=== PATIENT | female | born 1990 | race Caucasian/White ===

== ENCOUNTER → 2022-02-17 | Outpatient (CLI) | payer OTHER ==
--- NOTE | 2022-02-17 14:04 | Diagnostic Imaging Report ---
PROCEDURE: Pelvic comp/transvaginal sonogram. TECHNIQUE: Complete transabdominal and transvaginal pelvic ultrasound was performed. In addition, limited pelvic Doppler was performed. INDICATION: Vaginal bleeding. Uterus measures 9.0 x 5.6 x 5.0 cm. Endometrium is 6 cm in thickness. There appears to be a fibroid in the region of the uterine fundus approximately 14 mm in size. There is a large cervical nabothian cyst approximately 16 mm in size. There is a questionable mass with cystic component and anterior cervix measuring 2.4 x 1.6 cm. A 2nd area of questionable mass in the cervix is noted measuring 1.8 x 1.67 m. Right ovary measures 3.0 x 1.8 x 1.9 cm and left ovary measures 2.5 x 2.2 x 1.8 cm. Ovaries contain small follicles. There is blood flow to the ovaries. IMPRESSION: 1. Small uterine fibroid. 2. Questionable masses in the right in the cervix, as described. Direct visualization would be recommended. No other significant abnormality is detected. Dictated by: Dictated on workstation # [id number]
== END ==
LOC: RAD FS 12:39
PROVIDERS: ATTEND Nurse Practitioner Family
DX: D25.9 Leiomyoma of uterus, unspecified (principal)
CPT/HCPCS: 76830; 76856

== ENCOUNTER → 2022-03-04 | Outpatient (CLI) | payer OTHER ==
[~2022-03-04] MED LIST: CATHETER FLUSH 10 ML SYR IV PRN; HOLD METFORMIN - RECEIVED CONTRAST 20 ML VIAL IV SCH; IOHEXOL 350 MG/ML 100 ML (OMNIPAQUE 350) VIAL IV ONE; NS (IVPB) 100 ML INJ ONE; NS 100 ML (IVPB) BAG IV ONE
--- NOTE | 2022-03-04 09:47 | Diagnostic Imaging Report ---
CLINICAL INDICATION: Followup cervical mass. Patient has history of tubal ligation. EXAM: Axial CT scan of the pelvis performed with 80 mL of Omnipaque 350 IV contrast. Sagittal and coronal reformatted images are created. Auto Exposure Controls were utilized during the CT exam to meet ALARA standards for radiation dose reduction. COMPARISON: Ultrasound of the pelvis dated 02/17/2022. FINDINGS: There is a heterogeneous enhancing mass like area in the region of the cervix which extends into the lower uterine segment and along the right side toward the fundus. This mass measures at least 5.1 cm x 6.1 cm x 8.3 cm (AP x Trans x CC) . This mass has small areas of air within it. There is a lobulated low T1 signal involving the right side of the uterus and this may possibly represent right ovary and/or component of the mass. Left adnexal region shows no significant abnormality. There is a small amount of fluid within the uterine fundus. There is a 1.8 cm x 0.9 cm lymph node along the proximal right external iliac chain. There is no other enlarged lymph nodes seen. Visualized portions appendix is unremarkable. Limited visualization of small bowel and colon are unremarkable. The bladder has small amount of fluid within it with bladder wall thickening which is nonspecific. IMPRESSION: 1: There is an 8.3 cm heterogeneous enhancing mass which appears centered in the cervix and extends within the lower uterine segment and along the right lower uterine fundus region. This finding is concerning for neoplasm. Gynecological consultation is suggested. 2: There is an enlarged lymph node in the proximal right external iliac chain. 3: The right ovary is not definitively visualized and may be closely adjacent to the right side of the uterus. Dictated by: Dictated on workstation # [id number]
== END ==
LOC: RAD FS 08:53
PROVIDERS: ATTEND Nurse Practitioner Family
DX: N88.8 Other specified noninflammatory disorders of cervix uteri (principal); N89.8 Other specified noninflammatory disorders of vagina; N93.9 Abnormal uterine and vaginal bleeding, unspecified; R59.0 Localized enlarged lymph nodes
CPT/HCPCS: 72193; Q9967

== ENCOUNTER 2022-03-19 07:16 | Emergency (ER) | payer SELFPAY ==
[~2022-03-19] VITALS: Ht 160 cm; Wt 81.6 kg
[2022-03-19] MEDS ORDERED: LORazepam 0.5 MG (ATIVAN) TABLET PO STA (07:23)
--- NOTE | 2022-03-19 07:28 | ED Chest Pain ---
General Stated Complaint: POSSIBLE ALLERGIC REACTION, CHEST TIGHTNESS Source: patient Exam Limitations: no limitations History of Present Illness Date Seen by Provider: Mar 19, 2022 Time Seen by Provider: 07:18 Initial Comments 31-year-old female with no pertinent past medical history that is undergoing work-up for localized cervical cancer coming in due to right-sided chest tightness. She takes tramadol daily and has been for some time, but recently was prescribed gabapentin. She took her first dose of her at 6:15 AM this morning. She immediately started feeling some chest tightness on her right side, and was concerned that she was having an allergic reaction. She states she has similar reactions to morphine and codeine which she is allergic to. Denies any shortness of breath, cough, fever, chills, wheezing, rash, nausea, vomiting, diarrhea, or any other concerns. Denies any prior history of DVT or PE, no recent surgery in which she was under general anesthesia, no recent long travel, does not take any hormones, no hemoptysis, no lower extremity swelling or pain. She also denies any cardiac or pulmonary history personally. She smokes a pack of cigarettes over the course of roughly 10 days. Allergies and Home Medications Allergies Coded Allergies: codeine (Verified Allergy, Mild, chest tightness, 03/19/22) morphine (Verified Allergy, Mild, chest tightness, 03/19/22) Patient Home Medication List Home Medication List Reviewed: Yes Review of Systems Review of Systems Constitutional: No fever EENTM: No Symptoms Reported Respiratory: No Symptoms Reported Cardiovascular: See HPI Gastrointestinal: No Symptoms Reported Genitourinary: No Symptoms Reported Musculoskeletal: no symptoms reported Skin: no symptoms reported Psychiatric/Neurological: No Symptoms Reported Endocrine: No Symptoms Reported Hematologic/Lymphatic: No Symptoms Reported All Other Systems Reviewed Negative Unless Noted: Yes Past Rmbxwlb-Ugrzvx-Tfzoqb Hx Patient Social History Tobacco Use?: Yes Tobacco type used: Cigarettes Substance use?: No Substance type: Methamphetamine (last smoked methamphetamines roughly 10/2021) Alcohol Use?: No Past Medical History Surgeries: Yes Gallbladder, Tubal Ligation Reproductive Disorders: No Physical Exam Vital Signs Vital Signs - First Documented 03/19/22 07:22 Temp 36.5 Pulse 88 Resp 20 B/P (MAP) 140/84 (102) Pulse Ox 99 O2 Delivery Room Air Capillary Refill : Height, Weight, BMI Height: '" Weight: lbs. oz. kg; BMI Method: General Appearance: No Apparent Distress, WD/WN HEENT: PERRL/EOMI, Normal ENT Inspection, Pharynx Normal Neck: Full Range of Motion, Normal Inspection, Non Tender, Supple Respiratory: Chest Non Tender, Lungs Clear, Normal Breath Sounds, No Accessory Muscle Use, No Respiratory Distress Cardiovascular: Regular Rate, Rhythm, No Edema, Normal Peripheral Pulses Gastrointestinal: Normal Bowel Sounds, Non Tender, Soft; No Distended, No Guarding Extremity: Normal Capillary Refill, Normal Inspection, Normal Range of Motion, Non Tender, No Calf Tenderness, No Pedal Edema Neurologic/Psychiatric: Alert, No Motor/Sensory Deficits, Normal Mood/Affect Skin: Normal Color, Warm/Dry Lymphatic: No Adenopathy Progress/Results/Core Measures Results/Orders Lab Results Laboratory Tests Test 03/19/22 07:29 Range/Units White Blood Count 6.3 4.3-11.0 10^3/uL Red Blood Count 4.66 3.80-5.11 10^6/uL Hemoglobin 11.8 11.5-16.0 g/dL Hematocrit 36 35-52 % Mean Corpuscular Volume 77 L 80-99 fL Mean Corpuscular Hemoglobin 25 25-34 pg Mean Corpuscular Hemoglobin Concent 33 32-36 g/dL Red Cell Distribution Width 13.7 10.0-14.5 % Platelet Count 250 130-400 10^3/uL Mean Platelet Volume 11.6 9.0-12.2 fL Immature Granulocyte % (Auto) 0 % Neutrophils (%) (Auto) 58 42-75 % Lymphocytes (%) (Auto) 29 12-44 % Monocytes (%) (Auto) 11 0-12 % Eosinophils (%) (Auto) 1 0-10 % Basophils (%) (Auto) 0 0-10 % Neutrophils # (Auto) 3.7 1.8-7.8 10^3/uL Lymphocytes # (Auto) 1.9 1.0-4.0 10^3/uL Monocytes # (Auto) 0.7 0.0-1.0 10^3/uL Eosinophils # (Auto) 0.1 0.0-0.3 10^3/uL Basophils # (Auto) 0.0 0.0-0.1 10^3/uL Immature Granulocyte # (Auto) 0.0 0.0-0.1 10^3/uL Prothrombin Time 13.3 12.2-14.7 SEC INR Comment 1.0 0.8-1.4 Activated Partial Thromboplast Time 30 24-35 SEC Sodium Level 139 135-145 MMOL/L Potassium Level 3.7 3.6-5.0 MMOL/L Chloride Level 103 98-107 MMOL/L Carbon Dioxide Level 25 21-32 MMOL/L Anion Gap 11 5-14 MMOL/L Blood Urea Nitrogen 10 7-18 MG/DL Creatinine 0.78 0.60-1.30 MG/DL Estimat Glomerular Filtration Rate 103 BUN/Creatinine Ratio 13 Glucose Level 84 70-105 MG/DL Calcium Level 9.6 8.5-10.1 MG/DL Corrected Calcium 9.5 8.5-10.1 MG/DL Magnesium Level 1.8 1.6-2.4 MG/DL Total Bilirubin 0.2 0.1-1.0 MG/DL Aspartate Amino Transf (AST/SGOT) 30 5-34 U/L Alanine Aminotransferase (ALT/SGPT) 37 0-55 U/L Alkaline Phosphatase 127 40-136 U/L Troponin I < 0.30 <0.30 NG/ML Total Protein 7.3 6.4-8.2 GM/DL Albumin 4.1 3.2-4.5 GM/DL Lipase 20 8-78 U/L My Orders Orders - SURJIT NEWBERRY MD Cbc With Automated Diff (03/19/22 07:23) Magnesium (03/19/22 07:23) Chest 1 View Ap/Pa Only (03/19/22 07:23) Ekg Tracing (03/19/22 07:23) Comprehensive Metabolic Panel (03/19/22 07:23) Protime With Inr (03/19/22 07:23) Partial Thromboplastin Time (03/19/22 07:23) O2 (03/19/22 07:23) Monitor-Rhythm Ecg Trace Only (03/19/22 07:23) Ed Iv/Invasive Line Start (03/19/22 07:23) Lipase (03/19/22 07:23) Troponin I Fs (03/19/22 07:23) Probnp Fs (03/19/22 07:23) Lorazepam Tablet (Ativan Tablet) (03/19/22 07:23) Vital Signs/I&O 03/19/22 07:22 Temp 36.5 Pulse 88 Resp 20 B/P (MAP) 140/84 (102) Pulse Ox 99 O2 Delivery Room Air Progress Progress Note : Progress Note 31-year-old female presenting due to chest tightness after taking some gabapentin. ABCs were intact and vitals are stable on presentation. Physical exam reassuring, specifically she is not showing any signs of any type of allergic reaction. Her skin is clear with no urticaria, lungs clear with no wheezing, no vomiting, and overall no signs of anaphylaxis. Given she has only ever taken gabapentin just this one time, it's very unlikely that this is allergic in nature. An IV was placed and basic labs were obtained including cardiac biomarkers. It is possible this is an unwanted side effect. In regards to her chest tightness in general, EKG on my interpretation with no ischemic changes and troponin is negative. Given her age and lack of risk factors, highly unlikely this is ACS related. She is otherwise low risk for PE of the [place] criteria, and is PERC negative making PE extremely unlikely. CTA chest considered, but not ordered given the unlikeliness. Chest x-ray ordered and interpreted by me showing no pneumonia, no pneumothorax, normal cardiac silhouette. 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 I believe she is otherwise stable for discharge with outpatient follow-up. She was sent home with strict return precautions. Initial ECG Impression Date: Mar 19, 2022 Initial ECG Impression Time: 07:27 Initial ECG Rate: 84 Initial ECG Rhythm: Normal Sinus Comment Narrow QRS, normal axis, no significant ST changes or T wave abnormalities Diagnostic Imaging Diagonstic Imaging: Xray (chest) Comments NAME: SHELLEY JUDD MED REC#: [id number] PT STATUS: REG ER : 1990 PHYSICIAN: SURJIT NEWBERRY MD ADMIT DATE: 03/19/22/ER FS Draft Date of Exam:03/19/22 CHEST 1 VIEW AP/PA ONLY INDICATION: Chest tightness and dyspnea, possible allergic reaction. COMPARISON: None. DISCUSSION: Single portable upright view of the chest was obtained. Normal heart size. No consolidation, pleural fluid, or pneumothorax. No osseous abnormality. IMPRESSION: 1. Negative chest. Dictated on workstation # [id number] Dict: 03/19/22 0756 Trans: 03/19/22 0758 [facility] [id number] Interpreted by: YOLANDA RAGLAND MD Electronically signed by: Departure Impression Primary Impression: Chest tightness Additional Impression: At risk for side effect of medication Disposition: HOME, SELF-CARE Condition: Stable Departure-Patient Inst. Decision time for Depature: 08:15 Referrals: EVE MILLER APRN (PCP/Family) Primary Care Physician Patient Instructions: Chest Pain, Adult ED Add. Discharge Instructions: This does not seem like an allergic reaction, although it is possible it was an unwanted side effect of the gabapentin. It also does not appear like you are having anything more life-threatening such as a heart attack or blood clot. Your work-up including labs and imaging looks normal. I would follow back up with your regular doctor to see if they would want you to continue the gabapentin before you take any more. Work/School Note: Work Release Form Date Seen in the Emergency Department: Mar 19, 2022 Return to Work: Mar 20, 2022 Restrictions: No Restrictions SURJIT NEWBERRY MD Mar 19, 2022 07:28
[2022-03-19 07:31] LABS: BASOPHILS % (AUTO) 0 % (0-10); EOSINOPHILS # (AUTO) 0.1 10^3/uL (0.0-0.3); EOSINOPHILS % (AUTO) 1 % (0-10); HEMATOCRIT 36 % (35-52); HEMOGLOBIN 11.8 g/dL (11.5-16.0); LYMPHOCYTES # (AUTO) 1.9 10^3/uL (1.0-4.0); LYMPHOCYTES % (AUTO) 29 % (12-44); MEAN CORPUSCULAR HEMOGLOBIN 25 pg (25-34); MEAN CORPUSCULAR HGB CONC 33 g/dL (32-36); MEAN CORPUSCULAR VOLUME 77 fL (80-99); MEAN PLATELET VOLUME 11.6 fL (9.0-12.2); MONOCYTES # (AUTO) 0.7 10^3/uL (0.0-1.0); MONOCYTES % (AUTO) 11 % (0-12); NEUTROPHILS # (AUTO) 3.7 10^3/uL (1.8-7.8); NEUTROPHILS % (AUTO) 58 % (42-75); PLATELET COUNT 250 10^3/uL (130-400); WHITE BLOOD COUNT 6.3 10^3/uL (4.3-11.0)
[2022-03-19 07:54] LABS: ALBUMIN 4.1 GM/DL (3.2-4.5); BILIRUBIN,TOTAL 0.2 MG/DL (0.1-1.0); CALCIUM 9.6 MG/DL (8.5-10.1); CREATININE SERUM 0.78 MG/DL (0.60-1.30); MAGNESIUM 1.8 MG/DL (1.6-2.4); POTASSIUM 3.7 MMOL/L (3.6-5.0); PROTHROMBIN TIME PATIENT 13.3 SEC (12.2-14.7); TOTAL PROTEIN 7.3 GM/DL (6.4-8.2)
--- NOTE | 2022-03-19 07:58 | Diagnostic Imaging Report ---
INDICATION: Chest tightness and dyspnea, possible allergic reaction. COMPARISON: None. DISCUSSION: Single portable upright view of the chest was obtained. Normal heart size. No consolidation, pleural fluid, or pneumothorax. No osseous abnormality. IMPRESSION: 1. Negative chest. Dictated by: Dictated on workstation # [id number]
[2022-03-19 08:03] VITALS: BP 123/77
== END 2022-03-19 08:04 | disposition home or self-care (01) ==
LOC: EDUNIT# 07:16 → ER FS 07:19
DX: R07.89 Other chest pain (principal); T42.6X5A Adverse effect of other antiepileptic and sedative-hypnotic drugs, initial encounter; F17.210 Nicotine dependence, cigarettes, uncomplicated
CPT/HCPCS: 36415; 71045; 80053; 83690; 83735; 83880; 84484; 85025; 85610; 85730; 93005

== ENCOUNTER → 2022-04-19 | Outpatient (CLI) | payer MEDICAID ==
[~2022-04-19] MED LIST changes: -CATHETER FLUSH 10 ML SYR IV PRN; +CEFD300C3 PO; +GADOTERATE 0.5 MMOL/ML (CLARISCAN) 20 ML VIAL IV ONE; -HOLD METFORMIN - RECEIVED CONTRAST 20 ML VIAL IV SCH; -IOHEXOL 350 MG/ML 100 ML (OMNIPAQUE 350) VIAL IV ONE; -NS (IVPB) 100 ML INJ ONE; -NS 100 ML (IVPB) BAG IV ONE
--- NOTE | 2022-04-19 15:41 | Diagnostic Imaging Report ---
PROCEDURE: MRI pelvis with and without contrast. TECHNIQUE: Multiplanar, multisequence MRI of the pelvis was performed with and without contrast. INDICATION: Cervical cancer. COMPARISON: None available. FINDINGS: There is a 7.4 x 6.5 x 6.5 cm mass centered in the cervix. There is central necrosis. There is invasion into the lower uterine segment. The tumor involves the upper one/third of the vagina and there is invasion through the stromal ring of the cervix with soft tissue seen in the parametrium bilaterally. There is no involvement of the lower one/third of the vagina. No involvement of the pelvic floor. There is no hydronephrosis. There is a preserved fat plane between the mass and the bladder. No involvement of the urethra. There is a preserved fat plane with the rectum with no invasion of the rectum. There is a hemorrhagic cyst in the left ovary. There is an enlarged 1.0 cm right internal iliac lymph node. There is an enlarged 1.0 cm left pelvic sidewall lymph node. No osseus lesions are seen. IMPRESSION: 1. Large cervical mass measuring 7.4 x 6.5 x 6.5 cm. 2. The mass invades the lower uterine segment, upper one/third of the vagina, and extends into the parametrium bilaterally. There is no involvement of the lower one/third of the vagina. 3. Enlarged right internal iliac lymph node and left pelvic sidewall lymph nodes. Dictated by: Dictated on workstation # [id number]
== END ==
LOC: RAD 08:37
PROVIDERS: ATTEND Obstetrics & Gynecology
DX: N88.8 Other specified noninflammatory disorders of cervix uteri (principal); C53.9 Malignant neoplasm of cervix uteri, unspecified; R59.9 Enlarged lymph nodes, unspecified
CPT/HCPCS: 72197

== ENCOUNTER 2022-04-21 01:58 | Emergency (ER) | payer MEDICAID ==
[2022-04-21 02:08] VITALS: BP 129/72
[2022-04-21] MEDS ORDERED: LACTATED RINGERS 1,000 ML IV STA ×2 (02:12→03:00)
--- NOTE | 2022-04-21 02:18 | ED GU-Female ---
General Stated Complaint: UNABLE TO URINATE Source: patient, old records Exam Limitations: no limitations History of Present Illness Date Seen by Provider: Apr 21, 2022 Time Seen by Provider: 02:06 Initial Comments 31yoF with PMH of cervical cancer (has not started treatment yet, is in local lymph nodes) and hypertension coming in due to difficulty urination. She states she has not urinated a significant amount in roughly 18 hours. She has had small amounts intermittently, with burning and pain. Has noticed some blood as well. Also states she has been intermittently on her period. Denies any fever, flank pain, history of kidney stones, nausea, vomiting, diarrhea, focal weakness or numbness, vaginal discharge, or any other concerns. She is on Flomax and she is unsure why. Allergies and Home Medications Allergies Coded Allergies: codeine (Verified Allergy, Mild, chest tightness, 03/19/22) morphine (Verified Allergy, Mild, chest tightness, 03/19/22) gabapentin (Verified Allergy, Unknown, 04/21/22) Patient Home Medication List Home Medication List Reviewed: Yes Review of Systems Review of Systems Constitutional: No fever EENTM: no symptoms reported Respiratory: no symptoms reported Cardiovascular: no symptoms reported Gastrointestinal: no symptoms reported Genitourinary: see HPI Musculoskeletal: no symptoms reported Skin: no symptoms reported Psychiatric/Neurological: No Symptoms Reported Endocrine: No Symptoms Reported Past Qqjnjyw-Vtnmua-Krosnz Hx Patient Social History Substance use?: No Past Medical History Surgeries: Yes Gallbladder, Tubal Ligation Reproductive Disorders: No Physical Exam Vital Signs Vital Signs - First Documented 04/21/22 02:08 Temp 36.9 Pulse 99 Resp 18 B/P (MAP) 129/72 (91) Capillary Refill : Height, Weight, BMI Height: '" Weight: lbs. oz. kg; 31.00 BMI Method: General Appearance: WD/WN, no apparent distress HEENT: PERRL/EOMI, normal ENT inspection, pharynx normal Neck: non-tender, full range of motion, supple, normal inspection Cardiovascular: regular rate, rhythm, no edema, no murmur Respiratory: chest non-tender, lungs clear, normal breath sounds, no respiratory distress, no accessory muscle use Gastrointestinal: normal bowel sounds, non tender, soft; No distended, No guard ing, No rebound Back: normal inspection, no CVA tenderness Extremities: normal range of motion, non-tender, normal inspection, no pedal edema, no calf tenderness, normal capillary refill Neurologic/Psychiatric: no motor/sensory deficits, alert, normal mood/affect Skin: normal color, warm/dry Progress/Results/Core Measures Suspected Sepsis SIRS Temperature: Pulse: Respiratory Rate: Laboratory Tests 04/21/22 02:20: White Blood Count 7.2 Blood Pressure / Mean: Laboratory Tests 04/21/22 02:20: Creatinine 0.66, INR Comment 1.0, Platelet Count 293, Total Bilirubin 0.3 Results/Orders Lab Results Laboratory Tests Test 04/21/22 02:20 04/21/22 03:15 Range/Units White Blood Count 7.2 4.3-11.0 10^3/uL Red Blood Count 4.39 3.80-5.11 10^6/uL Hemoglobin 11.1 L 11.5-16.0 g/dL Hematocrit 34 L 35-52 % Mean Corpuscular Volume 77 L 80-99 fL Mean Corpuscular Hemoglobin 25 25-34 pg Mean Corpuscular Hemoglobin Concent 33 32-36 g/dL Red Cell Distribution Width 13.1 10.0-14.5 % Platelet Count 293 130-400 10^3/uL Mean Platelet Volume 11.7 9.0-12.2 fL Immature Granulocyte % (Auto) 0 % Neutrophils (%) (Auto) 68 42-75 % Lymphocytes (%) (Auto) 20 12-44 % Monocytes (%) (Auto) 10 0-12 % Eosinophils (%) (Auto) 2 0-10 % Basophils (%) (Auto) 0 0-10 % Neutrophils # (Auto) 4.9 1.8-7.8 10^3/uL Lymphocytes # (Auto) 1.4 1.0-4.0 10^3/uL Monocytes # (Auto) 0.7 0.0-1.0 10^3/uL Eosinophils # (Auto) 0.1 0.0-0.3 10^3/uL Basophils # (Auto) 0.0 0.0-0.1 10^3/uL Immature Granulocyte # (Auto) 0.0 0.0-0.1 10^3/uL Prothrombin Time 13.2 12.2-14.7 SEC INR Comment 1.0 0.8-1.4 Activated Partial Thromboplast Time 30 24-35 SEC Sodium Level 139 135-145 MMOL/L Potassium Level 2.8 L 3.6-5.0 MMOL/L Chloride Level 101 98-107 MMOL/L Carbon Dioxide Level 25 21-32 MMOL/L Anion Gap 13 5-14 MMOL/L Blood Urea Nitrogen 7 7-18 MG/DL Creatinine 0.66 0.60-1.30 MG/DL Estimat Glomerular Filtration Rate 119 BUN/Creatinine Ratio 11 Glucose Level 100 70-105 MG/DL Calcium Level 9.2 8.5-10.1 MG/DL Corrected Calcium 9.4 8.5-10.1 MG/DL Total Bilirubin 0.3 0.1-1.0 MG/DL Aspartate Amino Transf (AST/SGOT) 12 5-34 U/L Alanine Aminotransferase (ALT/SGPT) 10 0-55 U/L Alkaline Phosphatase 93 40-136 U/L Total Protein 7.0 6.4-8.2 GM/DL Albumin 3.8 3.2-4.5 GM/DL Serum Test, Qualitative NEGATIVE NEGATIVE Urine Color YELLOW Urine Clarity CLEAR Urine pH 6.0 5-9 Urine Specific [place] 1.010 L 1.016-1.022 Urine Protein NEGATIVE NEGATIVE Urine Glucose (UA) NEGATIVE NEGATIVE Urine Ketones NEGATIVE NEGATIVE Urine Nitrite NEGATIVE NEGATIVE Urine Bilirubin NEGATIVE NEGATIVE Urine Urobilinogen 0.2 < = 1.0 MG/DL Urine Leukocyte Esterase NEGATIVE NEGATIVE Urine RBC (Auto) 1+ H NEGATIVE Urine RBC 0-2 /HPF Urine WBC 0-2 /HPF Urine Squamous Epithelial Cells 0-2 /HPF Urine Crystals NONE /LPF Urine Bacteria FEW H /HPF Urine Casts NONE /LPF Urine Mucus MODERATE H /LPF Urine Culture Indicated NO My Orders Orders - SRUJIT NEWBERRY MD Ua Culture If Indicated (04/21/22 02:08) Cbc With Automated Diff (04/21/22 02:12) Comprehensive Metabolic Panel (04/21/22 02:12) Protime With Inr (04/21/22 02:12) Partial Thromboplastin Time (04/21/22 02:12) Ed Iv/Invasive Line Start (04/21/22 02:12) Lactated Ringers (Lr 1000 Ml Iv Solution (04/21/22 02:12) Hcg,Qualitative Serum (04/21/22 02:12) Ct Abdomen/Pelvis Wo (04/21/22 02:12) Potassium Chloride (Tablet) (K Dur Table (04/21/22 03:00) Lactated Ringers (Lr 1000 Ml Iv Solution (04/21/22 03:00) Ceftriaxone 1 Gm Pre-Mix (Rocephin 1 Gm (04/21/22 03:45) Medications Given in ED Current Medications Medications Dose Ordered Sig/Raphael Route Start Time Stop Time Status Last Admin Dose Admin Ceftriaxone Sodium/Dextrose 50 ml @ 100 mls/hr ONCE ONCE IV 04/21/22 03:45 04/21/22 04:14 DC 04/21/22 03:38 100 MLS/HR Potassium Chloride 60 meq ONCE ONCE PO 04/21/22 03:00 04/21/22 03:04 DC 04/21/22 03:20 60 MEQ Vital Signs/I&O 04/21/22 02:08 Temp 36.9 Pulse 99 Resp 18 B/P (MAP) 129/72 (91) Capillary Refill : Progress Note : Progress Note 31-year-old female with above history coming in due to difficulty urinating. ABCs were intact and vitals were stable on presentation. Physical exam with a soft and nontender abdomen. I did a [id number] ultrasound and her bladder seemed decompressed. An IV was placed and she was given a bolus of IV fluids as well as basic labs were drawn. Her creatinine is normal. CT abdomen pelvis without contrast ordered to assess for potential kidney stone or other etiology of her blockage with hematuria. Later on, the patient stated that she does have a UTI, and has been on Keflex. She urinated a slight amount of urine, but there is blood in it, she is actively menstruating. Because of this an in and out cath was done in the urine does have bacteria in it despite being on Keflex. We will give her a dose of ceftriaxone here. Her potassium was also low which she received oral replacement. CT imaging via stat rad possible for cystitis but no other concerning acute findings. Patient improved significantly, urinating quite a bit after IV fluids here. She was then discharged home in stable condition with strict return precautions. Given that the Keflex does not seem to be working, prescription sent for cefdinir. Departure Impression Primary Impression: Cystitis Additional Impression: Hypokalemia Disposition: HOME, SELF-CARE Condition: Stable Departure-Patient Inst. Decision time for Depature: 04:37 Referrals: O'DELL[facility] (PCP) Primary Care Physician [facility] (Family) Primary Care Physician Patient Instructions: Acute Cystitis (DC), High Potassium Diet Add. Discharge Instructions: The antibiotic we gave you should help with the infection in your bladder. Thr ow out the antibiotic you have been taking and you will take a new one for the next week. Your kidney function is normal and your urine was yellow with a straight cath, we suspect it is mixing with the blood from potential menstruation. Please follow-up with your regular doctor. Your potassium was also low which we gave you oral potassium. Try to eat potassium rich foods for the next several days. Scripts Cefdinir (Cefdinir) 300 Mg Capsule 300 MG PO BID for 7 Days, #14 CAP Prov: SURJIT NEWBERRY MD 04/21/22 Work/School Note: Work Release Form Date Seen in the Emergency Department: Apr 21, 2022 Return to Work: Apr 22, 2022 Restrictions: No Restrictions SURJIT NEWBERRY MD Apr 21, 2022 02:18
[2022-04-21 02:26] LABS: BASOPHILS % (AUTO) 0 % (0-10); EOSINOPHILS # (AUTO) 0.1 10^3/uL (0.0-0.3); EOSINOPHILS % (AUTO) 2 % (0-10); HEMATOCRIT 34 % (35-52); HEMOGLOBIN 11.1 g/dL (11.5-16.0); LYMPHOCYTES # (AUTO) 1.4 10^3/uL (1.0-4.0); LYMPHOCYTES % (AUTO) 20 % (12-44); MEAN CORPUSCULAR HEMOGLOBIN 25 pg (25-34); MEAN CORPUSCULAR HGB CONC 33 g/dL (32-36); MEAN CORPUSCULAR VOLUME 77 fL (80-99); MEAN PLATELET VOLUME 11.7 fL (9.0-12.2); MONOCYTES # (AUTO) 0.7 10^3/uL (0.0-1.0); MONOCYTES % (AUTO) 10 % (0-12); NEUTROPHILS # (AUTO) 4.9 10^3/uL (1.8-7.8); NEUTROPHILS % (AUTO) 68 % (42-75); PLATELET COUNT 293 10^3/uL (130-400); WHITE BLOOD COUNT 7.2 10^3/uL (4.3-11.0)
[2022-04-21 02:52] LABS: PROTHROMBIN TIME PATIENT 13.2 SEC (12.2-14.7)
[2022-04-21 02:54] LABS: BILIRUBIN,TOTAL 0.3 MG/DL (0.1-1.0); CALCIUM 9.2 MG/DL (8.5-10.1); CREATININE SERUM 0.66 MG/DL (0.60-1.30); POTASSIUM 2.8 MMOL/L (3.6-5.0)
[2022-04-21 02:55] LABS: ALBUMIN 3.8 GM/DL (3.2-4.5)
[2022-04-21] MEDS ORDERED: KCL 20 MEQ TAB (K-DUR) PO ONE (03:00)
[2022-04-21 03:23] LABS: BILIRUBIN,URINE NEGATIVE (NEGATIVE); CLARITY,URINE CLEAR; COLOR,URINE YELLOW; GLUCOSE, URINE (UA) NEGATIVE (NEGATIVE); KETONES,URINE NEGATIVE (NEGATIVE); LEUKOCYTE ESTERASE ,URINE NEGATIVE (NEGATIVE); NITRITE,URINE NEGATIVE (NEGATIVE); PROTEIN,URINE NEGATIVE (NEGATIVE)
[2022-04-21 03:30] LABS: RBC,URINE 0-2 /HPF; WBC,URINE 0-2 /HPF
[2022-04-21 03:31] LABS: BACTERIA,URINE FEW /HPF; SQUAMOUS EPITHELIAL CELL,UR 0-2 /HPF
[2022-04-21] MEDS ORDERED: cefTRIAXone 1 GM PRE-MIX 50 ML IV ONE (03:45)
[2022-04-21] MEDS ORDERED: CEFD300C3 PO (04:36)
--- NOTE | 2022-04-21 06:14 | Diagnostic Imaging Report ---
PROCEDURE: CT abdomen and pelvis without contrast. TECHNIQUE: Multiple contiguous axial images were obtained through the abdomen and pelvis without the use of intravenous contrast. Auto Exposure Controls were utilized during the CT exam to meet ALARA standards for radiation dose reduction. INDICATION: Lower abdominal pain with hematuria. FINDINGS: Lung bases are clear. Liver appears normal. Gallbladder surgically absent. The common duct is dilated. The intrahepatic biliary radicles are not appreciably dilated. This may be reservoir effect from the cholecystectomy. Pancreas appears normal. Spleen is not enlarged. Adrenals appear normal. Kidneys appear normal. Small bowel is not dilated. There is no evidence of appendicitis. Colon is unremarkable. Urinary bladder is decompressed. There appears to be necrotic mass in the cervix with paracervical soft tissue stranding. There is a left ovarian cyst. IMPRESSION: Enlarged cervix measuring 8 cm in diameter with what appears to be central necrosis. This mass has increased in size compared to exam dated 03/04/2022. I agree with preliminary interpretation. Dictated by: Dictated on workstation # [id number]
== END 2022-04-21 04:45 | disposition home or self-care (01) ==
LOC: EDUNIT# 01:58 → ER FS 01:59
DX: N30.90 Cystitis, unspecified without hematuria (principal); E87.6 Hypokalemia; Z28.310 Unvaccinated for COVID-19
CPT/HCPCS: 36415; 74176; 80053; 81000; 84703; 85025; 85610; 85730

== ENCOUNTER → 2022-04-25 | Outpatient (CLI) | payer MEDICAID ==
[~2022-04-25] MED LIST changes: +CATHETER FLUSH 10 ML SYR IVP PRN; -GADOTERATE 0.5 MMOL/ML (CLARISCAN) 20 ML VIAL IV ONE
--- NOTE | 2022-04-27 09:17 | Diagnostic Imaging Report ---
Indication: Malignant neoplasm of cervix and uterus, initial staging. Serum blood glucose level at the time of injection is 86 g/dL. Patient was administered 10.5 mCi F-18 FDG intravenously in left antecubital location and PET imaging was performed from the top of skull to mid thighs. No prior PET studies are available for comparison. There is symmetric activity throughout the brain. Soft tissues of the neck are unremarkable. No mediastinal or hilar hypermetabolism is identified. No pulmonary parenchymal hypermetabolism is identified. There is physiologic activity throughout the gastrointestinal and genitourinary tract of the abdomen and pelvis. There is a large hypermetabolic mass in the midline of the pelvis which appears to involve the cervix and a portion of the uterus. SUV max measures approximately 29. In addition, there is a hypermetabolic obturator lymph node on the right with an SUV max of 13. There is a hypermetabolic lymph node in the left pelvis as well in the obturator region with an SUV max of 7. No other hypermetabolic foci are identified. IMPRESSION: Hypermetabolic mass centered in the region of the cervix and uterus consistent with neoplasm. There are hypermetabolic right and left pelvic lymph nodes which are likely metastatic. No other suspicious hypermetabolic foci are seen. Dictated by: Dictated on workstation # [id number]
== END ==
LOC: RAD 09:12
PROVIDERS: ATTEND Obstetrics & Gynecology
DX: C53.9 Malignant neoplasm of cervix uteri, unspecified (principal); R59.0 Localized enlarged lymph nodes
CPT/HCPCS: 78815; A9552; 82947

== ENCOUNTER 2022-05-04 22:45 | Emergency (ER) | payer MEDICAID ==
[~2022-05-04] VITALS: Ht 160 cm; Wt 79.8 kg
[~2022-05-04 22:45] MED LIST changes: -CATHETER FLUSH 10 ML SYR IVP PRN
[2022-05-04 22:50] VITALS: BP 122/83
[2022-05-04] MEDS ORDERED: fentaNYL INJ 100 MCG/2 ML AMP IM ONE (23:00)
--- NOTE | 2022-05-04 23:01 | ED GU-Female ---
General Stated Complaint: ABD PAIN Source: patient Exam Limitations: no limitations History of Present Illness Date Seen by Provider: May 04, 2022 Time Seen by Provider: 22:50 Initial Comments 31-year-old female presents to the emergency department today for pelvic pain. She states in February she was diagnosed with cervical cancer. She is getting ready to start radiation treatment but treatment was delayed because she was in correction. She is supposed to start next week. She has subsequent chemotherapy per her report. She sees Dr. Calles in [place]. She states she ran out of tramadol and is requesting pain control. She is unable to take Tylenol containing products because her liver enzymes were elevated. She denies any fevers or chills. Her pelvic pain is dull throbbing without radiation. It is the same pain she has been experiencing throughout her care once the cervical cancer was identified. She has had a tubal ligation. She has also had her gallbladder removed. She did have a urinary tract infection "a couple weeks ago" when she was here. She had been taking Keflex previously and was changed to Cefdinir at that time. All other systems reviewed and negative except documented per HPI. Voice recognition software was used to help create this chart Allergies and Home Medications Allergies Coded Allergies: codeine (Verified Allergy, Mild, chest tightness, 03/19/22) morphine (Verified Allergy, Mild, chest tightness, 03/19/22) gabapentin (Verified Allergy, Unknown, 04/21/22) Patient Home Medication List Home Medication List Reviewed: Yes Cefdinir (Cefdinir) 300 Mg Capsule, 300 MG PO BID Prescribed by: SURJIT NEWBERRY on 04/21/22 0436 Tramadol HCl (Tramadol HCl) 50 Mg Tablet, 50 MG PO Q4H PRN for PAIN Prescribed by: YUVAL ELIAS MD on 05/04/22 8917 Review of Systems Review of Systems Constitutional: no symptoms reported Past Uveyqtr-Wfrxch-Orpqvi Hx Patient Social History Tobacco Use?: Yes Tobacco type used: Cigarettes Use of E-Cig and/or Vaping dev: No Substance use?: No Alcohol Use?: No Past Medical History Surgeries: Yes Gallbladder, Tubal Ligation Reproductive Disorders: No Family Medical History Reviewed Nursing Family Hx No Pertinent Family Hx Physical Exam Vital Signs Capillary Refill : Height, Weight, BMI Height: '" Weight: lbs. oz. kg; 31.00 BMI Method: General Appearance: WD/WN, no apparent distress HEENT: normal ENT inspection, pharynx normal Neck: full range of motion, normal inspection Cardiovascular: regular rate, rhythm, no murmur Respiratory: chest non-tender, normal breath sounds, no accessory muscle use Gastrointestinal: normal bowel sounds, soft, no organomegaly, other (Tenderness palpation of the suprapubic region. Voluntary guarding. No rebound tenderness. No abdominal tenderness) Neurologic/Psychiatric: alert, normal mood/affect, oriented x 3 Skin: normal color, warm/dry Progress/Results/Core Measures Suspected Sepsis SIRS Temperature: Pulse: Respiratory Rate: Blood Pressure / Mean: Results/Orders Lab Results Laboratory Tests Test 05/04/22 22:52 Range/Units My Orders Orders - YUVAL ELIAS DO Ua Culture If Indicated (05/04/22 22:52) Fentanyl Inj (Sublimaze Injection) (05/04/22 23:00) Rx-Tramadol Hcl (Rx-Ultram) (05/04/22 23:00) Medications Given in ED Current Medications Medications Dose Ordered Sig/Raphael Route Start Time Stop Time Status Last Admin Dose Admin Fentanyl Citrate 75 mcg ONCE ONCE IM 05/04/22 23:00 05/04/22 23:01 DC 05/04/22 23:03 75 MCG Vital Signs/I&O Capillary Refill : Departure Impression Primary Impression: Cervical cancer Qualified Codes: C53.9 - Malignant neoplasm of cervix uteri, unspecified Additional Impression: Pelvic pain Disposition: 01 HOME, SELF-CARE Condition: Stable Departure-Patient Inst. Referrals: LINDSAY CORTES MD (PCP/Family) Primary Care Physician Patient Instructions: Cervical Cancer, Pelvic Pain (DC) Add. Discharge Instructions: Continue to take tramadol as needed for pain. Follow-up with your primary doctor for any further refills. Return to the emergency department for any severe concerns Scripts Tramadol HCl (Tramadol HCl) 50 Mg Tablet 50 MG PO Q4H PRN for PAIN for 10 Days, #40 TAB Prov: YUVAL ELIAS DO 05/04/22 YUVAL ELIAS DO May 04, 2022 23:01
[2022-05-04 23:02] LABS: BILIRUBIN,URINE NEGATIVE (NEGATIVE); CLARITY,URINE SL CLOUDY; COLOR,URINE YELLOW; GLUCOSE, URINE (UA) NEGATIVE (NEGATIVE); KETONES,URINE NEGATIVE (NEGATIVE); LEUKOCYTE ESTERASE ,URINE 1+ (NEGATIVE); NITRITE,URINE NEGATIVE (NEGATIVE); PROTEIN,URINE NEGATIVE (NEGATIVE)
[2022-05-04] MEDS ORDERED: TRM50T PO (23:04)
[2022-05-04 23:16] LABS: BACTERIA,URINE FEW /HPF; RENAL EPITHELIAL CELLS,URINE RARE /HPF
== END 2022-05-04 23:42 | disposition home or self-care (01) ==
LOC: EDUNIT# 22:45 → ER FS 22:46
DX: C53.9 Malignant neoplasm of cervix uteri, unspecified (principal); F17.210 Nicotine dependence, cigarettes, uncomplicated; Z28.310 Unvaccinated for COVID-19; Z90.49 Acquired absence of other specified parts of digestive tract
CPT/HCPCS: 81000; 87088; 99284

== ENCOUNTER 2022-05-10 17:24 | Emergency (ER) | payer MEDICAID ==
[~2022-05-10] VITALS: Ht 162 cm; Wt 73.4 kg
[~2022-05-10 17:24] MED LIST changes: +TRM50T PO
--- NOTE | 2022-05-10 17:30 | ED Abdominal Pain ---
General Chief Complaint: Abdominal/GI Problems Stated Complaint: CERVICAL CANCER, ALOT OF PAIN IN ABDOMEN Source of Information: Patient History of Present Illness Date Seen by Provider: May 10, 2022 Time Seen by Provider: 17:30 Initial Comments 31-year-old female presenting with complaints of increased pelvic pain. She has cervical cancer and does have pain in the area. She states that she does have some chronic pain in the pelvis area that feels similar to this but has not been this severe previously. She has not had trouble trying to control it like this. She is scheduled to see the radiation oncologist tomorrow to discuss starting treatment. The [facility] clinic head advised her to check about pain control with the oncology doctors as well. They currently are prescribing her tramadol for her. She denies having pain or burning with urination. She has no acute fever, vomiting, diarrhea. She does have nausea with the pain. Severity/Quality: Severe, Sharp Location: RLQ, LLQ Radiation: Groin Activities at Onset: None Modifying Factors: Improves With Analgesics Associated Symptoms: No Back Pain, No Chest Pain, No Fatigue, No Headache, No Heartburn; Nausea/Vomiting (Nausea without vomiting); No Shortness of Air, No Swelling/Mass in Abdomen Allergies and Home Medications Allergies Coded Allergies: codeine (Verified Allergy, Mild, chest tightness, 03/19/22) morphine (Verified Allergy, Mild, chest tightness, 03/19/22) gabapentin (Verified Allergy, Unknown, 04/21/22) Patient Home Medication List Home Medication List Reviewed: Yes Cefdinir (Cefdinir) 300 Mg Capsule, 300 MG PO BID Prescribed by: SURJIT NEWBERRY on 04/21/22 0436 Ibuprofen (Ibuprofen) 800 Mg Tablet, 800 MG PO Q8H PRN for PAIN Prescribed by: KATIE AGUILAR on 05/10/221742 Ondansetron (Ondansetron Odt) 4 Mg Tab.rapdis, 4 MG PO Q6H PRN for BRITTANI SEA/VOMITING Prescribed by: KATIE AGUILAR on 05/10/221742 Tramadol HCl (Tramadol HCl) 50 Mg Tablet, 50 MG PO Q4H PRN for PAIN Prescribed by: YUVAL ELIAS MD on 05/04/22 7357 Review of Systems Review of Systems Constitutional: No chills, No fever EENTM: No Symptoms Reported Respiratory: No Symptoms Reported Cardiovascular: No Symptoms Reported Gastrointestinal: See HPI Genitourinary: See HPI Musculoskeletal: see HPI Skin: No change in color Psychiatric/Neurological: Anxiety Past Xssvzwl-Aoywdt-Mjmrzr Hx Immunizations Up To Date First/Initial COVID19 Vaccinat: NONE Second COVID19 Vaccination Sam: NONE Third COVID19 Vaccination Date: NONE Past Medical History Surgery/Hospitalization HX: CERVICAL CANCER Surgeries: Yes Gallbladder, Tubal Ligation Reproductive Disorders: No Family Medical History No Pertinent Family Hx Physical Exam Vital Signs Vital Signs - First Documented 05/10/22 17:24 Temp 36.9 Pulse 144 Resp 16 B/P (MAP) 117/76 (90) Pulse Ox 99 O2 Delivery Room Air Capillary Refill : Height/Weight/BMI Height: '" Weight: lbs. oz. kg; 31.00 BMI Method: General Appearance: WD/WN, moderate distress HEENT: PERRL/EOMI, pharynx normal Respiratory: chest non-tender, lungs clear, normal breath sounds, no respiratory distress, no accessory muscle use Cardiovascular: normal peripheral pulses, regular rate, rhythm Gastrointestinal: normal bowel sounds, soft, no pulsatile mass; No guarding, No rebound; tenderness (Suprapubic and bilateral lower quadrant) Rectal: deferred Extremities: normal range of motion, non-tender, normal capillary refill Neurologic/Psychiatric: alert, oriented x 3 Skin: normal color, warm/dry Progress/Results/Core Measures Results/Orders My Orders Orders - KATIE AGUILAR MD Fentanyl Inj (Sublimaze Injection) (05/10/22 17:39) Ketorolac Injection (Toradol Injection) (05/10/22 17:39) Vital Signs/I&O 05/10/22 05/10/22 17:24 17:48 Temp 36.9 36.9 Pulse 144 144 Resp 16 16 B/P (MAP) 117/76 (90) 117/76 Pulse Ox 99 99 O2 Delivery Room Air Room Air Progress Progress Note : Progress Note As patient denies having new symptoms but just having increased pain of her chronic pelvic pain since being diagnosed with cervical cancer, will defer labs such as blood count, comprehensive metabolic profile, urinalysis. Also considered possible CT scan to evaluate since she has increased pain but as she is going to see her radiation oncologist tomorrow will defer emergent imaging of her abdomen and pelvis. Will try to give some additional pain control here so that hopefully she can get back on top of her pain with her tramadol at home and keep follow-up appointment with radiation oncology on Monday. Administer fentanyl 100 mcg IM x1 and Toradol 60 mg IM x1. This should help in terms of pain as well as inflammation. Have patient continue with her tramadol and home medicines. Check back through the clinic for continued or worsening symptoms Departure Impression Primary Impression: Cervical cancer Qualified Codes: C53.9 - Malignant neoplasm of cervix uteri, unspecified Additional Impression: Pelvic pain Disposition: HOME, SELF-CARE Condition: Stable Departure-Patient Inst. Decision time for Depature: 17:42 Referrals: LINDSAY CORTES MD (PCP/Family) Primary Care Physician Patient Instructions: Pelvic Pain ED, Cervical Cancer (DC) Add. Discharge Instructions: Continue on your home medications for pain control. Addend the ibuprofen since you are told to avoid the acetaminophen. Use the dissolving nausea tablets to help keep your stomach settled so you could eat and drink better. Keep your follow-up appointment with the oncology radiologist tomorrow to discuss pain control and treatment plan. All discharge instructions reviewed with patient and/or family. Voiced understanding. Scripts Ibuprofen (Ibuprofen) 800 Mg Tablet 800 MG PO Q8H PRN for PAIN for 10 Days, #30 TAB 0 Refills Prov: KATIE AGUILAR MD 05/10/22 Ondansetron (Ondansetron Odt) 4 Mg Tab.rapdis 4 MG PO Q6H PRN for NAUSEA/VOMITING for 5 Days, #20 TAB 0 Refills Prov: KATIE AGUILAR MD 05/10/22 KATIE AGUILAR MD May 10, 2022 17:30
[2022-05-10] MEDS ORDERED: fentaNYL INJ 100 MCG/2 ML AMP IM STA (17:39)
[2022-05-10] MEDS ORDERED: KETOROLAC 60 MG/2 ML VIAL IM STA (17:39)
[2022-05-10] MEDS ORDERED: IBUP-1780 PO (17:43)
[2022-05-10] MEDS ORDERED: ONDA4TAB11 PO (17:43)
[2022-05-10 17:48] VITALS: BP 117/76
== END 2022-05-10 17:52 | disposition home or self-care (01) ==
LOC: EDUNIT# 17:24 → ER FS 17:26
DX: C53.9 Malignant neoplasm of cervix uteri, unspecified (principal); Z88.5 Allergy status to narcotic agent
CPT/HCPCS: 99284

== ENCOUNTER 2022-05-16 10:17 | Outpatient (RCR) | payer MEDICAID ==
[~2022-05-16] VITALS: Ht 160 cm; Wt 75.0 kg
[~2022-05-16 10:17] MED LIST changes: +IBUP-1780 PO; +ONDA4TAB11 PO
[2022-05-16 10:40] VITALS: BP 116/72
[2022-05-16] MEDS ORDERED: NS IV SCH (14:45)
[2022-05-16] MEDS ORDERED: HEParin (CENTRAL IV FLUSH) 500 UNIT/5 ML SYR IV PRN (14:45)
[2022-05-16] MEDS ORDERED: FOSAPREPITANT (CANCER CENTER) 150 MG in NS (IVPB) CANCER CENTER ONLY 150 ML IV SCH (14:45)
[2022-05-16] MEDS ORDERED: DEXAMETHASONE IV SCH (14:45)
[2022-05-16] MEDS ORDERED: NS IV 1000 ML (CANCER CTR) IV SCH (14:45)
[2022-05-16] MEDS ORDERED: ONDANSETRON IV SCH (14:45)
[2022-05-16] MEDS ORDERED: MANNITOL IV SCH (15:00)
[2022-05-16] MEDS ORDERED: MAGNESIUM SULFATE IV SCH (15:00)
[2022-05-16] MEDS ORDERED: [UNRECOGNIZED DRUG - OTHER] IV SCH (15:00)
[2022-05-16] MEDS ORDERED: CISPLATIN IV SCH (15:00)
[2022-05-18] MEDS ORDERED: POTA-179 PO (04:57)
[2022-05-18] MEDS ORDERED: FERR325T24 PO (04:57)
[2022-05-20] MEDS ORDERED: TRM50T PO (15:19)
== END 2022-05-27 | disposition home or self-care (01) ==
LOC: SDC 10:17
PROVIDERS: ATTEND Internal Medicine Hematology & Oncology
DX: C53.9 Malignant neoplasm of cervix uteri, unspecified (principal)
CPT/HCPCS: 36569; 76937; C1751

== ENCOUNTER 2022-05-18 04:26 | Emergency (ER) | payer MEDICAID ==
[~2022-05-18] VITALS: Ht 160 cm; Wt 75.4 kg
--- NOTE | 2022-05-18 04:48 | ED GU-Female ---
General Chief Complaint: Abdominal/GI Problems Stated Complaint: PELVIC/LEGS PAIN History of Present Illness Date Seen by Provider: May 18, 2022 Time Seen by Provider: 04:41 Initial Comments 31yr F with PMH of cervical cancer, is here with c/o pelvic pain which is not controlled with her pain medications of ibuprofen and tramadol. Pt has had multiple visits to the ER with the same complaint, and has been in the ER on04/26, 05/04, and 05/10. Pt has an oncology and radiation appointment today morning. Pt will be starting chemo and radiation today. Pt is here only for pain control from her cervical cancer. Pt has a family history of cervical cancer.Pt rates the pain 10/06. Allergies and Home Medications Allergies Coded Allergies: codeine (Verified Allergy, Mild, chest tightness, 03/19/22) morphine (Verified Allergy, Mild, chest tightness, 03/19/22) gabapentin (Verified Allergy, Unknown, 04/21/22) Patient Home Medication List Home Medication List Reviewed: Yes Cefdinir (Cefdinir) 300 Mg Capsule, 300 MG PO BID Prescribed by: SURJIT NEWBERRY on 04/21/22 0436 Ibuprofen (Ibuprofen) 800 Mg Tablet, 800 MG PO Q8H PRN for PAIN Prescribed by: KATIE AGUILAR on 05/10/22 174 Ondansetron (Ondansetron Odt) 4 Mg Tab.rapdis, 4 MG PO Q6H PRN for NAUSEA/VOMITING Prescribed by: KATIE AGUILAR on 05/10/22 174 Tramadol HCl (Tramadol HCl) 50 Mg Tablet, 50 MG PO Q4H PRN for PAIN Prescribed by: YUVAL ELIAS MD on 05/04/22 1798 Review of Systems Review of Systems Constitutional: no symptoms reported EENTM: no symptoms reported Respiratory: no symptoms reported Cardiovascular: no symptoms reported Gastrointestinal: no symptoms reported Genitourinary: see HPI, pain Musculoskeletal: no symptoms reported Skin: no symptoms reported Psychiatric/Neurological: No Symptoms Reported Endocrine: No Symptoms Reported Hematologic/Lymphatic: No Symptoms Reported Past Bmmmgmh-Guwzea-Vviwmp Hx Immunizations Up To Date First/Initial COVID19 Vaccinat: NONE Second COVID19 Vaccination Sam: NONE Third COVID19 Vaccination Date: NONE Past Medical History Surgery/Hospitalization HX: CERVICAL CANCER Surgeries: Yes Gallbladder, Tubal Ligation Reproductive Disorders: No Family Medical History No Pertinent Family Hx Physical Exam Vital Signs Vital Signs - First Documented 05/18/22 04:30 Temp 36.5 Pulse 98 Resp 18 B/P (MAP) 128/70 (89) Pulse Ox 98 O2 Delivery Room Air Capillary Refill : Height, Weight, BMI Height: '" Weight: lbs. oz. kg; 27.00 BMI Method: General Appearance: WD/WN, mild distress HEENT: PERRL/EOMI Neck: non-tender, full range of motion Cardiovascular: regular rate, rhythm Respiratory: lungs clear, normal breath sounds Gastrointestinal: normal bowel sounds, soft Pelvic: tender adnexa, tender uterus, vaginal bleeding Back: normal inspection, no CVA tenderness, no vertebral tenderness Extremities: normal range of motion Neurologic/Psychiatric: alert, oriented x 3 Skin: normal color Progress/Results/Core Measures Suspected Sepsis SIRS Temperature: Pulse: Respiratory Rate: Blood Pressure / Mean: Results/Orders My Orders Orders - ZAC OVIEDO MD Fentanyl Inj (Sublimaze Injection) (05/18/22 04:52) Vital Signs/I&O 05/18/22 04:30 Temp 36.5 Pulse 98 Resp 18 B/P (MAP) 128/70 (89) Pulse Ox 98 O2 Delivery Room Air Capillary Refill : Progress Note : Progress Note 1. CERVICAL CANCER PAIN: - Fentanyl 100mcg STAT - Pt has oncology and radiation appointment today. Advised to keep appointment - Follow up with uro-[employer]ER in the next 3 days -The patient was seen in the ED, and treated appropriately to presentation at a specific point in time. Patient is informed that there is a possibility that disease and illness can evolve and change in acuity rapidly or slowly after patient is discharged from the ER. Precautionary advice given to the patient for immediate return to ER if symptoms worsen or do not resolve, and to seek emergency care sooner rather than later. Pt also advised on the importance of PCP follow up and compliance with management and follow up plan with PCP and/or specialist, as this is part of the management plan. Pt verbally expressed understanding. Departure Impression Primary Impression: Cervical cancer Additional Impression: Intractable pain Disposition: HOME, SELF-CARE Condition: Improved Departure-Patient Inst. Referrals: LINDSAY CORTES MD (PCP/Family) Primary Care Physician Patient Instructions: Chronic Pain, Cervical Cancer (DC) Add. Discharge Instructions: - Pt has oncology and radiation appointment today. Advised to keep appointment - Follow up with uro-[employer]ER in the next 3 days All discharge instructions reviewed with patient and/or family. Voiced understanding. ZAC OVIEDO MD May 18, 2022 04:48
[2022-05-18] MEDS ORDERED: fentaNYL INJ 100 MCG/2 ML AMP IVP STA (04:52)
[2022-05-18] MEDS ORDERED: FERR325T24 PO (04:57)
[2022-05-18] MEDS ORDERED: POTA-179 PO (04:57)
[2022-05-18] MEDS ORDERED: fentaNYL INJ 100 MCG/2 ML AMP IM ONE (05:00)
[2022-05-18 05:25] VITALS: BP 122/50
== END 2022-05-18 05:25 | disposition home or self-care (01) ==
LOC: EDUNIT# 04:26 → ER FS 04:27
DX: C53.9 Malignant neoplasm of cervix uteri, unspecified (principal); Z28.310 Unvaccinated for COVID-19; Z88.5 Allergy status to narcotic agent
CPT/HCPCS: 99284

== ENCOUNTER 2022-05-20 14:30 | Emergency (ER) | payer MEDICAID ==
[~2022-05-20 14:30] MED LIST changes: +FERR325T24 PO; +POTA-179 PO
[2022-05-20] MEDS ORDERED: HYDROcodone/APAP 5 MG/325 MG (LORTAB) TAB PO ONE (14:45)
[2022-05-20] MEDS ORDERED: TRM50T PO (15:19)
--- NOTE | 2022-05-20 15:20 | ED General ---
General Chief Complaint: Abdominal/GI Problems Stated Complaint: SUPRAPUBIC/LT HIP PAIN Nursing Triage Note: Patient presents to the ED with c/o pelvic pain. States she has cervical cancer and ran out of her prescription for Tramadol on Monday. Has been using Ibuprofen for the pain. Reports that it is not helping. She was instructed by her oncologist to go to the emergency department for further evaluation. Source of Information: Patient Exam Limitations: No Limitations History of Present Illness Date Seen by Provider: May 20, 2022 Time Seen by Provider: 14:32 Initial Comments 31-year-old female with past medical history of cervical cancer that was diagnosed a couple months ago, started treatment for it in a couple of days with chemo and radiation coming in due to lower abdominal/pelvic pain. She states the pain has been ongoing since the diagnosis. She has been taking tramadol. She ran out of her tramadol 2 days ago, and is dealing with severe pain. She was instructed to come to the ER when she called her oncologist reportedly. Denies any fever, vomiting, diarrhea, focal weakness or numbness, or any other concerns. Allergies and Home Medications Allergies Coded Allergies: codeine (Verified Allergy, Mild, chest tightness, 03/19/22) morphine (Verified Allergy, Mild, chest tightness, 03/19/22) gabapentin (Verified Allergy, Unknown, 04/21/22) Patient Home Medication List Home Medication List Reviewed: Yes Ferrous Sulfate (Ferosul) 325 Mg (65 Mg Iron) Tablet, 325 MG PO DAILY, (Reported) Entered as Reported by: PRAMOD FARRELL on 05/18/22456 Ibuprofen (Ibuprofen) 800 Mg Tablet, 800 MG PO Q8H PRN for PAIN Prescribed by: KATIE AGUILAR on 05/10/221742 Ondansetron (Ondansetron Odt) 4 Mg Tab.rapdis, 4 MG PO Q6H PRN for NAUSEA/VOMITING Prescribed by: KATIE AGUILAR on 05/10/221742 Potassium Chloride (Potassium Chloride) 20 Meq Tab.er.prt, 20 MEQ PO DAILY, (Reported) Entered as Reported by: PRAMOD FARRELL on 05/18/22456 Tramadol HCl (Tramadol HCl) 50 Mg Tablet, 50 MG PO Q4H PRN for PAIN Prescribed by: YUVAL ELIAS MD on 3/8/23 2305 Tramadol HCl (Tramadol HCl) 50 Mg Tablet, 50 MG PO Q6H PRN for PAIN Prescribed by: SURJIT NEWBERRY on 05/20/22 1520 Discontinued Medications Cefdinir (Cefdinir) 300 Mg Capsule, 300 MG PO BID Discontinued Reason: Referral/FU Appt-Addtl Prescribed by: SURJIT NEWBERRY on 04/21/22 0436 Review of Systems Review of Systems Constitutional: No fever EENTM: no symptoms reported Respiratory: no symptoms reported Cardiovascular: no symptoms reported Gastrointestinal: see HPI Genitourinary: no symptoms reported Musculoskeletal: no symptoms reported Skin: no symptoms reported Psychiatric/Neurological: No Symptoms Reported Past Cfvrsla-Qyekkm-Cmtqpk Hx Patient Social History Tobacco Use?: Yes Tobacco type used: Cigarettes Smoking Status: Current Everyday Smoker Substance use?: No Alcohol Use?: No Pt feels they are or have been: No Immunizations Up To Date First/Initial COVID19 Vaccinat: NONE Second COVID19 Vaccination Sam: NONE Third COVID19 Vaccination Date: NONE Past Medical History Surgery/Hospitalization HX: CERVICAL CANCER; Cholecysectomy; Tubal ligation Surgeries: Yes Gallbladder, Tubal Ligation Reproductive Disorders: No Family Medical History No Pertinent Family Hx Physical Exam Vital Signs Vital Signs - First Documented 05/20/22 14:32 Temp 37.2 Pulse 135 Resp 16 B/P (MAP) 119/68 (85) Pulse Ox 98 O2 Delivery Room Air Capillary Refill : Less Than 3 Seconds Height, Weight, BMI Height: '" Weight: lbs. oz. kg; 29.00 BMI Method: General Appearance: No Apparent Distress, WD/WN Eyes: Bilateral Eye Normal Inspection HEENT: PERRL/EOMI, Normal ENT Inspection, Pharynx Normal Neck: Full Range of Motion, Normal Inspection, Non Tender, Supple Respiratory: Chest Non Tender, Lungs Clear, Normal Breath Sounds, No Accessory Muscle Use, No Respiratory Distress Cardiovascular: No Edema, Normal Peripheral Pulses, Tachycardia Gastrointestinal: Normal Bowel Sounds, Soft; No Distended, No Guarding; Tenderness Back: Normal Inspection, No CVA Tenderness Extremity: Normal Capillary Refill, Normal Inspection, Normal Range of Motion, Non Tender, No Calf Tenderness, No Pedal Edema Neurologic/Psychiatric: Alert, No Motor/Sensory Deficits, Normal Mood/Affect Skin: Normal Color, Warm/Dry Progress/Results/Core Measures Suspected Sepsis SIRS Temperature: Pulse: 135 Respiratory Rate: 16 Blood Pressure 119 /68 Mean: 85 Results/Orders My Orders Orders - SURJIT NEWBERRY MD Hydrocodone/Apap 5/325 Tablet (Lortab 5 (05/20/22 14:45) Medications Given in ED Current Medications Medications Dose Ordered Sig/Raphael Route Start Time Stop Time Status Last Admin Dose Admin Acetaminophen/ Hydrocodone Bitart 1 ea ONCE ONCE PO 05/20/22 14:45 05/20/22 14:46 DC 05/20/22 14:49 1 EA Vital Signs/I&O 05/20/22 05/20/22 14:32 15:22 Temp 37.2 37.2 Pulse 135 135 Resp 16 16 B/P (MAP) 119/68 (85) 119/68 Pulse Ox 98 98 O2 Delivery Room Air Room Air Capillary Refill : Less Than 3 Seconds Blood Pressure Mean: 85 Progress Note : Progress Note 31-year-old cancer patient that ran out of her tramadol presenting for pain. ABCs were intact and vitals were stable on presentation although she is tachycardic. I suspect she likely has some aspect of withdrawal. Showing no signs of sepsis including no fever, no signs of peritonitis, and otherwise well-appearing. I have reviewed the patient's CT imaging as well as PET scan from March of this year confirming likely metastatic cervical cancer. Given hydrocodone here. I discussed that she was written for 15 days of tramadol on 05/06/22 and that the prescription is supposed to end tomorrow. I discussed if I were to even send a prescription for tramadol, the pharmacy likely would not ev en fill it. I also discussed that we do not refill opioids regularly in the emergency department. However, given that this is a Monday afternoon, she will be unable to get into her PCP, and patient is a cancer patient, I am willing to do a one-time short-term prescription so that she can follow-up with her primary physician. I discussed specifically with the patient that likely another refill would not be given if she came back to the ER for similar complaint Departure Impression Primary Impression: Cervical cancer Qualified Codes: C53.8 - Malignant neoplasm of overlapping sites of cervix uteri Additional Impression: Abdominal pain Qualified Codes: R10.30 - Lower abdominal pain, unspecified Disposition: 01 HOME, SELF-CARE Condition: Stable Departure-Patient Inst. Decision time for Depature: 15:18 Referrals: LINDSAY CORTES MD (PCP) Primary Care Physician Patient Instructions: Abdominal Pain, Adult ED Add. Discharge Instructions: You were given a hydrocodone while in the emergency department. We have refilled the tramadol to last 7 days which should be enough time for you to follow back up with your prescribing physician. The prescription that will be sent will be enough to be taken every 6 hours. If you take it sooner than every 6 hours, you will run out of it before the 7 days are up, and then you will be in a similar situation. It is not normal for this to be refilled in the ER, and in the future the provider that is on may not write for this. Scripts Tramadol HCl (Tramadol HCl) 50 Mg Tablet 50 MG PO Q6H PRN for PAIN for 7 Days, #28 TAB 0 Refills Prov: SURJIT NEWBERRY MD 05/20/22 Work/School Note: Work Release Form Date Seen in the Emergency Department: May 20, 2022 Return to Work: May 21, 2022 Restrictions: No Restrictions SURJIT NEWBERRY MD May 20, 2022 15:20
[2022-05-20 15:22] VITALS: BP 119/68
== END 2022-05-20 15:21 | disposition home or self-care (01) ==
LOC: EDUNIT# 14:30 → ER FS 14:31
DX: C53.9 Malignant neoplasm of cervix uteri, unspecified (principal); F17.210 Nicotine dependence, cigarettes, uncomplicated; Z90.49 Acquired absence of other specified parts of digestive tract; Z88.5 Allergy status to narcotic agent; Z28.310 Unvaccinated for COVID-19
CPT/HCPCS: 99283

== ENCOUNTER → 2022-05-27 | Outpatient (RCR) | payer MEDICAID ==
[2022-05-03 15:23] LABS: BASOPHILS % (AUTO) 0 % (0-10); EOSINOPHILS # (AUTO) 0.1 10^3/uL (0.0-0.3); EOSINOPHILS % (AUTO) 1 % (0-10); HEMATOCRIT 37 % (35-52); HEMOGLOBIN 11.9 g/dL (11.5-16.0); LYMPHOCYTES # (AUTO) 1.1 X 10^3 (1.0-4.0); LYMPHOCYTES % (AUTO) 15 % (12-44); MEAN CORPUSCULAR HEMOGLOBIN 25 pg (25-34); MEAN CORPUSCULAR HGB CONC 32 g/dL (32-36); MEAN CORPUSCULAR VOLUME 77 fL (80-99); MEAN PLATELET VOLUME 12.2 fL (9.0-12.2); MONOCYTES # (AUTO) 0.5 X 10^3 (0.0-1.0); MONOCYTES % (AUTO) 6 % (0-12); NEUTROPHILS # (AUTO) 5.8 X 10^3 (1.8-7.8); NEUTROPHILS % (AUTO) 77 % (42-75); PLATELET COUNT 315 10^3/uL (130-400); WHITE BLOOD COUNT 7.5 10^3/uL (4.3-11.0)
[2022-05-03 15:44] LABS: ALBUMIN 3.7 GM/DL (3.2-4.5); BILIRUBIN,TOTAL 0.3 MG/DL (0.1-1.0); CALCIUM 10.1 MG/DL (8.5-10.1); CREATININE SERUM 0.68 MG/DL (0.60-1.30); MAGNESIUM 1.7 MG/DL (1.6-2.4); POTASSIUM 3.2 MMOL/L (3.6-5.0); TOTAL PROTEIN 7.2 GM/DL (6.4-8.2)
[2022-05-18 09:20] LABS: BASOPHILS % (AUTO) 0 % (0-10); EOSINOPHILS # (AUTO) 0.1 10^3/uL (0.0-0.3); EOSINOPHILS % (AUTO) 1 % (0-10); HEMATOCRIT 33 % (35-52); HEMOGLOBIN 10.5 g/dL (11.5-16.0); LYMPHOCYTES # (AUTO) 1.2 10^3/uL (1.0-4.0); LYMPHOCYTES % (AUTO) 13 % (12-44); MEAN CORPUSCULAR HEMOGLOBIN 25 pg (25-34); MEAN CORPUSCULAR HGB CONC 32 g/dL (32-36); MEAN CORPUSCULAR VOLUME 77 fL (80-99); MEAN PLATELET VOLUME 11.6 fL (9.0-12.2); MONOCYTES # (AUTO) 0.7 10^3/uL (0.0-1.0); MONOCYTES % (AUTO) 8 % (0-12); NEUTROPHILS # (AUTO) 6.9 10^3/uL (1.8-7.8); NEUTROPHILS % (AUTO) 78 % (42-75); PLATELET COUNT 362 10^3/uL (130-400); WHITE BLOOD COUNT 8.8 10^3/uL (4.3-11.0)
[2022-05-23 08:34] LABS: BASOPHILS % (AUTO) 0 % (0-10); EOSINOPHILS # (AUTO) 0.2 10^3/uL (0.0-0.3); EOSINOPHILS % (AUTO) 2 % (0-10); HEMATOCRIT 33 % (35-52); HEMOGLOBIN 10.5 g/dL (11.5-16.0); LYMPHOCYTES # (AUTO) 1.2 10^3/uL (1.0-4.0); LYMPHOCYTES % (AUTO) 13 % (12-44); MEAN CORPUSCULAR HEMOGLOBIN 24 pg (25-34); MEAN CORPUSCULAR HGB CONC 32 g/dL (32-36); MEAN CORPUSCULAR VOLUME 77 fL (80-99); MEAN PLATELET VOLUME 11.6 fL (9.0-12.2); MONOCYTES # (AUTO) 0.9 10^3/uL (0.0-1.0); MONOCYTES % (AUTO) 10 % (0-12); NEUTROPHILS # (AUTO) 6.8 10^3/uL (1.8-7.8); NEUTROPHILS % (AUTO) 75 % (42-75); PLATELET COUNT 348 10^3/uL (130-400); WHITE BLOOD COUNT 9.1 10^3/uL (4.3-11.0)
[2022-05-23 08:59] LABS: ALBUMIN 3.4 GM/DL (3.2-4.5); BILIRUBIN,TOTAL 0.3 MG/DL (0.1-1.0); CALCIUM 9.7 MG/DL (8.5-10.1); CREATININE SERUM 0.61 MG/DL (0.60-1.30); MAGNESIUM 1.7 MG/DL (1.6-2.4); POTASSIUM 3.1 MMOL/L (3.6-5.0); TOTAL PROTEIN 6.8 GM/DL (6.4-8.2)
[~2022-05-27] VITALS: Ht 160 cm; Wt 74.8 kg
[~2022-05-27] MED LIST changes: +CISPLATIN IV SCH; +DEXAMETHASONE IV SCH; +FOSAPREPITANT (CANCER CENTER) 150 MG in NS (IVPB) CANCER CENTER ONLY 150 ML IV SCH; +HEParin (CENTRAL IV FLUSH) 500 UNIT/5 ML SYR IV PRN; +MAGNESIUM SULFATE IV SCH; +MANNITOL IV SCH; +NS IV 1000 ML (CANCER CTR) IV SCH; +NS IV SCH; +ONDANSETRON IV SCH; +[UNRECOGNIZED DRUG - OTHER] IV SCH
== END | disposition home or self-care (01) ==
LOC: ONC 05-03 14:17
PROVIDERS: ATTEND Internal Medicine Hematology & Oncology
DX: Z51.0 Encounter for antineoplastic radiation therapy (principal); Z51.11 Encounter for antineoplastic chemotherapy; C53.9 Malignant neoplasm of cervix uteri, unspecified
CPT/HCPCS: 77300; 77301; 77334; 77338; 77386; 77470; 80053; 83735; 85025; 96367; 96375; 96413; 99205

== ENCOUNTER 2022-05-28 16:05 | Emergency (ER) | payer SELFPAY ==
[~2022-05-28] VITALS: Ht 160 cm; Wt 73.9 kg
[~2022-05-28 16:05] MED LIST changes: -CISPLATIN IV SCH; -DEXAMETHASONE IV SCH; -FOSAPREPITANT (CANCER CENTER) 150 MG in NS (IVPB) CANCER CENTER ONLY 150 ML IV SCH; -HEParin (CENTRAL IV FLUSH) 500 UNIT/5 ML SYR IV PRN; -MAGNESIUM SULFATE IV SCH; -MANNITOL IV SCH; -NS IV 1000 ML (CANCER CTR) IV SCH; -NS IV SCH; -ONDANSETRON IV SCH; -[UNRECOGNIZED DRUG - OTHER] IV SCH
--- NOTE | 2022-05-28 16:23 | ED Hip Pain/Injury ---
General Chief Complaint: Hip/Pelvic Problems Stated Complaint: KHLOE HIP/LEG PAIN History of Present Illness Date Seen by Provider: May 28, 2022 Time Seen by Provider: 16:23 Initial Comments 31-year-old female presents with bilateral hip pain. Along with some diffuse low back pain. Patient has a history of advanced cervical cancer and just recently started chemo and radiation. Patient reports that after the chemo and radiation she has had worsening pain in her hips and low back. Patient's currently on tramadol for pain medicine as she is allergic to codeine and morphine. Patient presents today just because she is having significant pain and was wanting to get some pain relief. This is similar to pain that she has had previously. Allergies and Home Medications Allergies Coded Allergies: codeine (Verified Allergy, Mild, chest tightness, 03/19/22) morphine (Verified Allergy, Mild, chest tightness, 03/19/22) gabapentin (Verified Allergy, Unknown, 04/21/22) Patient Home Medication List Home Medication List Reviewed: Yes Ferrous Sulfate (Ferosul) 325 Mg (65 Mg Iron) Tablet, 325 MG PO DAILY, (Reported) Entered as Reported by: PRAMOD FARRELL on 05/18/22456 Ibuprofen (Ibuprofen) 800 Mg Tablet, 800 MG PO Q8H PRN for PAIN Prescribed by: KATIE AGUILAR on 05/10/221742 Ondansetron (Ondansetron Odt) 4 Mg Tab.rapdis, 4 MG PO Q6H PRN for NAUSEA/VOMITING Prescribed by: KATIE AGUILAR on 05/10/221742 Potassium Chloride (Potassium Chloride) 20 Meq Tab.er.prt, 20 MEQ PO DAILY, (Reported) Entered as Reported by: PRAMOD FARRELL on 05/18/22456 Tramadol HCl (Tramadol HCl) 50 Mg Tablet, 50 MG PO Q4H PRN for PAIN Prescribed by: YUVAL ELIAS MD on 05/04/22 2305 Tramadol HCl (Tramadol HCl) 50 Mg Tablet, 50 MG PO Q6H PRN for PAIN Prescribed by: SURJIT NEWBERRY on 05/20/22 1520 Review of Systems Constitutional: No chills, No fever Respiratory: no symptoms reported Cardiovascular: no symptoms reported Gastrointestinal: no symptoms reported Genitourinary: see HPI Musculoskeletal: see HPI Skin: no symptoms reported Psychiatric/Neurological: No Symptoms Reported Past Ixvixby-Hrztqs-Exroaj Hx Patient Social History Pt feels they are or have been: No Immunizations Up To Date First/Initial COVID19 Vaccinat: NONE Second COVID19 Vaccination Sam: NONE Third COVID19 Vaccination Date: NONE Past Medical History Surgery/Hospitalization HX: CERVICAL CANCER; Cholecysectomy; Tubal ligation Surgeries: Yes Gallbladder, Tubal Ligation Reproductive Disorders: No Family Medical History No Pertinent Family Hx Physical Exam Vital Signs Capillary Refill : Height, Weight, BMI Height: '" Weight: lbs. oz. 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 Norm as Tested Skin: Normal Color, Warm/Dry Progress/Results/Core Measures Results/Orders My Orders Orders - PRISCILLA BAIG DO Ed Iv/Invasive Line Start (05/28/22 16:30) Ketamine Syringe (Ketamine Syringe) (05/28/22 16:30) Ns (Ivpb) (Sodium Chloride 0.9% Ivpb Bag (05/28/22 17:03) Ketorolac Injection (Toradol Injection) (05/28/22 17:53) Orphenadrine Inj (Ed Only) (Norflex Inje (05/28/22 17:53) Medications Given in ED Current Medications Medications Dose Ordered Sig/Raphael Route Start Time Stop Time Status Last Admin Dose Admin Ketamine HCl 25 mg ONCE ONCE IV 05/28/22 16:30 05/28/22 16:33 DC 05/28/22 17:16 25 MG Sodium Chloride 100 ml @ ud STK-MED ONCE .ROUTE 05/28/22 17:03 05/28/22 17:06 DC 05/28/22 17:17 100 MLS/HR Progress Progress Note : Progress Note Patient has had numerous visits over the past month for the same symptoms. Patient initially reported ketamine help with her pain and that symptoms is over reports that had stopped helping. I did have a discussion with patient regarding her expectations of pain control. Discussed with her that we are unable to get her pain is 0 but just gets more tolerable. Patient received an additional Toradol and Norflex shot to help with her pain. Patient will need to follow-up with her primary care provider and establish a long-term pain management plan. Patient was stable and discharged home Departure Impression Primary Impression: Cervical cancer Qualified Codes: C53.9 - Malignant neoplasm of cervix uteri, unspecified Additional Impression: Pelvic pain Disposition: HOME, SELF-CARE Condition: Stable Departure-Patient Inst. Referrals: LINDSAY CORTES MD (PCP/Family) Primary Care Physician Patient Instructions: MANAGING YOUR CHRONIC PAIN Add. Discharge Instructions: Please follow-up with your primary care provider early next week to establish long-term plan for your pain management and pain management expectations All discharge instructions reviewed with patient and/or family. Voiced understanding. PRISCILLA BAIG DO May 28, 2022 16:23
[2022-05-28] MEDS ORDERED: KETAMINE 50 MG/5 ML SYRINGE IV ONE (16:30)
[2022-05-28] MEDS ORDERED: NS (IVPB) 100 ML ONE (17:03)
[2022-05-28] MEDS ORDERED: ORPHENADRINE 60 MG/2 ML (NORFLEX) AMP (ED ONLY) IV STA (17:53)
[2022-05-28] MEDS ORDERED: KETOROLAC 30 MG/ML VIAL IVP STA (17:53)
[2022-05-28 18:11] VITALS: BP 105/72
== END 2022-05-28 18:12 | disposition home or self-care (01) ==
LOC: EDUNIT# 16:05 → ER FS 16:07
DX: C53.9 Malignant neoplasm of cervix uteri, unspecified (principal); Z79.1 Long term (current) use of non-steroidal anti-inflammatories (NSAID)

== ENCOUNTER 2022-06-10 22:12 | Emergency (ER) | payer SELFPAY ==
[~2022-06-10] VITALS: Ht 157 cm; Wt 72.5 kg
--- NOTE | 2022-06-10 22:19 | ED GU-Female ---
General Stated Complaint: PAIN WHILE URINATING History of Present Illness Date Seen by Provider: Jun 10, 2022 Time Seen by Provider: 22:18 Initial Comments 31-year-old female with PMH of cervical carcinoma on cisplatin, is here with complaints of dysuria for the past couple of days. Patient was put on Pyridium which has not really been helping. Patient states that she drinks about 3 bottles of water a day which is equivalent to 6 glasses a day. Denies fever and chills, flank pain, abdominal pain, nausea and vomiting. Allergies and Home Medications Allergies Coded Allergies: codeine (Verified Allergy, Mild, chest tightness, 03/19/22) morphine (Verified Allergy, Mild, chest tightness, 03/19/22) gabapentin (Verified Allergy, Unknown, 04/21/22) Patient Home Medication List Home Medication List Reviewed: Yes Ferrous Sulfate (Ferosul) 325 Mg (65 Mg Iron) Tablet, 325 MG PO DAILY, (Reported) Entered as Reported by: PRAMOD FARRELL on 05/18/22456 Ibuprofen (Ibuprofen) 800 Mg Tablet, 800 MG PO Q8H PRN for PAIN Prescribed by: KATIE AGUILAR on 05/10/22 174 Ondansetron (Ondansetron Odt) 4 Mg Tab.rapdis, 4 MG PO Q6H PRN for NAUSEA/VOMITING Prescribed by: KATIE AGUILAR on 05/10/22 174 Potassium Chloride (Potassium Chloride) 20 Meq Tab.er.prt, 20 MEQ PO DAILY, (Reported) Entered as Reported by: PRAMOD FARRELL on 05/18/227 Tramadol HCl (Tramadol HCl) 50 Mg Tablet, 50 MG PO Q4H PRN for PAIN Prescribed by: YUVAL ELIAS MD on 05/04/22 2305 Tramadol HCl (Tramadol HCl) 50 Mg Tablet, 50 MG PO Q6H PRN for PAIN Prescribed by: SURJIT NEWBERRY on 05/20/22 1520 Review of Systems Review of Systems Constitutional: no symptoms reported EENTM: no symptoms reported Respiratory: no symptoms reported Cardiovascular: no symptoms reported Gastrointestinal: no symptoms reported Genitourinary: burning Musculoskeletal: no symptoms reported Skin: no symptoms reported Psychiatric/Neurological: No Symptoms Reported Endocrine: No Symptoms Reported Hematologic/Lymphatic: No Symptoms Reported Past Bfhrdkb-Gauloq-Crutsk Hx Immunizations Up To Date First/Initial COVID19 Vaccinat: NONE Second COVID19 Vaccination Sam: NONE Third COVID19 Vaccination Date: NONE Past Medical History Surgery/Hospitalization HX: CERVICAL CANCER; Cholecysectomy; Tubal ligation Surgeries: Yes Gallbladder, Tubal Ligation Reproductive Disorders: No Family Medical History No Pertinent Family Hx Physical Exam Vital Signs Capillary Refill : Height, Weight, BMI Height: '" Weight: lbs. oz. kg; 28.00 BMI Method: General Appearance: WD/WN, no apparent distress HEENT: PERRL/EOMI Neck: full range of motion Cardiovascular: regular rate, rhythm Respiratory: lungs clear, normal breath sounds Gastrointestinal: normal bowel sounds, non tender, soft Back: no CVA tenderness Extremities: normal range of motion Neurologic/Psychiatric: alert, normal mood/affect, oriented x 3 Skin: normal color Progress/Results/Core Measures Suspected Sepsis SIRS Temperature: Pulse: Respiratory Rate: Blood Pressure / Mean: Results/Orders Lab Results Laboratory Tests Test 06/10/22 22:18 Range/Units Urine Color YELLOW Urine Clarity CLOUDY Urine pH 6.0 5-9 Urine Specific [place] >=1.030 1.016-1.022 Urine Protein 1+ H NEGATIVE Urine Glucose (UA) NEGATIVE NEGATIVE Urine Ketones NEGATIVE NEGATIVE Urine Nitrite NEGATIVE NEGATIVE Urine Bilirubin NEGATIVE NEGATIVE Urine Urobilinogen 0.2 < = 1.0 MG/DL Urine Leukocyte Esterase 2+ H NEGATIVE Urine RBC (Auto) 3+ H NEGATIVE Urine RBC NONE /HPF Urine WBC TNTC H /HPF Urine Crystals NONE /LPF Urine Bacteria LARGE H /HPF Urine Casts NONE /LPF Urine Mucus NEGATIVE /LPF Urine Culture Indicated YES My Orders Orders - ZAC OVIEDO MD Ua Culture If Indicated (06/10/22 22:16) Urine Culture (06/10/22 22:18) Vital Signs/I&O Capillary Refill : Progress Note : Progress Note 1. ACUTE CYSTITIS WITH HEMATURIA:: - UA is positive for leukocyte esterase, RBC, WBC, bacteria -Perscription given for Keflex 500mg bid for 7 days with first tab given in ER -Advised to adequate hydration -Patient with PCP/[facility] REVIEW SPECIALIST follow-up on Monday. Advised to keep appointment. -The patient was seen in the ED, and treated appropriately to presentation at a specific point in time. Patient is informed that there is a possibility that disease and illness can evolve and change in acuity rapidly or slowly after patient is discharged from the ER. Precautionary advice given to the patient for immediate return to ER if symptoms worsen or do not resolve, and to seek emergency care sooner rather than later. Pt also advised on the importance of PCP follow up and compliance with management and follow up plan with PCP and/or specialist, as this is part of the management plan. Pt verbally expressed understanding. Departure Impression Primary Impression: Acute cystitis with hematuria Disposition: HOME, SELF-CARE Condition: Stable Departure-Patient Inst. Referrals: LINDSAY CORTES MD (PCP/Family) Primary Care Physician Patient Instructions: Acute Cystitis (DC), Urinary Tract Infection, Adult ED Add. Discharge Instructions: -Perscription given for Keflex 500mg bid for 7 days with first tab given in ER -Advised to adequate hydration -Patient with PCP/[facility] REVIEW SPECIALIST follow-up on Monday. Advised to keep appointment. -Advised Tylenol or ibuprofen as needed for pain Scripts Cephalexin (Cephalexin) 500 Mg Tablet 500 MG PO BID for 7 Days, #14 TAB Prov: AZC OVIEDO MD 06/10/22 ZAC OVIEDO MD Jun 10, 2022 22:19
[2022-06-10 22:22] LABS: BILIRUBIN,URINE NEGATIVE (NEGATIVE); COLOR,URINE YELLOW; GLUCOSE, URINE (UA) NEGATIVE (NEGATIVE); KETONES,URINE NEGATIVE (NEGATIVE); LEUKOCYTE ESTERASE ,URINE 2+ (NEGATIVE); NITRITE,URINE NEGATIVE (NEGATIVE); PROTEIN,URINE 1+ (NEGATIVE)
[2022-06-10 22:23] LABS: CLARITY,URINE CLOUDY
[2022-06-10 22:28] LABS: BACTERIA,URINE LARGE /HPF; WBC,URINE TNTC /HPF
[2022-06-10] MEDS ORDERED: CEPHALEXIN 250 MG (KEFLEX) CAP PO STA (22:32)
[2022-06-10] MEDS ORDERED: CEPH500T PO (22:35)
[2022-06-10 22:58] VITALS: BP 128/77
== END 2022-06-10 22:58 | disposition home or self-care (01) ==
LOC: EDUNIT# 22:12 → ER FS 22:13
DX: N30.91 Cystitis, unspecified with hematuria (principal); C53.9 Malignant neoplasm of cervix uteri, unspecified; Z79.899 Other long term (current) drug therapy; Z28.310 Unvaccinated for COVID-19
CPT/HCPCS: 81000; 87088; 99283

== ENCOUNTER 2022-06-24 08:56 | Outpatient (RCR) | payer SELFPAY ==
[2022-05-30 08:45] LABS: BASOPHILS % (AUTO) 0 % (0-10); EOSINOPHILS # (AUTO) 0.1 10^3/uL (0.0-0.3); EOSINOPHILS % (AUTO) 1 % (0-10); HEMATOCRIT 28 % (35-52); HEMOGLOBIN 9.1 g/dL (11.5-16.0); LYMPHOCYTES # (AUTO) 0.4 10^3/uL (1.0-4.0); LYMPHOCYTES % (AUTO) 5 % (12-44); MEAN CORPUSCULAR HEMOGLOBIN 24 pg (25-34); MEAN CORPUSCULAR HGB CONC 32 g/dL (32-36); MEAN CORPUSCULAR VOLUME 76 fL (80-99); MEAN PLATELET VOLUME 11.4 fL (9.0-12.2); MONOCYTES # (AUTO) 0.5 10^3/uL (0.0-1.0); MONOCYTES % (AUTO) 6 % (0-12); NEUTROPHILS # (AUTO) 7.2 10^3/uL (1.8-7.8); NEUTROPHILS % (AUTO) 86 % (42-75); PLATELET COUNT 305 10^3/uL (130-400); WHITE BLOOD COUNT 8.3 10^3/uL (4.3-11.0)
[2022-05-30 09:05] LABS: ALBUMIN 3.2 GM/DL (3.2-4.5); BILIRUBIN,TOTAL 0.3 MG/DL (0.1-1.0); CALCIUM 8.8 MG/DL (8.5-10.1); CREATININE SERUM 0.52 MG/DL (0.60-1.30); MAGNESIUM 1.7 MG/DL (1.6-2.4); TOTAL PROTEIN 6.4 GM/DL (6.4-8.2)
[2022-06-06 09:09] LABS: BASOPHILS % (AUTO) 0 % (0-10); EOSINOPHILS # (AUTO) 0.1 10^3/uL (0.0-0.3); EOSINOPHILS % (AUTO) 2 % (0-10); HEMATOCRIT 32 % (35-52); HEMOGLOBIN 10.2 g/dL (11.5-16.0); LYMPHOCYTES # (AUTO) 0.4 10^3/uL (1.0-4.0); LYMPHOCYTES % (AUTO) 5 % (12-44); MEAN CORPUSCULAR HEMOGLOBIN 25 pg (25-34); MEAN CORPUSCULAR HGB CONC 32 g/dL (32-36); MEAN CORPUSCULAR VOLUME 78 fL (80-99); MEAN PLATELET VOLUME 10.5 fL (9.0-12.2); MONOCYTES # (AUTO) 0.4 10^3/uL (0.0-1.0); MONOCYTES % (AUTO) 6 % (0-12); NEUTROPHILS # (AUTO) 5.9 10^3/uL (1.8-7.8); NEUTROPHILS % (AUTO) 86 % (42-75); PLATELET COUNT 255 10^3/uL (130-400); WHITE BLOOD COUNT 6.9 10^3/uL (4.3-11.0)
[2022-06-06 09:29] LABS: BILIRUBIN,TOTAL 0.3 MG/DL (0.1-1.0); CALCIUM 8.7 MG/DL (8.5-10.1); CREATININE SERUM 0.61 MG/DL (0.60-1.30); MAGNESIUM 1.6 MG/DL (1.6-2.4); POTASSIUM 2.8 MMOL/L (3.6-5.0)
[2022-06-06 11:32] LABS: BILIRUBIN,URINE NEGATIVE (NEGATIVE); CLARITY,URINE CLEAR; COLOR,URINE YELLOW; GLUCOSE, URINE (UA) NEGATIVE (NEGATIVE); KETONES,URINE NEGATIVE (NEGATIVE); LEUKOCYTE ESTERASE ,URINE NEGATIVE (NEGATIVE); NITRITE,URINE NEGATIVE (NEGATIVE); PH,URINE 6.5 (5-9); PROTEIN,URINE NEGATIVE (NEGATIVE)
[2022-06-06 11:43] LABS: BACTERIA,URINE FEW /HPF; SQUAMOUS EPITHELIAL CELL,UR 0-2 /HPF
[2022-06-09 09:24] LABS: BASOPHILS % (AUTO) 0 % (0-10); EOSINOPHILS # (AUTO) 0.1 10^3/uL (0.0-0.3); EOSINOPHILS % (AUTO) 1 % (0-10); HEMATOCRIT 30 % (35-52); HEMOGLOBIN 9.7 g/dL (11.5-16.0); LYMPHOCYTES # (AUTO) 0.3 10^3/uL (1.0-4.0); LYMPHOCYTES % (AUTO) 6 % (12-44); MEAN CORPUSCULAR HEMOGLOBIN 25 pg (25-34); MEAN CORPUSCULAR HGB CONC 32 g/dL (32-36); MEAN CORPUSCULAR VOLUME 78 fL (80-99); MEAN PLATELET VOLUME 10.4 fL (9.0-12.2); MONOCYTES # (AUTO) 0.3 10^3/uL (0.0-1.0); MONOCYTES % (AUTO) 6 % (0-12); NEUTROPHILS # (AUTO) 4.7 10^3/uL (1.8-7.8); NEUTROPHILS % (AUTO) 86 % (42-75); PLATELET COUNT 292 10^3/uL (130-400); WHITE BLOOD COUNT 5.4 10^3/uL (4.3-11.0)
[2022-06-13 09:02] LABS: BASOPHILS % (AUTO) 0 % (0-10); EOSINOPHILS % (AUTO) 0 % (0-10); HEMATOCRIT 32 % (35-52); HEMOGLOBIN 10.4 g/dL (11.5-16.0); LYMPHOCYTES # (AUTO) 0.3 10^3/uL (1.0-4.0); LYMPHOCYTES % (AUTO) 7 % (12-44); MEAN CORPUSCULAR HEMOGLOBIN 26 pg (25-34); MEAN CORPUSCULAR HGB CONC 33 g/dL (32-36); MEAN CORPUSCULAR VOLUME 78 fL (80-99); MEAN PLATELET VOLUME 9.9 fL (9.0-12.2); MONOCYTES # (AUTO) 0.3 10^3/uL (0.0-1.0); MONOCYTES % (AUTO) 7 % (0-12); NEUTROPHILS # (AUTO) 3.8 10^3/uL (1.8-7.8); NEUTROPHILS % (AUTO) 86 % (42-75); PLATELET COUNT 287 10^3/uL (130-400); WHITE BLOOD COUNT 4.5 10^3/uL (4.3-11.0)
[2022-06-13 09:20] LABS: POTASSIUM 2.9 MMOL/L (3.6-5.0)
[2022-06-13 09:21] LABS: CALCIUM 8.7 MG/DL (8.5-10.1)
[2022-06-13 09:22] LABS: TOTAL PROTEIN 6.2 GM/DL (6.4-8.2)
[2022-06-13 09:24] LABS: BILIRUBIN,TOTAL 0.3 MG/DL (0.1-1.0)
[2022-06-13 09:26] LABS: CREATININE SERUM 0.6 MG/DL (0.60-1.30)
[2022-06-13 09:29] LABS: MAGNESIUM 1.6 MG/DL (1.6-2.4)
[2022-06-15 10:39] LABS: BASOPHILS % (AUTO) 0 % (0-10); EOSINOPHILS % (AUTO) 0 % (0-10); HEMATOCRIT 31 % (35-52); LYMPHOCYTES # (AUTO) 0.2 10^3/uL (1.0-4.0); LYMPHOCYTES % (AUTO) 7 % (12-44); MEAN CORPUSCULAR HEMOGLOBIN 26 pg (25-34); MEAN CORPUSCULAR HGB CONC 32 g/dL (32-36); MEAN CORPUSCULAR VOLUME 80 fL (80-99); MEAN PLATELET VOLUME 10.8 fL (9.0-12.2); MONOCYTES # (AUTO) 0.2 10^3/uL (0.0-1.0); MONOCYTES % (AUTO) 7 % (0-12); NEUTROPHILS # (AUTO) 2.9 10^3/uL (1.8-7.8); NEUTROPHILS % (AUTO) 85 % (42-75); PLATELET COUNT 267 10^3/uL (130-400); WHITE BLOOD COUNT 3.4 10^3/uL (4.3-11.0)
[2022-06-15 11:19] LABS: BILIRUBIN,TOTAL 0.3 MG/DL (0.1-1.0); CALCIUM 8.7 MG/DL (8.5-10.1); CREATININE SERUM 0.57 MG/DL (0.60-1.30); TOTAL PROTEIN 6.3 GM/DL (6.4-8.2)
[2022-06-15 11:46] LABS: POTASSIUM 2.5 MMOL/L (3.6-5.0)
[2022-06-20 09:21] LABS: BASOPHILS % (AUTO) 0 % (0-10); EOSINOPHILS % (AUTO) 1 % (0-10); HEMATOCRIT 28 % (35-52); LYMPHOCYTES # (AUTO) 0.2 10^3/uL (1.0-4.0); LYMPHOCYTES % (AUTO) 6 % (12-44); MEAN CORPUSCULAR HEMOGLOBIN 26 pg (25-34); MEAN CORPUSCULAR HGB CONC 32 g/dL (32-36); MEAN CORPUSCULAR VOLUME 80 fL (80-99); MONOCYTES # (AUTO) 0.4 10^3/uL (0.0-1.0); MONOCYTES % (AUTO) 14 % (0-12); NEUTROPHILS # (AUTO) 2.1 10^3/uL (1.8-7.8); NEUTROPHILS % (AUTO) 78 % (42-75); PLATELET COUNT 257 10^3/uL (130-400); WHITE BLOOD COUNT 2.7 10^3/uL (4.3-11.0)
[2022-06-20 09:52] LABS: ALBUMIN 2.9 GM/DL (3.2-4.5); BILIRUBIN,TOTAL 0.2 MG/DL (0.1-1.0); CALCIUM 8.3 MG/DL (8.5-10.1); CREATININE SERUM 0.56 MG/DL (0.60-1.30); POTASSIUM 2.8 MMOL/L (3.6-5.0)
[~2022-06-24 08:56] MED LIST changes: +CEPH500T PO; +CISPLATIN IV SCH; +DEXAMETHASONE IV SCH; +FOSAPREPITANT (CANCER CENTER) 150 MG in NS (IVPB) CANCER CENTER ONLY 150 ML IV SCH; +HEParin (CENTRAL IV FLUSH) 500 UNIT/5 ML SYR IV PRN; +MAGNESIUM SULFATE IV SCH; +MANNITOL IV SCH; +NS IV 1000 ML (CANCER CTR) IV SCH; +NS IV 500 ML 500 ML IV ONE; +NS IV 500 ML 500 ML IV SCH; +NS IV SCH; +ONDANSETRON IV SCH; +[UNRECOGNIZED DRUG - OTHER] IV SCH
[2022-06-24 09:46] LABS: BASOPHILS % (AUTO) 0 % (0-10); EOSINOPHILS % (AUTO) 1 % (0-10); HEMATOCRIT 32 % (35-52); HEMOGLOBIN 10.4 g/dL (11.5-16.0); LYMPHOCYTES # (AUTO) 0.2 10^3/uL (1.0-4.0); LYMPHOCYTES % (AUTO) 5 % (12-44); MEAN CORPUSCULAR HEMOGLOBIN 26 pg (25-34); MEAN CORPUSCULAR HGB CONC 33 g/dL (32-36); MEAN CORPUSCULAR VOLUME 80 fL (80-99); MEAN PLATELET VOLUME 10.7 fL (9.0-12.2); MONOCYTES # (AUTO) 0.4 10^3/uL (0.0-1.0); MONOCYTES % (AUTO) 12 % (0-12); NEUTROPHILS % (AUTO) 81 % (42-75); PLATELET COUNT 274 10^3/uL (130-400); WHITE BLOOD COUNT 3.7 10^3/uL (4.3-11.0)
[2022-06-24 10:07] LABS: ALBUMIN 2.6 GM/DL (3.2-4.5); BILIRUBIN,TOTAL 0.4 MG/DL (0.1-1.0); CALCIUM 8.6 MG/DL (8.5-10.1); CREATININE SERUM 0.55 MG/DL (0.60-1.30); POTASSIUM 2.9 MMOL/L (3.6-5.0)
== END 2022-06-26 | disposition home or self-care (01) ==
LOC: ONC 08:56
PROVIDERS: ATTEND Internal Medicine Hematology & Oncology
DX: Z51.11 Encounter for antineoplastic chemotherapy (principal); Z51.0 Encounter for antineoplastic radiation therapy; C53.9 Malignant neoplasm of cervix uteri, unspecified
CPT/HCPCS: 77386; 36430; 80053; 83735; 85025; 86850; 86900; 86901; 86920; 96367; 96375; 96413; P9016; 36415; 77336; 81000; 87088; 96417

== ENCOUNTER 2022-07-12 12:00 | Emergency (ER) | payer SELFPAY ==
[~2022-07-12] VITALS: Ht 160 cm; Wt 69.9 kg
[~2022-07-12 12:00] MED LIST changes: -CISPLATIN IV SCH; -DEXAMETHASONE IV SCH; -FOSAPREPITANT (CANCER CENTER) 150 MG in NS (IVPB) CANCER CENTER ONLY 150 ML IV SCH; -HEParin (CENTRAL IV FLUSH) 500 UNIT/5 ML SYR IV PRN; -MAGNESIUM SULFATE IV SCH; -MANNITOL IV SCH; -NS IV 1000 ML (CANCER CTR) IV SCH; -NS IV 500 ML 500 ML IV ONE; -NS IV 500 ML 500 ML IV SCH; -NS IV SCH; -ONDANSETRON IV SCH; -[UNRECOGNIZED DRUG - OTHER] IV SCH
[2022-07-12 12:05] VITALS: BP 130/81
--- NOTE | 2022-07-12 12:16 | ED GU-Female ---
General Chief Complaint: - Reproductive Stated Complaint: VAGINAL BLEEDING History of Present Illness Date Seen by Provider: July 12, 2022 Time Seen by Provider: 12:10 Initial Comments 31-year-old female with PMH of cervical carcinoma on cisplatin and external radiation which she last had 2 weeks ago. Today morning pt began experiencing blood clots with cramping which she compared to premenstrual cramping. Pt has been coming tot he ER more frequently because her insurance card cancelled and she is in the process of updating it. Denies fever and chills, nausea and vomiting, abdominal pain, chest pain, SOB, dizziness, headaches. Allergies and Home Medications Allergies Coded Allergies: codeine (Verified Allergy, Mild, chest tightness, 03/19/22) morphine (Verified Allergy, Mild, chest tightness, 03/19/22) gabapentin (Verified Allergy, Unknown, 04/21/22) Patient Home Medication List Home Medication List Reviewed: Yes Cephalexin (Cephalexin) 500 Mg Tablet, 500 MG PO BID Prescribed by: ZAC OVIEDO MD on 06/10/222234 Ferrous Sulfate (Ferosul) 325 Mg (65 Mg Iron) Tablet, 325 MG PO DAILY, (Reported) Entered as Reported by: PRAMOD FARRELL on 05/18/22 045 Ibuprofen (Ibuprofen) 800 Mg Tablet, 800 MG PO Q8H PRN for PAIN Prescribed by: KATIE AGUILAR on 05/10/22 174 Ondansetron (Ondansetron Odt) 4 Mg Tab.rapdis, 4 MG PO Q6H PRN for NAUSEA/VOMITING Prescribed by: KATIE AGUILAR on 05/10/22 174 Potassium Chloride (Potassium Chloride) 20 Meq Tab.er.prt, 20 MEQ PO DAILY, (Reported) Entered as Reported by: PRAMOD FARRELL on 05/18/22 0457 Tramadol HCl (Tramadol HCl) 50 Mg Tablet, 50 MG PO Q4H PRN for PAIN Prescribed by: YUVAL ELIAS MD on 05/04/22 2305 Tramadol HCl (Tramadol HCl) 50 Mg Tablet, 50 MG PO Q6H PRN for PAIN Prescribed by: SURJIT NEWBERRY on 05/20/22 1520 Review of Systems Review of Systems Constitutional: no symptoms reported EENTM: no symptoms reported Respiratory: no symptoms reported Cardiovascular: no symptoms reported Gastrointestinal: no symptoms reported Genitourinary: other (vaginal bleeding) Musculoskeletal: no symptoms reported Skin: no symptoms reported Psychiatric/Neurological: No Symptoms Reported Endocrine: No Symptoms Reported Hematologic/Lymphatic: No Symptoms Reported Past Feoajce-Tmwsww-Qvmpgm Hx Patient Social History Tobacco Use?: Yes Tobacco type used: Cigarettes Smoking Status: Current Everyday Smoker Substance use?: No Alcohol Use?: No Pt feels they are or have been: No Immunizations Up To Date First/Initial COVID19 Vaccinat: NONE Second COVID19 Vaccination Sam: NONE Third COVID19 Vaccination Date: NONE Past Medical History Surgery/Hospitalization HX: CERVICAL CANCER; Cholecysectomy; Tubal ligation Surgeries: Yes Gallbladder, Tubal Ligation Reproductive Disorders: No Family Medical History No Pertinent Family Hx Physical Exam Vital Signs Vital Signs - First Documented 07/12/22 12:05 Temp 37.5 Pulse 102 Resp 18 B/P (MAP) 130/81 (97) Pulse Ox 100 O2 Delivery Room Air Capillary Refill : Height, Weight, BMI Height: '" Weight: lbs. oz. kg; 29.00 BMI Method: General Appearance: WD/WN, no apparent distress HEENT: PERRL/EOMI Neck: full range of motion Cardiovascular: regular rate, rhythm, no edema Respiratory: lungs clear, normal breath sounds Gastrointestinal: normal bowel sounds, non tender, soft Pelvic: normal external exam, vaginal bleeding Back: normal inspection, no CVA tenderness Extremities: normal range of motion Neurologic/Psychiatric: alert, normal mood/affect, oriented x 3 Skin: normal color Progress/Results/Core Measures Suspected Sepsis SIRS Temperature: Pulse: Respiratory Rate: Laboratory Tests 07/12/22 12:15: White Blood Count 5.0 Blood Pressure / Mean: Laboratory Tests 07/12/22 12:15: Creatinine 0.53L, Platelet Count 213, Total Bilirubin 0.4 Results/Orders Lab Results Laboratory Tests Test 07/12/22 12:15 Range/Units White Blood Count 5.0 4.3-11.0 10^3/uL Red Blood Count 3.21 L 3.80-5.11 10^6/uL Hemoglobin 8.4 L 11.5-16.0 g/dL Hematocrit 26 L 35-52 % Mean Corpuscular Volume 82 80-99 fL Mean Corpuscular Hemoglobin 26 25-34 pg Mean Corpuscular Hemoglobin Concent 32 32-36 g/dL Red Cell Distribution Width 19.3 H 10.0-14.5 % Platelet Count 213 130-400 10^3/uL Mean Platelet Volume 11.4 9.0-12.2 fL Immature Granulocyte % (Auto) 1 % Neutrophils (%) (Auto) 85 H 42-75 % Lymphocytes (%) (Auto) 7 L 12-44 % Monocytes (%) (Auto) 7 0-12 % Eosinophils (%) (Auto) 0 0-10 % Basophils (%) (Auto) 0 0-10 % Neutrophils # (Auto) 4.3 1.8-7.8 10^3/uL Lymphocytes # (Auto) 0.3 L 1.0-4.0 10^3/uL Monocytes # (Auto) 0.4 0.0-1.0 10^3/uL Eosinophils # (Auto) 0.0 0.0-0.3 10^3/uL Basophils # (Auto) 0.0 0.0-0.1 10^3/uL Immature Granulocyte # (Auto) 0.0 0.0-0.1 10^3/uL Neutrophils % (Manual) 88 % Lymphocytes % (Manual) 3 % Monocytes % (Manual) 4 % Eosinophils % (Manual) 0 % Basophils % (Manual) 0 % Band Neutrophils 5 % Poikilocytosis SLIGHT Anisocytosis SLIGHT Sodium Level 140 135-145 MMOL/L Potassium Level 3.0 L 3.6-5.0 MMOL/L Chloride Level 102 98-107 MMOL/L Carbon Dioxide Level 25 21-32 MMOL/L Anion Gap 13 5-14 MMOL/L Blood Urea Nitrogen 6 L 7-18 MG/DL Creatinine 0.53 L 0.60-1.30 MG/DL Estimat Glomerular Filtration Rate 124 BUN/Creatinine Ratio 11 Glucose Level 115 H 70-105 MG/DL Calcium Level 9.6 8.5-10.1 MG/DL Corrected Calcium 10.0 8.5-10.1 MG/DL Total Bilirubin 0.4 0.1-1.0 MG/DL Aspartate Amino Transf (AST/SGOT) 20 5-34 U/L Alanine Aminotransferase (ALT/SGPT) 12 0-55 U/L Alkaline Phosphatase 101 40-136 U/L Total Protein 6.9 6.4-8.2 GM/DL Albumin 3.5 3.2-4.5 GM/DL My Orders Orders - ZAC OVIEDO MD Cbc With Automated Diff (07/12/22 12:16) Comprehensive Metabolic Panel (07/12/22 12:16) Manual Differential (07/12/22 12:15) Potassium Chloride (Tablet) (K Dur Table (07/12/22 13:15) Vital Signs/I&O 07/12/22 12:05 Temp 37.5 Pulse 102 Resp 18 B/P (MAP) 130/81 (97) Pulse Ox 100 O2 Delivery Room Air Capillary Refill : Progress Note : Progress Note 1. VAGINAL/ CERVICAL BLEEDING: - CBC: Hb is stable: 8.4 - Called pt;s oncology office to speak with Dr Calles ( [facility]): Advised not to insert anything in the vagina, no sexual intercourse, and his office will be in touch with pt to assist her with insurance, and MRI to set up further radiation. His office numbers: [facility]: [phone] (he is only there on ) [facility]: [phone] - Advised adequate hydration and pain control as needed. - Follow up with PCP/ Oncology within 7 days - Pt's bleeding is almost stopped by the time she was leaving the ER -The patient was seen in the ED, and treated appropriately to presentation at a specific point in time. Patient is informed that there is a possibility that disease and illness can evolve and change in acuity rapidly or slowly after patient is discharged from the ER. Precautionary advice given to the patient for immediate return to ER if symptoms worsen or do not resolve, and to seek emergency care sooner rather than later. Pt also advised on the importance of PCP follow up and compliance with management and follow up plan with PCP and/or specialist, as this is part of the management plan. Pt verbally expressed understanding. 2. MILD HYPOKALEMIA: - s. K+ is 3.0 - Oral potassium 40mEq given in ED Departure Communication (Admissions) Time/Spoke to Consulting Phy: 13:[address] Calles ( oncology over phone) Impression Primary Impression: Uterine bleeding Additional Impression: Hypokalemia Disposition: HOME, SELF-CARE Condition: Improved Departure-Patient Inst. Referrals: LINDSAY CORTES MD (PCP/Family) Primary Care Physician Patient Instructions: Hypokalemia (DC), IRREGULAR VAGINAL BLEEDING Add. Discharge Instructions: - Oncologist Advised not to insert anything in the vagina, no sexual intercourse, and his office will be in touch with pt to assist her with insurance, and MRI to set up further radiation. - Advised adequate hydration and pain control as needed. - Follow up with PCP/ Oncology within 7 days All discharge instructions reviewed with patient and/or family. Voiced understanding. ZAC OVIEDO MD July 12, 2022 12:16
[2022-07-12 12:22] LABS: BASOPHILS % (AUTO) 0 % (0-10); EOSINOPHILS % (AUTO) 0 % (0-10); HEMATOCRIT 26 % (35-52); HEMOGLOBIN 8.4 g/dL (11.5-16.0); LYMPHOCYTES # (AUTO) 0.3 10^3/uL (1.0-4.0); LYMPHOCYTES % (AUTO) 7 % (12-44); MEAN CORPUSCULAR HEMOGLOBIN 26 pg (25-34); MEAN CORPUSCULAR HGB CONC 32 g/dL (32-36); MEAN CORPUSCULAR VOLUME 82 fL (80-99); MEAN PLATELET VOLUME 11.4 fL (9.0-12.2); MONOCYTES # (AUTO) 0.4 10^3/uL (0.0-1.0); MONOCYTES % (AUTO) 7 % (0-12); NEUTROPHILS # (AUTO) 4.3 10^3/uL (1.8-7.8); NEUTROPHILS % (AUTO) 85 % (42-75); PLATELET COUNT 213 10^3/uL (130-400)
[2022-07-12 12:47] LABS: CREATININE SERUM 0.53 MG/DL (0.60-1.30)
[2022-07-12 12:48] LABS: ALBUMIN 3.5 GM/DL (3.2-4.5); BAND NEUTROPHILS 5 %; BASOPHILS % (MANUAL) 0 %; BILIRUBIN,TOTAL 0.4 MG/DL (0.1-1.0); CALCIUM 9.6 MG/DL (8.5-10.1); EOSINOPHILS % (MANUAL) 0 %; LYMPHOCYTES % (MANUAL) 3 %; MONOCYTES % (MANUAL) 4 %; NEUTROPHILS % (MANUAL) 88 %; POIKILOCYTOSIS SLIGHT; TOTAL PROTEIN 6.9 GM/DL (6.4-8.2)
[2022-07-12 12:49] LABS: ANISOCYTOSIS SLIGHT
[2022-07-12] MEDS ORDERED: KCL 20 MEQ TAB (K-DUR) PO ONE (13:15)
[2022-07-13] MEDS ORDERED: AMOX1TAB12 PO ×2 (19:56→19:57)
== END 2022-07-12 13:50 | disposition home or self-care (01) ==
LOC: EDUNIT# 12:00 → ER FS 12:01
DX: N93.9 Abnormal uterine and vaginal bleeding, unspecified (principal); E87.6 Hypokalemia; C53.9 Malignant neoplasm of cervix uteri, unspecified; F17.210 Nicotine dependence, cigarettes, uncomplicated
CPT/HCPCS: 36415; 80053; 85007; 85027

== ENCOUNTER 2022-07-13 17:24 | Emergency (ER) | payer SELFPAY ==
[~2022-07-13] VITALS: Ht 160 cm; Wt 69.9 kg
--- NOTE | 2022-07-13 18:06 | ED GU-Female ---
General Chief Complaint: - Reproductive Stated Complaint: VAG BLEEDING - FEVER Nursing Triage Note: PT STATES PT JUST FINISHED EXTERNAL RAD AND CHEMO APPROX 3 WEEKS AGO, PT STATES IS PASSING LARGE CLOTS AND TODAY STARTED HAVING A FEVER OF 102.2. WAS SEEN IN [facility] ED LAST PM. PT HAS PICC LINE IN R AREA Source: patient Exam Limitations: no limitations History of Present Illness Date Seen by Provider: July 13, 2022 Time Seen by Provider: 18:03 Initial Comments Patient is a 32-year-old female with a history of cervical cancer diagnosed in February who presents to ED with fever, lower abdominal pain, back pain and vaginal bleeding. She states vaginal bleeding started around 11 AM yesterday. Passing large softball clots. Continue passing of clots today. She reports fever at home. 102 on arrival. She was treated with chemo and radiation 3 weeks ago. She does follow Dr. 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 Currently follows Dr. Clemons oncology here in [place]. Patient does report frequent urination and pain with urination over the past 2 weeks. Was discharged with Keflex with no improvement. Patient reports lower abdominal cramping over the past week with pain in her right flank. She is unsure why she is having the vaginal bleeding was recommended come to ED for further evaluation. She denies chest pain, cough, shortness of breath, sore throat, ear pain, headache, dizziness. She had a hemoglobin 8.4. She does report some mild diarrhea Allergies and Home Medications Allergies Coded Allergies: codeine (Verified Allergy, Mild, chest tightness, 03/19/22) morphine (Verified Allergy, Mild, chest tightness, 03/19/22) gabapentin (Verified Allergy, Unknown, 04/21/22) Patient Home Medication List Home Medication List Reviewed: Yes Amoxicillin/Potassium Clav (Amox Tr-K Clv 875-125 mg Tab) 875 Mg-125 Mg Tablet, 1 EACH PO BID Prescribed by: SONAL PETIT on 07/13/221956 Cephalexin (Cephalexin) 500 Mg Tablet, 500 MG PO BID Prescribed by: ZAC OVIEDO MD on 06/10/222234 Ferrous Sulfate (Ferosul) 325 Mg (65 Mg Iron) Tablet, 325 MG PO DAILY, (Reported) Entered as Reported by: PRAMOD FARRELL on 05/18/22456 Ibuprofen (Ibuprofen) 800 Mg Tablet, 800 MG PO Q8H PRN for PAIN Prescribed by: KATIE AGUILAR on 05/10/22 174 Ondansetron (Ondansetron Odt) 4 Mg Tab.rapdis, 4 MG PO Q6H PRN for NAUSEA/VOMITING Prescribed by: KATIE HEARTRT on 05/10/221742 Potassium Chloride (Potassium Chloride) 20 Meq Tab.er.prt, 20 MEQ PO DAILY, (Reported) Entered as Reported by: PRAMOD FARRELL on 05/18/22456 Tramadol HCl (Tramadol HCl) 50 Mg Tablet, 50 MG PO Q4H PRN for PAIN Prescribed by: YUVAL ELIAS MD on 05/04/22 2305 Tramadol HCl (Tramadol HCl) 50 Mg Tablet, 50 MG PO Q6H PRN for PAIN Prescribed by: SURJIT NEWBERRY on 05/20/22 1520 Discontinued Medications Amoxicillin/Potassium Clav (Amox Tr-K Clv 875-125 mg Tab) 875 Mg-125 Mg Tablet, 1 EACH PO BID Prescribed by: SONAL PETIT on 07/13/221955 Review of Systems Review of Systems Constitutional: No chills, No diaphoresis, No malaise, No weakness EENTM: No blurred vision, No double vision Respiratory: No cough, No dyspnea on exertion Cardiovascular: No chest pain Gastrointestinal: abdominal pain, diarrhea; No nausea, No vomiting Genitourinary: burning, dysuria, frequency Musculoskeletal: back pain; No joint pain Skin: No change in color, No change in hair/nails All Other Systemes Reviewed Negative Unless Noted: Yes Past Evcktjt-Gfnrlh-Pxzwvq Hx Patient Social History Tobacco Use?: Yes Tobacco type used: Cigarettes Smoking Status: Current Everyday Smoker Substance use?: No Alcohol Use?: No Pt feels they are or have been: No Immunizations Up To Date First/Initial COVID19 Vaccinat: NONE Second COVID19 Vaccination Sam: NONE Third COVID19 Vaccination Date: NONE Past Medical History Surgery/Hospitalization HX: CERVICAL CANCER; Cholecysectomy; Tubal ligation Surgeries: Yes Gallbladder, Tubal Ligation Reproductive Disorders: No Family Medical History No Pertinent Family Hx Physical Exam Vital Signs Vital Signs - First Documented 07/13/22 17:29 Temp 39.4 Pulse 124 Resp 18 B/P (MAP) 109/62 (78) Pulse Ox 98 Capillary Refill : Less Than 3 Seconds Height, Weight, BMI Height: '" Weight: lbs. oz. kg; 27.00 BMI Method: General Appearance: WD/WN, no apparent distress HEENT: PERRL/EOMI, normal ENT inspection, TMs normal, pharynx normal Neck: non-tender, full range of motion, supple Cardiovascular: regular rate, rhythm, no edema, no gallop, no JVD Respiratory: chest non-tender, lungs clear, normal breath sounds, no respiratory distress Gastrointestinal: normal bowel sounds, soft, no organomegaly, no pulsatile mass, tenderness (Suprapubic tenderness, right flank tenderness) Back: normal inspection, CVA tenderness (R) Extremities: normal range of motion, non-tender, normal inspection, no pedal edema Neurologic/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: 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, no motor/sensory deficits, alert, normal mood/affect, oriented x 3 Skin: normal color, warm/dry Focused Exam Lactate Level 07/13/22 18:20: Lactic Acid Level 1.77 Lactic Acid Level Progress/Results/Core Measures Suspected Sepsis SIRS Temperature: Pulse: 124 Respiratory Rate: 18 Laboratory Tests 07/13/22 18:20: White Blood Count 5.5 Blood Pressure 109 /62 Mean: 78 07/13/22 18:20: Lactic Acid Level 1.77 Laboratory Tests 07/13/22 18:20: Creatinine 0.67, INR Comment 1.0, Platelet Count 194, Total Bilirubin 0.4 Results/Orders Lab Results Laboratory Tests Test 07/13/22 18:11 07/13/22 18:20 Range/Units Urine Color YELLOW Urine Clarity CLEAR Urine pH 6.5 5-9 Urine Specific [place] 1.015 L 1.016-1.022 Urine Protein NEGATIVE NEGATIVE Urine Glucose (UA) NEGATIVE NEGATIVE Urine Ketones NEGATIVE NEGATIVE Urine Nitrite NEGATIVE NEGATIVE Urine Bilirubin NEGATIVE NEGATIVE Urine Urobilinogen 1.0 < = 1.0 MG/DL Urine Leukocyte Esterase NEGATIVE NEGATIVE Urine RBC (Auto) 3+ H NEGATIVE Urine RBC 5-10 H /HPF Urine WBC 0-2 /HPF Urine Squamous Epithelial Cells 0-2 /HPF Urine Crystals PRESENT H /LPF Urine Amorphous Sediment RARE [place] URATES H /LPF Urine Bacteria TRACE /HPF Urine Casts NONE /LPF Urine Mucus SMALL H /LPF Urine Culture Indicated NO White Blood Count 5.5 4.3-11.0 10^3/uL Red Blood Count 2.92 L 3.80-5.11 10^6/uL Hemoglobin 7.8 L 11.5-16.0 g/dL Hematocrit 24 L 35-52 % Mean Corpuscular Volume 82 80-99 fL Mean Corpuscular Hemoglobin 27 25-34 pg Mean Corpuscular Hemoglobin Concent 33 32-36 g/dL Red Cell Distribution Width 19.6 H 10.0-14.5 % Platelet Count 194 130-400 10^3/uL Mean Platelet Volume 11.1 9.0-12.2 fL Immature Granulocyte % (Auto) 0 % Neutrophils (%) (Auto) 89 H 42-75 % Lymphocytes (%) (Auto) 5 L 12-44 % Monocytes (%) (Auto) 6 0-12 % Eosinophils (%) (Auto) 0 0-10 % Basophils (%) (Auto) 0 0-10 % Neutrophils # (Auto) 4.9 1.8-7.8 10^3/uL Lymphocytes # (Auto) 0.3 L 1.0-4.0 10^3/uL Monocytes # (Auto) 0.3 0.0-1.0 10^3/uL Eosinophils # (Auto) 0.0 0.0-0.3 10^3/uL Basophils # (Auto) 0.0 0.0-0.1 10^3/uL Immature Granulocyte # (Auto) 0.0 0.0-0.1 10^3/uL Prothrombin Time 13.7 12.2-14.7 SEC INR Comment 1.0 0.8-1.4 Activated Partial Thromboplast Time 31 24-35 SEC Sodium Level 139 135-145 MMOL/L Potassium Level 3.1 L 3.6-5.0 MMOL/L Chloride Level 103 98-107 MMOL/L Carbon Dioxide Level 25 21-32 MMOL/L Anion Gap 11 5-14 MMOL/L Blood Urea Nitrogen 6 L 7-18 MG/DL Creatinine 0.67 0.60-1.30 MG/DL Estimat Glomerular Filtration Rate 118 BUN/Creatinine Ratio 9 Glucose Level 104 70-105 MG/DL Lactic Acid Level 1.77 0.50-2.00 MMOL/L Calcium Level 8.9 8.5-10.1 MG/DL Corrected Calcium 9.5 8.5-10.1 MG/DL Total Bilirubin 0.4 0.1-1.0 MG/DL Aspartate Amino Transf (AST/SGOT) 13 5-34 U/L Alanine Aminotransferase (ALT/SGPT) 13 0-55 U/L Alkaline Phosphatase 80 40-136 U/L Total Protein 6.4 6.4-8.2 GM/DL Albumin 3.3 3.2-4.5 GM/DL My Orders Orders - SURJIT SEBASTIAN Ua Culture If Indicated (07/13/22 17:55) Cbc With Automated Diff (07/13/22 18:) Comprehensive Metabolic Panel (07/13/22 18:) Blood Culture (07/13/22 18:) Protime With Inr (07/13/22 18:) Partial Thromboplastin Time (07/13/22 18:01) Ed Iv/Invasive Line Start (07/13/22 18:01) Vital Signs Adult Sepsis Patie Q15M (07/13/22 18:01) Lactic Acid Analyzer (07/13/22 18:01) Ns Iv 1000 Ml (Sodium Chloride 0.9%) (07/13/22 18:15) Ceftriaxone Iv/Im (Rocephin Iv/Im) (07/13/22 18:15) Ct Abd/Pelv W (Appendicitis) (07/13/22 18:01) Ketorolac Injection (Toradol Injection) (07/13/22 18:15) Iohexol Injection (Omnipaque 350 Mg/Ml 1 (07/13/22 18:15) Received Contrast (Hold Metformin- Contr (07/13/22 18:15) Ns (Ivpb) (Sodium Chloride 0.9% Ivpb Bag (07/13/22 18:15) Potassium Chloride (Tablet) (K Dur Table (07/13/22 19:15) Type And Screen (07/13/22 19:10) Medications Given in ED Vital Signs/I&O 07/14/22 00:00 Intake Total 1050 ml Balance 1050 ml Capillary Refill : Less Than 3 Seconds Blood Pressure Mean: 78 Departure Communication (PCP) Reviewed previous ER visits, H&P, lab test. Differential diagnosis of cervical cancer, anemia, UTI, PID. Denies any vaginal discharge or concern for sexual transmitted affection. Currently follows with Dr. 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 Calles in . Patient with a history of cervical cancer. Patient recently finished chemotherapy and radiation 3 weeks ago. Has been seen multiple visits for pelvic pain, vaginal bleeding. Has received previous blood transfusions since diagnosed in February. Patient presents ED concern for vaginal bleeding. She had 4 episodes of vaginal bleeding yesterday desribed as softball sized blood clots and 3 episodes today of softball sized blood clots. Urinary symptoms over the past 2 weeks. Patient was treated for UTI last week and finished her Keflex. Continue with urinary symptoms. Patient with lower abdominal pain and flank pain has been ongoing for the past week. Similar type pain in the past. Does have pain medication at home. She was seen at [facility] yesterday for vaginal bleeding. The ER physician contacted Dr. Calles who recommended no pelvic exam and to follow-up with him outpatient. She was concern for her fever today of 102. She was febrile and tachycardic on arrival. Patient was given Toradol for fever. Sepsis protocol was started. Blood cultures pending. Lactic acid and general lab work. CBC showed normal white blood count. Hemoglobin at 7.8. Hemoglobin yesterday was 8.6. Normal platelets. Chemistry grossly unremarkable besides potassium 3.1. History of hypokalemia. Currently on oral supplements. She did receive 20 ml equivalent of potassium here. Type and screen was ordered. Due to her current pain CT abdomen pelvis was ordered. Do not have ultrasound at night. Did not perform pelvic exam after reading the ER physician's note yesterday after consulting with Dr. Calles. CT abdomen pelvis showed interval decrease in size in the cervical mass with continued central necrosis. Not able to exclude infection involving the necrotic portion. Developmental of soft tissue lung nodules in the lung bases concerning for metastatic. Patient was discussed with Dr. Calles at [facility]. Recommended no pelvic exam at this time. Did not recommend blood transfusion at this time. Recommend blood transfusion if below 7. Patient did receive Toradol here with improvement of pain. Her urinalysis did not show evidence of infection. Discussed with him my concern that she is tachycardic and febrile. Did recommend starting her on Augmentin. He did mention that she will experience bleeding secondary to the large cervical mass. This is expected. It was recommended no blood transfusion as at this time. They will follow-up with her tomorrow. Improvement of her heart rate. they will follow-up with her blood cultures. Recommend no admission. She is not neutropenic. Normal white blood count. these results were discussed with patient. Return precautions were discussed. Tylenol ibuprofen at home for fever. If any worsening symptoms such as pain, fever vomiting to return back to ED. Impression Primary Impression: Vaginal bleeding Additional Impressions: Fever Anemia Cervical cancer Disposition: HOME, SELF-CARE Condition: Stable Departure-Patient Inst. Decision time for Depature: 19:55 Referrals: LINDSAY CORTES MD (PCP/Family) Primary Care Physician Patient Instructions: Fever, Adult ED Add. Discharge Instructions: Need to follow-up with your stem roller operator oncologist for further evaluation. Recheck of lab work the next 2 days. Antibiotics as prescribed. Return ED if symptoms worsen. Take Tylenol or ibuprofen for fever. All discharge instructions reviewed with patient and/or family. Voiced understanding. Scripts Amoxicillin/Potassium Clav (Amox Tr-K Clv 875-125 mg Tab) 875 Mg-125 Mg Tablet 1 EACH PO BID for 10 Days, #20 TAB Prov: SURJIT SEBASTIAN 07/13/22 SURJIT SEBASTIAN July 13, 2022 18:06
[2022-07-13] MEDS ORDERED: IOHEXOL 350 MG/ML 100 ML (OMNIPAQUE 350) VIAL IV ONE (18:15)
[2022-07-13] MEDS ORDERED: cefTRIAXone IV/IM 1,000 MG in NS (IVPB) 50 ML IV ONE (18:15)
[2022-07-13] MEDS ORDERED: NS IV 1000 ML 1,000 ML IV SCH (18:15)
[2022-07-13] MEDS ORDERED: NS 100 ML (IVPB) BAG IV ONE (18:15)
[2022-07-13] MEDS ORDERED: KETOROLAC 30 MG/ML VIAL IVP ONE (18:15)
[2022-07-13] MEDS ORDERED: HOLD METFORMIN - RECEIVED CONTRAST 20 ML VIAL IV SCH (18:15)
[2022-07-13 18:21] LABS: BILIRUBIN,URINE NEGATIVE (NEGATIVE); CLARITY,URINE CLEAR; COLOR,URINE YELLOW; GLUCOSE, URINE (UA) NEGATIVE (NEGATIVE); KETONES,URINE NEGATIVE (NEGATIVE); LEUKOCYTE ESTERASE ,URINE NEGATIVE (NEGATIVE); NITRITE,URINE NEGATIVE (NEGATIVE); PH,URINE 6.5 (5-9); PROTEIN,URINE NEGATIVE (NEGATIVE)
[2022-07-13 18:28] LABS: AMORPHOUS SEDIMENT,UR RARE AMOR URATES /LPF; BACTERIA,URINE TRACE /HPF; SQUAMOUS EPITHELIAL CELL,UR 0-2 /HPF; WBC,URINE 0-2 /HPF
[2022-07-13 18:32] LABS: BASOPHILS % (AUTO) 0 % (0-10); EOSINOPHILS % (AUTO) 0 % (0-10); HEMATOCRIT 24 % (35-52); HEMOGLOBIN 7.8 g/dL (11.5-16.0); LYMPHOCYTES # (AUTO) 0.3 10^3/uL (1.0-4.0); LYMPHOCYTES % (AUTO) 5 % (12-44); MEAN CORPUSCULAR HEMOGLOBIN 27 pg (25-34); MEAN CORPUSCULAR HGB CONC 33 g/dL (32-36); MEAN CORPUSCULAR VOLUME 82 fL (80-99); MEAN PLATELET VOLUME 11.1 fL (9.0-12.2); MONOCYTES # (AUTO) 0.3 10^3/uL (0.0-1.0); MONOCYTES % (AUTO) 6 % (0-12); NEUTROPHILS # (AUTO) 4.9 10^3/uL (1.8-7.8); NEUTROPHILS % (AUTO) 89 % (42-75); PLATELET COUNT 194 10^3/uL (130-400); WHITE BLOOD COUNT 5.5 10^3/uL (4.3-11.0)
[2022-07-13 18:45] LABS: ALBUMIN 3.3 GM/DL (3.2-4.5); POTASSIUM 3.1 MMOL/L (3.6-5.0)
--- NOTE | 2022-07-13 18:46 | Diagnostic Imaging Report ---
EXAMINATION: CT abdomen and pelvis with intravenous contrast. TECHNIQUE: Multiple contiguous axial images were obtained through the abdomen and pelvis after the uneventful administration of intravenous contrast. All CT scans use one or more of the following dose optimizing techniques: automated exposure control, MA and/or KvP adjustment based on patient size and exam type or iterative reconstruction. HISTORY: Lower abdominal pain. Fever. COMPARISON: 04/21/2022. FINDINGS: The heart is unremarkable. There has been interval development of a soft tissue nodule in the left lung base measuring 1.5 cm. New nodule is also seen in the right lung base measuring 1.0 cm. A smaller nodule is seen in the right lung base measuring 0.4 cm. Stable nodule in the right adrenal gland measuring 1.5 cm. The right adrenal gland is unremarkable. The liver, spleen, pancreas and kidneys have a normal appearance. The gallbladder is surgically absent. There is no pathologically enlarged mesenteric or retroperitoneal adenopathy. The bowel loops are nondilated. The appendix is visualized in the right lower quadrant and has a normal appearance. There is no free fluid or free air. No acute osseous abnormality. Bilateral pars defects are seen at L5 without evidence of spondylolisthesis. Ureters and bladder are grossly normal. There has been interval decrease in size in the cervical mass, now measuring 4.0 x 3.8 cm, previously measuring up to 8.0 cm in diameter. There is continued central necrosis. IMPRESSION: 1. Interval decrease in size in the cervical mass with continued central necrosis. Underlying infection involving the necrotic portions is not completely excluded and correlation with patient history and physical exam is recommended. 2. Development of soft tissue lung nodules in the lung bases, concerning for metastatic disease. 3. Stable nodule in the left adrenal gland. Dictated by: Dictated on workstation # [id number]
[2022-07-13 18:47] LABS: CALCIUM 8.9 MG/DL (8.5-10.1)
[2022-07-13 18:48] LABS: PROTHROMBIN TIME PATIENT 13.7 SEC (12.2-14.7); TOTAL PROTEIN 6.4 GM/DL (6.4-8.2)
[2022-07-13 18:50] LABS: BILIRUBIN,TOTAL 0.4 MG/DL (0.1-1.0)
[2022-07-13 18:52] LABS: CREATININE SERUM 0.67 MG/DL (0.60-1.30)
[2022-07-13] MEDS ORDERED: KCL 20 MEQ TAB (K-DUR) PO ONE (19:15)
[2022-07-13] MEDS ORDERED: AMOX1TAB12 PO ×2 (19:56→19:57)
[2022-07-13 20:04] VITALS: BP 109/58
== END 2022-07-13 20:04 | disposition home or self-care (01) ==
LOC: EDUNIT# 17:24 → ER 17:25
DX: N93.9 Abnormal uterine and vaginal bleeding, unspecified (principal); R50.9 Fever, unspecified; C53.9 Malignant neoplasm of cervix uteri, unspecified; D63.0 Anemia in neoplastic disease; E87.6 Hypokalemia; R00.0 Tachycardia, unspecified; F17.210 Nicotine dependence, cigarettes, uncomplicated; Z90.49 Acquired absence of other specified parts of digestive tract; Z98.51 Tubal ligation status
CPT/HCPCS: 36415; 74177; 80053; 81000; 83605; 85025; 85610; 85730; 86850; 86900; 86901; 87040

== ENCOUNTER 2022-07-15 09:49 | Outpatient (RCR) | payer SELFPAY ==
[~2022-07-15 09:49] MED LIST changes: +AMOX1TAB12 PO
[2022-07-15 10:15] LABS: BASOPHILS % (AUTO) 0 % (0-10); EOSINOPHILS % (AUTO) 0 % (0-10); HEMATOCRIT 22 % (35-52); HEMOGLOBIN 7.4 g/dL (11.5-16.0); LYMPHOCYTES # (AUTO) 0.3 10^3/uL (1.0-4.0); LYMPHOCYTES % (AUTO) 6 % (12-44); MEAN CORPUSCULAR HEMOGLOBIN 27 pg (25-34); MEAN CORPUSCULAR HGB CONC 33 g/dL (32-36); MEAN CORPUSCULAR VOLUME 82 fL (80-99); MEAN PLATELET VOLUME 11.5 fL (9.0-12.2); MONOCYTES # (AUTO) 0.4 10^3/uL (0.0-1.0); MONOCYTES % (AUTO) 10 % (0-12); NEUTROPHILS # (AUTO) 3.5 10^3/uL (1.8-7.8); NEUTROPHILS % (AUTO) 84 % (42-75); PLATELET COUNT 188 10^3/uL (130-400); WHITE BLOOD COUNT 4.2 10^3/uL (4.3-11.0)
== END 2022-07-27 | disposition home or self-care (01) ==
LOC: ONC 09:49
PROVIDERS: ATTEND Internal Medicine Hematology & Oncology
DX: C53.9 Malignant neoplasm of cervix uteri, unspecified (principal)
CPT/HCPCS: 85025

== ENCOUNTER 2022-08-29 06:58 | Emergency (ER) | payer MEDICAID ==
[2022-08-29] MEDS ORDERED: fentaNYL INJ 100 MCG/2 ML AMP IVP STA (07:21)
[2022-08-29] MEDS ORDERED: NS IV 1000 ML 1,000 ML IV STA (07:21)
--- NOTE | 2022-08-29 07:25 | ED General ---
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 PT DENIES N/V. PT REPORTS BEING SEEN IN ED AT [facility] ON AND TOLD SHE HAD NODULES ON HER LEFT LUNG. Source of Information: Patient History of Present Illness Date Seen by Provider: Aug 29, 2022 Time Seen by Provider: 07:02 Initial Comments 32-year-old female presenting with complaints of feeling short of breath and having sharp pleuritic pain to the right flank and lower chest. She states this started approximately an hour prior to arrival and woke her up from sleep. She does have a history of metastatic cervical cancer and has already undergone chemotherapy and radiation as well as 5 rounds of brachytherapy. She just finished with her most recent round of brachytherapy and now is to follow-up this week with her oncologist in [place] about new nodules seen in her lungs. She states that she had been seen approximately 2 weeks ago at [facility] for similar sharp pains on the left side of her flank and posterior chest. She states they told her she had a low potassium and lung nodules at that time. She states that pain is still there but not as bad now and the right-sided pain is new and very sharp especially with deep breaths and movement. She is taking Celebrex for pain from Dr. Haney. she has had burning with urination but states the Oncologist told her that can happen with the brachitherapy. She denies fever, chills, nausea, vomiting, diarrhea, cough. She has chronic low pelvic/cervical pain that has been constant with her cancer treatment and is not new or worse than usual. Timing/Duration: 1 Hour Severity: Severe Modifying Factors: worse with Movement (and deep breaths) Associated Systoms: No Cough, No Diaphoresis, No Fever/Chills, No Headaches, No Malaise, No Nausea/Vomiting, No Rash, No Seizure; Shortness of Air (feels short of breath as she can not take a deep breath without pain); No Syncope, No Weakness Allergies and Home Medications Allergies Coded Allergies: codeine (Verified Allergy, Mild, chest tightness, 03/19/22) morphine (Verified Allergy, Mild, chest tightness, 03/19/22) gabapentin (Verified Allergy, Unknown, 04/21/22) Patient Home Medication List Home Medication List Reviewed: Yes Amoxicillin/Potassium Clav (Amox Tr-K Clv 875-125 mg Tab) 875 Mg-125 Mg Tablet, 1 EACH PO BID Prescribed by: SONAL PETIT on 07/13/221956 Cephalexin (Cephalexin) 500 Mg Tablet, 500 MG PO BID Prescribed by: ZAC OVIEDO MD on 06/10/222234 Ferrous Sulfate (Ferosul) 325 Mg (65 Mg Iron) Tablet, 325 MG PO DAILY, (Reported) Entered as Reported by: PRAMOD FARRELL on 05/18/22 0457 Hydrocodone/Acetaminophen (Hydrocodone-Acetamin 5-325 mg) 5 Mg-325 Mg Tablet, 1 TAB PO Q4H PRN for PAIN SEVERE Prescribed by: KATIE AGUILAR on 08/29/22 0942 Ibuprofen (Ibuprofen) 800 Mg Tablet, 800 MG PO Q8H PRN for PAIN Prescribed by: KATIE AGUILAR on 05/10/22 1743 Nitrofurantoin Monohyd/M-Cryst (Macrobid 100 mg Capsule) 100 Mg Capsule, 1 TAB PO BID Prescribed by: KATIE AGUILAR on 08/29/22 0940 Ondansetron (Ondansetron Odt) 4 Mg Tab.rapdis, 4 MG PO Q6H PRN for NAUSEA/VOMITING Prescribed by: KATIE AGUILAR on 05/10/22 174 Potassium Chloride (Potassium Chloride) 20 Meq Tab.er.prt, 20 MEQ PO DAILY, (Reported) Entered as Reported by: PRAMOD FARRELL on 05/18/22 0457 Tramadol HCl (Tramadol HCl) 50 Mg Tablet, 50 MG PO Q4H PRN for PAIN Prescribed by: YUVAL ELIAS MD on 05/04/22 2305 Tramadol HCl (Tramadol HCl) 50 Mg Tablet, 50 MG PO Q6H PRN for PAIN Prescribed by: SURJIT NEWBERRY on 05/20/22 1520 Review of Systems Review of Systems Constitutional: No chills, No fever EENTM: no symptoms reported Respiratory: see HPI Cardiovascular: see HPI Gastrointestinal: see HPI; No diarrhea, No nausea, No vomiting Genitourinary: dysuria Musculoskeletal: see HPI Skin: No change in color, No rash Psychiatric/Neurological: Anxiety Past Wrakhfp-Hlbehc-Iueozo Hx Patient Social History Tobacco Use?: Yes Tobacco type used: Cigarettes Smoking Status: Heavy Tobacco Smoker Smokeless Tobacco Frequency: Never a User Use of E-Cig and/or Vaping dev: No Use of E-Cig and/or Vaping Triston: Never a User Substance use?: No Alcohol Use?: No Pt feels they are or have been: No Immunizations Up To Date First/Initial COVID19 Vaccinat: NONE Second COVID19 Vaccination Sam: NONE Third COVID19 Vaccination Date: NONE Past Medical History Surgery/Hospitalization HX: CERVICAL CANCER; Cholecysectomy; Tubal ligation Surgeries: Yes Gallbladder, Tubal Ligation Reproductive Disorders: No Family Medical History No Pertinent Family Hx Physical Exam Vital Signs Vital Signs - First Documented 08/29/22 08/29/22 06:58 09:47 Temp 36.9 Pulse 94 Resp 19 B/P (MAP) 110/63 (79) Pulse Ox 99 O2 Delivery Room Air Capillary Refill : Less Than 3 Seconds Height, Weight, BMI Height: '" Weight: lbs. oz. kg; 27.00 BMI Method: General Appearance: Anxious, Mild Distress HEENT: PERRL/EOMI, Pharynx Normal Neck: Full Range of Motion, Normal Inspection, Non Tender, Supple Respiratory: Chest Non Tender, No Accessory Muscle Use, No Respiratory Distress, Decreased Breath Sounds Cardiovascular: Regular Rate, Rhythm, Normal Peripheral Pulses Gastrointestinal: Normal Bowel Sounds, No Pulsatile Mass, Soft; No Distended, No Guarding; Tenderness (suprapubic area) Rectal: Deferred Back: CVA Tenderness (R) (tender to palpation over right CVA and lower posterior chest wall) Extremity: Normal Capillary Refill, Normal Inspection, No Calf Tenderness, No Pedal Edema Neurologic/Psychiatric: Alert, Oriented x3, 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 Norm as Tested Skin: Normal Color, Warm/Dry Progress/Results/Core Measures Suspected Sepsis SIRS Temperature: Pulse: 94 Respiratory Rate: 19 Laboratory Tests 08/29/22 07:07: White Blood Count 7.5 Blood Pressure 110 /63 Mean: 79 Laboratory Tests 08/29/22 07:07: Creatinine 0.73, INR Comment 1.0, Platelet Count 377, Total Bilirubin 0.3 Results/Orders Lab Results Laboratory Tests Test 08/29/22 07:07 08/29/22 08:15 Range/Units White Blood Count 7.5 4.3-11.0 10^3/uL Red Blood Count 3.30 L 3.80-5.11 10^6/uL Hemoglobin 8.7 L 11.5-16.0 g/dL Hematocrit 29 L 35-52 % Mean Corpuscular Volume 86 80-99 fL Mean Corpuscular Hemoglobin 26 25-34 pg Mean Corpuscular Hemoglobin Concent 31 L 32-36 g/dL Red Cell Distribution Width 14.5 10.0-14.5 % Platelet Count 377 130-400 10^3/uL Mean Platelet Volume 11.0 9.0-12.2 fL Immature Granulocyte % (Auto) 0 % Neutrophils (%) (Auto) 86 H 42-75 % Lymphocytes (%) (Auto) 4 L 12-44 % Monocytes (%) (Auto) 8 0-12 % Eosinophils (%) (Auto) 1 0-10 % Basophils (%) (Auto) 0 0-10 % Neutrophils # (Auto) 6.5 1.8-7.8 10^3/uL Lymphocytes # (Auto) 0.3 L 1.0-4.0 10^3/uL Monocytes # (Auto) 0.6 0.0-1.0 10^3/uL Eosinophils # (Auto) 0.1 0.0-0.3 10^3/uL Basophils # (Auto) 0.0 0.0-0.1 10^3/uL Immature Granulocyte # (Auto) 0.0 0.0-0.1 10^3/uL Neutrophils % (Manual) 72 % Lymphocytes % (Manual) 4 % Monocytes % (Manual) 7 % Eosinophils % (Manual) 0 % Basophils % (Manual) 0 % Band Neutrophils 17 % Platelet Estimate NORMAL Hypochromasia MODERATE Microcytosis SLIGHT Prothrombin Time 13.7 12.2-14.7 SEC INR Comment 1.0 0.8-1.4 Activated Partial Thromboplast Time 35 24-35 SEC Sodium Level 140 135-145 MMOL/L Potassium Level 3.8 3.6-5.0 MMOL/L Chloride Level 103 98-107 MMOL/L Carbon Dioxide Level 23 21-32 MMOL/L Anion Gap 14 5-14 MMOL/L Blood Urea Nitrogen 7 7-18 MG/DL Creatinine 0.73 0.60-1.30 MG/DL Estimat Glomerular Filtration Rate 111 BUN/Creatinine Ratio 10 Glucose Level 99 70-105 MG/DL Calcium Level 10.3 H 8.5-10.1 MG/DL Corrected Calcium 10.8 H 8.5-10.1 MG/DL Total Bilirubin 0.3 0.1-1.0 MG/DL Aspartate Amino Transf (AST/SGOT) 12 5-34 U/L Alanine Aminotransferase (ALT/SGPT) 11 0-55 U/L Alkaline Phosphatase 125 40-136 U/L C-Reactive Protein 17.00 H <0.50 MG/DL Total Protein 7.7 6.4-8.2 GM/DL Albumin 3.4 3.2-4.5 GM/DL Urine Color YELLOW Urine Clarity SLIGHTLY CLOUDY Urine pH 6.0 5-9 Urine Specific [place] <=1.005 1.016-1.022 Urine Protein 1+ H NEGATIVE Urine Glucose (UA) NEGATIVE NEGATIVE Urine Ketones NEGATIVE NEGATIVE Urine Nitrite NEGATIVE NEGATIVE Urine Bilirubin NEGATIVE NEGATIVE Urine Urobilinogen 0.2 < = 1.0 MG/DL Urine Leukocyte Esterase TRACE H NEGATIVE Urine RBC (Auto) 1+ H NEGATIVE Urine RBC 2-5 H /HPF Urine WBC 10-25 H /HPF Urine Squamous Epithelial Cells RARE /HPF Urine Crystals NONE /LPF Urine Bacteria TRACE /HPF Urine Casts NONE /LPF Urine Mucus NEGATIVE /LPF Urine Culture Indicated YES My Orders Orders - KATIE AGUILAR MD Cbc With Automated Diff (08/29/22 07:21) Comprehensive Metabolic Panel (08/29/22 07:21) Ed Iv/Invasive Line Start (08/29/22 07:21) Crp Fs (08/29/22 07:21) Protime With Inr (08/29/22 07:21) Partial Thromboplastin Time (08/29/22 07:21) Ua Culture If Indicated (08/29/22 07:21) Fentanyl Inj (Sublimaze Injection) (08/29/22 07:21) Ns Iv 1000 Ml (Sodium Chloride 0.9%) (08/29/22 07:21) Ct [facility] Chest/Noang Abd-Pelv W (08/29/22 07:21) Iohexol Injection (Omnipaque 350 Mg/Ml 1 (08/29/22 07:30) Received Contrast (Hold Metformin- Contr (08/29/22 07:30) Ns (Ivpb) (Sodium Chloride 0.9% Ivpb Bag (08/29/22 07:30) Manual Differential (08/29/22 07:07) Urine Culture (08/29/22 08:15) Medications Given in ED Current Medications Medications Dose Ordered Sig/Raphael Route Start Time Stop Time Status Last Admin Dose Admin Iohexol 100 ml ONCE ONCE IV 08/29/22 07:30 08/29/22 07:31 DC 08/29/22 07:53 100 ML Sodium Chloride 100 ml ONCE ONCE IV 08/29/22 07:30 08/29/22 07:31 DC 08/29/22 07:53 100 ML Vital Signs/I&O 08/29/22 08/29/22 08/29/22 06:58 06:58 09:47 Temp 36.9 37.0 Pulse 94 84 Resp 19 18 B/P (MAP) 110/63 (79) 129/88 Pulse Ox 99 O2 Delivery Room Air Room Air Room Air Capillary Refill : Less Than 3 Seconds Blood Pressure Mean: 79 Progress Note #1: Progress Note Potential diagnosis of pulmonary embolism, pyelonephritis, pneumonia, pneumothorax, hemothorax, pleural effusion, pulmonary mass. Establish peripheral IV access and send labs for complete blood count, comprehensive metabolic profile, CRP, coagulation factors, urinalysis with culture if indicated. CT scan angiography of the chest to help evaluate for pulmonary embolism versus lung pathology as well as abdomen and pelvis with IV contrast to evaluate for potential mass or pyelonephritis or pathology in the right CVA area that could be contributing to her pleuritic chest pain and shortness of breath. Administer normal saline 1 L IV fluid bolus for hydration, fentanyl 50 mcg IV for her pleuritic chest pain and CVA pain. Progress Note #2: Time: 08:24 Progress Note On my personal interpretation and review of the CT scan angiography of the chest and abdomen pelvis with IV contrast I did not appreciate pulmonary embolism, pneumothorax, hemothorax. She did have multiple pulmonary nodules and masses but I did not appreciate an infiltrate. She had one cavitary lesion in the right midlung. She had a fluid collection in the pelvis. Her complete blood count showed a normal white blood cell count of 7.5 but she does have anemia with a hemoglobin of 8.7. Platelets are okay at 377. She had 72% neutrophils and 17% bands. Her comprehensive metabolic profile showed a normal potassium of 3.8. Her renal function was normal at BUN of 7 and a creatinine of 0.73. CRP was elevated to 17 and her calcium was slightly elevated at 10.8 on the corrected calcium level. Awaiting urinalysis result and radiology reading on the CT scan. She did report some improvement in pain with the treatment in the ED. It is not gone but is less sharp and she feels that she can breath a little better. 0843 urinalysis was diluted with specific gravity less than 1.005. She had 1+ protein and trace leukocyte esterase with 10-25 white blood cells and trace bacteria. A culture was reflexed. I reviewed the radiologist report on her CT angiograph of the chest and CT abdomen pelvis with IV contrast. They were c ompared to a prior PET scan and CT scan and felt that she had multiple new pulmonary nodules as well as increase in size of the likely metastatic disease in the lungs. She also has a new cavitary lesion measuring 2 cm in diameter on the right. There is no definite pulmonary embolism but the timing of the contrast was not ideal. Her abdomen and pelvis showed new periaortic lymph node being present as well as relatively stable air and fluid collection around the area of the cervix without significant change from prior imaging however she now has a fluid collection next to this region. There are small bowel loops that appear to be adjacent to this and they could not rule out involvement into the small bowel wall. Progress Note #3: Time: 09:10 Progress Note When reviewing the results with the patient and family she states that her pain is down to a 3 out of 10 now. She is much more comfortable and breathing easier. Her vital signs remained stable with blood pressure of 118/65 and oxygen saturation of 96 to 98% on room air. Heart rate is in the 80s and sinus rhythm. Her CT findings with increased pulmonary nodules and new lymph node in the abdomen and pelvis were relayed to the patient and family. Since she had a CT scan in [facility] will provide a copy of the disc from imaging today so they can compare that to the scan from July [facility] and determine if she has worsening issues or if things were the same as what they saw in July. Encouraged to stay well-hydrated and drink plenty of fluids to help flush out her urine. We will treat with a 5-day course of Macrobid for possible UTI. Prescribed hydrocodone/acetaminophen 5/325 1 every 4 hours as needed severe pain to try and help with pain control and keep it tolerable until she can follow-up on with her oncologist at [facility]. Counseled on follow-up and return precautions if she has worsening issues. Also counseled that the narcotics could cause constipation as well as nausea. She states she has nausea medicine at home and that she does have MiraLAX if needed for constipation. Reassured that we did not see signs of pulm embolism, hypoxia, fluid collection, pyelonephritis that would warrant admission to the hospital. We will try treating her pain to keep things tolerable and have her take the antibiotic for possible UTI. Her potassium was doing good at 3.8 today so no need to change her intake of potassium as what she is taking now appears to be working and keeping her potassium up. Diagnostic Imaging Diagonstic Imaging: CT Plain Films/CT/US/NM/MRI: chest, abdomen, pelvis Comments NAME: SHELLEY JUDD [facility] REC#: [id number] PT STATUS: REG ER : 1990 PHYSICIAN: KATIE AGUILAR MD ADMIT DATE: 08/29/22/ER FS Draft Date of Exam:08/29/22 CT [facility] CHEST/NOANG ABD-PELV W INDICATION: right CVA pain, pleuritic pain, metastatic cervical ca CTA chest, abdomen and pelvis TECHNIQUE: Thin axial sections through the chest, abdomen and pelvis are obtained following intravenous contrast bolus. Multiplanar MIP images were reconstructed and reviewed. All CT scans use one or more of the following dose optimizing techniques: automated exposure control, MA and/or KvP adjustment based on patient size and exam type or iterative reconstruction. COMPARISON: 07/13/2022 and PET/CT dated 04/25/2022. FINDINGS: No significant adenopathy within the chest. No aneurysm or dissection involving the thoracic aorta. The heart is within normal limits in size. No significant pericardial effusion. No pleural effusion. The trachea is patent. No pneumothorax. Multiple bilateral pulmonary nodules are identified throughout the lungs bilaterally, with the majority of these appearing new or increased since prior PET/CT from March 2022. This includes a 1 cm solid left upper lobe pulmonary nodule which is new as well as a 2.0 cm thick-walled cavitary lesion within the right upper lobe which is also new from the prior exam. A 2.3 cm left perihilar left upper lobe pulmonary nodule is also present and new from the prior PET examination. Previously noted 1.5 cm pleural-based left lower lobe pulmonary nodule has significantly increased in size since the prior examination from 07/13/2022, now measuring 2.4 cm. Evaluation for pulmonary emboli is limited as the majority of contrast is identified within the aorta as opposed to the pulmonary arteries. [place] artifact from the superior vena cava also limits evaluation of the pulmonary vasculature within upper lobes. No definite central pulmonary embolus. Evaluation of segmental and subsegmental pulmonary arteries. There is no acute osseous abnormality within the chest. Cholecystectomy. The liver is mildly enlarged measuring 20 cm in craniocaudal dimension. No focal hepatic mass lesion. The spleen is at the upper limits of normal in size without focal splenic mass. Nodularity within the left adrenal gland is again identified. The right adrenal gland is unremarkable. The pancreas is unremarkable. The common bile duct is at the upper limits of normal in size without definite obstructing lesion. No intrahepatic biliary dilatation. The kidneys are unremarkable. No aneurysmal dilatation of the abdominal aorta. The appendix is unremarkable. Hypodense mass lesion with associated fluid and internal gas is again identified within the cervix extending to the lower uterine segment. This appears slightly decreased in size from the prior examination. This slightly extends into the body of the uterus with disruption of the endometrial stripe. Adjacent fluid on the right posterolaterally is present, which is new from the prior examination. Loops of bowel are seen extending through this region. There is no bowel obstruction. Mild mural thickening of the urinary bladder, though the urinary bladder is not optimally distended. Fluid is seen extending through the cervix into the vagina. Mild colonic diverticulosis. A 1.1 x 1.0 cm left periaortic lymph node is present, increased in size from the prior examination. No free air. Stable 0.9 cm lucency with a thin sclerotic margin within the left iliac bone. Bilateral pars interarticularis defects of L5 without significant anterolisthesis of L5 on S1. IMPRESSION: Significant increase and bilateral pulmonary nodules with increasing size of previously noted pulmonary nodules. Findings are concerning for worsening metastatic disease. Gas and fluid containing hypodensity centered within the cervix and lower uterine segment is again identified. Overall size is relatively similar to the prior examination likely relates to a necrotic primary malignancy. Residual active malignancy cannot be excluded on this examination. Loops of bowel are identified within this region which are inseparable from the masslike lesion within the cervix. Therefore, direct invasion into loops of adjacent bowel cannot be excluded. New left periaortic lymph node, concerning for regional metastatic disease. Evaluation for pulmonary emboli is severely limited. No large central pulmonary embolus. Mild dilatation of the common bile duct, felt related to reservoir effect status post cholecystectomy. Mild hepatomegaly. New fluid within the lower pelvis immediately adjacent to the cervical gas and fluid collection within the right pelvis. Dictated on workstation # [id number] Dict: 08/29/22802 Trans: 08/29/22837 CVB [id number] Interpreted by: FER BEE MD Electronically signed by: Reviewed: Reviewed by Me (I reviewed the radiologist report at 8:43 AM) Departure Impression Primary Impression: Pleuritic chest pain Additional Impressions: Pulmonary nodules Acute cystitis with hematuria Disposition: HOME, SELF-CARE Condition: Improved Departure-Patient Inst. Decision time for Depature: 09:39 Referrals: LINDSAY HANEY MD (PCP/Family) Primary Care Physician Patient Instructions: Pleuritic Chest Pain ED, Multiple pulmonary nodules, Ur inary Tract Infection, Adult ED Add. Discharge Instructions: Stay well-hydrated and drink plenty of fluids to help flush out the bacteria in your urine. Take the full course of antibiotics to help treat for UTI. For severe pain you can use the hydrocodone/acetaminophen 5/325 mg pills 1 every 4 hours as needed for severe pain. This can cause constipation and nausea. If you are becoming constipated consider taking MiraLAX or a stimulant laxative to overcome the slowing effect of the narcotic. Stool softeners can help but will not overcome the slowing effect of the narcotic. Take the CD from today's imaging with you when you follow-up with your oncology doctor on , September 01. This way they could compare it to the imaging they did in July. Your pain appears to be related to the pulmonary nodules in your lungs but they do not see a blood clot or fluid collection or collapsed lung to be causing pain. All discharge instructions reviewed with patient and/or family. Voiced underst anding. Scripts Hydrocodone/Acetaminophen (Hydrocodone-Acetamin 5-325 mg) 5 Mg-325 Mg Tablet 1 TAB PO Q4H PRN for PAIN SEVERE for 5 Days, #30 TAB 0 Refills Prov: KATIE AGUILAR MD 08/29/22 Nitrofurantoin Monohyd/M-Cryst (Macrobid 100 mg Capsule) 100 Mg Capsule 1 TAB PO BID for UTI for 5 Days, #10 CAP 0 Refills Prov: KATIE AGUILAR MD 08/29/22 KATIE AGUILAR MD Aug 29, 2022 07:25
[2022-08-29] MEDS ORDERED: HOLD METFORMIN - RECEIVED CONTRAST 20 ML VIAL IV SCH (07:30)
[2022-08-29] MEDS ORDERED: IOHEXOL 350 MG/ML 100 ML (OMNIPAQUE 350) VIAL IV ONE (07:30)
[2022-08-29] MEDS ORDERED: NS 100 ML (IVPB) BAG IV ONE (07:30)
[2022-08-29 07:41] LABS: BASOPHILS % (AUTO) 0 % (0-10); EOSINOPHILS # (AUTO) 0.1 10^3/uL (0.0-0.3); EOSINOPHILS % (AUTO) 1 % (0-10); HEMATOCRIT 29 % (35-52); HEMOGLOBIN 8.7 g/dL (11.5-16.0); LYMPHOCYTES # (AUTO) 0.3 10^3/uL (1.0-4.0); LYMPHOCYTES % (AUTO) 4 % (12-44); MEAN CORPUSCULAR HEMOGLOBIN 26 pg (25-34); MEAN CORPUSCULAR HGB CONC 31 g/dL (32-36); MEAN CORPUSCULAR VOLUME 86 fL (80-99); MONOCYTES # (AUTO) 0.6 10^3/uL (0.0-1.0); MONOCYTES % (AUTO) 8 % (0-12); NEUTROPHILS # (AUTO) 6.5 10^3/uL (1.8-7.8); NEUTROPHILS % (AUTO) 86 % (42-75); PLATELET COUNT 377 10^3/uL (130-400); WHITE BLOOD COUNT 7.5 10^3/uL (4.3-11.0)
[2022-08-29 07:56] LABS: POTASSIUM 3.8 MMOL/L (3.6-5.0)
[2022-08-29 07:57] LABS: ALBUMIN 3.4 GM/DL (3.2-4.5); BILIRUBIN,TOTAL 0.3 MG/DL (0.1-1.0); CALCIUM 10.3 MG/DL (8.5-10.1); CREATININE SERUM 0.73 MG/DL (0.60-1.30); TOTAL PROTEIN 7.7 GM/DL (6.4-8.2)
[2022-08-29 08:11] LABS: BAND NEUTROPHILS 17 %; BASOPHILS % (MANUAL) 0 %; EOSINOPHILS % (MANUAL) 0 %; LYMPHOCYTES % (MANUAL) 4 %; MONOCYTES % (MANUAL) 7 %; NEUTROPHILS % (MANUAL) 72 %; PLATELET ESTIMATE NORMAL
[2022-08-29 08:12] LABS: HYPOCHROMASIA MODERATE; MICROCYTOSIS SLIGHT
[2022-08-29 08:22] LABS: PROTHROMBIN TIME PATIENT 13.7 SEC (12.2-14.7)
[2022-08-29 08:23] LABS: BILIRUBIN,URINE NEGATIVE (NEGATIVE); COLOR,URINE YELLOW; GLUCOSE, URINE (UA) NEGATIVE (NEGATIVE); KETONES,URINE NEGATIVE (NEGATIVE); LEUKOCYTE ESTERASE ,URINE TRACE (NEGATIVE); NITRITE,URINE NEGATIVE (NEGATIVE); PROTEIN,URINE 1+ (NEGATIVE)
[2022-08-29 08:34] LABS: BACTERIA,URINE TRACE /HPF; CLARITY,URINE SLIGHTLY CLOUDY; SQUAMOUS EPITHELIAL CELL,UR RARE /HPF
--- NOTE | 2022-08-29 08:39 | Diagnostic Imaging Report ---
INDICATION: right CVA pain, pleuritic pain, metastatic cervical ca CTA chest, abdomen and pelvis TECHNIQUE: Thin axial sections through the chest, abdomen and pelvis are obtained following intravenous contrast bolus. Multiplanar MIP images were reconstructed and reviewed. All CT scans use one or more of the following dose optimizing techniques: automated exposure control, MA and/or KvP adjustment based on patient size and exam type or iterative reconstruction. COMPARISON: 07/13/2022 and PET/CT dated 04/25/2022. FINDINGS: No significant adenopathy within the chest. No aneurysm or dissection involving the thoracic aorta. The heart is within normal limits in size. No significant pericardial effusion. No pleural effusion. The trachea is patent. No pneumothorax. Multiple bilateral pulmonary nodules are identified throughout the lungs bilaterally, with the majority of these appearing new or increased since prior PET/CT from March 2022. This includes a 1 cm solid left upper lobe pulmonary nodule which is new as well as a 2.0 cm thick-walled cavitary lesion within the right upper lobe which is also new from the prior exam. A 2.3 cm left perihilar left upper lobe pulmonary nodule is also present and new from the prior PET examination. Previously noted 1.5 cm pleural-based left lower lobe pulmonary nodule has significantly increased in size since the prior examination from 07/13/2022, now measuring 2.4 cm. Evaluation for pulmonary emboli is limited as the majority of contrast is identified within the aorta as opposed to the pulmonary arteries. Ewen artifact from the superior vena cava also limits evaluation of the pulmonary vasculature within upper lobes. No definite central pulmonary embolus. Evaluation of segmental and subsegmental pulmonary arteries. There is no acute osseous abnormality within the chest. Cholecystectomy. The liver is mildly enlarged measuring 20 cm in craniocaudal dimension. No focal hepatic mass lesion. The spleen is at the upper limits of normal in size without focal splenic mass. Nodularity within the left adrenal gland is again identified. The right adrenal gland is unremarkable. The pancreas is unremarkable. The common bile duct is at the upper limits of normal in size without definite obstructing lesion. No intrahepatic biliary dilatation. The kidneys are unremarkable. No aneurysmal dilatation of the abdominal aorta. The appendix is unremarkable. Hypodense mass lesion with associated fluid and internal gas is again identified within the cervix extending to the lower uterine segment. This appears slightly decreased in size from the prior examination. This slightly extends into the body of the uterus with disruption of the endometrial stripe. Adjacent fluid on the right posterolaterally is present, which is new from the prior examination. Loops of bowel are seen extending through this region. There is no bowel obstruction. Mild mural thickening of the urinary bladder, though the urinary bladder is not optimally distended. Fluid is seen extending through the cervix into the vagina. Mild colonic diverticulosis. A 1.1 x 1.0 cm left periaortic lymph node is present, increased in size from the prior examination. No free air. Stable 0.9 cm lucency with a thin sclerotic margin within the left iliac bone. Bilateral pars interarticularis defects of L5 without significant anterolisthesis of L5 on S1. IMPRESSION: Significant increase and bilateral pulmonary nodules with increasing size of previously noted pulmonary nodules. Findings are concerning for worsening metastatic disease. Gas and fluid containing hypodensity centered within the cervix and lower uterine segment is again identified. Overall size is relatively similar to the prior examination likely relates to a necrotic primary malignancy. Residual active malignancy cannot be excluded on this examination. Loops of bowel are identified within this region which are inseparable from the masslike lesion within the cervix. Therefore, direct invasion into loops of adjacent bowel cannot be excluded. New left periaortic lymph node, concerning for regional metastatic disease. Evaluation for pulmonary emboli is severely limited. No large central pulmonary embolus. Mild dilatation of the common bile duct, felt related to reservoir effect status post cholecystectomy. Mild hepatomegaly. New fluid within the lower pelvis immediately adjacent to the cervical gas and fluid collection within the right pelvis. Dictated by: Dictated on workstation # [id number]
[2022-08-29] MEDS ORDERED: NITR-65 PO (09:40)
[2022-08-29] MEDS ORDERED: ACHD5005 PO (09:40)
[2022-08-29 09:47] VITALS: BP 129/88
== END 2022-08-29 09:48 | disposition home or self-care (01) ==
LOC: EDUNIT# 06:58 → ER FS 07:00
DX: R07.81 Pleurodynia (principal); R91.1 Solitary pulmonary nodule; N30.01 Acute cystitis with hematuria; D64.9 Anemia, unspecified; E83.52 Hypercalcemia; R59.0 Localized enlarged lymph nodes; F17.210 Nicotine dependence, cigarettes, uncomplicated; Z88.5 Allergy status to narcotic agent; Z28.310 Unvaccinated for COVID-19
CPT/HCPCS: 36415; 71275; 74177; 80053; 81000; 85007; 85027; 85610; 85730; 86141; 87088

== ENCOUNTER 2022-09-06 14:33 | Emergency (ER) | payer MEDICAID ==
[~2022-09-06] VITALS: Ht 157 cm; Wt 68.0 kg
[~2022-09-06 14:33] MED LIST changes: +ACHD5005 PO; +NITR-65 PO
[2022-09-06 15:05] VITALS: BP 112/68
--- NOTE | 2022-09-06 15:06 | ED Abdominal Pain ---
General Chief Complaint: General Problems/Pain Stated Complaint: SUPRAPUBIC/LWR BACK PAIN Source of Information: Patient, Old Records Exam Limitations: No Limitations History of Present Illness Date Seen by Provider: Sep 06, 2022 Time Seen by Provider: 14:35 Initial Comments 32-year-old female with past medical history most notable for metastatic ovarian cancer presented to the ER due to right flank pain and right-sided abdominal pain. The pain has been going on for several weeks. She has been to the emergency department for this pain. She was prescribed hydrocodone which she ran out yesterday. She left a message with her PCP to get a refill on this medication, but has not heard back, so presented back to the ER. She does have a history of cervical cancer where she has had chemotherapy, brachytherapy, and radiation. She finished with these therapies in the middle of July. She does have new lesions on her lungs which are concerning for metastases, has a sc heduled appointment tomorrow for biopsies of these. Thus far, her pain is believed to be cancer related. She denies any fever, vomiting, diarrhea, does have some dysuria, no chest pain, or any other concerns. Allergies and Home Medications Allergies Coded Allergies: codeine (Verified Allergy, Mild, chest tightness, 03/19/22) morphine (Verified Allergy, Mild, chest tightness, 03/19/22) gabapentin (Verified Allergy, Unknown, 04/21/22) Patient Home Medication List Home Medication List Reviewed: Yes Amoxicillin/Potassium Clav (Amox Tr-K Clv 875-125 mg Tab) 875 Mg-125 Mg Tablet, 1 EACH PO BID Prescribed by: SONAL PETIT on 07/13/221956 Cefdinir (Cefdinir) 300 Mg Capsule, 300 MG PO BID Prescribed by: SURJIT NEWBERRY on 09/06/22 1548 Cephalexin (Cephalexin) 500 Mg Tablet, 500 MG PO BID Prescribed by: ZAC OVIEDO MD on 06/10/22 2235 Ferrous Sulfate (Ferosul) 325 Mg (65 Mg Iron) Tablet, 325 MG PO DAILY, (Reported) Entered as Reported by: PRAMOD FARRELL on 05/18/22 0457 Hydrocodone/Acetaminophen (Hydrocodone-Acetamin 5-325 mg) 5 Mg-325 Mg Tablet, 1 TAB PO Q4H PRN for PAIN SEVERE Prescribed by: KATIE AGUILAR on 08/29/22 0942 Hydrocodone/Acetaminophen (Hydrocodone-Acetamin 5-325 mg) 5 Mg-325 Mg Tablet, 1 TAB PO Q4H PRN for PAIN-MODERATE (5-7) Prescribed by: SURJIT NEWBERRY on 09/06/22 1548 Ibuprofen (Ibuprofen) 800 Mg Tablet, 800 MG PO Q8H PRN for PAIN Prescribed by: KATIE AGUILAR on 05/10/22 1743 Ibuprofen (Ibuprofen) 600 Mg Tablet, 600 MG PO Q6H PRN for PAIN-MILD Prescribed by: SURJIT NEWBERRY on 09/06/22 1548 Nitrofurantoin Monohyd/M-Cryst (Macrobid 100 mg Capsule) 100 Mg Capsule, 1 TAB PO BID Prescribed by: KATIE AGUILAR on 08/29/22 0940 Ondansetron (Ondansetron Odt) 4 Mg Tab.rapdis, 4 MG PO Q6H PRN for NAUS EA/VOMITING Prescribed by: KATIE AGUILAR on 05/10/22 1743 Potassium Chloride (Potassium Chloride) 20 Meq Tab.er.prt, 20 MEQ PO DAILY, (Reported) Entered as Reported by: PRAMOD FARRELL on 05/18/22 0457 Tramadol HCl (Tramadol HCl) 50 Mg Tablet, 50 MG PO Q4H PRN for PAIN Prescribed by: YUVAL ELIAS MD on 05/04/22 2305 Tramadol HCl (Tramadol HCl) 50 Mg Tablet, 50 MG PO Q6H PRN for PAIN Prescribed by: SURJIT NEWBERRY on 05/20/22 1520 Review of Systems Review of Systems Constitutional: No fever EENTM: No Symptoms Reported Respiratory: No Symptoms Reported Cardiovascular: No Symptoms Reported Gastrointestinal: See HPI Genitourinary: See HPI Musculoskeletal: no symptoms reported Skin: no symptoms reported Psychiatric/Neurological: No Symptoms Reported Endocrine: No Symptoms Reported Hematologic/Lymphatic: No Symptoms Reported Past Epybdis-Mjvzym-Mnoqwi Hx Patient Social History Tobacco Use?: Yes Tobacco type used: Cigarettes Use of E-Cig and/or Vaping dev: No Substance use?: No Alcohol Use?: No Immunizations Up To Date First/Initial COVID19 Vaccinat: NONE Second COVID19 Vaccination Sam: NONE Third COVID19 Vaccination Date: NONE Past Medical History Surgery/Hospitalization HX: CERVICAL CANCER; Cholecysectomy; Tubal ligation Surgeries: Yes Gallbladder, Tubal Ligation Reproductive Disorders: No Family Medical History No Pertinent Family Hx Physical Exam Vital Signs Vital Signs - First Documented 09/06/22 15:05 Temp 36.0 Pulse 80 Resp 18 B/P (MAP) 112/68 (83) Pulse Ox 100 O2 Delivery Room Air Capillary Refill : Height/Weight/BMI Height: '" Weight: lbs. oz. kg; 27.00 BMI Method: General Appearance: WD/WN, no apparent distress HEENT: PERRL/EOMI, normal ENT inspection, pharynx normal Neck: non-tender, full range of motion, supple, normal inspection Respiratory: chest non-tender, lungs clear, normal breath sounds, no respiratory distress, no accessory muscle use Cardiovascular: regular rate, rhythm, no edema, no murmur Gastrointestinal: normal bowel sounds, soft; No distended, No rebound; tenderness Extremities: normal range of motion, non-tender, normal inspection, no pedal edema, no calf tenderness, normal capillary refill Back: normal inspection, CVA tenderness (R) Neurologic/Psychiatric: no motor/sensory deficits, alert, normal mood/affect Skin: normal color, warm/dry Progress/Results/Core Measures Results/Orders Lab Results Laboratory Tests Test 09/06/22 14:45 Range/Units White Blood Count 14.3 H 4.3-11.0 10^3/uL Red Blood Count 3.82 3.80-5.11 10^6/uL Hemoglobin 10.0 L 11.5-16.0 g/dL Hematocrit 32 L 35-52 % Mean Corpuscular Volume 84 80-99 fL Mean Corpuscular Hemoglobin 26 25-34 pg Mean Corpuscular Hemoglobin Concent 31 L 32-36 g/dL Red Cell Distribution Width 15.0 H 10.0-14.5 % Platelet Count 537 H 130-400 10^3/uL Mean Platelet Volume 10.8 9.0-12.2 fL Immature Granulocyte % (Auto) 1 % Neutrophils (%) (Auto) 89 H 42-75 % Lymphocytes (%) (Auto) 3 L 12-44 % Monocytes (%) (Auto) 7 0-12 % Eosinophils (%) (Auto) 0 0-10 % Basophils (%) (Auto) 0 0-10 % Neutrophils # (Auto) 12.8 H 1.8-7.8 10^3/uL Lymphocytes # (Auto) 0.4 L 1.0-4.0 10^3/uL Monocytes # (Auto) 0.9 0.0-1.0 10^3/uL Eosinophils # (Auto) 0.1 0.0-0.3 10^3/uL Basophils # (Auto) 0.0 0.0-0.1 10^3/uL Immature Granulocyte # (Auto) 0.1 0.0-0.1 10^3/uL Neutrophils % (Manual) 74 % Lymphocytes % (Manual) 5 % Monocytes % (Manual) 9 % Eosinophils % (Manual) 1 % Basophils % (Manual) 0 % Band Neutrophils 11 % Platelet Estimate INCREASED Percent Immature Platelet Fraction 5.4 0.0-7.6 % Hypochromasia SLIGHT Urine Color YELLOW Urine Clarity CLEAR Urine pH 6.0 5-9 Urine Specific [place] 1.010 L 1.016-1.022 Urine Protein NEGATIVE NEGATIVE Urine Glucose (UA) NEGATIVE NEGATIVE Urine Ketones NEGATIVE NEGATIVE Urine Nitrite NEGATIVE NEGATIVE Urine Bilirubin NEGATIVE NEGATIVE Urine Urobilinogen 0.2 < = 1.0 MG/DL Urine Leukocyte Esterase 2+ H NEGATIVE Urine RBC (Auto) TRACE-I H NEGATIVE Urine RBC 0-2 /HPF Urine WBC 50-100 H /HPF Urine Squamous Epithelial Cells 0-2 /HPF Urine Crystals NONE /LPF Urine Bacteria FEW H /HPF Urine Casts PRESENT /LPF Urine Coarse Granular Casts 0-2 H /LPF Urine White Blood Cell Casts 5-10 H /LPF Urine Mucus SMALL H /LPF Urine Culture Indicated YES Urine Test NEGATIVE NEGATIVE Sodium Level 138 135-145 MMOL/L Potassium Level 3.8 3.6-5.0 MMOL/L Chloride Level 97 L 98-107 MMOL/L Carbon Dioxide Level 22 21-32 MMOL/L Anion Gap 19 H 5-14 MMOL/L Blood Urea Nitrogen 8 7-18 MG/DL Creatinine 0.89 0.60-1.30 MG/DL Estimat Glomerular Filtration Rate 87 BUN/Creatinine Ratio 9 Glucose Level 112 H 70-105 MG/DL Calcium Level 10.8 H 8.5-10.1 MG/DL Corrected Calcium 11.0 H 8.5-10.1 MG/DL Total Bilirubin 0.3 0.1-1.0 MG/DL Aspartate Amino Transf (AST/SGOT) 12 5-34 U/L Alanine Aminotransferase (ALT/SGPT) 10 0-55 U/L Alkaline Phosphatase 274 H 40-136 U/L Total Protein 8.5 H 6.4-8.2 GM/DL Albumin 3.7 3.2-4.5 GM/DL Lipase 12 8-78 U/L My Orders Orders - SURJIT NEWBERRY MD Cbc With Automated Diff (09/06/22 15:06) Comprehensive Metabolic Panel (09/06/22 15:06) Lipase (09/06/22 15:06) Ua Culture If Indicated (09/06/22 15:06) Hydrocodone/Apap 7.5/325 Tab (Lortab 7. (09/06/22 15:15) Ed Iv/Invasive Line Start (09/06/22 15:06) Hcg,Qualitative Urine (09/06/22 15:18) Manual Differential (09/06/22 14:45) Urine Culture (09/06/22 14:45) Medications Given in ED Current Medications Medications Dose Ordered Sig/Raphael Route Start Time Stop Time Status Last Admin Dose Admin Acetaminophen/ Hydrocodone Bitart 1 ea ONCE ONCE PO 09/06/22 15:15 09/06/22 15:16 DC 09/06/22 14:55 1 EA Vital Signs/I&O 09/06/22 15:05 Temp 36.0 Pulse 80 Resp 18 B/P (MAP) 112/68 (83) Pulse Ox 100 O2 Delivery Room Air Progress Progress Note : Progress Note 32-year-old female with above history coming in due to now more chronic pain in her right flank, right side of her chest and abdomen. Patient does have known metastatic cancer which she is getting a treatment for and has a repeat biopsies of her lungs tomorrow. She unfortunately ran out of her hydrocodone yesterday. I reviewed her most recent emergency department visit where she had a CT of her chest and CT abdomen and pelvis which did show new lesions in her lungs, no blood clot, no acute concerns from an infectious or life-threatening standpoint. She says the pain really has not changed, I have no new concerns for new PE or new life-threatening illness today. This is likely cancer related pain versus at this point likely some aspect of opioid dependence since she has been on hydrocodone for some time now since she has had a cancer diagnosis. We will give her 7 and half milligrams of hydrocodone here followed by basic labs to compare. COVID blood cell count is slightly elevated today, urinalysis concerning for infection and she is endorsing some dysuria, creatinine normal, alk phos more elevated today, and when I reviewed the CT imaging from a couple weeks ago, she does have some biliary ductal dilatation which is very mild. She does not have a gallbladder so cholecystitis has been ruled out. Alk phos could also be elevated from bony metastasis. She has no right upper quadrant pain on repeat exam which is reassuring. Overall well-appearing and doing better after pain control. I will write a prescription until she has follow-up with her PCP. Departure Impression Primary Impression: Cancer related pain Additional Impression: Cystitis Disposition: HOME, SELF-CARE Condition: Stable Departure-Patient Inst. Decision time for Depature: 15:50 Referrals: LINDSAY CORTES MD (PCP/Family) Primary Care Physician Patient Instructions: Acute Cystitis (DC), Managing pain when you have cancer Add. Discharge Instructions: We will send a prescription for the next 3 days giving your PCP time to write a prescription if they would like. We recommend taking the prescription ibuprofen first, if you have pain on top of that then you can take the hydrocodone. You will also be on an antibiotic for your urine which is concerning for infection today. Scripts Hydrocodone/Acetaminophen (Hydrocodone-Acetamin 5-325 mg) 5 Mg-325 Mg Tablet 1 TAB PO Q4H PRN for PAIN-MODERATE (5-7) for 3 Days, #18 TAB Prov: SURJIT NEWBERRY MD 09/06/22 Ibuprofen (Ibuprofen) 600 Mg Tablet 600 MG PO Q6H PRN for PAIN-MILD for 7 Days, #28 TAB Prov: SURJIT NEWBERRY MD 09/06/22 Cefdinir (Cefdinir) 300 Mg Capsule 300 MG PO BID for 7 Days, #14 CAP 0 Refills Prov: SURJIT NEWBERRY MD 09/06/22 Work/School Note: Work Release Form Date Seen in the Emergency Department: Sep 06, 2022 Return to Work: Sep 07, 2022 Restrictions: No Restrictions SURJIT NEWBERRY MD Sep 06, 2022 15:05
[2022-09-06] MEDS ORDERED: HYDROcodone/APAP 7.5 MG/325 MG (LORTAB, LORCET PLUS) TABLET PO ONE (15:15)
[2022-09-06 15:21] LABS: BASOPHILS % (AUTO) 0 % (0-10); EOSINOPHILS # (AUTO) 0.1 10^3/uL (0.0-0.3); EOSINOPHILS % (AUTO) 0 % (0-10); HEMATOCRIT 32 % (35-52); LYMPHOCYTES # (AUTO) 0.4 10^3/uL (1.0-4.0); LYMPHOCYTES % (AUTO) 3 % (12-44); MEAN CORPUSCULAR HEMOGLOBIN 26 pg (25-34); MEAN CORPUSCULAR HGB CONC 31 g/dL (32-36); MEAN CORPUSCULAR VOLUME 84 fL (80-99); MEAN PLATELET VOLUME 10.8 fL (9.0-12.2); MONOCYTES # (AUTO) 0.9 10^3/uL (0.0-1.0); MONOCYTES % (AUTO) 7 % (0-12); NEUTROPHILS # (AUTO) 12.8 10^3/uL (1.8-7.8); NEUTROPHILS % (AUTO) 89 % (42-75); PLATELET COUNT 537 10^3/uL (130-400); WHITE BLOOD COUNT 14.3 10^3/uL (4.3-11.0)
[2022-09-06 15:22] LABS: BILIRUBIN,URINE NEGATIVE (NEGATIVE); CLARITY,URINE CLEAR; COLOR,URINE YELLOW; GLUCOSE, URINE (UA) NEGATIVE (NEGATIVE); KETONES,URINE NEGATIVE (NEGATIVE); LEUKOCYTE ESTERASE ,URINE 2+ (NEGATIVE); NITRITE,URINE NEGATIVE (NEGATIVE); PROTEIN,URINE NEGATIVE (NEGATIVE)
[2022-09-06 15:30] LABS: ALBUMIN 3.7 GM/DL (3.2-4.5); BILIRUBIN,TOTAL 0.3 MG/DL (0.1-1.0); CALCIUM 10.8 MG/DL (8.5-10.1); CREATININE SERUM 0.89 MG/DL (0.60-1.30); POTASSIUM 3.8 MMOL/L (3.6-5.0); TOTAL PROTEIN 8.5 GM/DL (6.4-8.2)
[2022-09-06 15:41] LABS: BACTERIA,URINE FEW /HPF; RBC,URINE 0-2 /HPF; SQUAMOUS EPITHELIAL CELL,UR 0-2 /HPF; WBC,URINE 50-100 /HPF
[2022-09-06] MEDS ORDERED: ACHD5005 PO (15:48)
[2022-09-06] MEDS ORDERED: IBUP-1773 PO (15:48)
[2022-09-06] MEDS ORDERED: CEFD300C3 PO (15:48)
[2022-09-06 15:52] LABS: BAND NEUTROPHILS 11 %; BASOPHILS % (MANUAL) 0 %; EOSINOPHILS % (MANUAL) 1 %; LYMPHOCYTES % (MANUAL) 5 %; MONOCYTES % (MANUAL) 9 %; NEUTROPHILS % (MANUAL) 74 %; PLATELET ESTIMATE INCREASED
[2022-09-06 15:53] LABS: HYPOCHROMASIA SLIGHT
[2022-09-07] MEDS ORDERED: TMSL.4C PO (08:55)
[2022-09-07] MEDS ORDERED: ASCO100024 PO (08:55)
[2022-09-07] MEDS ORDERED: TRAM100T40 PO (08:55)
[2022-09-07] MEDS ORDERED: PSYL0.5244 PO (08:55)
[2022-09-07] MEDS ORDERED: NIFE10CA44 PO (08:55)
[2022-09-07] MEDS ORDERED: ACET-93 PO (08:55)
[2022-09-07] MEDS ORDERED: ACHD5005 PO (10:53)
== END 2022-09-06 15:55 | disposition home or self-care (01) ==
LOC: ER FS 14:34 → EDUNIT# 14:58 → ER FS 15:55
DX: G89.3 Neoplasm related pain (acute) (chronic) (principal); C53.9 Malignant neoplasm of cervix uteri, unspecified; N30.90 Cystitis, unspecified without hematuria; F17.210 Nicotine dependence, cigarettes, uncomplicated; Z28.310 Unvaccinated for COVID-19; Z88.5 Allergy status to narcotic agent; Z79.891 Long term (current) use of opiate analgesic
CPT/HCPCS: 36415; 80053; 81000; 83690; 84703; 85007; 85027; 87088

== ENCOUNTER 2022-09-07 08:21 | Outpatient (CLI) | payer MEDICAID ==
[~2022-09-07] VITALS: Ht 157.5 cm; Wt 66.5 kg
[2022-09-07] VITALS (14 sets, daily range): BP systolic 102–138; BP diastolic 59–90
[~2022-09-07 08:21] MED LIST changes: +IBUP-1773 PO
[2022-09-07 08:42] LABS: HEMATOCRIT 35 % (35-52); HEMOGLOBIN 10.6 g/dL (11.5-16.0); MEAN CORPUSCULAR HEMOGLOBIN 26 pg (25-34); MEAN CORPUSCULAR HGB CONC 30 g/dL (32-36); MEAN CORPUSCULAR VOLUME 86 fL (80-99); MEAN PLATELET VOLUME 10.7 fL (9.0-12.2); PLATELET COUNT 571 10^3/uL (130-400); WHITE BLOOD COUNT 12.8 10^3/uL (4.3-11.0)
[2022-09-07 08:50] LABS: INR 1.2 (0.8-1.4); PROTHROMBIN TIME PATIENT 15.8 SEC (12.2-14.7)
[2022-09-07] MEDS ORDERED: ASCO100024 PO (08:55)
[2022-09-07] MEDS ORDERED: ACET-93 PO (08:55)
[2022-09-07] MEDS ORDERED: NIFE10CA44 PO (08:55)
[2022-09-07] MEDS ORDERED: TMSL.4C PO (08:55)
[2022-09-07] MEDS ORDERED: PSYL0.5244 PO (08:55)
[2022-09-07] MEDS ORDERED: TRAM100T40 PO (08:55)
[2022-09-07] MEDS ORDERED: LIDOCAINE 1% INJ 10 ML VIAL INJ ONE (09:00)
[2022-09-07] MEDS ORDERED: fentaNYL INJ 100 MCG/2 ML AMP IVP ONE ×2 (09:00→10:02)
[2022-09-07] MEDS ORDERED: MIDAZOLAM 2 MG/2 ML (VERSED) VIAL IVP ONE (09:00)
[2022-09-07] MEDS ORDERED: HYDROcodone/APAP 5 MG/325 MG (LORTAB) TAB PO PRN (10:45)
[2022-09-07] MEDS ORDERED: ACHD5005 PO (10:53)
--- NOTE | 2022-09-07 11:16 | Diagnostic Imaging Report ---
INDICATION: Lung masses. Patient presents for CT-guided biopsy. TECHNIQUE: All CT scans use one or more of the following dose optimizing techniques: automated exposure control, MA and/or KvP adjustment based on patient size and exam type or iterative reconstruction. DETAILS OF THE PROCEDURE: The patient was brought to the CT suite and placed on the table in the [id number] decubitus position. Axial imaging through the chest was performed to evaluate for an appropriate entry site. The procedure was performed utilizing conscious sedation with Radiology nursing and constant patient monitoring. The patient was given a total of 75 mcg of fentanyl intravenously and 1 mg of Versed intravenously. The total procedure time was approximately 13 minutes. The left posterior thorax was prepped and draped in the usual sterile fashion. A small amount of 1% lidocaine was utilized for local anesthesia. An 18-gauge coaxial Temno needle was advanced and placed along the margin of the mass in the left lower lobe. Four core biopsies were obtained. A blood patch was injected during needle removal. Followup imaging shows no complicating features. No pneumothorax is identified. IMPRESSION: Successful CT-guided core biopsy of a left lower lobe lung nodule utilizing conscious sedation. Pathology results are currently pending. Dictated by: Dictated on workstation # [id number]
[2022-09-07] MEDS: NS IV 1000 ML 1,000 ML IV SCH ×2 (11:20→11:21)
--- NOTE | 2022-09-07 12:27 | Diagnostic Imaging Report ---
INDICATION: Status post lung biopsy. TIME OF EXAM: 1217 hours. FINDINGS: An expiratory radiograph of the chest was obtained. The heart size is normal. Multiple pulmonary masses are again noted. No pneumothorax is identified. There is no effusion. IMPRESSION: No evidence of pneumothorax status post left lung biopsy. Dictated by: Dictated on workstation # [id number]
== END 2022-09-07 12:55 ==
LOC: SDC 08:21
PROVIDERS: ATTEND Obstetrics & Gynecology
DX: C34.92 Malignant neoplasm of unspecified part of left bronchus or lung (principal); Z28.310 Unvaccinated for COVID-19
CPT/HCPCS: 36415; 71045; 77012; 85027; 85610; 85730; 99156

== ENCOUNTER → 2022-09-22 | Outpatient (CLI) | payer MEDICAID ==
[~2022-09-22] MED LIST changes: +ACET-93 PO; +ASCO100024 PO; +CATHETER FLUSH 10 ML SYR IVP PRN; +CELE400C PO; +CYCL10TA25 PO; +LACT10PA3 PO; +NIFE10CA44 PO; +PSYL0.5244 PO; +TMSL.4C PO; +TRAM100T40 PO
--- NOTE | 2022-09-22 14:26 | Diagnostic Imaging Report ---
INDICATION: Malignant neoplasm of lung for subsequent restaging. COMPARISON with metabolic PET CT 04/25/2022. The patient received an intravenous dose of 11.1 mCi F-18 fluorodeoxyglucose and after one hour, CT fusion PET calvarial vertex through the upper thighs performed. The comparison was performed in the same fashion. FINDINGS: Scalp, calvarium and intracranial contents revealed no suspicious asymmetric hypermetabolism. Nasopharynx, oropharynx and hypopharynx as well as the cervical lymph node stations unremarkable. The supraclavicular fossae unremarkable. However, since the previous exam, there has been development of multiple bilateral pulmonary parenchymal and pleural FDG avid soft tissue chest masses consistent with interval development of thoracic metastatic disease. Most active chest lesions have SUV values of 18. There are also new hypermetabolic lymph nodes in the left greater than right pulmonary hilum. Paratracheal and subcarinal mediastinum unremarkable. There is no pleural or pericardial effusion. No FDG avid liver mass. There is retroperitoneal left-sided retrocrural adenopathy. The spleen unremarkable. There is no adrenal mass. The pancreas unremarkable. There is new left periaortic retroperitoneal adenopathy at the level of the lower pole of the right kidney as well as some small but FDG avid right common iliac chain nodes with SUV values of 6 maximal. Likely centrally necrotic cervical mass with bilateral pelvic sidewall adenopathy again identified, the cervical disease showing peak SUV values of 10, previously 16. Some central intratumoral necrosis and central cavitation with fluid and air having developed. Inguinal canals unremarkable. IMPRESSION: Adverse change with new multifocal pulmonary parenchymal and left thoracic pleural metastatic lesions. Increased abdominal lymphadenopathy. The cervical mass shows mild reduction in FDG avidity and some central intratumoral necrosis with similar pelvic sidewall adenopathy. No bowel, biliary or urinary tract obstruction. Dictated by: Dictated on workstation # [id number]
== END ==
LOC: RAD 10:22
PROVIDERS: ATTEND Internal Medicine Hematology & Oncology
DX: C53.9 Malignant neoplasm of cervix uteri, unspecified (principal); C78.2 Secondary malignant neoplasm of pleura; R59.0 Localized enlarged lymph nodes
CPT/HCPCS: 78815; 82947; A9552

== ENCOUNTER 2022-09-23 07:56 | Day surgery (SDC) | payer MEDICAID ==
[~2022-09-23] VITALS: Ht 160 cm; Wt 60.7 kg
[2022-09-23] VITALS (9 sets, daily range): BP systolic 123–144; BP diastolic 80–92
[~2022-09-23 07:56] MED LIST changes: -CATHETER FLUSH 10 ML SYR IVP PRN; -CYCL10TA25 PO
[2022-09-23] MEDS ORDERED: LACTATED RINGERS 1,000 ML IV PRN (08:45)
[2022-09-23] MEDS ORDERED: MIDAZOLAM 2 MG/2 ML (VERSED) VIAL ONE (10:02)
[2022-09-23] MEDS ORDERED: PROPOFOL INJECTION 50 ML IV ONE (10:02)
[2022-09-23] MEDS ORDERED: ONDANSETRON 4 MG/2 ML (SDV) Z0FRAN ONE (10:02)
[2022-09-23] MEDS ORDERED: LIDOCAINE/EPI 1%-1:100,000 (XYLOCAINE) 20ML ONE (10:04)
[2022-09-23] MEDS ORDERED: 0.9% SODIUM CHLORIDE PF INJ 20 ML VIAL ONE (10:04)
[2022-09-23] MEDS ORDERED: HEParin (CENTRAL IV FLUSH) 500 UNIT/5 ML SYR ONE (10:04)
--- NOTE | 2022-09-23 10:08 | Progress Note-Pre Operative ---
Pre-Operative Progress Note Date of Available H&P: Sep 15, 2022 Date H&P Reviewed: Sep 23, 2022 Time H&P Reviewed: 10:02 History & Physical: H&P Reviewed, Patient Examed, No changes noted Pre-Operative Diagnosis: Lung Cancer, Venous insufficiency BING BESS DO Sep 23, 2022 10:08
[2022-09-23] MEDS ORDERED: ceFAZolin INJECTION 1,000 MG ONE (10:35)
--- NOTE | 2022-09-23 10:58 | Anesthesia-General Post-Op ---
MAC Patient Condition Mental Status/LOC: Same as Preop Cardiovascular: Satisfactory Nausea/Vomiting: Absent Respiratory: Satisfactory Pain: Controlled Complications: Absent Post Op Complications Complications None Follow Up Care/Instructions Patient Instructions None needed. Anesthesiology Discharge Order Discharge Order Patient is doing well, no complaints, stable vital signs, no apparent adverse anesthesia problems. No complications reported per nursing. BROWN SRIVASTAVA CRNA Sep 23, 2022 10:58
[2022-09-23] MEDS ORDERED: fentaNYL INJ 100 MCG/2 ML AMP IVP ONE (11:00)
[2022-09-23] MEDS ORDERED: ONDANSETRON 4 MG/2 ML (SDV) Z0FRAN IVP PRN (11:00)
[2022-09-23] MEDS ORDERED: fentaNYL INJ 100 MCG/2 ML AMP ONE (11:01)
--- NOTE | 2022-09-23 11:02 | Progress Note-Post Operative ---
Post-Operative Progess Note Surgeon (s)/Fire Ranger (s) Surgeon BING BESS DO Fire Ranger: none Pre-Operative Diagnosis Lung Cancer, Venous insufficiency Post-Operative Diagnosis same Procedure & Operative Findings Date of Procedure 09/23/22 Procedure Performed/Findings PROCEDURE: Rocco-Cath Placement The patient was taken to the operating suite, was prepped and draped in the sterile fashion. A surgical pause was performed. Local anesthetic was infiltrated at the clavicle and along the tract to the right anterior chest, where more local was placed so the pocket could be created. Using an 18 gauge finder needle with negative inspiration the right subclavian vein was accessed on the first attempt and dark nonpulsatile blood was withdrawn. The wire was inserted and fluoroscopy assured proper placement. The needle was removed. and the wire was then secured. A #11 blade scalpel was used to make an incision over the right chest and along guidewire. Cautery was used to dissect down to the pectoral fascia. A pocket was created with blunt dissection. The dilator sheath was then advanced over the wire under fluoroscopy and the dilator and wire were removed. The Groshong catheter was inserted through the sheath and the sheath was then removed. The Groshong wire was removed. The catheter was then tunneled to the right chest pocket. Fluoroscopy was used to cut to length and this was then attached to the port which was then placed within the pocket. The port was then accessed without difficulty. It was then flushed with saline and then heparin. The subcutaneous tissues were then reapproximated using 3-0 Vicryl. Finally the skin was closed with 4-0 undyed monocryl, 3 interrupted sutures. The areas were then washed and dried. Skin Affix was placed over incision. The insertion point of the neck Skin Affix was placed over the incision. The patient tolerated the procedure well without complication and was taken to recovery room in stable condition. Anesthesia Type IV sedation by BOX TENDER Estimated Blood Loss Estimated blood loss (mL): scant Specimens/Packing Specimens Removed BING Doan DO Sep 23, 2022 11:02
[2022-09-23] MEDS ORDERED: ACHD5005 PO (11:03)
--- NOTE | 2022-09-23 11:04 | Discharge Inst-Surgical ---
Discharge Inst-Surgical Depart Medication/Instructions New, Converted or Re-Newed RX: Transmitted to Pharmacy Patient Instructions Follow up Appt: Make appointment for 1 week. [phone] Instructions: No lifting greater than 20 pounds. No strenuous activity. May shower in 24 hours, no tub bath or soaking. Use incentive spirometer at home as directed. No Smoking Skin/Wound Care: May remove bandages in am. You need to leave the Dermabond on incision it will fall off on it's own. Symptoms to Report: Appetite Changes, Extremity Discoloration, Numbness/Tingling, Swelling Increased, Bleeding Excessive, Eyesight Changes, Pain Increased, Urine Color Change, Constipation(Persistent), Fever over 101 degree F, Pain/Pressure in chest, Urinating Difficulty, Cough Up/Vomit Blood, Heart Beat Irreg/Pounding, Pain/Pressure in jaw, Cramps in feet or legs, Lightheadedness, Pain/Pressure in shoulder, Diarrhea(Persistent), Memory Changes Suddenly, Questions/Concerns, Weight gain consecutive days, Dizziness/Fainting, Nausea/Vomiting, Shortness of Breath, Weight gain over 2 pounds If questions or concerns contact your physician Or seek help at emergency department. Activity Activity as Tolerated: Yes Activity Instructions: Avoid Stress to Incision Driving Instructions: No Driving/Refer to Dr. Ervin Discharge Diet: No Restrictions Diet After 24 Hours: Clear Liquid if Nauseous If Any Problems/Questions/Issu: Contact Your Physician, Go to Emergency Room Skin/Wound Care Infection Signs and Symptoms: Increased Redness, Foul Odor of Wound, Increased Drainage, Skin Itchy or Has a Rash, Increased Swelling, Temperature Above 101 F Bathing Instructions: Shower Stitches/[facility]/Dermabond Dis: BING Hidalgo DO Sep 23, 2022 11:04
--- NOTE | 2022-09-23 14:26 | Diagnostic Imaging Report ---
Catheter placement. Three seconds of fluoroscopy time utilized during central venous catheter placement. IMPRESSION: Fluoroscopy utilized during catheter placement. Dictated by: Dictated on workstation # [id number]
[2022-09-24] MEDS ORDERED: CYCL10TA25 PO (11:09)
[2022-09-24] MEDS ORDERED: IBUP-1773 PO (11:09)
== END 2022-09-23 12:35 | disposition home or self-care (01) ==
LOC: SDC 07:56
PROVIDERS: ATTEND Surgery
DX: I87.2 Venous insufficiency (chronic) (peripheral) (principal); C34.90 Malignant neoplasm of unspecified part of unspecified bronchus or lung; F17.210 Nicotine dependence, cigarettes, uncomplicated; Z28.310 Unvaccinated for COVID-19
CPT/HCPCS: 36561; 76000; 84703; 87081; C1788

== ENCOUNTER 2022-09-23 12:37 | Outpatient (RCR) | payer MEDICAID ==
[~2022-09-23] VITALS: Ht 160 cm; Wt 60.8 kg
[~2022-09-23 12:37] MED LIST changes: +BEVACIZUMAB BVZR IV SCH; +DEXAMETHASONE SODIUM PHOSPHATE IV SCH; +FAMOTIDINE 20MG/2ML IV (PEPCID) IV SCH; +FOSAPREPITANT (CANCER CENTER) 150 MG in NS (IVPB) CANCER CENTER ONLY 150 ML IV SCH; +HEParin (CENTRAL IV FLUSH) 500 UNIT/5 ML SYR IV PRN; +NORMAL SALINE IV SCH; +NS IV 1000 ML (CANCER CTR) IV SCH; +NS IV SCH; +ONDANSETRON IV SCH; +PACLITAXEL IV SCH; +PEMBROLIZUMAB 200 MG in NS (IVPB) 50 ML 50 ML IV SCH; +[UNRECOGNIZED DRUG - OTHER] IV SCH; +diphenhydrAMINE INJ 50 MG/ML VIAL IV PRN
[2022-09-23 12:49] LABS: BASOPHILS % (AUTO) 0 % (0-10); EOSINOPHILS % (AUTO) 0 % (0-10); HEMATOCRIT 30 % (35-52); HEMOGLOBIN 8.9 g/dL (11.5-16.0); LYMPHOCYTES # (AUTO) 0.2 10^3/uL (1.0-4.0); LYMPHOCYTES % (AUTO) 2 % (12-44); MEAN CORPUSCULAR HEMOGLOBIN 25 pg (25-34); MEAN CORPUSCULAR HGB CONC 30 g/dL (32-36); MEAN CORPUSCULAR VOLUME 83 fL (80-99); MEAN PLATELET VOLUME 11.3 fL (9.0-12.2); MONOCYTES # (AUTO) 0.6 10^3/uL (0.0-1.0); MONOCYTES % (AUTO) 5 % (0-12); NEUTROPHILS # (AUTO) 10.9 10^3/uL (1.8-7.8); NEUTROPHILS % (AUTO) 92 % (42-75); PLATELET COUNT 416 10^3/uL (130-400); WHITE BLOOD COUNT 11.9 10^3/uL (4.3-11.0)
[2022-09-23 13:04] LABS: ALBUMIN 3.2 GM/DL (3.2-4.5); POTASSIUM 3.2 MMOL/L (3.6-5.0)
[2022-09-23 13:05] LABS: CALCIUM 11.2 MG/DL (8.5-10.1)
[2022-09-23 13:07] LABS: TOTAL PROTEIN 7.2 GM/DL (6.4-8.2)
[2022-09-23 13:08] LABS: BILIRUBIN,TOTAL 0.1 MG/DL (0.1-1.0)
[2022-09-23 13:10] LABS: CREATININE SERUM 1.12 MG/DL (0.60-1.30)
[2022-09-24] MEDS ORDERED: CYCL10TA25 PO (11:09)
[2022-09-24] MEDS ORDERED: IBUP-1773 PO (11:09)
== END 2022-09-26 | disposition home or self-care (01) ==
LOC: ONC 12:37
PROVIDERS: ATTEND Internal Medicine Hematology & Oncology
DX: C34.90 Malignant neoplasm of unspecified part of unspecified bronchus or lung (principal); C53.9 Malignant neoplasm of cervix uteri, unspecified
CPT/HCPCS: 80053; 85025

== ENCOUNTER 2022-09-24 10:38 | Emergency (ER) | payer MEDICAID ==
[~2022-09-24] VITALS: Ht 160 cm; Wt 61.0 kg
[~2022-09-24 10:38] MED LIST changes: -BEVACIZUMAB BVZR IV SCH; -DEXAMETHASONE SODIUM PHOSPHATE IV SCH; -FAMOTIDINE 20MG/2ML IV (PEPCID) IV SCH; -FOSAPREPITANT (CANCER CENTER) 150 MG in NS (IVPB) CANCER CENTER ONLY 150 ML IV SCH; -HEParin (CENTRAL IV FLUSH) 500 UNIT/5 ML SYR IV PRN; -NORMAL SALINE IV SCH; -NS IV 1000 ML (CANCER CTR) IV SCH; -NS IV SCH; -ONDANSETRON IV SCH; -PACLITAXEL IV SCH; -PEMBROLIZUMAB 200 MG in NS (IVPB) 50 ML 50 ML IV SCH; -[UNRECOGNIZED DRUG - OTHER] IV SCH; -diphenhydrAMINE INJ 50 MG/ML VIAL IV PRN
[2022-09-24] MEDS ORDERED: CYCLOBENZAPRINE 10 MG TABLET PO STA (10:49)
[2022-09-24] MEDS ORDERED: KETOROLAC 15 MG/ML VIAL IM ONE (11:00)
--- NOTE | 2022-09-24 11:02 | ED General ---
General Chief Complaint: Back Problems Stated Complaint: LOWER BACK PAIN Nursing Triage Note: REPORTS HER BACK POPPED 2 WEEKS AGO WHILE GETTING OUT OF THE TUB AND THE PAIN IS GETTING WORSE ON THE LEFT SIDE. Source of Information: Patient Exam Limitations: No Limitations History of Present Illness Date Seen by Provider: Sep 24, 2022 Time Seen by Provider: 10:40 Initial Comments 32-year-old female with past medical history of metastatic cervical cancer coming in due to left hip pain. She states she was getting out of a bathtub, twisted, felt a pop in that area, has had constant pain since then. Had x-rays of her lumbar spine done earlier in the week. She has been taking hydrocodone as needed for pain which she filled a 1 month supply on September 13. She says she is taking it every 6 hours as prescribed. She is otherwise denying any weakness, numbness, fever, dysuria, hematuria, or any other concerns. Allergies and Home Medications Allergies Coded Allergies: codeine (Verified Allergy, Mild, chest tightness, 09/19/22) morphine (Verified Allergy, Mild, chest tightness, 09/19/22) gabapentin (Verified Allergy, Unknown, 09/19/22) Patient Home Medication List Home Medication List Reviewed: Yes Celecoxib (Celebrex) 400 Mg Capsule, 400 MG PO DAILY, (Reported) Entered as Reported by: DIANE BILLY on 09/19/22 1525 Hydrocodone/Acetaminophen (Hydrocodone-Acetamin 5-325 mg) 5 Mg-325 Mg Tablet, 1 TAB PO Q8H PRN for PAIN Prescribed by: BING BESS on 09/23/22 1103 Lactulose (Lactulose) 10 Gram Packet, 10 GM PO UD, (Reported) Entered as Reported by: DIANE BILLY on 09/19/22 1525 Ondansetron (Ondansetron Odt) 4 Mg Tab.rapdis, 4 MG PO Q6H PRN for NAUSEA/VOMITING Prescribed by: KATIE AGUILAR on 05/10/22 1743 Potassium Chloride (Potassium Chloride) 20 Meq Tab.er.prt, 20 MEQ PO DAILY, (Reported) Entered as Reported by: PRAMOD FARRELL on 05/18/22 0457 Discontinued Medications Acetaminophen (Acetaminophen) 500 Mg Tablet, 1,000 MG PO BID PRN for PAIN, (Reported) Discontinued Reason: No Longer Taking Entered as Reported by: ADA ANNE on 09/07/22 0855 Ascorbic Acid (Vitamin C) 1,000 Mg Tablet, 1,000 MG PO DAILY, (Reported) Discontinued Reason: No Longer Taking Entered as Reported by: ADA ANNE on 09/07/22 0855 Ferrous Sulfate (Ferosul) 325 Mg (65 Mg Iron) Tablet, 325 MG PO DAILY, (Reported) Discontinued Reason: No Longer Taking Entered as Reported by: PRAMOD FARRELL on 05/18/22 0457 Ibuprofen (Ibuprofen) 800 Mg Tablet, 800 MG PO Q8H PRN for PAIN Discontinued Reason: No Longer Taking Prescribed by: KATIE AGUILAR on 05/10/22 1743 Nifedipine (Nifedipine) 10 Mg Capsule, 10 MG PO Q8H PRN for CHEST PAIN (ANGINA), (Reported) Discontinued Reason: No Longer Taking Entered as Reported by: ADA ANNE on 09/07/22 0855 Psyllium Husk (Daily Fiber) 0.52 Gram Capsule, 0.52 GM PO DAILY, (Reported) Discontinued Reason: No Longer Taking Entered as Reported by: ADA ANNE on 09/07/22 0855 Tamsulosin HCl (Flomax) 0.4 Mg Cap, 0.4 MG PO DAILY, (Reported) Discontinued Reason: No Longer Taking Entered as Reported by: ADA ANNE on 09/07/22 0855 Tramadol HCl (Tramadol HCl) 50 Mg Tablet, 50 MG PO Q6H PRN for PAIN Discontinued Reason: No Longer Taking Prescribed by: SURJIT NEWBERRY on 05/20/22 1520 Tramadol HCl (Tramadol HCl) 100 Mg Tablet, 100 MG PO BID, (Reported) Discontinued Reason: No Longer Taking Entered as Reported by: ADA ANNE on 09/07/22 0855 Review of Systems Review of Systems Constitutional: No fever EENTM: no symptoms reported Respiratory: no symptoms reported Cardiovascular: no symptoms reported Gastrointestinal: no symptoms reported Genitourinary: no symptoms reported Musculoskeletal: see HPI Skin: no symptoms reported Past Fohvxfk-Vjyzgu-Rysvjb Hx Patient Social History Tobacco Use?: Yes Tobacco type used: Cigarettes Smoking Status: Current Everyday Smoker Use of E-Cig and/or Vaping dev: No Substance use?: No Alcohol Use?: No Pt feels they are or have been: No Immunizations Up To Date First/Initial COVID19 Vaccinat: NONE Second COVID19 Vaccination Sam: NONE Third COVID19 Vaccination Date: NONE Seasonal Allergies Seasonal Allergies: No Past Medical History Surgery/Hospitalization HX: 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, lung biopsy Cholecysectomy; Tubal ligation Surgeries: Yes (BRACHYTHERAPY) Gallbladder, Tubal Ligation Respiratory: No Currently Using CPAP: No Currently Using BIPAP: No Cardiac: Yes (RECENTLY HYPOTENSIVE LAST 3 WEEKS) Neurological: No Reproductive Disorders: No Genitourinary: No Gastrointestinal: Yes Gall Bladder Disease Musculoskeletal: No Endocrine: No HEENT: No Cancer: Yes Lung, Cervical What Type of Treatment Did You: Chemotherapy, Radiation, Surgical Intervention Psychosocial: Yes Sleep Difficulties, Anxiety, PTSD, Depression Integumentary: No Blood Disorders: No Family Medical History No Pertinent Family Hx Physical Exam Vital Signs Vital Signs - First Documented 09/24/22 10:40 Temp 36.7 Pulse 87 Resp 16 B/P (MAP) 121/75 (90) Pulse Ox 98 O2 Delivery Room Air Capillary Refill : Less Than 3 Seconds Height, Weight, BMI Height: '" Weight: lbs. oz. kg; 23.00 BMI Method: General Appearance: No Apparent Distress, WD/WN Eyes: Bilateral Eye Normal Inspection HEENT: PERRL/EOMI Neck: Full Range of Motion, Normal Inspection, Non Tender, Supple Respiratory: Chest Non Tender, Lungs Clear, Normal Breath Sounds, No Accessory Muscle Use, No Respiratory Distress Cardiovascular: Regular Rate, Rhythm, No Edema, Normal Peripheral Pulses Gastrointestinal: Normal Bowel Sounds, Non Tender, Soft Back: Normal Inspection, No CVA Tenderness, No Vertebral Tenderness Extremity: Normal Capillary Refill, Normal Inspection, Normal Range of Motion, No Calf Tenderness, No Pedal Edema, Other (Left lateral hip tenderness) Neurologic/Psychiatric: Alert, No Motor/Sensory Deficits, Normal Mood/Affect Skin: Normal Color, Warm/Dry Progress/Results/Core Measures Suspected Sepsis SIRS Temperature: Pulse: 87 Respiratory Rate: 16 Blood Pressure 121 /75 Mean: 90 Results/Orders My Orders Orders - SURJIT NEWBERRY MD Ketorolac Injection (Toradol Injection) (09/24/22 11:00) Pelvis With Left Hip 2-3 View (09/24/22 10:49) Cyclobenzaprine Tablet (Flexeril Tablet) (09/24/22 10:49) Medications Given in ED Current Medications Medications Dose Ordered Sig/Raphael Route Start Time Stop Time Status Last Admin Dose Admin Ketorolac Tromethamine 15 mg ONCE ONCE IM 09/24/22 11:00 09/24/22 11:01 DC 09/24/22 10:54 15 MG Vital Signs/I&O 09/24/22 10:40 Temp 36.7 Pulse 87 Resp 16 B/P (MAP) 121/75 (90) Pulse Ox 98 O2 Delivery Room Air Capillary Refill : Less Than 3 Seconds Blood Pressure Mean: 90 Progress Note : Progress Note 32-year-old female presenting due to left lateral hip tenderness. ABCs were intact and vitals were stable on presentation. Physical exam with lateral hip pain but no pain with log roll. She is otherwise neurovascularly intact. Given IM toradol and PO flexeril here. XR pelvis and left hip ordered and interpreted by me showing no fracture or dislocation. I was also able to review her PET/CT scan done yesterday and there was no metastatic or bony disease particularly in the pelvis or lower back. I believe the patient is stable for discharge with outpatient follow-up with orthopedics. She was sent home with strict return precautions. Prescription sent for Flexeril. Diagnostic Imaging Diagonstic Imaging: Xray (pelvis and left hip) Departure Impression Primary Impression: Lateral pain of left hip Disposition: HOME, SELF-CARE Condition: Stable Departure-Patient Inst. Decision time for Depature: 11:15 Referrals: LINDSAY CORTES MD (PCP/Family) Primary Care Physician Patient Instructions: Hip Pain ED Add. Discharge Instructions: We were able to review the x-ray from today and the CT scan from yesterday. Nothing is broken or dislocated. There is also no new cancer in that area. We recommend following up with orthopedics and potential physical therapy as well. 2 different prescriptions will be sent to your pharmacy as well. Scripts Cyclobenzaprine HCl (Cyclobenzaprine HCl) 10 Mg Tablet 10 MG PO Q8H PRN for SPASMS for 5 Days, #15 TAB Prov: SURJIT NEWBERRY MD 09/24/22 Ibuprofen (Ibuprofen) 600 Mg Tablet 600 MG PO Q6H PRN for PAIN-MILD for 7 Days, #28 TAB Prov: SURJIT NEWBERRY MD 09/24/22 SURJIT NEWBERRY MD Sep 24, 2022 11:02
[2022-09-24] MEDS ORDERED: CYCL10TA25 PO (11:09)
[2022-09-24] MEDS ORDERED: IBUP-1773 PO (11:09)
[2022-09-24 11:10] VITALS: BP 121/75
--- NOTE | 2022-09-24 11:12 | Diagnostic Imaging Report ---
INDICATION: Left hip pain. COMPARISON: None. DISCUSSION: AP view of the pelvis and two views of the left hip were obtained. No acute fracture, dislocation, or other osseous abnormality identified. No significant degenerative disease. Alignment is anatomic. Soft tissues are unremarkable. IMPRESSION: 1. Negative pelvis and left hip. Dictated by: Dictated on workstation # [id number]
== END 2022-09-24 11:14 | disposition home or self-care (01) ==
LOC: EDUNIT# 10:38 → ER FS 10:40
DX: M25.552 Pain in left hip (principal); F17.210 Nicotine dependence, cigarettes, uncomplicated; Z28.310 Unvaccinated for COVID-19
CPT/HCPCS: 73502

== ENCOUNTER 2022-10-01 19:52 | Emergency (ER) | payer MEDICAID ==
[~2022-10-01] VITALS: Ht 160 cm; Wt 59.4 kg
[~2022-10-01 19:52] MED LIST changes: +CYCL10TA25 PO
[2022-10-01] MEDS ORDERED: NS IV 1000 ML 1,000 ML IV STA (20:15)
[2022-10-01] MEDS ORDERED: fentaNYL INJECTION 100 MCG/2 ML VIAL IVP STA ×2 (20:15→21:45)
[2022-10-01] MEDS ORDERED: CYCLOBENZAPRINE 10 MG TABLET PO STA (20:15)
--- NOTE | 2022-10-01 20:28 | ED General ---
General Chief Complaint: Chest Wall Stated Complaint: CHEST PAIN| RIGHT SIDE Source of Information: Patient, Old Records History of Present Illness Date Seen by Provider: Oct 01, 2022 Time Seen by Provider: 19:58 Initial Comments 32-year-old female presenting with complaints of left flank pain. She has been having pain in her left side for 2 and half weeks and she had initial pain start with sitting up in the bathtub. She reports having been seen and had imaging done that they thought that she pulled some muscles. She ran out of her Flexeril and is waiting on refill. She had taken hydrocodone at home but was continuing to have severe pain. She last took a dose of hydrocodone at 7 PM. She is undergoing chemotherapy with the last round a week ago. She gets 4 different medicines every 3 weeks. She follows with Dr. Clemons in [place]. She denies any acute fall or injury to trigger her pain. From review of her PET scan done September 22 she has new or increased metastatic lesions in her pleural lining and lungs. Timing/Duration: Getting Worse Severity: Severe Modifying Factors: worse with Movement Associated Systoms: No Chest Pain; Cough (Chronic and no worse than usual); No Diaphoresis, No Fever/Chills, No Headaches, No Loss of Appetite; Malaise; No Rash, No Seizure, No Shortness of Air, No Syncope, No Weakness Allergies and Home Medications Allergies Coded Allergies: codeine (Verified Allergy, Mild, chest tightness, 09/19/22) morphine (Verified Allergy, Mild, chest tightness, 09/19/22) gabapentin (Verified Allergy, Unknown, 09/19/22) Patient Home Medication List Home Medication List Reviewed: Yes Celecoxib (Celebrex) 400 Mg Capsule, 400 MG PO DAILY, (Reported) Entered as Reported by: DIANE BILLY on 09/19/22 1525 Cephalexin (Cephalexin) 500 Mg Capsule, 500 MG PO TID Prescribed by: KATIE AGUILAR on 10/01/222144 Cyclobenzaprine HCl (Cyclobenzaprine HCl) 10 Mg Tablet, 10 MG PO Q8H PRN for SPASMS Prescribed by: KATIE AGUILAR on 10/01/222135 Hydrocodone/Acetaminophen (Hydrocodone-Acetamin 5-325 mg) 5 Mg-325 Mg Tablet, 1 TAB PO Q8H PRN for PAIN Prescribed by: BING BESS on 09/23/22 1103 Ibuprofen (Ibuprofen) 600 Mg Tablet, 600 MG PO Q6H PRN for PAIN-MILD Prescribed by: SURJIT NEWBERRY on 09/24/22 1109 Lactulose (Lactulose) 10 Gram Packet, 10 GM PO UD, (Reported) Entered as Reported by: DIANE Samuel WENCESLAO on 09/19/22 1525 Ondansetron (Ondansetron Odt) 4 Mg Tab.rapdis, 4 MG PO Q6H PRN for NAUSEA/VOMITING Prescribed by: KATIE AGUILAR on 05/10/22 1743 Potassium Chloride (Potassium Chloride) 20 Meq Tab.er.prt, 20 MEQ PO DAILY, (Reported) Entered as Reported by: PRAMOD FARRELL on 05/18/22 0457 Review of Systems Review of Systems Constitutional: No chills, No dizziness, No fever EENTM: no symptoms reported Respiratory: see HPI Cardiovascular: no symptoms reported Gastrointestinal: see HPI, abdominal pain (Left flank pain wrapping around her back) Genitourinary: dysuria (Chronic since initially diagnosed with cervical cancer) Musculoskeletal: see HPI Skin: No change in color, No rash Psychiatric/Neurological: No Symptoms Reported Past Exahujl-Nioqqz-Bxmxxs Hx Immunizations Up To Date First/Initial COVID19 Vaccinat: NONE Second COVID19 Vaccination Sam: NONE Third COVID19 Vaccination Date: NONE Seasonal Allergies Seasonal Allergies: No Past Medical History Surgery/Hospitalization HX: 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, lung biopsy Cholecysectomy; Tubal ligation Surgeries: Yes (BRACHYTHERAPY) Gallbladder, Tubal Ligation Respiratory: No Currently Using CPAP: No Currently Using BIPAP: No Cardiac: Yes (RECENTLY HYPOTENSIVE LAST 3 WEEKS) Neurological: No Reproductive Disorders: No Genitourinary: No Gastrointestinal: Yes Gall Bladder Disease Musculoskeletal: No Endocrine: No HEENT: No Cancer: Yes Lung, Cervical What Type of Treatment Did You: Chemotherapy, Radiation, Surgical Intervention Psychosocial: Yes Sleep Difficulties, Anxiety, PTSD, Depression Integumentary: No Blood Disorders: No Family Medical History No Pertinent Family Hx Physical Exam Vital Signs Vital Signs - First Documented 10/01/22 20:00 Temp 37.4 Pulse 119 Resp 19 B/P (MAP) 147/92 (110) Pulse Ox 97 O2 Delivery Room Air Capillary Refill : Height, Weight, BMI Height: '" Weight: lbs. oz. kg; 51.25 BMI Method: General Appearance: Anxious, Chronically ill, Moderate Distress, Thin, Other (poor body hygiene) HEENT: PERRL/EOMI, Pharynx Normal Respiratory: Chest Non Tender, Lungs Clear, Normal Breath Sounds, No Accessory Muscle Use, No Respiratory Distress Cardiovascular: Normal Peripheral Pulses, Tachycardia Gastrointestinal: Normal Bowel Sounds, No Pulsatile Mass, Soft, Tenderness (Left flank) Rectal: Deferred Back: CVA Tenderness (L), Muscle Spasm (Left flank) Extremity: Normal Capillary Refill, No Pedal Edema Neurologic/Psychiatric: Alert, Oriented x3 Skin: Normal Color, Warm/Dry Progress/Results/Core Measures Suspected Sepsis SIRS Temperature: Pulse: Respiratory Rate: Laboratory Tests 10/01/22 20:45: White Blood Count 10.8 Blood Pressure / Mean: Laboratory Tests 10/01/22 20:45: Creatinine 1.26, Platelet Count 308, Total Bilirubin 0.4 Results/Orders Lab Results Laboratory Tests Test 10/01/22 20:45 10/01/22 21:30 Range/Units White Blood Count 10.8 4.3-11.0 10^3/uL Red Blood Count 3.73 L 3.80-5.11 10^6/uL Hemoglobin 9.0 L 11.5-16.0 g/dL Hematocrit 30 L 35-52 % Mean Corpuscular Volume 80 80-99 fL Mean Corpuscular Hemoglobin 24 L 25-34 pg Mean Corpuscular Hemoglobin Concent 30 L 32-36 g/dL Red Cell Distribution Width 15.7 H 10.0-14.5 % Platelet Count 308 130-400 10^3/uL Mean Platelet Volume 10.8 9.0-12.2 fL Immature Granulocyte % (Auto) 0 % Neutrophils (%) (Auto) 98 H 42-75 % Lymphocytes (%) (Auto) 1 L 12-44 % Monocytes (%) (Auto) 1 0-12 % Eosinophils (%) (Auto) 0 0-10 % Basophils (%) (Auto) 0 0-10 % Neutrophils # (Auto) 10.6 H 1.8-7.8 10^3/uL Lymphocytes # (Auto) 0.1 L 1.0-4.0 10^3/uL Monocytes # (Auto) 0.1 0.0-1.0 10^3/uL Eosinophils # (Auto) 0.0 0.0-0.3 10^3/uL Basophils # (Auto) 0.0 0.0-0.1 10^3/uL Immature Granulocyte # (Auto) 0.0 0.0-0.1 10^3/uL Sodium Level 130 L 135-145 MMOL/L Potassium Level 4.9 3.6-5.0 MMOL/L Chloride Level 95 L 98-107 MMOL/L Carbon Dioxide Level 24 21-32 MMOL/L Anion Gap 11 5-14 MMOL/L Blood Urea Nitrogen 22 H 7-18 MG/DL Creatinine 1.26 0.60-1.30 MG/DL Estimat Glomerular Filtration Rate 57 BUN/Creatinine Ratio 17 Glucose Level 106 H 70-105 MG/DL Calcium Level 10.4 H 8.5-10.1 MG/DL Corrected Calcium 11.1 H 8.5-10.1 MG/DL Total Bilirubin 0.4 0.1-1.0 MG/DL Aspartate Amino Transf (AST/SGOT) 16 5-34 U/L Alanine Aminotransferase (ALT/SGPT) 33 0-55 U/L Alkaline Phosphatase 143 H 40-136 U/L Total Protein 6.8 6.4-8.2 GM/DL Albumin 3.1 L 3.2-4.5 GM/DL Lipase 16 8-78 U/L Urine Color YELLOW Urine Clarity CLEAR Urine pH 5.5 5-9 Urine Specific [place] 1.010 L 1.016-1.022 Urine Protein NEGATIVE NEGATIVE Urine Glucose (UA) NEGATIVE NEGATIVE Urine Ketones NEGATIVE NEGATIVE Urine Nitrite NEGATIVE NEGATIVE Urine Bilirubin NEGATIVE NEGATIVE Urine Urobilinogen 0.2 < = 1.0 MG/DL Urine Leukocyte Esterase TRACE H NEGATIVE Urine RBC (Auto) NEGATIVE NEGATIVE Urine RBC NONE /HPF Urine WBC 10-25 H /HPF Urine Crystals NONE /LPF Urine Bacteria TRACE /HPF Urine Casts NONE /LPF Urine Mucus NEGATIVE /LPF Urine Culture Indicated YES My Orders Orders - KATIE AGUILAR MD Implanted Port: Access (10/01/22 20:15) Comprehensive Metabolic Panel (10/01/22 20:15) Lipase (10/01/22 20:15) Ua Culture If Indicated (10/01/22 20:15) Ed Iv/Invasive Line Start (10/01/22 20:15) Cbc With Automated Diff (10/01/22 20:15) Ct Abdomen/Pelvis Wo (10/01/22 20:15) Ns Iv 1000 Ml (Sodium Chloride 0.9%) (10/01/22 20:15) Cyclobenzaprine Tablet (Cyclobenzaprine (10/01/22 20:15) Fentanyl Inj (Sublimaze Injection) (10/01/22 20:15) Rx-Cyclobenzaprine Tablet (Rx-Flexeril T (10/01/22 21:31) Urine Culture (10/01/22 21:30) Ceftriaxone Iv/Im (Ceftriaxone Iv/Im) (10/01/22 21:45) Fentanyl Inj (Sublimaze Injection) (10/01/22 21:45) Heparin (Central Iv Flush) (Heparin (Mitchell (10/01/22 22:52) Vital Signs/I&O 10/01/22 10/01/22 20:00 23:00 Temp 37.4 Pulse 119 89 Resp 19 12 B/P (MAP) 147/92 (110) 134/88 Pulse Ox 97 98 O2 Delivery Room Air Room Air Capillary Refill : Progress Note #1: Progress Note Potential diagnosis of pleurisy, kidney stone, metastatic cancer, cancer pain, pyelonephritis, UTI, constipation, diverticulitis, colitis. Access for implanted port and obtain labs for complete blood count, comprehensive metabolic profile, lipase. Urinalysis to look for signs of infection. CT scan of the abdomen pelvis without IV contrast to look at her left flank for seeing if she has a reason for increased pain. Since she was limon ving improvement with Flexeril but is out we will administer dose of Flexeril 10 mg by mouth once in addition to fentanyl 50 mcg IV x1. Normal saline 1 L IV fluid bolus for hydration. Progress Note #2: Time: 20:54 Progress Note Complete blood count shows white blood cell count at upper limit of normal at 10.8. Hemoglobin shows anemia with level of 9. Platelets are 308. Her CT scan of the abdomen and pelvis was read out by radiologist as showing new hydrone phrosis on the right kidney without any definite kidney stone or obstruction. She has multiple pulmonary mets in her lungs. Her left 11th posterior rib has increasing size metastatic lesion. Progress Note #3: Time: 21:09 Progress Note Patient reports improvement in her pain with medication. She was waiting to hear if she could get a refill of the Flexeril from her primary care provider but initially it was prescribed by a emergency department visit. Will refill her Flexeril for home and order a take-home pack for tonight. If her urine does not show that she needs a antibiotic for UTI will anticipate discharge to home on the Flexeril and continued home pain meds. Advised the patient that this appears to be related to metastatic lesions causing pain in the posterior left rib and in her lungs. She is currently undergoing chemotherapy to try and help with the metastatic lesions and masses. Progress Note #4: Time: 21:41 Progress Note Urinalysis shows trace leukocyte esterase with 10-25 white blood cells and trace bacteria. A culture was reflexed. We will give a dose of Rocephin or ceftriaxone 1 g IV here in the ED and discharged on cephalexin. Otherwise proceed with plan as above. Continue with chronic pain medicine for metastatic disease. Diagnostic Imaging Diagonstic Imaging: CT Plain Films/CT/US/NM/MRI: abdomen, pelvis Comments NAME: SHELLEY JUDD [facility] REC#: [id number] PT STATUS: REG ER : 1990 PHYSICIAN: KATIE AGUILAR MD ADMIT DATE: 10/01/22/ER FS Signed Date of Exam:10/01/22 CT ABDOMEN/PELVIS WO EXAMINATION: CT abdomen and pelvis without contrast. TECHNIQUE: Multiple contiguous axial images were obtained through the abdomen and pelvis without the use of intravenous contrast. All CT scans use one or more of the following dose optimizing techniques: automated exposure control, MA and/or KvP adjustment based on patient size and exam type or iterative reconstruction. HISTORY: Left flank pain. COMPARISON: 08/29/2022. FINDINGS: Lung bases: Multiple bilateral pulmonary nodules measuring up to 2.8 cm. Solid organs: The liver is normal. The gallbladder is surgically absent. There is no biliary ductal dilation. Pancreas is normal. Spleen is normal. Stable left adrenal nodule. There is mild right hydronephrosis, increased from 08/29/2022. No visualized obstructing stone. Bowel: The stomach and small bowel are normal without obstruction. There is mild wall thickening of the rectum. The appendix is normal. Peritoneum: There is no intraperitoneal free fluid or free air. Enlarged retroperitoneal lymph nodes, unchanged from prior exam. Vasculature: Normal without aneurysm. Musculoskeletal: Degenerative changes of the spine. Enlarging posterior left 11th rib mass. Pelvis: Redemonstrated air and fluid collection within the endometrium. The urinary bladder is normal. IMPRESSION: 1. Stable appearance of the air and fluid collection within the lower uterine body endometrium. 2. New right-sided hydronephrosis without visualized obstructing stone. 3. Multiple bilateral pulmonary metastases. 4. Stable enlarged retroperitoneal lymph nodes. 5. Enlarging posterior left 11th rib osseous metastasis. 6. Stable left adrenal nodule. 7. Mild rectal wall thickening which may be related to posttreatment changes in the pelvis versus an infectious or inflammatory process. Dictated by: Dictated on workstation # [id number] Dict: 10/01/222038 Trans: 10/01/222048 [facility] [id number] Interpreted by: MRATHA PEREZ DO Electronically signed by: MARTHA PEREZ DO 10/01/222048 Reviewed: Reviewed by Me Departure Impression Primary Impression: Acute left flank pain Additional Impressions: Osteolytic lesion due to metastasis Multiple lesions of metastatic malignancy Acute cystitis without hematuria Disposition: 01 HOME, SELF-CARE Condition: Improved Departure-Patient Inst. Decision time for Depature: 21:44 Referrals: LINDSAY CORTES MD (PCP/Family) Primary Care Physician Patient Instructions: Flank Pain ED, Bone metastases, Urinary Tract Infection, Adult ED Add. Discharge Instructions: Continue with your home medications and the Flexeril. Check back with the clinic for continued pain and problems. Stay well-hydrated and drink plenty of fluids. Take the full course of antibiotics to treat for urine infection. All discharge instructions reviewed with patient and/or family. Voiced understanding. Scripts Cephalexin (Cephalexin) 500 Mg Capsule 500 MG PO TID for UTI for 5 Days, #15 CAP 0 Refills Prov: KATIE AGUILAR MD 10/01/22 Cyclobenzaprine HCl (Cyclobenzaprine HCl) 10 Mg Tablet 10 MG PO Q8H PRN for SPASMS for 5 Days, #15 TAB Prov: KATIE AGUILAR MD 10/01/22 KATIE AGUILAR MD Oct 01, 2022 20:28
--- NOTE | 2022-10-01 20:49 | Diagnostic Imaging Report ---
EXAMINATION: CT abdomen and pelvis without contrast. TECHNIQUE: Multiple contiguous axial images were obtained through the abdomen and pelvis without the use of intravenous contrast. All CT scans use one or more of the following dose optimizing techniques: automated exposure control, MA and/or KvP adjustment based on patient size and exam type or iterative reconstruction. HISTORY: Left flank pain. COMPARISON: 08/29/2022. FINDINGS: Lung bases: Multiple bilateral pulmonary nodules measuring up to 2.8 cm. Solid organs: The liver is normal. The gallbladder is surgically absent. There is no biliary ductal dilation. Pancreas is normal. Spleen is normal. Stable left adrenal nodule. There is mild right hydronephrosis, increased from 08/29/2022. No visualized obstructing stone. Bowel: The stomach and small bowel are normal without obstruction. There is mild wall thickening of the rectum. The appendix is normal. Peritoneum: There is no intraperitoneal free fluid or free air. Enlarged retroperitoneal lymph nodes, unchanged from prior exam. Vasculature: Normal without aneurysm. Musculoskeletal: Degenerative changes of the spine. Enlarging posterior left 11th rib mass. Pelvis: Redemonstrated air and fluid collection within the endometrium. The urinary bladder is normal. IMPRESSION: 1. Stable appearance of the air and fluid collection within the lower uterine body endometrium. 2. New right-sided hydronephrosis without visualized obstructing stone. 3. Multiple bilateral pulmonary metastases. 4. Stable enlarged retroperitoneal lymph nodes. 5. Enlarging posterior left 11th rib osseous metastasis. 6. Stable left adrenal nodule. 7. Mild rectal wall thickening which may be related to posttreatment changes in the pelvis versus an infectious or inflammatory process. Dictated by: Dictated on workstation # [id number]
[2022-10-01 20:51] LABS: BASOPHILS % (AUTO) 0 % (0-10); EOSINOPHILS % (AUTO) 0 % (0-10); HEMATOCRIT 30 % (35-52); LYMPHOCYTES # (AUTO) 0.1 10^3/uL (1.0-4.0); LYMPHOCYTES % (AUTO) 1 % (12-44); MEAN CORPUSCULAR HEMOGLOBIN 24 pg (25-34); MEAN CORPUSCULAR HGB CONC 30 g/dL (32-36); MEAN CORPUSCULAR VOLUME 80 fL (80-99); MEAN PLATELET VOLUME 10.8 fL (9.0-12.2); MONOCYTES # (AUTO) 0.1 10^3/uL (0.0-1.0); MONOCYTES % (AUTO) 1 % (0-12); NEUTROPHILS # (AUTO) 10.6 10^3/uL (1.8-7.8); NEUTROPHILS % (AUTO) 98 % (42-75); PLATELET COUNT 308 10^3/uL (130-400); WHITE BLOOD COUNT 10.8 10^3/uL (4.3-11.0)
[2022-10-01 21:12] LABS: CALCIUM 10.4 MG/DL (8.5-10.1); CREATININE SERUM 1.26 MG/DL (0.60-1.30); POTASSIUM 4.9 MMOL/L (3.6-5.0)
[2022-10-01 21:13] LABS: ALBUMIN 3.1 GM/DL (3.2-4.5); BILIRUBIN,TOTAL 0.4 MG/DL (0.1-1.0); TOTAL PROTEIN 6.8 GM/DL (6.4-8.2)
[2022-10-01] MEDS ORDERED: RX-CYCLOBENZAPRINE 10 MG (FLEXERIL) TAB PPK#3 PO STA (21:31)
[2022-10-01 21:36] LABS: BILIRUBIN,URINE NEGATIVE (NEGATIVE); CLARITY,URINE CLEAR; COLOR,URINE YELLOW; GLUCOSE, URINE (UA) NEGATIVE (NEGATIVE); KETONES,URINE NEGATIVE (NEGATIVE); LEUKOCYTE ESTERASE ,URINE TRACE (NEGATIVE); NITRITE,URINE NEGATIVE (NEGATIVE); PH,URINE 5.5 (5-9); PROTEIN,URINE NEGATIVE (NEGATIVE)
[2022-10-01] MEDS ORDERED: CYCL10TA25 PO (21:36)
[2022-10-01 21:39] LABS: BACTERIA,URINE TRACE /HPF
[2022-10-01] MEDS ORDERED: CEPH500C PO (21:45)
[2022-10-01] MEDS ORDERED: cefTRIAXone IV/IM 1,000 MG in NS (IVPB) 50 ML 50 ML IV STA (21:45)
[2022-10-01] MEDS ORDERED: HEParin (CENTRAL IV FLUSH) 500 UNIT/5 ML SYR IV STA (22:52)
[2022-10-01 23:00] VITALS: BP 134/88
[2022-10-02] MEDS ORDERED: LIDO700A45 TP (10:36)
[2022-10-02] MEDS ORDERED: MELO10CA3 PO (10:36)
== END 2022-10-01 23:00 | disposition home or self-care (01) ==
LOC: EDUNIT# 19:52 → ER FS 19:53
DX: N30.00 Acute cystitis without hematuria (principal); C79.51 Secondary malignant neoplasm of bone; M89.58 Osteolysis, other site
CPT/HCPCS: 36415; 36556; 74176; 80053; 81000; 83690; 85025; 87088; 96361; 96365; 96375; 96376

== ENCOUNTER 2022-10-02 09:04 | Emergency (ER) | payer MEDICAID ==
[~2022-10-02] VITALS: Ht 160 cm; Wt 59.2 kg
[~2022-10-02 09:04] MED LIST changes: +CEPH500C PO
[2022-10-02] MEDS ORDERED: NS IV 1000 ML 1,000 ML IV STA (09:10)
[2022-10-02 09:14] LABS: BASOPHILS % (AUTO) 0 % (0-10); EOSINOPHILS # (AUTO) 0.1 10^3/uL (0.0-0.3); EOSINOPHILS % (AUTO) 1 % (0-10); HEMATOCRIT 29 % (35-52); HEMOGLOBIN 8.6 g/dL (11.5-16.0); LYMPHOCYTES # (AUTO) 0.1 10^3/uL (1.0-4.0); LYMPHOCYTES % (AUTO) 1 % (12-44); MEAN CORPUSCULAR HEMOGLOBIN 24 pg (25-34); MEAN CORPUSCULAR HGB CONC 30 g/dL (32-36); MEAN CORPUSCULAR VOLUME 80 fL (80-99); MEAN PLATELET VOLUME 11.3 fL (9.0-12.2); MONOCYTES # (AUTO) 0.1 10^3/uL (0.0-1.0); MONOCYTES % (AUTO) 1 % (0-12); NEUTROPHILS # (AUTO) 12.9 10^3/uL (1.8-7.8); NEUTROPHILS % (AUTO) 98 % (42-75); PLATELET COUNT 359 10^3/uL (130-400); WHITE BLOOD COUNT 13.2 10^3/uL (4.3-11.0)
--- NOTE | 2022-10-02 09:14 | ED Chest Pain ---
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 Started yesterday, taking hydrocodone at home which is not helping. Denies any cardiac history otherwise. Denies any prior history of DVT or PE. She started chemotherapy last week, plans to get it every 3 weeks for roughly 18 courses. Denies any fever, new cough, vomiting, diarrhea, or any other new concerns. EMS reports her heart rate was around 130 and they placed an IV. Allergies and Home Medications Allergies Coded Allergies: codeine (Verified Allergy, Mild, chest tightness, 09/19/22) morphine (Verified Allergy, Mild, chest tightness, 09/19/22) gabapentin (Verified Allergy, Unknown, 09/19/22) Patient Home Medication List Home Medication List Reviewed: Yes Celecoxib (Celebrex) 400 Mg Capsule, 400 MG PO DAILY, (Reported) Entered as Reported by: DIANE BILLY on 09/19/22 1525 Cephalexin (Cephalexin) 500 Mg Capsule, 500 MG PO TID Prescribed by: KATIE AGUILAR on 10/01/22 2145 Cyclobenzaprine HCl (Cyclobenzaprine HCl) 10 Mg Tablet, 10 MG PO Q8H PRN for SPASMS Prescribed by: KATIE HEARTRT on 10/01/22 2136 Hydrocodone/Acetaminophen (Hydrocodone-Acetamin 5-325 mg) 5 Mg-325 Mg Tablet, 1 TAB PO Q8H PRN for PAIN Prescribed by: BING BESS on 09/23/22 1103 Ibuprofen (Ibuprofen) 600 Mg Tablet, 600 MG PO Q6H PRN for PAIN-MILD Prescribed by: SURJIT NEWBERRY on 09/24/22 1109 Lactulose (Lactulose) 10 Gram Packet, 10 GM PO UD, (Reported) Entered as Reported by: DIANE BILLY on 09/19/22 1525 Lidocaine (Lidocaine 5% Patch) 5 % Adh..patch, 1 EACH TP Q12H PRN for Neuropathic pain Prescribed by: SURJIT NEWBERRY on 10/02/22 1036 Meloxicam, Submicronized (Meloxicam) 10 Mg Capsule, 10 MG PO DAILY Prescribed by: SURJIT NEWBERRY on 10/02/22 1036 Ondansetron (Ondansetron Odt) 4 Mg Tab.rapdis, 4 MG PO Q6H PRN for NAUSEA/VOMITING Prescribed by: KATIE AGUILAR on 05/10/22 1743 Potassium Chloride (Potassium Chloride) 20 Meq Tab.er.prt, 20 MEQ PO DAILY, (Reported) Entered as Reported by: PRAMOD FARRELL on 05/18/22 0457 Review of Systems Review of Systems Constitutional: No fever EENTM: No Symptoms Reported Respiratory: See HPI Cardiovascular: See HPI Gastrointestinal: No Symptoms Reported Genitourinary: No Symptoms Reported Musculoskeletal: no symptoms reported Skin: no symptoms reported Psychiatric/Neurological: No Symptoms Reported Hematologic/Lymphatic: No Symptoms Reported Past Eteqlcs-Ykumtp-Odjdpe Hx Immunizations Up To Date First/Initial COVID19 Vaccinat: NONE Second COVID19 Vaccination Sam: NONE Third COVID19 Vaccination Date: NONE Seasonal Allergies Seasonal Allergies: No Past Medical History Surgery/Hospitalization HX: 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, lung biopsy Cholecysectomy; Tubal ligation Surgeries: Yes (BRACHYTHERAPY) Gallbladder, Tubal Ligation Respiratory: No Currently Using CPAP: No Currently Using BIPAP: No Cardiac: Yes (RECENTLY HYPOTENSIVE LAST 3 WEEKS) Neurological: No Reproductive Disorders: No Genitourinary: No Gastrointestinal: Yes Gall Bladder Disease Musculoskeletal: No Endocrine: No HEENT: No Cancer: Yes Lung, Cervical What Type of Treatment Did You: Chemotherapy, Radiation, Surgical Intervention Psychosocial: Yes Sleep Difficulties, Anxiety, PTSD, Depression Integumentary: No Blood Disorders: No Family Medical History No Pertinent Family Hx Physical Exam Vital Signs Vital Signs - First Documented 10/02/22 09:05 Temp 37.2 Pulse 128 Resp 24 B/P (MAP) 131/82 (98) O2 Delivery Room Air Capillary Refill : Height, Weight, BMI Height: '" Weight: lbs. oz. kg; 23.00 BMI Method: General Appearance: Moderate Distress HEENT: PERRL/EOMI, Normal ENT Inspection, Pharynx Normal Neck: Full Range of Motion, Normal Inspection, Non Tender, Supple Respiratory: Chest Non Tender, Lungs Clear, Normal Breath Sounds, No Accessory Muscle Use, No Respiratory Distress Cardiovascular: No Edema, Normal Peripheral Pulses, Tachycardia Gastrointestinal: Normal Bowel Sounds, Non Tender, Soft; No Distended, No Guarding Extremity: Normal Capillary Refill, Normal Inspection, Normal Range of Motion, Non Tender, No Calf Tenderness, No Pedal Edema Neurologic/Psychiatric: Alert, No Motor/Sensory Deficits, Normal Mood/Affect Skin: Normal Color, Warm/Dry Progress/Results/Core Measures Results/Orders Lab Results Laboratory Tests Test 10/02/22 09:08 Range/Units White Blood Count 13.2 H 4.3-11.0 10^3/uL Red Blood Count 3.57 L 3.80-5.11 10^6/uL Hemoglobin 8.6 L 11.5-16.0 g/dL Hematocrit 29 L 35-52 % Mean Corpuscular Volume 80 80-99 fL Mean Corpuscular Hemoglobin 24 L 25-34 pg Mean Corpuscular Hemoglobin Concent 30 L 32-36 g/dL Red Cell Distribution Width 15.9 H 10.0-14.5 % Platelet Count 359 130-400 10^3/uL Mean Platelet Volume 11.3 9.0-12.2 fL Immature Granulocyte % (Auto) 0 % Neutrophils (%) (Auto) 98 H 42-75 % Lymphocytes (%) (Auto) 1 L 12-44 % Monocytes (%) (Auto) 1 0-12 % Eosinophils (%) (Auto) 1 0-10 % Basophils (%) (Auto) 0 0-10 % Neutrophils # (Auto) 12.9 H 1.8-7.8 10^3/uL Lymphocytes # (Auto) 0.1 L 1.0-4.0 10^3/uL Monocytes # (Auto) 0.1 0.0-1.0 10^3/uL Eosinophils # (Auto) 0.1 0.0-0.3 10^3/uL Basophils # (Auto) 0.0 0.0-0.1 10^3/uL Immature Granulocyte # (Auto) 0.0 0.0-0.1 10^3/uL Prothrombin Time 13.2 12.2-14.7 SEC INR Comment 1.0 0.8-1.4 Activated Partial Thromboplast Time 24 24-35 SEC D-Dimer 1.04 H 0.00-0.49 UG/ML Sodium Level 131 L 135-145 MMOL/L Potassium Level 4.0 3.6-5.0 MMOL/L Chloride Level 95 L 98-107 MMOL/L Carbon Dioxide Level 22 21-32 MMOL/L Anion Gap 14 5-14 MMOL/L Blood Urea Nitrogen 20 H 7-18 MG/DL Creatinine 1.19 0.60-1.30 MG/DL Estimat Glomerular Filtration Rate 62 BUN/Creatinine Ratio 17 Glucose Level 85 70-105 MG/DL Calcium Level 10.5 H 8.5-10.1 MG/DL Corrected Calcium 11.4 H 8.5-10.1 MG/DL Magnesium Level 1.8 1.6-2.4 MG/DL Total Bilirubin 0.3 0.1-1.0 MG/DL Aspartate Amino Transf (AST/SGOT) 13 5-34 U/L Alanine Aminotransferase (ALT/SGPT) 27 0-55 U/L Alkaline Phosphatase 135 40-136 U/L Troponin I < 0.30 <0.30 NG/ML Pro-B-Type Natriuretic Peptide 296.7 H <125.0 PG/ML Total Protein 6.6 6.4-8.2 GM/DL Albumin 2.9 L 3.2-4.5 GM/DL Lipase 15 8-78 U/L My Orders Orders - SURJIT NEWBERRY MD Cbc With Automated Diff (10/02/22 09:10) Comprehensive Metabolic Panel (10/02/22 09:10) Lipase (10/02/22 09:10) Magnesium (10/02/22 09:10) Protime With Inr (10/02/22 09:10) Partial Thromboplastin Time (10/02/22 09:10) Probnp Fs (10/02/22 09:10) Troponin I Fs (10/02/22 09:10) Ct Angio Chest W (10/02/22 09:10) Ed Iv/Invasive Line Start (10/02/22 09:10) Ekg Tracing (10/02/22 09:10) Monitor-Rhythm Ecg Trace Only (10/02/22 09:10) Hydrocodone/Apap 10/325 Tablet (Hydrocod (10/02/22 09:15) Ns Iv 1000 Ml (Sodium Chloride 0.9%) (10/02/22 09:10) Fibrin Degradation Products (10/02/22 09:15) Iohexol Injection (Omnipaque 350 Mg/Ml 1 (10/02/22 10:00) Received Contrast (Hold Metformin- Contr (10/02/22 10:00) Ns (Ivpb) 100 Ml (Sodium Chloride 0.9% 1 (10/02/22 10:00) Sodium Chloride Flush (Catheter Flush Sy (10/02/22 10:00) Medications Given in ED Current Medications Medications Dose Ordered Sig/Raphael Route Start Time Stop Time Status Last Admin Dose Admin Acetaminophen/ Hydrocodone Bitart 1 ea ONCE ONCE PO 10/02/22 09:15 10/02/22 09:16 DC 10/02/22 09:15 1 EA Vital Signs/I&O 10/02/22 09:05 Temp 37.2 Pulse 128 Resp 24 B/P (MAP) 131/82 (98) O2 Delivery Room Air Progress Progress Note : Progress Note 32-year-old female with above history coming in due to left-sided chest pain. ABCs were intact, vitals typical for her including tachycardia. Tachycardic to 130s for EMS, closer to 110 here which is fairly normal for her as of late. EKG ordered and interpreted by me showing no acute ischemic changes. An IV was placed and basic labs were obtained including cardiac biomarkers. Creatinine normal, troponin negative, proBNP unremarkable. D-dimer elevated. CTA chest obtained, negative for PE, she does have multiple metastatic lesions in her lungs, and multiple metastatic lesions with erosive changes to the left side of her ribs which is likely consistent with her pain. She was given hydrocodone 10 mg here. Likely not life-threatening immediately at this time, and needs to continue chemotherapy and follow-up with her oncologist. I believe she stable for discharge with outpatient follow-up. She was sent home with strict return precautions. Initial ECG Impression Date: Oct 02, 2022 Initial ECG Impression Time: 09:14 Initial ECG Rate: 125 Initial ECG Rhythm: S.Tach Comment Narrow QRS, normal axis, no significant ST changes or T wave abnormality Diagnostic Imaging Diagonstic Imaging: CT (CTA chest) Comments NAME: SHELLEY JUDD Shreyas MED REC#: [id number] PT STATUS: REG ER : 1990 PHYSICIAN: SURJIT NEWBERRY MD ADMIT DATE: 10/02/22/ER FS Draft Date of Exam:10/02/22 CT ANGIO CHEST W Clinical Indication: Patient with cervical cancer. Patient with left-sided chest pain. Patient has known metastases. Exam: CT angiogram of the chest performed with 100 cc Omnipaque 350 IV contrast. Coronal and oblique MIP images of the vasculature were created to better evaluate anatomy. Auto Exposure Controls were utilized during the CT exam to meet ALARA standards for radiation dose reduction. Comparison: CT angiogram of the chest, abdomen, and pelvis dated 08/29/2022.. Findings: There is dense contrast bolus within the left subclavian vein, innominate vein and superior vena cava which causes streak artifact obscuring portions of the aortic arch, proximal great vessels, and mediastinal regions. The right pulmonary artery and proximal vessels are partially obscured. There is no evidence of pulmonary embolism as visualized. There is no thoracic aortic dissection or aneurysm. There are multiple soft tissue nodules seen throughout both lungs. The largest nodule/mass is seen in the posterior left lung base which extends to the pleura and measures roughly 3.7 cm in width compared to the prior study measuring at 2.4 cm. Most of the nodules have increased in size in the interim. There is a cavitary partially fluid-filled nodular area involving the posterior right upper lobe which currently measures 2.2 cm in transverse dimensions compared to the prior study measured at 2.0 cm in transverse dimensions. There is interval development of a small left pleural effusion. There is no pneumothorax. There is interval increased size of multiple left hilar lymph nodes and mediastinal lymph nodes. The gallbladder is surgically absent. Upper abdominal structures show no other significant abnormality. There is no significant axillary lymphadenopathy. There is interval placement of a Port-A-Cath overlying the right chest. There are small degenerative spurs involving the thoracic spine. There is interval increased size of a mass involving the posterior aspect of left T11 rib with bony destructive changes seen. This mass measures 4.4 cm x 5.3 cm compared to the prior study remeasured at 2.1 cm x 3.7 cm. There are subtle erosive changes involving the T8 rib adjacent to the pleural-based mass and T9 rib and T10 rib. There is also erosive changes involving the lateral aspect of the T9 rib with adjacent mass which has developed in the interim in the region. There is no metastatic disease involving the thoracic spine seen. IMPRESSION: 1: There is no evidence of pulmonary embolism. 2: There is interval increased size of multiple diffuse bilateral lung nodules consistent with metastatic disease. There is also increased size of a cavitary partially air-fluid level mass in the posterior right upper lobe. 3: There is interval increased size of multiple masses along the left lateral and posterior left rib cage regions with adjacent bony erosive and destructive changes. The posterior aspect of left T11 rib is significantly eroded due to the adjacent mass. 4: There is interval development of a small left pleural effusion. 5: There is no metastatic disease involving the thoracic spine. Dictated on workstation # [id number] Dict: 10/02/22 0955 Trans: 10/02/22 1018 [facility] [id number] Interpreted by: FRANCISCA ROQUE MD Electronically signed by: Departure Impression Primary Impression: Cancer related pain Additional Impression: Pain from bone metastases Disposition: 01 HOME, SELF-CARE Condition: Stable Departure-Patient Inst. Decision time for Depature: 10:35 Referrals: LINDSAY CORTES MD (PCP/Family) Primary Care Physician Patient Instructions: Bone metastases Add. Discharge Instructions: The pain seems consistent with cancer that is in your left side of your ribs. We recommend following up with your regular doctor as they may need to increase your pain medication dosage and timing. We will start you on meloxicam which is kind of like ibuprofen, but you only need to take it once a day as well as lidocaine patches. It may be beneficial to follow-up with a pain specialist as there are some injections they can do to numb certain areas of her body around your ribs where you have the cancer. Scripts Lidocaine (Lidocaine 5% Patch) 5 % Adh..patch 1 EACH TP Q12H PRN for Neuropathic pain MDD 2 for 30 Days, #60 PATCH 2 patches max for 12 hours, then 12 hours patch-free period. Prov: SURJIT NEWBERRY MD 10/02/22 Meloxicam, Submicronized (Meloxicam) 10 Mg Capsule 10 MG PO DAILY for 30 Days, #30 CAP Prov: SURJIT NEWBERRY MD 10/02/22 SURJIT NEWBERRY MD Oct 02, 2022 09:14
[2022-10-02] MEDS ORDERED: HYDROcodone/ACETAMINOPHEN 10/325 TABLET PO ONE (09:15)
[2022-10-02 09:35] LABS: PROTHROMBIN TIME PATIENT 13.2 SEC (12.2-14.7)
[2022-10-02 09:36] LABS: ALANINE AMINOTRANSFERASE 27 U/L (0-55); ALBUMIN 2.9 GM/DL (3.2-4.5); ALKALINE PHOSPHATASE 135 U/L (40-136); BILIRUBIN,TOTAL 0.3 MG/DL (0.1-1.0); BUN/CREATININE RATIO 17; CALCIUM 10.5 MG/DL (8.5-10.1); CARBON DIOXIDE 22 MMOL/L (21-32); CHLORIDE 95 MMOL/L (98-107); CREATININE SERUM 1.19 MG/DL (0.60-1.30); GFR ESTIMATED 62; GLUCOSE 85 MG/DL (70-105); LIPASE 15 U/L (8-78); MAGNESIUM 1.8 MG/DL (1.6-2.4); SODIUM 131 MMOL/L (135-145); TOTAL PROTEIN 6.6 GM/DL (6.4-8.2)
[2022-10-02] MEDS ORDERED: HOLD METFORMIN - RECEIVED CONTRAST 20 ML VIAL IV SCH (10:00)
[2022-10-02] MEDS ORDERED: CATHETER FLUSH 10 ML SYR IV PRN (10:00)
[2022-10-02] MEDS ORDERED: IOHEXOL 350 MG/ML 100 ML (OMNIPAQUE 350) VIAL IV ONE (10:00)
[2022-10-02] MEDS ORDERED: NS 100 ML (IVPB) BAG IV ONE (10:00)
--- NOTE | 2022-10-02 10:19 | Diagnostic Imaging Report ---
Clinical Indication: Patient with cervical cancer. Patient with left-sided chest pain. Patient has known metastases. Exam: CT angiogram of the chest performed with 100 cc Omnipaque 350 IV contrast. Coronal and oblique MIP images of the vasculature were created to better evaluate anatomy. Auto Exposure Controls were utilized during the CT exam to meet ALARA standards for radiation dose reduction. Comparison: CT angiogram of the chest, abdomen, and pelvis dated 08/29/2022.. Findings: There is dense contrast bolus within the left subclavian vein, innominate vein and superior vena cava which causes streak artifact obscuring portions of the aortic arch, proximal great vessels, and mediastinal regions. The right pulmonary artery and proximal vessels are partially obscured. There is no evidence of pulmonary embolism as visualized. There is no thoracic aortic dissection or aneurysm. There are multiple soft tissue nodules seen throughout both lungs. The largest nodule/mass is seen in the posterior left lung base which extends to the pleura and measures roughly 3.7 cm in width compared to the prior study measuring at 2.4 cm. Most of the nodules have increased in size in the interim. There is a cavitary partially fluid-filled nodular area involving the posterior right upper lobe which currently measures 2.2 cm in transverse dimensions compared to the prior study measured at 2.0 cm in transverse dimensions. There is interval development of a small left pleural effusion. There is no pneumothorax. There is interval increased size of multiple left hilar lymph nodes and mediastinal lymph nodes. The gallbladder is surgically absent. Upper abdominal structures show no other significant abnormality. There is no significant axillary lymphadenopathy. There is interval placement of a Port-A-Cath overlying the right chest. There are small degenerative spurs involving the thoracic spine. There is interval increased size of a mass involving the posterior aspect of left T11 rib with bony destructive changes seen. This mass measures 4.4 cm x 5.3 cm compared to the prior study remeasured at 2.1 cm x 3.7 cm. There are subtle erosive changes involving the T8 rib adjacent to the pleural-based mass and T9 rib and T10 rib. There is also erosive changes involving the lateral aspect of the T9 rib with adjacent mass which has developed in the interim in the region. There is no metastatic disease involving the thoracic spine seen. IMPRESSION: 1: There is no evidence of pulmonary embolism. 2: There is interval increased size of multiple diffuse bilateral lung nodules consistent with metastatic disease. There is also increased size of a cavitary partially air-fluid level mass in the posterior right upper lobe. 3: There is interval increased size of multiple masses along the left lateral and posterior left rib cage regions with adjacent bony erosive and destructive changes. The posterior aspect of left T11 rib is significantly eroded due to the adjacent mass. 4: There is interval development of a small left pleural effusion. 5: There is no metastatic disease involving the thoracic spine. Dictated by: Dictated on workstation # [id number]
[2022-10-02] MEDS ORDERED: MELO10CA3 PO (10:36)
[2022-10-02] MEDS ORDERED: LIDO700A45 TP (10:36)
[2022-10-02 10:37] VITALS: BP 135/81
== END 2022-10-02 10:37 | disposition home or self-care (01) ==
LOC: EDUNIT# 09:04 → ER FS 09:05
DX: G89.3 Neoplasm related pain (acute) (chronic) (principal); C53.9 Malignant neoplasm of cervix uteri, unspecified; C78.02 Secondary malignant neoplasm of left lung; C78.01 Secondary malignant neoplasm of right lung; C79.51 Secondary malignant neoplasm of bone; R00.0 Tachycardia, unspecified; R79.89 Other specified abnormal findings of blood chemistry; Z92.3 Personal history of irradiation; Z88.5 Allergy status to narcotic agent; Z79.899 Other long term (current) drug therapy; Z28.310 Unvaccinated for COVID-19
CPT/HCPCS: 36415; 71275; 80053; 83690; 83735; 83880; 84484; 85025; 85379; 85610; 85730; 93005; 93041; Q9967

== ENCOUNTER 2022-10-08 11:19 | Inpatient (IN) | payer MEDICAID ==
[~2022-10-08] VITALS: Ht 160 cm; Wt 61.4 kg
[2022-10-08] VITALS (16 sets, daily range): BP systolic 111–134; BP diastolic 68–112
[~2022-10-08 11:19] MED LIST changes: +LIDO700A45 TP; +MELO10CA3 PO
--- NOTE | 2022-10-08 11:36 | ED GU-Female ---
General Chief Complaint: - Reproductive Stated Complaint: NOT URINATING; SYNCOPAL EPISODES History of Present Illness Date Seen by Provider: Oct 08, 2022 Time Seen by Provider: 11:24 Initial Comments 32 yr F with PMH of cervical cancer with mets to ribs and lung, on chemo every 3 weeks, is here with c/o decreased urine output, dysuria, bilateral flank pain, and occasional dizziness. Patient is being treated for a UTI and is on her last day of Keflex. Her urine culture and sensitivity report has not come back yet. Patient states that she feels dehydrated and also has dry mouth in spite of drinking a lot of water. Patient also complains of chills. Denies nausea and vomiting, diarrhea, constipation, chest pain, shortness of breath, URI symptoms. Allergies and Home Medications Allergies Coded Allergies: codeine (Verified Allergy, Mild, chest tightness, 09/19/22) morphine (Verified Allergy, Mild, chest tightness, 09/19/22) gabapentin (Verified Allergy, Unknown, 09/19/22) Patient Home Medication List Home Medication List Reviewed: Yes Celecoxib (Celebrex) 400 Mg Capsule, 400 MG PO DAILY, (Reported) Entered as Reported by: DIANE BILLY on 09/19/22 1525 Cephalexin (Cephalexin) 500 Mg Capsule, 500 MG PO TID Prescribed by: KATIE AGUILAR on 10/01/22 2145 Cyclobenzaprine HCl (Cyclobenzaprine HCl) 10 Mg Tablet, 10 MG PO Q8H PRN for SPASMS Prescribed by: KATIE AGUILAR on 10/01/22 2136 Hydrocodone/Acetaminophen (Hydrocodone-Acetamin 5-325 mg) 5 Mg-325 Mg Tablet, 1 TAB PO Q8H PRN for PAIN Prescribed by: BING BESS on 09/23/22 1103 Ibuprofen (Ibuprofen) 600 Mg Tablet, 600 MG PO Q6H PRN for PAIN-MILD Prescribed by: SURJIT NEWBERRY on 09/24/22 1109 Lactulose (Lactulose) 10 Gram Packet, 10 GM PO UD, (Reported) Entered as Reported by: DIANE BILLY on 09/19/22 1525 Lidocaine (Lidocaine 5% Patch) 5 % Adh..patch, 1 EACH TP Q12H PRN for Neuropathic pain Prescribed by: SURJIT NEWBERRY on 10/02/22 1036 Meloxicam, Submicronized (Meloxicam) 10 Mg Capsule, 10 MG PO DAILY Prescribed by: SURJIT NEWBERRY on 10/02/22 1036 Ondansetron (Ondansetron Odt) 4 Mg Tab.rapdis, 4 MG PO Q6H PRN for NAUSEA/VOMITING Prescribed by: KATIE AGUILAR on 05/10/22 1743 Potassium Chloride (Potassium Chloride) 20 Meq Tab.er.prt, 20 MEQ PO DAILY, (Re ported) Entered as Reported by: PRAMOD FARRELL on 05/18/22 0457 Review of Systems Review of Systems Constitutional: no symptoms reported, see HPI, dizziness, malaise EENTM: no symptoms reported Respiratory: no symptoms reported Cardiovascular: no symptoms reported Gastrointestinal: see HPI, other (Suprapubic tenderness) Genitourinary: dysuria, urgency Musculoskeletal: no symptoms reported Skin: no symptoms reported Psychiatric/Neurological: No Symptoms Reported Endocrine: No Symptoms Reported Past Hmlfyfn-Tmqfif-Nrtizy Hx Patient Social History Tobacco Use?: Yes Tobacco type used: Cigarettes Smoking Status: Current Everyday Smoker Substance use?: No Alcohol Use?: No Pt feels they are or have been: No Immunizations Up To Date First/Initial COVID19 Vaccinat: NONE Second COVID19 Vaccination Sam: NONE Third COVID19 Vaccination Date: NONE Seasonal Allergies Seasonal Allergies: No Past Medical History Surgery/Hospitalization HX: 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, lung biopsy Cholecysectomy; Tubal ligation Surgeries: Yes (BRACHYTHERAPY) Gallbladder, Tubal Ligation Respiratory: No Currently Using CPAP: No Currently Using BIPAP: No Cardiac: Yes (RECENTLY HYPOTENSIVE LAST 3 WEEKS) Neurological: No Reproductive Disorders: No Genitourinary: No Gastrointestinal: Yes Gall Bladder Disease Musculoskeletal: No Endocrine: No HEENT: No Cancer: Yes Lung, Cervical What Type of Treatment Did You: Chemotherapy, Radiation, Surgical Intervention Psychosocial: Yes Sleep Difficulties, Anxiety, PTSD, Depression Integumentary: No Blood Disorders: No Family Medical History No Pertinent Family Hx Physical Exam Vital Signs Vital Signs - First Documented 10/08/22 11:33 Temp 37.4 Pulse 130 Resp 18 B/P (MAP) 134/81 (98) Pulse Ox 100 O2 Delivery Room Air Capillary Refill : Height, Weight, BMI Height: '" Weight: lbs. oz. kg; 23.00 BMI Method: General Appearance: WD/WN, no apparent distress HEENT: PERRL/EOMI, normal ENT inspection Neck: non-tender, full range of motion Cardiovascular: tachycardia Respiratory: chest non-tender, lungs clear, normal breath sounds Gastrointestinal: normal bowel sounds, soft, tenderness (Mild suprapubic tenderness) Back: normal inspection, no vertebral tenderness, CVA tenderness (R), CVA tenderness (L) Extremities: normal range of motion, non-tender, normal inspection Neurologic/Psychiatric: alert, normal mood/affect, oriented x 3 Skin: normal color Focused Exam Lactate Level 10/08/22 11:13: Lactic Acid Level 1.30 Lactic Acid Level Laboratory Tests Test 10/08/22 11:13 Lactic Acid Level 1.30 MMOL/L (0.50-2.00) Progress/Results/Core Measures Suspected Sepsis SIRS Temperature: Pulse: Respiratory Rate: Laboratory Tests 10/08/22 11:13: White Blood Count 1.6L Blood Pressure / Mean: 10/08/22 11:13: Lactic Acid Level 1.30 Laboratory Tests 10/08/22 11:13: Creatinine 1.09, Platelet Count 210, Total Bilirubin 0.3 Results/Orders Lab Results Laboratory Tests Test 10/08/22 11:13 10/08/22 12:40 Range/Units White Blood Count 1.6 L 4.3-11.0 10^3/uL Red Blood Count 2.87 L 3.80-5.11 10^6/uL Hemoglobin 6.8 *L 11.5-16.0 g/dL Hematocrit 22 L 35-52 % Mean Corpuscular Volume 77 L 80-99 fL Mean Corpuscular Hemoglobin 24 L 25-34 pg Mean Corpuscular Hemoglobin Concent 31 L 32-36 g/dL Red Cell Distribution Width 15.9 H 10.0-14.5 % Platelet Count 210 130-400 10^3/uL Mean Platelet Volume 11.8 9.0-12.2 fL Immature Granulocyte % (Auto) 0 % Neutrophils (%) (Auto) 56 42-75 % Lymphocytes (%) (Auto) 15 12-44 % Monocytes (%) (Auto) 27 H 0-12 % Eosinophils (%) (Auto) 2 0-10 % Basophils (%) (Auto) 0 0-10 % Neutrophils # (Auto) 0.9 L 1.8-7.8 10^3/uL Lymphocytes # (Auto) 0.2 L 1.0-4.0 10^3/uL Monocytes # (Auto) 0.4 0.0-1.0 10^3/uL Eosinophils # (Auto) 0.0 0.0-0.3 10^3/uL Basophils # (Auto) 0.0 0.0-0.1 10^3/uL Immature Granulocyte # (Auto) 0.0 0.0-0.1 10^3/uL Neutrophils % (Manual) 60 % Lymphocytes % (Manual) 17 % Monocytes % (Manual) 20 % Eosinophils % (Manual) 3 % Sodium Level 132 L 135-145 MMOL/L Potassium Level 3.3 L 3.6-5.0 MMOL/L Chloride Level 92 L 98-107 MMOL/L Carbon Dioxide Level 23 21-32 MMOL/L Anion Gap 17 H 5-14 MMOL/L Blood Urea Nitrogen 8 7-18 MG/DL Creatinine 1.09 0.60-1.30 MG/DL Estimat Glomerular Filtration Rate 68 BUN/Creatinine Ratio 7 Glucose Level 87 70-105 MG/DL Lactic Acid Level 1.30 0.50-2.00 MMOL/L Calcium Level 9.4 8.5-10.1 MG/DL Corrected Calcium 10.4 H 8.5-10.1 MG/DL Magnesium Level 1.4 L 1.6-2.4 MG/DL Total Bilirubin 0.3 0.1-1.0 MG/DL Aspartate Amino Transf (AST/SGOT) 18 5-34 U/L Alanine Aminotransferase (ALT/SGPT) 17 0-55 U/L Alkaline Phosphatase 142 H 40-136 U/L Total Protein 6.6 6.4-8.2 GM/DL Albumin 2.8 L 3.2-4.5 GM/DL Urine Color YELLOW Urine Clarity CLEAR Urine pH 6.5 5-9 Urine Specific [place] <=1.005 1.016-1.022 Urine Protein NEGATIVE NEGATIVE Urine Glucose (UA) NEGATIVE NEGATIVE Urine Ketones NEGATIVE NEGATIVE Urine Nitrite NEGATIVE NEGATIVE Urine Bilirubin NEGATIVE NEGATIVE Urine Urobilinogen 0.2 < = 1.0 MG/DL Urine Leukocyte Esterase 1+ H NEGATIVE Urine RBC (Auto) TRACE-I H NEGATIVE Urine RBC NONE /HPF Urine WBC >100 H /HPF Urine Squamous Epithelial Cells 5-10 /HPF Urine Crystals NONE /LPF Urine Bacteria MODERATE H /HPF Urine Casts NONE /LPF Urine Mucus NEGATIVE /LPF Urine Culture Indicated YES My Orders Orders - ZAC OVIEDO MD Ua Culture If Indicated (10/08/22 11:36) Cbc With Automated Diff (10/08/22 11:36) Comprehensive Metabolic Panel (10/08/22 11:36) Lactic Acid Analyzer (10/08/22 11:36) Magnesium (10/08/22 11:36) Ed Iv/Invasive Line Start (10/08/22 11:45) Ns Iv 1000 Ml (Sodium Chloride 0.9%) (10/08/22 11:45) Manual Differential (10/08/22 11:13) Urine Culture (10/08/22 12:40) Ceftriaxone Iv/Im (Ceftriaxone Iv/Im) (10/08/22 13:08) Potassium Chloride (Tablet) (Potassium C (10/08/22 13:15) Magnesium Sulf 2 Gm Ivpb (10/08/22 13:09) Vital Signs/I&O 10/08/22 11:33 Temp 37.4 Pulse 130 Resp 18 B/P (MAP) 134/81 (98) Pulse Ox 100 O2 Delivery Room Air Capillary Refill : Progress Note : Progress Note 1. ACUTE ANEMIA : - CBC: Hb is 6.8, and on , it was 8.0. - Anemia likely due to cancer and chemotherapy, anemia of chronic disease -Patient will be needing blood transfusion. Blood products not available at [facility], so will admit to [facility] for blood transfusion. Discussed with hospitalist and accepted for admission. - Pt's oncologist is at [facility]. 2. ELECTROLYTE ABNORMALITIES & DEHYDRATION: (A) MILD HYPONATREMIA: - s. Na is 132 - NS IVF bolus (B) MILD HYPOKALEMIA: - s. K is 3.3 - Oral potassium 40mEq given in ER (C) HYPOMAGNESEMIA: - s.Mg is 1.4 - iv Mg 2gm given in ER 3. PYELONEPHRITIS: - Pt is on her last day of Keflex of a 7 day course of treatment and still having UTI symptoms with flank pain. Pt had a CT abd done within the past week with only right hydronephrosis showing for renal findings. So I will not order another CT at this time. Will empirically treat for pyelo basedon clinical exam. - Ceftriaxone 1gm iv given in ER Departure Communication (Admissions) Time/Spoke to Admitting Phy: 13:[address] Henao and will admit to stepdown Impression Primary Impression: Acute on chronic anemia Additional Impressions: Pyelonephritis Dehydration Hyponatremia Hypokalemia Hypomagnesemia Disposition: 30 STILL A PATIENT Condition: Stable Admissions Decision to Admit Reason: Admit from ER (General) Decision to Admit/Date: Oct 08, 2022 Time/Decision to Admit Time: 13:00 Transfer Method of Transfer: EMS Departure-Patient Inst. Referrals: LINDSAY CORTES MD (PCP/Family) Primary Care Physician ZAC OVIEDO MD Oct 08, 2022 11:36
[2022-10-08] MEDS ORDERED: NS IV 1000 ML 1,000 ML IV SCH (11:45)
[2022-10-08 11:49] LABS: BASOPHILS % (AUTO) 0 % (0-10); EOSINOPHILS % (AUTO) 2 % (0-10); HEMATOCRIT 22 % (35-52); LYMPHOCYTES # (AUTO) 0.2 10^3/uL (1.0-4.0); LYMPHOCYTES % (AUTO) 15 % (12-44); MEAN CORPUSCULAR HEMOGLOBIN 24 pg (25-34); MEAN CORPUSCULAR HGB CONC 31 g/dL (32-36); MEAN CORPUSCULAR VOLUME 77 fL (80-99); MEAN PLATELET VOLUME 11.8 fL (9.0-12.2); MONOCYTES # (AUTO) 0.4 10^3/uL (0.0-1.0); MONOCYTES % (AUTO) 27 % (0-12); NEUTROPHILS # (AUTO) 0.9 10^3/uL (1.8-7.8); NEUTROPHILS % (AUTO) 56 % (42-75); PLATELET COUNT 210 10^3/uL (130-400); WHITE BLOOD COUNT 1.6 10^3/uL (4.3-11.0)
[2022-10-08 11:55] LABS: HEMOGLOBIN 6.8 g/dL (11.5-16.0)
[2022-10-08 12:08] LABS: ALBUMIN 2.8 GM/DL (3.2-4.5); BILIRUBIN,TOTAL 0.3 MG/DL (0.1-1.0); CALCIUM 9.4 MG/DL (8.5-10.1); CREATININE SERUM 1.09 MG/DL (0.60-1.30); MAGNESIUM 1.4 MG/DL (1.6-2.4); POTASSIUM 3.3 MMOL/L (3.6-5.0); TOTAL PROTEIN 6.6 GM/DL (6.4-8.2)
[2022-10-08 12:22] LABS: LYMPHOCYTES % (MANUAL) 17 %; NEUTROPHILS % (MANUAL) 60 %
[2022-10-08 12:23] LABS: EOSINOPHILS % (MANUAL) 3 %; MONOCYTES % (MANUAL) 20 %
[2022-10-08 12:48] LABS: BILIRUBIN,URINE NEGATIVE (NEGATIVE); CLARITY,URINE CLEAR; COLOR,URINE YELLOW; GLUCOSE, URINE (UA) NEGATIVE (NEGATIVE); KETONES,URINE NEGATIVE (NEGATIVE); LEUKOCYTE ESTERASE ,URINE 1+ (NEGATIVE); NITRITE,URINE NEGATIVE (NEGATIVE); PH,URINE 6.5 (5-9); PROTEIN,URINE NEGATIVE (NEGATIVE)
[2022-10-08 12:51] LABS: BACTERIA,URINE MODERATE /HPF; WBC,URINE >100 /HPF
[2022-10-08] MEDS ORDERED: cefTRIAXone IV/IM 1,000 MG in NS (IVPB) 50 ML 50 ML IV STA (13:08)
[2022-10-08] MEDS ORDERED: MAGNESIUM 1 GM/100 ML IVPB 100 ML IV STA (13:09)
[2022-10-08] MEDS ORDERED: POTASSIUM CHLORIDE 20 MEQ TABLET PO ONE (13:15)
[2022-10-08] MEDS ORDERED: diphenhydrAMINE INJ 50 MG/ML VIAL IVP PRN (15:30)
[2022-10-08] MEDS ORDERED: oxyCODONE IMMEDIATE RELEASE 5 MG TABLET PO PRN (15:30)
[2022-10-08] MEDS ORDERED: VANCOMYCIN INJECTION 0.1 MG in NS (IVPB) 250 ML 250 ML IV SCH (15:30)
[2022-10-08] MEDS ORDERED: HYDROmorphone INJECTION 2 MG/ML VIAL IV PRN (15:30)
[2022-10-08] MEDS ORDERED: ONDANSETRON 4 MG/2 ML (SDV) Z0FRAN IV PRN (15:30)
[2022-10-08] MEDS ORDERED: BISACODYL 10 MG SUPPOSITORY PR PRN (15:30)
[2022-10-08] MEDS ORDERED: ONDANSETRON 4 MG (ZOFRAN) ORAL DISSOLVE TAB PO PRN ×2 (15:30→16:30)
[2022-10-08] MEDS ORDERED: MELATONIN 3 MG TABLET PO PRN (15:30)
[2022-10-08] MEDS ORDERED: ACETAMINOPHEN 325 MG TABLET PO PRN (15:30)
[2022-10-08] MEDS ORDERED: diphenhydrAMINE 25 MG TABLET PO PRN (15:30)
[2022-10-08] MEDS ORDERED: LACTULOSE SYRUP 10GM/15ML 30ML UDC PO PRN (15:30)
[2022-10-08] MEDS ORDERED: polyethylene glycoL POWDER 17 GM (MIRALAX) PACK PO PRN (15:30)
[2022-10-08] MEDS ORDERED: ANTACID SUSPENSION 30 ML UDC PO PRN (15:30)
[2022-10-08] MEDS ORDERED: NS IV 500 ML 500 ML IV SCH ×2 (15:30)
[2022-10-08] MEDS: CEFEPIME INJECTION 1,000 MG in NS (IVPB) 50 ML 50 ML IV SCH ×2 (15:54→22:21)
[2022-10-08] MEDS ORDERED: VANCOMYCIN 1250MG/250ML PREMIX 250 ML IV NR (16:00)
[2022-10-08] MEDS ORDERED: ENOXAPARIN 40 MG/0.4 ML SYRINGE SC SCH (16:00)
[2022-10-08] MEDS ORDERED: NICOTINE 7 MG PATCH TD NR (16:00)
[2022-10-08] MEDS ORDERED: AMIT25TA9 PO (16:09)
[2022-10-08] MEDS ORDERED: LACTULOSE 10 GM PO SCH (16:30)
[2022-10-08] MEDS ORDERED: LIDOCAINE 4% PATCH TP PRN (16:30)
[2022-10-08] MEDS ORDERED: RT-ALBUTEROL SULF 2.5 MG/3 ML PRE-MIX VIAL INH PRN (16:30)
[2022-10-08] MEDS ORDERED: RX-CYCLOBENZAPRINE 10 MG (FLEXERIL) TAB PPK#3 PO PRN (16:30)
[2022-10-08] MEDS ORDERED: LIDOCAINE PATCH REMOVAL TP PRN (16:45)
[2022-10-08] MEDS: NS IV 1000 ML 1,000 ML IV SCH ×2 (17:26→23:30)
[2022-10-08] MEDS: HYDROcodone/ACETAMINOPHEN 5 MG/325 MG TABLET PO PRN ×2 (17:45→21:30)
[2022-10-08] MEDS: DOCUSATE SODIUM 100 MG CAPSULE PO SCH (21:29)
[2022-10-08] MEDS: AMITRIPTYLINE 25 MG TABLET PO SCH (21:30)
[2022-10-09] VITALS (10 sets, daily range): BP systolic 114–138; BP diastolic 77–89
[2022-10-09] MEDS: HYDROcodone/ACETAMINOPHEN 5 MG/325 MG TABLET PO PRN ×5 (02:04→20:34)
[2022-10-09] MEDS: CEFEPIME INJECTION 1,000 MG in NS (IVPB) 50 ML 50 ML IV SCH ×4 (04:25→20:35)
[2022-10-09] MEDS: VANCOMYCIN 750 MG/NS 250 ML IVPB IV SCH ×4 (05:03→16:04)
[2022-10-09 05:16] LABS: BASOPHILS % (AUTO) 1 % (0-10); EOSINOPHILS # (AUTO) 0.1 10^3/uL (0.0-0.3); EOSINOPHILS % (AUTO) 4 % (0-10); HEMATOCRIT 25 % (35-52); HEMOGLOBIN 7.7 g/dL (11.5-16.0); LYMPHOCYTES # (AUTO) 0.2 10^3/uL (1.0-4.0); LYMPHOCYTES % (AUTO) 11 % (12-44); MEAN CORPUSCULAR HEMOGLOBIN 25 pg (25-34); MEAN CORPUSCULAR HGB CONC 31 g/dL (32-36); MEAN CORPUSCULAR VOLUME 80 fL (80-99); MEAN PLATELET VOLUME 11.9 fL (9.0-12.2); MONOCYTES # (AUTO) 0.4 10^3/uL (0.0-1.0); MONOCYTES % (AUTO) 22 % (0-12); NEUTROPHILS # (AUTO) 1.1 10^3/uL (1.8-7.8); NEUTROPHILS % (AUTO) 58 % (42-75); PLATELET COUNT 184 10^3/uL (130-400); WHITE BLOOD COUNT 1.9 10^3/uL (4.3-11.0)
[2022-10-09 05:21] LABS: ALBUMIN 2.6 GM/DL (3.2-4.5); POTASSIUM 3.9 MMOL/L (3.6-5.0)
[2022-10-09 05:22] LABS: CALCIUM 8.7 MG/DL (8.5-10.1)
[2022-10-09 05:23] LABS: TOTAL PROTEIN 5.9 GM/DL (6.4-8.2)
[2022-10-09 05:25] LABS: BILIRUBIN,TOTAL 0.5 MG/DL (0.1-1.0)
[2022-10-09 05:27] LABS: CREATININE SERUM 0.97 MG/DL (0.60-1.30)
[2022-10-09] MEDS: POTASSIUM CHLORIDE 20 MEQ TABLET PO SCH (06:13)
--- NOTE | 2022-10-09 07:59 | History & Physical-Hospitalist ---
History of Present Illness HPI/Chief Complaint Chief complaint: UTI recurrent type failed outpatient treatment HPI: This is a 32-year-old female who receives chemotherapy at [facility] in [place] for endometrial cancer with mets who presented to the ER with fever and flank pain consistent with recurrent UTI. She failed oral antibiotics. She was placed on broad-spectrum antibiotics and will await urine culture. She is currently doing well she was placed in cardiac stepdown unit due to tachycardia and sepsis but now she will be moved down to fourth floor. Source: patient Exam Limitations: no limitations Date Seen 10/09/22 Time Seen by a Provider: 11:00 Attending Physician Jane Haney MD PCP Admitting Physician: Fiorella Henao DO Attending Physician: Fiorella Henao DO Referring Physician Date of Admission Oct 08, 2022 at 15:05 Home Medications & Allergies Home Medications Reviewed patient Home Medication Reconciliation performed by pharmacy medication reconciliations civil cadd technician and/or nursing. Patients Allergies have been reviewed. Allergies Allergies Coded Allergies codeine (Verified Allergy, Mild, chest tightness, 09/19/22) morphine (Verified Allergy, Mild, chest tightness, 09/19/22) gabapentin (Verified Allergy, Unknown, 09/19/22) Past Zeoinew-Oayptw-Nzxckb Hx Patient Social History Marrital Status: single Employed/Student: retired Tobacco Use?: Yes Tobacco type used: Cigarettes Smoking Status: Current Everyday Smoker Substance use?: Yes Additional substance use comme: IN PAST Alcohol Use?: No Pt feels they are or have been: No Immunizations Up To Date First/Initial COVID19 Vaccinat: NONE Second COVID19 Vaccination Sam: NONE Seasonal Allergies Seasonal Allergies: No Current Status status: No Advance Directives: No Communicates: Does Not Communicate Primary Language: [place]er Preferred Spoken Language: [place]er Is interpretation needed?: No Implanted or Applied Medical D: Port-a-cath Past Medical History Surgeries: Gallbladder, Tubal Ligation Currently Using CPAP: No Currently Using BIPAP: No Gall Bladder Disease Lung, Cervical What Type of Treatment Did You: Chemotherapy, Radiation, Surgical Intervention Sleep Difficulties, Anxiety, PTSD, Depression Blood Disorders: No Family Medical History No Pertinent Family Hx Review of Systems Constitutional: see HPI, malaise, weakness Gastrointestinal: abdominal pain, nausea, vomiting Physical Exam Physical Exam Vital Signs Vital Signs - First Documented 10/08/22 10/08/22 11:33 16:26 Temp 37.4 Pulse 130 Resp 18 B/P (MAP) 134/81 (98) Pulse Ox 100 O2 Delivery Room Air FiO2 21 Capillary Refill : Less Than 3 Seconds Height, Weight, BMI Height: '" Weight: lbs. oz. kg; 23.32 BMI Method: General Appearance: No Apparent Distress Eyes: Right Eye Normal Inspection, Right Eye PERRL HEENT: PERRL/EOMI, TMs Normal, Normal ENT Inspection, Pharynx Normal, Moist Mucous Membranes Neck: Full Range of Motion, Normal Inspection, Non Tender Respiratory: Chest Non Tender, Lungs Clear, Normal Breath Sounds, No Accessory Muscle Use, No Respiratory Distress Cardiovascular: Regular Rate, Rhythm, No Edema, No Gallop, No JVD, No Murmur, Normal Peripheral Pulses Gastrointestinal: Normal Bowel Sounds, No Organomegaly, No Pulsatile Mass, Non Tender, Soft Back: Normal Inspection, No CVA Tenderness, No Vertebral Tenderness Extremity: Normal Capillary Refill, Normal Inspection, Normal Range of Motion, Non Tender, No Calf Tenderness, No Pedal Edema Neurologic/Psychiatric: Alert, Oriented x3, No Motor/Sensory Deficits, Normal Mood/Affect Skin: Normal Color, Warm/Dry Lymphatic: No Adenopathy Results Results/Procedures Labs Laboratory Tests 10/08/22 11:13 10/09/22 05:00 Patient resulted labs reviewed. Assessment/Plan Admission Diagnosis Assessment: Sepsis UTI resistant type failed oral antibiotics Chemotherapy induced immunosuppression Endometrial cancer with mets Plan: IV antibiotics Hep-Lock IV fluid Moved to fourth floor Supportive care Admission Status: Observation FIORELLA HENAO DO Oct 09, 2022 07:59
[2022-10-09] MEDS: NICOTINE 7 MG PATCH TD SCH (08:11)
[2022-10-09] MEDS: MELOXICAM 7.5 MG TABLET PO SCH (08:11)
[2022-10-09] MEDS: NS IV 1000 ML 1,000 ML IV SCH (08:11)
[2022-10-09] MEDS: NICOTINE PATCH REMOVAL TP SCH (08:14)
--- NOTE | 2022-10-09 08:47 | Tele-ICU Progress Note ---
Progress Note video rounds completed 32 y/o female with a hx of metastatic cervical ca, now on chemotherapy. Admitted with UTI/pyelonephritis Now on vancomycin and zosyn WBC 1.6 from chemo H.8, transfused PE: overall doing well, hemodynamically normal, comfortable Pulse: 98 NSR BP: 114/88 IMP: UTI/pyelonephritis Anemia Metastatic cervical CA PLAN: monitor H/H on van/zosyn for infection On SCD for DVT px time spent on review: 15minutes I am monitoring this patient remotely from another state and not able to directly exam the patient. This review is based upon review of medical records, labs, xrays and video and consultation with the bedside RN Focused Exam Lactate Level 10/08/22 11:13: Lactic Acid Level 1.30 Height, Weight, BMI Height: '" Weight: lbs. oz. kg; 23.32 BMI Method: Labs Laboratory Tests 10/08/22 11:13 10/09/22 05:00 Labs Laboratory Tests 10/08/22 11:13 10/09/22 05:00 Results Results/Procedures Labs Laboratory Tests 10/08/22 11:13 10/09/22 05:00 Patient resulted labs reviewed. Results Labs Labs Laboratory Tests 10/08/22 11:13: White Blood Count 1.6L, Red Blood Count 2.87L, Hemoglobin 6.8*L, Hematocrit 22L, Mean Corpuscular Volume 77L, Mean Corpuscular Hemoglobin 24L, Mean Corpuscular Hemoglobin Concent 31L, Red Cell Distribution Width 15.9H, Platelet Count 210, Mean Platelet Volume 11.8, Immature Granulocyte % (Auto) 0, Neutrophils (%) (Auto) 56, Lymphocytes (%) (Auto) 15, Monocytes (%) (Auto) 27H, Eosinophils (%) (Auto) 2, Basophils (%) (Auto) 0, Neutrophils # (Auto) 0.9L, Lymphocytes # (Auto) 0.2L, Monocytes # (Auto) 0.4, Eosinophils # (Auto) 0.0, Basophils # (Auto) 0.0, Immature Granulocyte # (Auto) 0.0, Neutrophils % (Manual) 60, Lymphocytes % (Manual) 17, Monocytes % (Manual) 20, Eosinophils % (Manual) 3, Sodium Level 132L, Potassium Level 3.3L, Chloride Level 92L, Carbon Dioxide Level 23, Anion Gap 17H, Blood Urea Nitrogen 8, Creatinine 1.09, Estimat Glomerular Filtration Rate 68, BUN/Creatinine Ratio 7, Glucose Level 87, Lactic Acid Level 1.30, Calcium Level 9.4, Corrected Calcium 10.4H, Magnesium Level 1.4L, Total Bilirubin 0.3, Aspartate Amino Transf (AST/SGOT) 18, Alanine A minotransferase (ALT/SGPT) 17, Alkaline Phosphatase 142H, Total Protein 6.6, Albumin 2.8L 10/08/22 12:40: Urine Color YELLOW, Urine Clarity CLEAR, Urine pH 6.5, Urine Specific [place] <=1.005, Urine Protein NEGATIVE, Urine Glucose (UA) NEGATIVE, Urine Ketones NEGATIVE, Urine Nitrite NEGATIVE, Urine Bilirubin NEGATIVE, Urine Urobilinogen 0.2, Urine Leukocyte Esterase 1+H, Urine RBC (Auto) TRACE-IH, Urine RBC NONE, Urine WBC >100H, Urine Squamous Epithelial Cells 5-10, Urine Crystals NONE, Urine Bacteria MODERATEH, Urine Casts NONE, Urine Mucus NEGATIVE, Urine Culture Indicated YES 10/08/22 15:20: SARS-CoV-2 RNA (RT-PCR) Not Detected 10/09/22 05:00: White Blood Count 1.9L, Red Blood Count 3.12L, Hemoglobin 7.7L, Hematocrit 25L, Mean Corpuscular Volume 80, Mean Corpuscular Hemoglobin 25, Mean Corpuscular Hemoglobin Concent 31L, Red Cell Distribution Width 16.1H, Platelet Count 184, Mean Platelet Volume 11.9, Immature Granulocyte % (Auto) 5, Neutrophils (%) (Auto) 58, Lymphocytes (%) (Auto) 11L, Monocytes (%) (Auto) 22H, Eosinophils (%) (Auto) 4, Basophils (%) (Auto) 1, Neutrophils # (Auto) 1.1L, Lymphocytes # (Auto) 0.2L, Monocytes # (Auto) 0.4, Eosinophils # (Auto) 0.1, Basophils # (Auto) 0.0, Immature Granulocyte # (Auto) 0.1, Sodium Level 135, Potassium Level 3.9, Chloride Level 106, Carbon Dioxide Level 21, Anion Gap 8, Blood Urea Nitrogen 8, Creatinine 0.97, Estimat Glomerular Filtration Rate 79, BUN/Creatinine Ratio 8, Glucose Level 83, Calcium Level 8.7, Corrected Calcium 9.8, Total Bilirubin 0.5, Aspartate Amino Transf (AST/SGOT) 17, Alanine Aminotransferase (ALT/SGPT) 20, Alkaline Phosphatase 115, Total Protein 5.9L, Albumin 2.6L Results Labs Labs Laboratory Tests 10/08/22 11:13: White Blood Count 1.6L, Red Blood Count 2.87L, Hemoglobin 6.8*L, Hematocrit 22L, Mean Corpuscular Volume 77L, Mean Corpuscular Hemoglobin 24L, Mean Corpuscular Hemoglobin Concent 31L, Red Cell Distribution Width 15.9H, Platelet Count 210, Mean Platelet Volume 11.8, Immature Granulocyte % (Auto) 0, Neutrophils (%) (Auto) 56, Lymphocytes (%) (Auto) 15, Monocytes (%) (Auto) 27H, Eosinophils (%) (Auto) 2, Basophils (%) (Auto) 0, Neutrophils # (Auto) 0.9L, Lymphocytes # (Auto) 0.2L, Monocytes # (Auto) 0.4, Eosinophils # (Auto) 0.0, Basophils # (Auto) 0.0, Immature Granulocyte # (Auto) 0.0, Neutrophils % (Manual) 60, Lymphocytes % (Manual) 17, Monocytes % (Manual) 20, Eosinophils % (Manual) 3, Sodium Level 132L, Potassium Level 3.3L, Chloride Level 92L, Carbon Dioxide Level 23, Anion Gap 17H, Blood Urea Nitrogen 8, Creatinine 1.09, Estimat Gl omerular Filtration Rate 68, BUN/Creatinine Ratio 7, Glucose Level 87, Lactic Acid Level 1.30, Calcium Level 9.4, Corrected Calcium 10.4H, Magnesium Level 1.4L, Total Bilirubin 0.3, Aspartate Amino Transf (AST/SGOT) 18, Alanine Aminotransferase (ALT/SGPT) 17, Alkaline Phosphatase 142H, Total Protein 6.6, Albumin 2.8L 10/08/22 12:40: Urine Color YELLOW, Urine Clarity CLEAR, Urine pH 6.5, Urine Specific [place] <=1.005, Urine Protein NEGATIVE, Urine Glucose (UA) NEGATIVE, Urine Ketones NEGATIVE, Urine Nitrite NEGATIVE, Urine Bilirubin NEGATIVE, Urine Urobilinogen 0.2, Urine Leukocyte Esterase 1+H, Urine RBC (Auto) TRACE-IH, Urine RBC NONE, Urine WBC >100H, Urine Squamous Epithelial Cells 5-10, Urine Crystals NONE, Urine Bacteria MODERATEH, Urine Casts NONE, Urine Mucus NEGATIVE, Urine Culture Indicated YES 10/08/22 15:20: SARS-CoV-2 RNA (RT-PCR) Not Detected 10/09/22 05:00: White Blood Count 1.9L, Red Blood Count 3.12L, Hemoglobin 7.7L, Hematocrit 25L, Mean Corpuscular Volume 80, Mean Corpuscular Hemoglobin 25, Mean Corpuscular Hemoglobin Concent 31L, Red Cell Distribution Width 16.1H, Platelet Count 184, Mean Platelet Volume 11.9, Immature Granulocyte % (Auto) 5, Neutrophils (%) (Auto) 58, Lymphocytes (%) (Auto) 11L, Monocytes (%) (Auto) 22H, Eosinophils (%) (Auto) 4, Basophils (%) (Auto) 1, Neutrophils # (Auto) 1.1L, Lymphocytes # (Auto) 0.2L, Monocytes # (Auto) 0.4, Eosinophils # (Auto) 0.1, Basophils # (Auto) 0.0, Immature Granulocyte # (Auto) 0.1, Sodium Level 135, Potassium Level 3.9, Chloride Level 106, Carbon Dioxide Level 21, Anion Gap 8, Blood Urea Nitrogen 8, Creatinine 0.97, Estimat Glomerular Filtration Rate 79, BUN/Creatinine Ratio 8, Glucose Level 83, Calcium Level 8.7, Corrected Calcium 9.8, Total Bilirubin 0.5, Aspartate Amino Transf (AST/SGOT) 17, Alanine Aminotransferase (ALT/SGPT) 20, Alkaline Phosphatase 115, Total Protein 5.9L, Albumin 2.6L VIVIAN AYALA MD Oct 09, 2022 08:47
[2022-10-09] MEDS ORDERED: MELOXICAM SUBMICRONIZED 10 MG PO SCH (09:00)
[2022-10-09] MEDS: DOCUSATE SODIUM 100 MG CAPSULE PO SCH ×2 (09:25→19:50)
[2022-10-09] MEDS: CYCLOBENZAPRINE 10 MG TABLET PO PRN (11:42)
[2022-10-09] MEDS: ALPRAZolam 0.5 MG TABLET PO PRN (19:50)
[2022-10-09] MEDS: AMITRIPTYLINE 25 MG TABLET PO SCH (19:50)
[2022-10-09] MEDS: fentaNYL INJECTION 100 MCG/2 ML VIAL IVP PRN (19:50)
[2022-10-10] MEDS: HYDROcodone/ACETAMINOPHEN 5 MG/325 MG TABLET PO PRN ×4 (02:45→17:45)
[2022-10-10 02:49] LABS: BASOPHILS % (AUTO) 1 % (0-10); EOSINOPHILS # (AUTO) 0.1 10^3/uL (0.0-0.3); EOSINOPHILS % (AUTO) 5 % (0-10); HEMATOCRIT 24 % (35-52); HEMOGLOBIN 7.2 g/dL (11.5-16.0); LYMPHOCYTES # (AUTO) 0.2 10^3/uL (1.0-4.0); LYMPHOCYTES % (AUTO) 11 % (12-44); MEAN CORPUSCULAR HEMOGLOBIN 24 pg (25-34); MEAN CORPUSCULAR HGB CONC 31 g/dL (32-36); MEAN CORPUSCULAR VOLUME 80 fL (80-99); MEAN PLATELET VOLUME 11.8 fL (9.0-12.2); MONOCYTES # (AUTO) 0.3 10^3/uL (0.0-1.0); MONOCYTES % (AUTO) 16 % (0-12); NEUTROPHILS # (AUTO) 1.4 10^3/uL (1.8-7.8); NEUTROPHILS % (AUTO) 65 % (42-75); PLATELET COUNT 205 10^3/uL (130-400); WHITE BLOOD COUNT 2.1 10^3/uL (4.3-11.0)
[2022-10-10 02:56] LABS: ALBUMIN 2.5 GM/DL (3.2-4.5)
[2022-10-10 02:57] LABS: POTASSIUM 3.6 MMOL/L (3.6-5.0)
[2022-10-10 02:58] LABS: CALCIUM 8.8 MG/DL (8.5-10.1)
[2022-10-10 02:59] LABS: TOTAL PROTEIN 5.9 GM/DL (6.4-8.2)
[2022-10-10] MEDS ORDERED: TROUGH ORDER-PHARMACY XX NR (03:00)
[2022-10-10 03:01] LABS: BILIRUBIN,TOTAL 0.3 MG/DL (0.1-1.0)
[2022-10-10 03:03] LABS: CREATININE SERUM 0.94 MG/DL (0.60-1.30)
[2022-10-10 03:11] VITALS: BP 132/88
[2022-10-10] MEDS: VANCOMYCIN 750 MG/NS 250 ML IVPB IV SCH ×2 (03:25)
[2022-10-10] MEDS: CEFEPIME INJECTION 1,000 MG in NS (IVPB) 50 ML 50 ML IV SCH ×4 (04:07→21:49)
[2022-10-10] MEDS: POTASSIUM CHLORIDE 20 MEQ TABLET PO SCH (06:40)
[2022-10-10] MEDS: NICOTINE 7 MG PATCH TD SCH (07:57)
[2022-10-10] MEDS: NICOTINE PATCH REMOVAL TP SCH (07:57)
[2022-10-10] MEDS: MELOXICAM 7.5 MG TABLET PO SCH (07:58)
[2022-10-10] MEDS: DOCUSATE SODIUM 100 MG CAPSULE PO SCH ×2 (07:58→20:46)
[2022-10-10 08:28] VITALS: BP 123/86
[2022-10-10] MEDS ORDERED: CYCL10TA25 PO (08:58)
[2022-10-10] MEDS ORDERED: ACHD5005 PO (08:59)
[2022-10-10] MEDS: fentaNYL INJECTION 100 MCG/2 ML VIAL IVP PRN ×5 (09:00→23:17)
[2022-10-10] MEDS ORDERED: ONDA-106 PO (09:00)
[2022-10-10] MEDS ORDERED: LACT10SO3 PO (09:01)
[2022-10-10] MEDS ORDERED: MELO15TA39 PO (09:03)
[2022-10-10] MEDS ORDERED: NALO4SPR3 NSEACH (09:03)
[2022-10-10] MEDS ORDERED: POLY17PO6 PO (09:06)
[2022-10-10] MEDS ORDERED: VANCOMYCIN 750 MG/NS 250 ML IVPB IV SCH ×2 (10:00)
[2022-10-10] MEDS: CYCLOBENZAPRINE 10 MG TABLET PO PRN ×2 (10:13→22:31)
[2022-10-10] MEDS: VANCOMYCIN 500 MG/NS 100 ML IVPB IV SCH ×4 (10:45→22:28)
[2022-10-10 11:08] VITALS: BP 131/81
--- NOTE | 2022-10-10 11:18 | Progress Note ---
Subjective Subjective/Events-last exam Feeling a little better today. Focused Exam Lactate Level 10/08/22 11:13: Lactic Acid Level 1.30 Objective Exam Last Set of Vital Signs Vital Signs Date Time Temp Pulse Resp B/P (MAP) Pulse Ox O2 Delivery O2 Flow Rate FiO2 10/10/22 11:08 36.6 94 14 131/81 (98) 97 Room Air 10/08/22 16:26 21 Capillary Refill : Less Than 3 Seconds I&O Intake and Output 10/10/22 00:00 Intake Total 2400 ml Output Total 0 ml Balance 2400 ml Intake Oral 900 ml IV Total 1500 ml Output Urine Total 0 ml # Voids 5 General: Alert, No Acute Distress Lungs: Clear to Auscultation, Normal Air Movement Heart: Other (tachycardic) Abdomen: Normal Bowel Sounds, Soft, No Tenderness Extremities: No Edema Psych/Mental Status: Mood NL Results/Procedures Lab Laboratory Tests 10/10/22 02:43: White Blood Count 2.1L, Red Blood Count 2.96L, Hemoglobin 7.2L, Hematocrit 24L, Mean Corpuscular Volume 80, Mean Corpuscular Hemoglobin 24L, Mean Corpuscular Hemoglobin Concent 31L, Red Cell Distribution Width 16.8H, Platelet Count 205, Mean Platelet Volume 11.8, Immature Granulocyte % (Auto) 2, Neutrophils (%) (Auto) 65, Lymphocytes (%) (Auto) 11L, Monocytes (%) (Auto) 16H, Eosinophils (%) (Auto) 5, Basophils (%) (Auto) 1, Neutrophils # (Auto) 1.4L, Lymphocytes # (Auto) 0.2L, Monocytes # (Auto) 0.3, Eosinophils # (Auto) 0.1, Basophils # (Auto) 0.0, Immature Granulocyte # (Auto) 0.0, Sodium Level 136, Potassium Level 3.6, Chloride Level 107, Carbon Dioxide Level 20L, Anion Gap 9, Blood Urea Nitrogen 7, Creatinine 0.94, Estimat Glomerular Filtration Rate 82, BUN/Creatinine Ratio 7, Glucose Level 85, Calcium Level 8.8, Corrected Calcium 10.0, Total Bilirubin 0.3, Aspartate Amino Transf (AST/SGOT) 18, Alanine Aminotransferase (ALT/SGPT) 18, Alkaline Phosphatase 109, Total Protein 5.9L, Albumin 2.5L, Vancomycin Level Trough 19.1 Microbiology 10/08/22 MRSA Screen - Final, Complete MRSA not isolated Assessment/Plan Assessment/Plan (1) Sepsis Status: Acute Assessment & Plan: Tachycardic and with leukopenia on admit with urinary tract infection, no end organ dysfunction or lactic acidosis. Was on outpatient oral antibiotics. Started on cefepime and vancomycin on admit. Awaiting culture results. (2) Pyelonephritis Status: Acute (3) Acute on chronic anemia Status: Acute Assessment & Plan: s/p one unit PRBC, hemoglobin trended down today, will follow closely. Suspect due to chemotherapy and superimposed infection, reports baseline hemoglobin around 10. (4) Cervical cancer Status: Chronic Assessment & Plan: On chemotherapy (5) Multiple lesions of metastatic malignancy Status: Acute (6) Leukopenia due to antineoplastic chemotherapy Status: Acute (7) Hypokalemia Status: Resolved (8) Hyponatremia Status: Resolved (9) Hypomagnesemia Status: Acute Assessment & Plan: Repeat level. (10) Dehydration Status: Resolved Assessment & Plan: Labs improved, tolerating PO. (11) DVT prophylaxis Status: Acute Assessment & Plan: Enoxaparin held, suspect due to low hemoglobin, will resume. KELSEY OLIVER MD Oct 10, 2022 11:18
[2022-10-10 15:57] VITALS: BP 119/80
[2022-10-10] MEDS: ALPRAZolam 0.5 MG TABLET PO PRN (18:37)
[2022-10-10 20:13] VITALS: BP 126/84
[2022-10-10] MEDS ORDERED: fentaNYL INJECTION 100 MCG/2 ML VIAL ONE (20:42)
[2022-10-10] MEDS: AMITRIPTYLINE 25 MG TABLET PO SCH (20:46)
[2022-10-10 23:01] VITALS: BP 137/78
[2022-10-11] MEDS: HYDROcodone/ACETAMINOPHEN 5 MG/325 MG TABLET PO PRN ×2 (02:20→09:40)
[2022-10-11 03:30] VITALS: BP 137/82
[2022-10-11] MEDS: CEFEPIME INJECTION 1,000 MG in NS (IVPB) 50 ML 50 ML IV SCH ×2 (03:39→09:35)
[2022-10-11 03:58] LABS: BASOPHILS % (AUTO) 0 % (0-10); EOSINOPHILS # (AUTO) 0.1 10^3/uL (0.0-0.3); EOSINOPHILS % (AUTO) 4 % (0-10); HEMATOCRIT 24 % (35-52); HEMOGLOBIN 7.4 g/dL (11.5-16.0); LYMPHOCYTES # (AUTO) 0.2 10^3/uL (1.0-4.0); LYMPHOCYTES % (AUTO) 8 % (12-44); MEAN CORPUSCULAR HEMOGLOBIN 25 pg (25-34); MEAN CORPUSCULAR HGB CONC 31 g/dL (32-36); MEAN CORPUSCULAR VOLUME 80 fL (80-99); MEAN PLATELET VOLUME 11.5 fL (9.0-12.2); MONOCYTES # (AUTO) 0.4 10^3/uL (0.0-1.0); MONOCYTES % (AUTO) 14 % (0-12); NEUTROPHILS % (AUTO) 72 % (42-75); PLATELET COUNT 218 10^3/uL (130-400); WHITE BLOOD COUNT 2.8 10^3/uL (4.3-11.0)
[2022-10-11 04:11] LABS: ALBUMIN 2.4 GM/DL (3.2-4.5); POTASSIUM 3.6 MMOL/L (3.6-5.0)
[2022-10-11 04:13] LABS: CALCIUM 8.5 MG/DL (8.5-10.1)
[2022-10-11 04:14] LABS: TOTAL PROTEIN 5.8 GM/DL (6.4-8.2)
[2022-10-11 04:15] LABS: BILIRUBIN,TOTAL 0.2 MG/DL (0.1-1.0)
[2022-10-11 04:17] LABS: CREATININE SERUM 0.82 MG/DL (0.60-1.30)
[2022-10-11] MEDS: fentaNYL INJECTION 100 MCG/2 ML VIAL IVP PRN ×4 (04:22→10:28)
[2022-10-11] MEDS: POTASSIUM CHLORIDE 20 MEQ TABLET PO SCH (05:37)
[2022-10-11] MEDS ORDERED: CEFD300C3 PO (07:04)
[2022-10-11 07:35] VITALS: BP 128/86
[2022-10-11] MEDS: DOCUSATE SODIUM 100 MG CAPSULE PO SCH (07:47)
[2022-10-11] MEDS: NICOTINE 7 MG PATCH TD SCH (07:47)
[2022-10-11] MEDS: NICOTINE PATCH REMOVAL TP SCH (07:48)
[2022-10-11] MEDS: MELOXICAM 7.5 MG TABLET PO SCH (07:52)
[2022-10-11] MEDS ORDERED: OXYC5TAB PO (10:24)
--- NOTE | 2022-10-11 10:26 | Discharge Summary ---
Discharge Summary Hospital Course Problems/Diagnosis: (1) Sepsis Status: Resolved Resolution Date/Time: 10/11/22 @ 10:25 Assessment & Plan: Tachycardic and with leukopenia on admit with urinary tract infection, no end organ dysfunction or lactic acidosis. Was on outpatient oral antibiotics. Started on cefepime and vancomycin on admit. Urine culture with no growth, discharged on cefdinir. (2) Pyelonephritis Status: Resolved Resolution Date/Time: 10/11/22 @ 10:25 (3) Acute on chronic anemia Status: Acute Assessment & Plan: s/p one unit PRBC, hemoglobin 7.2 and then 7.4 post transfusion day. Suspect due to chemotherapy and superimposed infection, reports baseline hemoglobin around 10. (4) Cervical cancer Status: Chronic Assessment & Plan: On chemotherapy (5) Multiple lesions of metastatic malignancy Status: Acute (6) Leukopenia due to antineoplastic chemotherapy Status: Acute (7) Hypokalemia Status: Resolved Resolution Date/Time: 10/10/22 @ 13:40 (8) Hyponatremia Status: Resolved Resolution Date/Time: 10/10/22 @ 13:40 (9) Hypomagnesemia Status: Acute Assessment & Plan: Repeat level. (10) Dehydration Status: Resolved Resolution Date/Time: 10/10/22 @ 13:40 Assessment & Plan: Labs improved, tolerating PO. (11) Cancer related pain Status: Chronic Assessment & Plan: Prescribed 15 tabs of oxycodone to use as needed in place of hydrocodone for more severe pain as she reported having exacerbation of her chronic pelvic pain. Hospital Course Date of Admission: Oct 08, 2022 at 15:05 Admission Diagnosis : Family Physician/Provider: Jane Haney MD Date of Discharge: 10/11/22 Discharge Diagnosis: See problem list Hospital Course: See problem list Labs and Pending Lab Test: Laboratory Tests 10/11/22 03:40: White Blood Count 2.8L, Red Blood Count 2.97L, Hemoglobin 7.4L, Hematocrit 24L, Mean Corpuscular Volume 80, Mean Corpuscular Hemoglobin 25, Mean Corpuscular Hemoglobin Concent 31L, Red Cell Distribution Width 17.0H, Platelet Count 218, Mean Platelet Volume 11.5, Immature Granulocyte % (Auto) 2, Neutrophils (%) (Auto) 72, Lymphocytes (%) (Auto) 8L, Monocytes (%) (Auto) 14H, Eosinophils (%) (Auto) 4, Basophils (%) (Auto) 0, Neutrophils # (Auto) 2.0, Lymphocytes # (Auto) 0.2L, Monocytes # (Auto) 0.4, Eosinophils # (Auto) 0.1, Basophils # (Auto) 0.0, Immature Granulocyte # (Auto) 0.1, Sodium Level 136, Potassium Level 3.6, Chloride Level 106, Carbon Dioxide Level 21, Anion Gap 9, Blood Urea Nitrogen 6L , Creatinine 0.82, Estimat Glomerular Filtration Rate 96, BUN/Creatinine Ratio 7, Glucose Level 84, Calcium Level 8.5, Corrected Calcium 9.8, Total Bilirubin 0.2, Aspartate Amino Transf (AST/SGOT) 18, Alanine Aminotransferase (ALT/SGPT) 17, Alkaline Phosphatase 104, Total Protein 5.8L, Albumin 2.4L Microbiology 10/08/22 MRSA Screen - Final, Complete MRSA not isolated 10/08/22 Urine Culture - Final, Complete NO GROWTH Home Meds Active Cefdinir 300 Mg Capsule 300 Mg PO BID 6 Days Reported Miralax (Polyethylene Glycol 3350) 17 Gram Powd.pack 17 Gm PO DAILY PRN Meloxicam 15 Mg Tablet 15 Mg PO HS Naloxone HCl 4 Mg/Actuation [place] 1 [place] NSEACH UD Lactulose 10 Gram/15 Ml Solution 10 Gm PO DAILY PRN Ondansetron HCl 8 Mg Tablet 8 Mg PO Q4H PRN Hydrocodone-Acetamin 5-325 mg (Hydrocodone/Acetaminophen) 5 Mg-325 Mg Tablet 1 Tab PO Q6H PRN FILLED 09-27-2022 #112 Cyclobenzaprine HCl 10 Mg Tablet 10 Mg PO HS Amitriptyline HCl 25 Mg Tablet 25 Mg PO HS Potassium Chloride 20 Meq Tab.er.prt 20 Meq PO DAILY Assessment/Pt DC Instructions Follow up with Oncology as scheduled. Follow up with Dr. Haney within a week of discharge. Discharge Diet: Regular Diet Activity as Tolerated: Yes Discharge Physical Examination Allergies: Coded Allergies: codeine (Verified Allergy, Mild, chest tightness, 09/19/22) morphine (Verified Allergy, Mild, chest tightness, 09/19/22) gabapentin (Verified Allergy, Unknown, 09/19/22) General Appearance: No Apparent Distress, WD/WN Respiratory: Lungs Clear, Normal Breath Sounds Cardiovascular: Regular Rate, Rhythm, No Murmur Gastrointestinal: Normal Bowel Sounds, Non Tender, Soft Skin: Normal Color, Warm/Dry Neurologic/Psychiatric: Alert, Normal Mood/Affect KELSEY OLIVER MD Oct 11, 2022 10:26
[2022-10-11 10:45] VITALS: BP 128/86
[2022-10-11 11:21] VITALS: BP 127/88
== END 2022-10-11 11:55 | disposition home or self-care (01) | DRG 872 ==
LOC: EDUNIT# 11:19 → ER FS 11:20 → ICU 15:05 → 4TH 10-09 12:51
PROVIDERS: ADMIT Internal Medicine; ATTEND Family Medicine
DX: A41.9 Sepsis, unspecified organism (principal); N10 Acute pyelonephritis; E87.1 Hypo-osmolality and hyponatremia; C78.00 Secondary malignant neoplasm of unspecified lung; C79.51 Secondary malignant neoplasm of bone; E86.0 Dehydration; D70.1 Agranulocytosis secondary to cancer chemotherapy; C54.1 Malignant neoplasm of endometrium; D63.0 Anemia in neoplastic disease; E87.6 Hypokalemia; E83.42 Hypomagnesemia; G89.3 Neoplasm related pain (acute) (chronic); Z20.822 Contact with and (suspected) exposure to COVID-19; F17.210 Nicotine dependence, cigarettes, uncomplicated; F43.10 Post-traumatic stress disorder, unspecified; Z79.899 Other long term (current) drug therapy; Z79.891 Long term (current) use of opiate analgesic; Z79.1 Long term (current) use of non-steroidal anti-inflammatories (NSAID); Z88.5 Allergy status to narcotic agent; Z91.09 Other allergy status, other than to drugs and biological substances
CPT/HCPCS: 36415; 80053; 80202; 81000; 83605; 83735; 85007; 85025; 85027; 86850; 86900; 86901; 86920; 87081; 87088; 87636; 94760; 99283

== ENCOUNTER 2022-10-15 08:54 | Emergency (ER) | payer MEDICAID ==
[~2022-10-15 08:54] MED LIST changes: +AMIT25TA9 PO; +LACT10SO3 PO; +MELO15TA39 PO; +NALO4SPR3 NSEACH; +ONDA-106 PO; +OXYC5TAB PO; +POLY17PO6 PO
--- NOTE | 2022-10-15 09:05 | ED General ---
General Chief Complaint: General Problems/Pain Stated Complaint: LUNG CANCER | PAIN History of Present Illness Date Seen by Provider: Oct 15, 2022 Time Seen by Provider: 09:03 Initial Comments 32 yr F with PMH of cervical cancer, stage 4 with mets to lung, is here with ongoing abdominal and back pain. Pt has been seen multiple times in the ER, and is in need of pain control. Pt is on Vicodin and oxycodone, and that is not relieving the pain. Pt has her next chemo treatment on Oct 19. Pt has not yet seen pain management. Denies fever and chills, dysuria, hematuria, diarrhea. Allergies and Home Medications Allergies Coded Allergies: codeine (Verified Allergy, Mild, chest tightness, 09/19/22) morphine (Verified Allergy, Mild, chest tightness, 09/19/22) gabapentin (Verified Allergy, Unknown, 09/19/22) Patient Home Medication List Home Medication List Reviewed: Yes Amitriptyline HCl (Amitriptyline HCl) 25 Mg Tablet, 25 MG PO HS, (Reported) Entered as Reported by: DEBBIE MCKENNA on 10/08/22 1609 Cefdinir (Cefdinir) 300 Mg Capsule, 300 MG PO BID Prescribed by: KELSEY OLIVER on 10/11/22 0704 Cyclobenzaprine HCl (Cyclobenzaprine HCl) 10 Mg Tablet, 10 MG PO HS, (Reported) Entered as Reported by: WAQAS GARRIDO on 10/10/22 0858 Hydrocodone/Acetaminophen (Hydrocodone-Acetamin 5-325 mg) 5 Mg-325 Mg Tablet, 1 TAB PO Q6H PRN for PAIN-MODERATE (5-7), (Reported) Entered as Reported by: WAQAS GARRIDO on 10/10/22 0859 Lactulose (Lactulose) 10 Gram/15 Ml Solution, 10 GM PO DAILY PRN for CONSTIPATION-3RD LINE, (Reported) Entered as Reported by: WAQAS GARRIDO on 10/10/22 0901 Meloxicam (Meloxicam) 15 Mg Tablet, 15 MG PO HS, (Reported) Entered as Reported by: WAQAS GARRIDO on 10/10/22 0903 Naloxone HCl (Naloxone HCl) 4 Mg/Actuation [place], 1 SPRAY NSEACH UD, (Reported) Entered as Reported by: WAQAS GARRIDO on 10/10/22 0903 Ondansetron HCl (Ondansetron HCl) 8 Mg Tablet, 8 MG PO Q4H PRN for NAUSEA/VOMITING, (Reported) Entered as Reported by: WAQAS GARRIDO on 10/10/22 0900 Oxycodone HCl (Oxycodone HCl) 5 Mg Tablet, 5 MG PO Q4H Prescribed by: KELSEY OLIVER on 10/11/22 1025 Polyethylene Glycol 3350 (Miralax) 17 Gram Powd.pack, 17 GM PO DAILY PRN for CONSTIPATION, (Reported) Entered as Reported by: WAQAS GARRIDO on 10/10/22 0906 Potassium Chloride (Potassium Chloride) 20 Meq Tab.er.prt, 20 MEQ PO DAILY, (Reported) Entered as Reported by: PRAMOD FARRELL on 05/18/22 0457 Discontinued Medications Ibuprofen (Ibuprofen) 600 Mg Tablet, 600 MG PO Q6H PRN for PAIN-MILD Discontinued Reason: No Longer Taking Prescribed by: SURJIT NEWBERRY on 09/24/22 1109 Review of Systems Review of Systems Constitutional: no symptoms reported EENTM: no symptoms reported Respiratory: no symptoms reported Cardiovascular: no symptoms reported Gastrointestinal: abdominal pain Genitourinary: no symptoms reported Musculoskeletal: back pain Skin: no symptoms reported Psychiatric/Neurological: No Symptoms Reported Past Qfeojjs-Vtajeu-Kflmke Hx Immunizations Up To Date First/Initial COVID19 Vaccinat: NONE Second COVID19 Vaccination Sam: NONE Third COVID19 Vaccination Date: NONE Seasonal Allergies Seasonal Allergies: No Past Medical History Surgery/Hospitalization HX: 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, lung biopsy Cholecysectomy; Tubal ligation Surgeries: Yes (BRACHYTHERAPY) Gallbladder, Tubal Ligation Respiratory: No Currently Using CPAP: No Currently Using BIPAP: No Cardiac: Yes (RECENTLY HYPOTENSIVE LAST 3 WEEKS) Neurological: No Reproductive Disorders: No Genitourinary: No Gastrointestinal: Yes Gall Bladder Disease Musculoskeletal: No Endocrine: No HEENT: No Cancer: Yes Lung, Cervical What Type of Treatment Did You: Chemotherapy, Radiation, Surgical Intervention Psychosocial: Yes Sleep Difficulties, Anxiety, PTSD, Depression Integumentary: No Blood Disorders: No Family Medical History No Pertinent Family Hx Physical Exam Vital Signs Vital Signs - First Documented 10/15/22 09:00 Temp 36.9 Pulse 132 Resp 97 B/P (MAP) 142/82 (102) Pulse Ox 97 O2 Delivery Room Air Capillary Refill : Height, Weight, BMI Height: '" Weight: lbs. oz. kg; 23.04 BMI Method: General Appearance: No Apparent Distress, WD/WN, Thin HEENT: PERRL/EOMI Neck: Full Range of Motion, Normal Inspection, Non Tender Respiratory: Lungs Clear, Normal Breath Sounds Cardiovascular: Regular Rate, Rhythm, No Edema Gastrointestinal: Normal Bowel Sounds, Soft, Tenderness (Lower abdominal tenderness in the right and left quadrants and suprapubic areas) Back: Normal Inspection, CVA Tenderness (L), CVA Tenderness (R) Extremity: Normal Inspection, Normal Range of Motion Neurologic/Psychiatric: Alert, Oriented x3, No Motor/Sensory Deficits Skin: Normal Color Progress/Results/Core Measures Suspected Sepsis SIRS Temperature: Pulse: Respiratory Rate: Blood Pressure / Mean: Results/Orders My Orders Orders - ZAC OVIEDO MD Fentanyl Injection (Fentanyl Injection (10/15/22 09:15) Ketorolac Injection (Ketorolac Injection (10/15/22 09:15) Fentanyl Injection (Fentanyl Injection (10/15/22 09:25) Ketorolac Injection (Ketorolac Injection (10/15/22 09:25) Vital Signs/I&O 10/15/22 09:00 Temp 36.9 Pulse 132 Resp 97 B/P (MAP) 142/82 (102) Pulse Ox 97 O2 Delivery Room Air Capillary Refill : Progress Note : Progress Note 1. CANCER RELATED CHRONIC PAIN: - Toradol im/ Fentanyl im given in ER - Pt has had multiple CT scans this month in the ER, so will not do another one at this time, and also do not need one today aspt's only symptom is chronic pain - Advised to call Oncology clinic for appointment and also to request pain management referral since pt has not seen a supervisor painting department yet. -The patient was seen in the ED, and treated appropriately to presentation at a specific point in time. Patient is informed that there is a possibility that disease and illness can evolve and change in acuity rapidly or slowly after patient is discharged from the ER. Precautionary advice given to the patient for immediate return to ER if symptoms worsen or do not resolve, and to seek emergency care sooner rather than later. Pt also advised on the importance of PCP follow up and compliance with management and follow up plan with PCP and/or specialist, as this is part of the management plan. Pt verbally expressed understanding. Departure Impression Primary Impression: Cancer related pain Disposition: HOME, SELF-CARE Condition: Stable Departure-Patient Inst. Referrals: LINDSAY CORTES MD (PCP/Family) Primary Care Physician Patient Instructions: CHRONIC PAIN, Managing pain when you have cancer Add. Discharge Instructions: - Advised to call Oncology clinic for appointment and also to request pain management referral since pt has not seen a supervisor painting department yet. All discharge instructions reviewed with patient and/or family. Voiced understanding. ZAC OVIEDO MD Oct 15, 2022 09:05
[2022-10-15] MEDS ORDERED: fentaNYL INJECTION 100 MCG/2 ML VIAL IM ONE (09:15)
[2022-10-15] MEDS ORDERED: KETOROLAC INJ 30 MG/ML VIAL IM ONE (09:15)
[2022-10-15] MEDS ORDERED: fentaNYL INJECTION 100 MCG/2 ML VIAL ONE (09:25)
[2022-10-15] MEDS ORDERED: KETOROLAC INJ 30 MG/ML VIAL ONE (09:25)
[2022-10-15 09:47] VITALS: BP 145/79
== END 2022-10-15 09:47 | disposition home or self-care (01) ==
LOC: EDUNIT# 08:54 → ER FS 08:56
DX: G89.3 Neoplasm related pain (acute) (chronic) (principal); C53.9 Malignant neoplasm of cervix uteri, unspecified; C78.00 Secondary malignant neoplasm of unspecified lung; Z92.21 Personal history of antineoplastic chemotherapy; Z92.3 Personal history of irradiation; Z79.1 Long term (current) use of non-steroidal anti-inflammatories (NSAID); Z28.310 Unvaccinated for COVID-19; Z88.5 Allergy status to narcotic agent
CPT/HCPCS: 99284

== ENCOUNTER 2022-10-19 07:30 | Outpatient (RCR) | payer MEDICAID ==
[2022-09-29 09:35] VITALS: BP 141/94
[2022-09-29 09:42] LABS: BASOPHILS % (AUTO) 0 % (0-10); EOSINOPHILS # (AUTO) 0.1 10^3/uL (0.0-0.3); EOSINOPHILS % (AUTO) 0 % (0-10); HEMATOCRIT 28 % (35-52); HEMOGLOBIN 8.5 g/dL (11.5-16.0); LYMPHOCYTES # (AUTO) 0.3 10^3/uL (1.0-4.0); LYMPHOCYTES % (AUTO) 2 % (12-44); MEAN CORPUSCULAR HEMOGLOBIN 25 pg (25-34); MEAN CORPUSCULAR HGB CONC 31 g/dL (32-36); MEAN CORPUSCULAR VOLUME 81 fL (80-99); MEAN PLATELET VOLUME 11.2 fL (9.0-12.2); MONOCYTES # (AUTO) 0.7 10^3/uL (0.0-1.0); MONOCYTES % (AUTO) 5 % (0-12); NEUTROPHILS % (AUTO) 92 % (42-75); PLATELET COUNT 393 10^3/uL (130-400); WHITE BLOOD COUNT 15.2 10^3/uL (4.3-11.0)
[2022-09-29 09:45] LABS: ALBUMIN 3.2 GM/DL (3.2-4.5); POTASSIUM 3.1 MMOL/L (3.6-5.0)
[2022-09-29 09:46] LABS: CALCIUM 11.4 MG/DL (8.5-10.1)
[2022-09-29 09:48] LABS: TOTAL PROTEIN 7.2 GM/DL (6.4-8.2)
[2022-09-29 09:49] LABS: BILIRUBIN,TOTAL 0.2 MG/DL (0.1-1.0)
[2022-09-29 09:52] LABS: CREATININE SERUM 1.09 MG/DL (0.60-1.30)
[2022-09-29] MEDS: FAMOTIDINE INJ 20MG/2ML VIAL IV SCH (10:05)
[2022-09-29] MEDS: diphenhydrAMINE INJ 50 MG/ML VIAL IV PRN (10:05)
[2022-09-29] MEDS: NS IV 1000 ML (CANCER CTR) IV SCH (10:06)
[2022-09-29] MEDS: FOSAPREPITANT (CANCER CENTER) 150 MG in NS (IVPB) CANCER CENTER ONLY 150 ML IV SCH (10:26)
[2022-09-29] MEDS: [UNRECOGNIZED DRUG - OTHER] IV SCH (10:46)
[2022-09-29] MEDS: ONDANSETRON IV SCH (10:46)
[2022-09-29] MEDS: DEXAMETHASONE SODIUM PHOSPHATE IV SCH (10:46)
[2022-09-29] MEDS: PEMBROLIZUMAB 200 MG in NS (IVPB) 50 ML 50 ML IV SCH (11:09)
[2022-09-29 11:39] VITALS: BP 141/94
[2022-09-29] MEDS: BEVACIZUMAB BVZR IV SCH (11:40)
[2022-09-29] MEDS: NS IV SCH (11:40)
[2022-09-29] MEDS: PACLITAXEL IV SCH (12:14)
[2022-09-29] MEDS: NORMAL SALINE IV SCH (12:14)
[2022-10-06 10:35] LABS: BASOPHILS % (AUTO) 1 % (0-10); EOSINOPHILS % (AUTO) 2 % (0-10); HEMATOCRIT 27 % (35-52); LYMPHOCYTES # (AUTO) 0.2 10^3/uL (1.0-4.0); LYMPHOCYTES % (AUTO) 10 % (12-44); MEAN CORPUSCULAR HEMOGLOBIN 24 pg (25-34); MEAN CORPUSCULAR HGB CONC 30 g/dL (32-36); MEAN CORPUSCULAR VOLUME 80 fL (80-99); MEAN PLATELET VOLUME 11.9 fL (9.0-12.2); MONOCYTES # (AUTO) 0.3 10^3/uL (0.0-1.0); MONOCYTES % (AUTO) 15 % (0-12); NEUTROPHILS # (AUTO) 1.2 10^3/uL (1.8-7.8); NEUTROPHILS % (AUTO) 71 % (42-75); PLATELET COUNT 247 10^3/uL (130-400); WHITE BLOOD COUNT 1.7 10^3/uL (4.3-11.0)
[2022-10-06 11:18] LABS: ALBUMIN 3.3 GM/DL (3.2-4.5); BILIRUBIN,TOTAL 0.3 MG/DL (0.1-1.0); CALCIUM 10.2 MG/DL (8.5-10.1); CREATININE SERUM 1.19 MG/DL (0.60-1.30); MAGNESIUM 1.6 MG/DL (1.6-2.4); POTASSIUM 3.2 MMOL/L (3.6-5.0); TOTAL PROTEIN 7.3 GM/DL (6.4-8.2)
[2022-10-13 09:50] LABS: BASOPHILS % (AUTO) 1 % (0-10); EOSINOPHILS % (AUTO) 1 % (0-10); HEMATOCRIT 28 % (35-52); HEMOGLOBIN 8.4 g/dL (11.5-16.0); LYMPHOCYTES # (AUTO) 0.3 10^3/uL (1.0-4.0); LYMPHOCYTES % (AUTO) 8 % (12-44); MEAN CORPUSCULAR HEMOGLOBIN 24 pg (25-34); MEAN CORPUSCULAR HGB CONC 30 g/dL (32-36); MEAN CORPUSCULAR VOLUME 82 fL (80-99); MEAN PLATELET VOLUME 10.9 fL (9.0-12.2); MONOCYTES # (AUTO) 0.4 10^3/uL (0.0-1.0); MONOCYTES % (AUTO) 10 % (0-12); NEUTROPHILS # (AUTO) 2.9 10^3/uL (1.8-7.8); NEUTROPHILS % (AUTO) 78 % (42-75); PLATELET COUNT 314 10^3/uL (130-400); WHITE BLOOD COUNT 3.8 10^3/uL (4.3-11.0)
[2022-10-13 10:15] LABS: ALBUMIN 2.7 GM/DL (3.2-4.5); BILIRUBIN,TOTAL 0.3 MG/DL (0.1-1.0); CALCIUM 8.8 MG/DL (8.5-10.1); CREATININE SERUM 0.86 MG/DL (0.60-1.30); POTASSIUM 3.6 MMOL/L (3.6-5.0)
[~2022-10-19] VITALS: Ht 160 cm; Wt 55.6 kg
[~2022-10-19 07:30] MED LIST changes: +HEParin (CENTRAL IV FLUSH) 500 UNIT/5 ML SYR IV PRN
[2022-10-19 09:30] VITALS: BP 143/93
[2022-10-19 09:35] LABS: BASOPHILS % (AUTO) 0 % (0-10); EOSINOPHILS % (AUTO) 0 % (0-10); HEMATOCRIT 28 % (35-52); HEMOGLOBIN 8.3 g/dL (11.5-16.0); LYMPHOCYTES # (AUTO) 0.3 10^3/uL (1.0-4.0); LYMPHOCYTES % (AUTO) 4 % (12-44); MEAN CORPUSCULAR HEMOGLOBIN 24 pg (25-34); MEAN CORPUSCULAR HGB CONC 30 g/dL (32-36); MEAN CORPUSCULAR VOLUME 81 fL (80-99); MEAN PLATELET VOLUME 10.6 fL (9.0-12.2); MONOCYTES # (AUTO) 0.6 10^3/uL (0.0-1.0); MONOCYTES % (AUTO) 8 % (0-12); NEUTROPHILS # (AUTO) 7.1 10^3/uL (1.8-7.8); NEUTROPHILS % (AUTO) 88 % (42-75); PLATELET COUNT 445 10^3/uL (130-400); WHITE BLOOD COUNT 8.1 10^3/uL (4.3-11.0)
[2022-10-19 09:49] LABS: RETICULOCYTE % 2.16 % (0.50-2.40)
[2022-10-19] MEDS: FAMOTIDINE INJ 20MG/2ML VIAL IV SCH (09:53)
[2022-10-19] MEDS: diphenhydrAMINE INJ 50 MG/ML VIAL IV PRN (09:53)
[2022-10-19] MEDS: NS IV 1000 ML (CANCER CTR) IV SCH (09:54)
[2022-10-19] MEDS: FOSAPREPITANT (CANCER CENTER) 150 MG in NS (IVPB) CANCER CENTER ONLY 150 ML IV SCH (09:55)
[2022-10-19] MEDS: ONDANSETRON IV SCH (10:17)
[2022-10-19] MEDS: [UNRECOGNIZED DRUG - OTHER] IV SCH (10:17)
[2022-10-19] MEDS: DEXAMETHASONE SODIUM PHOSPHATE IV SCH (10:17)
[2022-10-19 10:30] LABS: ALBUMIN 3.1 GM/DL (3.2-4.5); BILIRUBIN,TOTAL 0.3 MG/DL (0.1-1.0); CALCIUM 9.3 MG/DL (8.5-10.1); CREATININE SERUM 0.87 MG/DL (0.60-1.30); POTASSIUM 3.7 MMOL/L (3.6-5.0)
[2022-10-19] MEDS: PEMBROLIZUMAB 200 MG in NS (IVPB) 50 ML 50 ML IV SCH (10:38)
[2022-10-19] MEDS: BEVACIZUMAB BVZR IV SCH (11:14)
[2022-10-19] MEDS: NS IV SCH (11:14)
[2022-10-19] MEDS: NORMAL SALINE IV SCH (11:47)
[2022-10-19] MEDS: PACLITAXEL IV SCH (11:47)
[2022-10-22] MEDS ORDERED: LEVO-55 PO (17:04)
[2022-10-25] MEDS ORDERED: FENT1PAT8 TD (10:34)
[2022-10-25] MEDS ORDERED: LOPE-175 PO (10:34)
[2022-10-25] MEDS ORDERED: LEVO-55 PO (10:34)
[2022-10-25] MEDS ORDERED: FOLI1TAB33 PO (10:34)
== END 2022-10-27 | disposition home or self-care (01) ==
LOC: ONC 07:30
PROVIDERS: ATTEND Internal Medicine Hematology & Oncology
DX: Z51.11 Encounter for antineoplastic chemotherapy (principal); Z45.2 Encounter for adjustment and management of vascular access device; C34.90 Malignant neoplasm of unspecified part of unspecified bronchus or lung; C53.9 Malignant neoplasm of cervix uteri, unspecified
CPT/HCPCS: 36415; 36591; 80053; 82607; 82728; 82746; 83540; 83550; 83615; 83735; 85025; 85045; 96360; 96367; 96375; 96413; 96415; 96417; 99214

== ENCOUNTER 2022-10-22 14:37 | Emergency (ER) | payer MEDICAID ==
[~2022-10-22] VITALS: Ht 157.5 cm; Wt 56.2 kg
[~2022-10-22 14:37] MED LIST changes: -HEParin (CENTRAL IV FLUSH) 500 UNIT/5 ML SYR IV PRN
[2022-10-22] MEDS ORDERED: fentaNYL INJECTION 100 MCG/2 ML VIAL IVP STA ×2 (14:53→17:11)
[2022-10-22] MEDS ORDERED: NS IV 1000 ML 1,000 ML IV STA ×2 (14:53→16:01)
[2022-10-22 15:00] LABS: BILIRUBIN,URINE NEGATIVE (NEGATIVE); COLOR,URINE YELLOW; GLUCOSE, URINE (UA) NEGATIVE (NEGATIVE); KETONES,URINE NEGATIVE (NEGATIVE); LEUKOCYTE ESTERASE ,URINE 2+ (NEGATIVE); NITRITE,URINE NEGATIVE (NEGATIVE); PROTEIN,URINE TRACE (NEGATIVE)
[2022-10-22 15:04] LABS: BACTERIA,URINE LARGE /HPF; CLARITY,URINE CLOUDY; WBC,URINE TNTC /HPF
[2022-10-22 15:05] LABS: BASOPHILS % (AUTO) 0 % (0-10); EOSINOPHILS % (AUTO) 0 % (0-10); HEMATOCRIT 27 % (35-52); HEMOGLOBIN 8.1 g/dL (11.5-16.0); LYMPHOCYTES # (AUTO) 0.3 10^3/uL (1.0-4.0); LYMPHOCYTES % (AUTO) 3 % (12-44); MEAN CORPUSCULAR HEMOGLOBIN 24 pg (25-34); MEAN CORPUSCULAR HGB CONC 30 g/dL (32-36); MEAN CORPUSCULAR VOLUME 79 fL (80-99); MEAN PLATELET VOLUME 10.6 fL (9.0-12.2); MONOCYTES # (AUTO) 0.2 10^3/uL (0.0-1.0); MONOCYTES % (AUTO) 2 % (0-12); NEUTROPHILS # (AUTO) 9.3 10^3/uL (1.8-7.8); NEUTROPHILS % (AUTO) 95 % (42-75); PLATELET COUNT 375 10^3/uL (130-400); WHITE BLOOD COUNT 9.8 10^3/uL (4.3-11.0)
--- NOTE | 2022-10-22 15:25 | ED General ---
General Chief Complaint: Abdominal/GI Problems Stated Complaint: ABD PAIN; URINARY DIFFICULTY Nursing Triage Note: PT AMBULATE TO ROOM FS05 WITHOUT DIFFICULTY WITH C/O ABD PAIN, AND PAIN WITH URINATION. PT REPORTS SHE THINKS HER URINE IS THICKER THAN NORMAL. PT REPORTS CURRENTLY BEING TREATED FOR UTI. Source of Information: Patient History of Present Illness Date Seen by Provider: Oct 22, 2022 Time Seen by Provider: 14:42 Initial Comments 32-year-old female presenting with complaints of increasing left-sided abdominal pain and pain with urination. She feels like her urine is thicker than normal. She reports that she started taking an antibiotic 2 days ago for UTI and from review of the pharmacy records she was taking cefdinir. She is worried that she has sepsis again as she was admitted a few weeks ago with sepsis. She was having increased abdominal pain and has known metastatic disease in her abdomen and flank. Timing/Duration: 3-4 Days Severity: Severe Modifying Factors: worse with Movement Associated Systoms: No Chest Pain, No Cough, No Diaphoresis; Fever/Chills, Headaches, Loss of Appetite, Malaise; No Shortness of Air; Weakness Allergies and Home Medications Allergies Coded Allergies: codeine (Verified Allergy, Mild, chest tightness, 09/19/22) morphine (Verified Allergy, Mild, chest tightness, 09/19/22) gabapentin (Verified Allergy, Unknown, 09/19/22) Patient Home Medication List Home Medication List Reviewed: Yes Amitriptyline HCl (Amitriptyline HCl) 25 Mg Tablet, 25 MG PO HS, (Reported) Entered as Reported by: DEBBIE MCKENNA on 10/08/22 1609 Cefdinir (Cefdinir) 300 Mg Capsule, 300 MG PO BID Prescribed by: KELSEY OLIVER on 10/11/22 0704 Cyclobenzaprine HCl (Cyclobenzaprine HCl) 10 Mg Tablet, 10 MG PO HS, (Reported) Entered as Reported by: WAQAS GARRIDO on 10/10/22 0858 Hydrocodone/Acetaminophen (Hydrocodone-Acetamin 5-325 mg) 5 Mg-325 Mg Tablet, 1 TAB PO Q6H PRN for PAIN-MODERATE (5-7), (Reported) Entered as Reported by: WAQAS GARRIDO on 10/10/22 0859 Lactulose (Lactulose) 10 Gram/15 Ml Solution, 10 GM PO DAILY PRN for CONSTIPATION-3RD LINE, (Reported) Entered as Reported by: WAQAS GARRIDO on 10/10/22 0901 Levofloxacin (Levofloxacin) 500 Mg Tablet, 500 MG PO DAILY Prescribed by: KATIE AGUILAR on 10/22/22 1704 Meloxicam (Meloxicam) 15 Mg Tablet, 15 MG PO HS, (Reported) Entered as Reported by: WAQAS GARRIDO on 10/10/22 09 Naloxone HCl (Naloxone HCl) 4 Mg/Actuation [place], 1 SPRAY NSEACH UD, (Reported) Entered as Reported by: WAQAS GARRIDO on 10/10/22 09 Ondansetron HCl (Ondansetron HCl) 8 Mg Tablet, 8 MG PO Q4H PRN for NAUSEA/VOMITING, (Reported) Entered as Reported by: WAQAS GARRIDO on 10/10/22 0900 Oxycodone HCl (Oxycodone HCl) 5 Mg Tablet, 5 MG PO Q4H Prescribed by: KELSEY OLIVER on 10/11/22 1025 Polyethylene Glycol 3350 (Miralax) 17 Gram Powd.pack, 17 GM PO DAILY PRN for CONSTIPATION, (Reported) Entered as Reported by: WAQAS GARRIDO on 10/10/22 0906 Potassium Chloride (Potassium Chloride) 20 Meq Tab.er.prt, 20 MEQ PO DAILY, (Reported) Entered as Reported by: PRAMOD FARRELL on 05/18/22 0457 Review of Systems Review of Systems Constitutional: see HPI, chills, fever (subjective) EENTM: no symptoms reported Respiratory: no symptoms reported Cardiovascular: no symptoms reported Gastrointestinal: see HPI Genitourinary: see HPI Musculoskeletal: see HPI Skin: No rash Psychiatric/Neurological: See HPI Past Unisbig-Yciewq-Tciohh Hx Patient Social History Tobacco Use?: Yes Tobacco type used: Cigarettes Smoking Status: Current Everyday Smoker Smokeless Tobacco Frequency: Never a User Use of E-Cig and/or Vaping dev: No Substance use?: No Alcohol Use?: No Pt feels they are or have been: No Immunizations Up To Date First/Initial COVID19 Vaccinat: NONE Second COVID19 Vaccination Sam: NONE Third COVID19 Vaccination Date: NONE Seasonal Allergies Seasonal Allergies: No Past Medical History Surgery/Hospitalization HX: 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, lung biopsy Cholecysectomy; Tubal ligation Surgeries: Yes (BRACHYTHERAPY) Gallbladder, Tubal Ligation Respiratory: No Currently Using CPAP: No Currently Using BIPAP: No Cardiac: Yes (RECENTLY HYPOTENSIVE LAST 3 WEEKS) Neurological: No Reproductive Disorders: No Genitourinary: No Gastrointestinal: Yes Gall Bladder Disease Musculoskeletal: No Endocrine: No HEENT: No Cancer: Yes Lung, Cervical What Type of Treatment Did You: Chemotherapy, Radiation, Surgical Intervention Psychosocial: Yes Sleep Difficulties, Anxiety, PTSD, Depression Integumentary: No Blood Disorders: No Family Medical History No Pertinent Family Hx Physical Exam Vital Signs Vital Signs - First Documented 10/22/22 10/22/22 14:43 17:27 Temp 37.2 Pulse 138 Resp 17 B/P (MAP) 168/113 (131) Pulse Ox 99 O2 Delivery Room Air Capillary Refill : Less Than 3 Seconds Height, Weight, BMI Height: '" Weight: lbs. oz. 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 Norm as Tested Skin: Warm/Dry Focused Exam Lactate Level 10/22/22 15:20: Lactic Acid Level 0.85 Lactic Acid Level Laboratory Tests Test 10/22/22 15:20 Lactic Acid Level 0.85 MMOL/L (0.50-2.00) Progress/Results/Core Measures Suspected Sepsis SIRS Temperature: Pulse: 138 Respiratory Rate: 17 Laboratory Tests 10/22/22 15:02: White Blood Count 9.8 Blood Pressure 168 /113 Mean: 131 10/22/22 15:20: Lactic Acid Level 0.85 Laboratory Tests 10/22/22 15:02: Creatinine 1.05, Platelet Count 375, Total Bilirubin 0.6 Results/Orders Lab Results Laboratory Tests Test 10/22/22 14:56 10/22/22 15:02 10/22/22 15:20 Range/Units Urine Color YELLOW Urine Clarity CLOUDY Urine pH 6.0 5-9 Urine Specific [place] 1.020 1.016-1.022 Urine Protein TRACE H NEGATIVE Urine Glucose (UA) NEGATIVE NEGATIVE Urine Ketones NEGATIVE NEGATIVE Urine Nitrite NEGATIVE NEGATIVE Urine Bilirubin NEGATIVE NEGATIVE Urine Urobilinogen 0.2 < = 1.0 MG/DL Urine Leukocyte Esterase 2+ H NEGATIVE Urine RBC (Auto) TRACE-I H NEGATIVE Urine RBC NONE /HPF Urine WBC TNTC H /HPF Urine Squamous Epithelial Cells NONE /HPF Urine Crystals NONE /LPF Urine Bacteria LARGE H /HPF Urine Casts NONE /LPF Urine Mucus NEGATIVE /LPF Urine Culture Indicated YES White Blood Count 9.8 4.3-11.0 10^3/uL Red Blood Count 3.41 L 3.80-5.11 10^6/uL Hemoglobin 8.1 L 11.5-16.0 g/dL Hematocrit 27 L 35-52 % Mean Corpuscular Volume 79 L 80-99 fL Mean Corpuscular Hemoglobin 24 L 25-34 pg Mean Corpuscular Hemoglobin Concent 30 L 32-36 g/dL Red Cell Distribution Width 17.9 H 10.0-14.5 % Platelet Count 375 130-400 10^3/uL Mean Platelet Volume 10.6 9.0-12.2 fL Immature Granulocyte % (Auto) 1 % Neutrophils (%) (Auto) 95 H 42-75 % Lymphocytes (%) (Auto) 3 L 12-44 % Monocytes (%) (Auto) 2 0-12 % Eosinophils (%) (Auto) 0 0-10 % Basophils (%) (Auto) 0 0-10 % Neutrophils # (Auto) 9.3 H 1.8-7.8 10^3/uL Lymphocytes # (Auto) 0.3 L 1.0-4.0 10^3/uL Monocytes # (Auto) 0.2 0.0-1.0 10^3/uL Eosinophils # (Auto) 0.0 0.0-0.3 10^3/uL Basophils # (Auto) 0.0 0.0-0.1 10^3/uL Immature Granulocyte # (Auto) 0.1 0.0-0.1 10^3/uL Neutrophils % (Manual) 99 % Lymphocytes % (Manual) 1 % Sodium Level 129 L 135-145 MMOL/L Potassium Level 3.8 3.6-5.0 MMOL/L Chloride Level 94 L 98-107 MMOL/L Carbon Dioxide Level 23 21-32 MMOL/L Anion Gap 12 5-14 MMOL/L Blood Urea Nitrogen 14 7-18 MG/DL Creatinine 1.05 0.60-1.30 MG/DL Estimat Glomerular Filtration Rate 72 BUN/Creatinine Ratio 13 Glucose Level 94 70-105 MG/DL Calcium Level 9.9 8.5-10.1 MG/DL Corrected Calcium 10.6 H 8.5-10.1 MG/DL Total Bilirubin 0.6 0.1-1.0 MG/DL Aspartate Amino Transf (AST/SGOT) 11 5-34 U/L Alanine Aminotransferase (ALT/SGPT) 7 0-55 U/L Alkaline Phosphatase 118 40-136 U/L C-Reactive Protein 24.14 H <0.50 MG/DL Total Protein 6.9 6.4-8.2 GM/DL Albumin 3.1 L 3.2-4.5 GM/DL Lactic Acid Level 0.85 0.50-2.00 MMOL/L My Orders Orders - KATIE AGUILAR MD Cbc With Automated Diff (10/22/22 14:51) Comprehensive Metabolic Panel (10/22/22 14:51) Blood Culture (10/22/22 14:51) Ua Culture If Indicated (10/22/22 14:51) Ed Iv/Invasive Line Start (10/22/22 14:51) Crp Fs (10/22/22 14:51) Lactic Acid Analyzer (10/22/22 14:51) Ct Abdomen/Pelvis Wo (10/22/22 14:51) Ns Iv 1000 Ml (Ns Iv 1000 Ml) (10/22/22 14:53) Fentanyl Injection (Fentanyl Injection (10/22/22 14:53) Urine Culture (10/22/22 14:56) Manual Differential (10/22/22 15:02) Ns Iv 1000 Ml (Ns Iv 1000 Ml) (10/22/22 16:01) Levofloxacin 500 Mg/100 Ml Iv (Levofloxa (10/22/22 16:01) Fentanyl Injection (Fentanyl Injection (10/22/22 17:11) Ketorolac Injection (Ketorolac Injection (10/22/22 17:11) Heparin (Central Iv Flush) (Heparin ([place] (10/22/22 17:11) Vital Signs/I&O 10/22/22 10/22/22 14:43 17:27 Temp 37.2 36.6 Pulse 138 72 Resp 17 16 B/P (MAP) 168/113 (131) 136/82 Pulse Ox 99 O2 Delivery Room Air Room Air Capillary Refill : Less Than 3 Seconds Blood Pressure Mean: 131 Progress Note #1: Progress Note Potential diagnosis of sepsis, pyelonephritis, UTI, pain due to metastatic cancer. Obtain labs from accessing her port. Send complete blood count, comprehensive metabolic profile, blood cultures, lactic acid, CRP. Administer normal saline 1 L IV fluid bolus for hydration, fentanyl 50 mcg IV for pain. Check urine for infection. Progress Note #2: Progress Note Urinalysis shows she still has 2+ leukocyte esterase and large bacteria with numerous white blood cells. Since she is already been on cefdinir for 2 days will change the antibiotic. Administer Levaquin IV. Her complete blood count showed white blood cells at upper limit of normal at 9.8. Her anemia is chronic at 8.1 for her hemoglobin. Her comprehensive metabolic panel has a normal lactic acid of 0.85. Her creatinine was okay at 1.05. Awaiting CT scan of the abdomen and pelvis to see if there is any acute pathology beyond her chronic metastatic disease. Progress Note #3: Progress Note CT scan continues to show metastatic disease and hydronephrosis on the right. Will change the antibiotics since she does not appear to be having any improvement with the cefdinir. Given Levaquin 500 mg IV x1 here in the ED and discharged on oral Levaquin 500 mg p.o. x7 days. Encouraged to check with pain management as well as her primary care and oncology about continued pain management. Diagnostic Imaging Diagonstic Imaging: CT Plain Films/CT/US/NM/MRI: abdomen, pelvis Comments [facility] [place], [place] NAME: SHELLEY JUDD [facility] REC#: [id number] PT STATUS: REG ER : 1990 PHYSICIAN: KATIE AGUILAR MD ADMIT DATE: 10/22/22/ER FS Draft Date of Exam:10/22/22 CT ABDOMEN/PELVIS WO PROCEDURE: CT abdomen and pelvis without contrast. TECHNIQUE: Multiple contiguous axial images were obtained through the abdomen and pelvis without the use of intravenous contrast. Auto Exposure Controls were utilized during the CT exam to meet ALARA standards for radiation dose reduction. INDICATION: Left flank pain and suprapubic pain, history of uterine and lung cancer. Noncontrasted abdominopelvic CT is performed. COMPARISON: Exam compared with CT abdomen and pelvis of 10/01/2022. FINDINGS: Irregular midline lower pelvic gas/fluid collection is inseparable from the uterus and measures 7 cm AP x 5.5 cm transverse, previously 5.1 x 3.0 cm. There is edema and thickening of the adjacent rectum which may be secondarily inflamed. Fistula to the uterine cavity however could not be excluded. The urinary bladder was normal. There is no bowel obstruction. There is a normal appendix. There is increased right hydroureteronephrosis, now moderate in severity with no radiodense ureteral stone. The left kidney is unobstructed. Pleural masses in the left greater than right lower chest, unchanged from the recent exam and presumptively metastatic. Destructive lesion with associated soft tissue mass at the left 11th rib posteriorly, unchanged. Multiple vertebral body and posterior elements lytic lesions, presumed metastatic, unchanged. IMPRESSION: 1. Enlargement of the intrauterine irregular gas/fluid collection, presumed to be secondary to the known malignancy, superinfection not excluded. There is adjacent rectal edema, thickening, and stranding. Fistulization could not be excluded. No bowel or biliary tract obstruction. 2. Worsened right hydroureteronephrosis, likely at least partial distal right ureteral obstruction from the pelvic mass. No opaque stone. 3. 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 Dictated on workstation # [id number] Dict: 10/22/22 1537 Trans: 10/22/22 1605 [id number] Interpreted by: JAMA MCKEON Electronically signed by: Reviewed: Reviewed by Me Departure Impression Primary Impression: Pyelonephritis Additional Impression: Multiple lesions of metastatic malignancy Disposition: 01 HOME, SELF-CARE Condition: Stable Departure-Patient Inst. Decision time for Depature: 17:03 Referrals: LINDSAY CORTES MD (PCP/Family) Primary Care Physician Patient Instructions: Bone metastases, Urinary Tract Infection, Adult ED Add. Discharge Instructions: Stop the cefdinir and start taking the levofloxacin antibiotic. The urine today was still showing infection so the cefdinir does not seem to be treating your infection. Try to keep sipping on fluids and stay well-hydrated. Work with your pain management and primary doctor and oncologist about helping to control your pain. All discharge instructions reviewed with patient and/or family. Voiced understanding. Scripts Levofloxacin (Levofloxacin) 500 Mg Tablet 500 MG PO DAILY for UTI for 7 Days, #7 TAB 0 Refills Prov: KATIE AGUILAR MD 10/22/22 KATIE AGUILAR MD Oct 22, 2022 15:25
[2022-10-22 15:29] LABS: ALBUMIN 3.1 GM/DL (3.2-4.5); BILIRUBIN,TOTAL 0.6 MG/DL (0.1-1.0); CALCIUM 9.9 MG/DL (8.5-10.1); CREATININE SERUM 1.05 MG/DL (0.60-1.30); POTASSIUM 3.8 MMOL/L (3.6-5.0); TOTAL PROTEIN 6.9 GM/DL (6.4-8.2)
--- NOTE | 2022-10-22 16:06 | Diagnostic Imaging Report ---
PROCEDURE: CT abdomen and pelvis without contrast. TECHNIQUE: Multiple contiguous axial images were obtained through the abdomen and pelvis without the use of intravenous contrast. Auto Exposure Controls were utilized during the CT exam to meet ALARA standards for radiation dose reduction. INDICATION: Left flank pain and suprapubic pain, history of uterine and lung cancer. Noncontrasted abdominopelvic CT is performed. COMPARISON: Exam compared with CT abdomen and pelvis of 10/01/2022. FINDINGS: Irregular midline lower pelvic gas/fluid collection is inseparable from the uterus and measures 7 cm AP x 5.5 cm transverse, previously 5.1 x 3.0 cm. There is edema and thickening of the adjacent rectum which may be secondarily inflamed. Fistula to the uterine cavity however could not be excluded. The urinary bladder was normal. There is no bowel obstruction. There is a normal appendix. There is increased right hydroureteronephrosis, now moderate in severity with no radiodense ureteral stone. The left kidney is unobstructed. Pleural masses in the left greater than right lower chest, unchanged from the recent exam and presumptively metastatic. Destructive lesion with associated soft tissue mass at the left 11th rib posteriorly, unchanged. Multiple vertebral body and posterior elements lytic lesions, presumed metastatic, unchanged. IMPRESSION: 1. Enlargement of the intrauterine irregular gas/fluid collection, presumed to be secondary to the known malignancy, superinfection not excluded. There is adjacent rectal edema, thickening, and stranding. Fistulization could not be excluded. No bowel or biliary tract obstruction. 2. Worsened right hydroureteronephrosis, likely at least partial distal right ureteral obstruction from the pelvic mass. No opaque stone. 3. 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 Dictated by: Dictated on workstation # [id number]
[2022-10-22 16:18] LABS: LYMPHOCYTES % (MANUAL) 1 %; NEUTROPHILS % (MANUAL) 99 %
[2022-10-22] MEDS ORDERED: LEVO-55 PO (17:04)
[2022-10-22] MEDS ORDERED: KETOROLAC INJ 15 MG/ML VIAL IVP STA (17:11)
[2022-10-22] MEDS ORDERED: HEParin (CENTRAL IV FLUSH) 500 UNIT/5 ML SYR IV STA (17:11)
[2022-10-22 17:27] VITALS: BP 136/82
== END 2022-10-22 17:27 | disposition home or self-care (01) ==
LOC: EDUNIT# 14:37 → ER FS 14:38
DX: N12 Tubulo-interstitial nephritis, not specified as acute or chronic (principal); C53.9 Malignant neoplasm of cervix uteri, unspecified; C78.00 Secondary malignant neoplasm of unspecified lung; F17.210 Nicotine dependence, cigarettes, uncomplicated; Z28.310 Unvaccinated for COVID-19
CPT/HCPCS: 36415; 74176; 80053; 81000; 83605; 85007; 85027; 86141; 87040; 87088

== ENCOUNTER 2022-10-24 17:54 | Inpatient (IN) | payer MEDICAID ==
[~2022-10-24] VITALS: Ht 160 cm; Wt 65.7 kg
[~2022-10-24 17:54] MED LIST changes: +LEVO-55 PO
[2022-10-24] MEDS ORDERED: NS IV 1000 ML 1,000 ML IV STA (18:10)
[2022-10-24] MEDS ORDERED: fentaNYL INJECTION 100 MCG/2 ML VIAL IVP STA (18:10)
--- NOTE | 2022-10-24 18:25 | ED Abdominal Pain ---
General Chief Complaint: Abdominal/GI Problems Stated Complaint: ABD PAIN,VAG PAIN Source of Information: Patient, Old Records Exam Limitations: Other (pelvic pain) History of Present Illness Date Seen by Provider: Oct 24, 2022 Time Seen by Provider: 17:58 Initial Comments 32-year-old female returning again to the emergency department with worsening pelvic pain. She has known cervical cancer with metastatic disease and is continuing on chemotherapy and radiation. However all of her testing through the emergency department has continued to show worsening masses and metastatic disease despite cancer treatment. She was seen on October 22 and found to still have findings for UTI despite 2 days of antibiotics by [facility]. She was changed to Levaquin to treat for the UTI. She states that she has had decreased urine output throughout the day. She has severe pelvic and left lower quadrant abdominal pain that feels like she "is being torn apart from the inside." She denies having nausea/vomiting, diarrhea, blood in stool, fever. She has a fentanyl patch and took hydrocodone prior to coming to the ED without improvement in her pain. Timing/Duration: 4-5 Days, Getting Worse Severity/Quality: Severe, Sharp, Stabbing, Other (tearing) Location: LLQ, Suprapubic Activities at Onset: None Modifying Factors: Worsens With Movement, Worsens With Palpation Associated Symptoms: No Back Pain, No Chest Pain, No Diaphoresis, No Fever/Chills; Fatigue; No Heartburn, No Nausea/Vomiting, No Rash, No Shortness of Air, No Syncope, No Weakness Allergies and Home Medications Allergies Coded Allergies: codeine (Verified Allergy, Mild, chest tightness, 09/19/22) morphine (Verified Allergy, Mild, chest tightness, 09/19/22) gabapentin (Verified Allergy, Unknown, 09/19/22) Patient Home Medication List Home Medication List Reviewed: Yes Amitriptyline HCl (Amitriptyline HCl) 25 Mg Tablet, 25 MG PO HS, (Reported) Entered as Reported by: DEBBIE MCKENNA on 10/08/22 1609 Cefdinir (Cefdinir) 300 Mg Capsule, 300 MG PO BID Prescribed by: KELSEY OLIVER on 10/11/22 0704 Cyclobenzaprine HCl (Cyclobenzaprine HCl) 10 Mg Tablet, 10 MG PO HS, (Reported) Entered as Reported by: WAQAS GARRIDO on 10/10/22 0858 Hydrocodone/Acetaminophen (Hydrocodone-Acetamin 5-325 mg) 5 Mg-325 Mg Tablet, 1 TAB PO Q6H PRN for PAIN-MODERATE (5-7), (Reported) Entered as Reported by: WAQAS GARRIDO on 10/10/22 0859 Lactulose (Lactulose) 10 Gram/15 Ml Solution, 10 GM PO DAILY PRN for CONSTIPATION-3RD LINE, (Reported) Entered as Reported by: WAQAS GARRIDO on 10/10/22 0901 Levofloxacin (Levofloxacin) 500 Mg Tablet, 500 MG PO DAILY Prescribed by: KATIE AGUILAR on 10/22/22 1704 Meloxicam (Meloxicam) 15 Mg Tablet, 15 MG PO HS, (Reported) Entered as Reported by: WAQAS GARRIDO on 10/10/22 0903 Naloxone HCl (Naloxone HCl) 4 Mg/Actuation Pyrites, 1 SPRAY NSEACH UD, (Reported) Entered as Reported by: WAQAS GARRIDO on 10/10/22 0903 Ondansetron HCl (Ondansetron HCl) 8 Mg Tablet, 8 MG PO Q4H PRN for NAUSEA/VOMITING, (Reported) Entered as Reported by: WAQAS GARRIDO on 10/10/22 0900 Oxycodone HCl (Oxycodone HCl) 5 Mg Tablet, 5 MG PO Q4H Prescribed by: KELSEY OLIVER on 10/11/22 1025 Polyethylene Glycol 3350 (Miralax) 17 Gram Powd.pack, 17 GM PO DAILY PRN for CONSTIPATION, (Reported) Entered as Reported by: WAQAS GARRIDO on 10/10/22 0906 Potassium Chloride (Potassium Chloride) 20 Meq Tab.er.prt, 20 MEQ PO DAILY, (Reported) Entered as Reported by: PRAMOD FARRELL on 05/18/22 0457 Review of Systems Review of Systems Constitutional: see HPI EENTM: No Symptoms Reported Respiratory: No Symptoms Reported Cardiovascular: No Symptoms Reported Gastrointestinal: See HPI Genitourinary: See HPI Musculoskeletal: no symptoms reported Skin: no symptoms reported Psychiatric/Neurological: Anxiety Past Yagevwz-Bvomqd-Lqrvob Hx Immunizations Up To Date First/Initial COVID19 Vaccinat: NONE Second COVID19 Vaccination Sam: NONE Third COVID19 Vaccination Date: NONE Seasonal Allergies Seasonal Allergies: No Past Medical History Surgery/Hospitalization HX: 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, lung biopsy Cholecysectomy; Tubal ligation Surgeries: Yes (BRACHYTHERAPY) Gallbladder, Tubal Ligation Respiratory: No Currently Using CPAP: No Currently Using BIPAP: No Cardiac: Yes (RECENTLY HYPOTENSIVE LAST 3 WEEKS) Neurological: No Reproductive Disorders: No Genitourinary: No Gastrointestinal: Yes Gall Bladder Disease Musculoskeletal: No Endocrine: No HEENT: No Cancer: Yes Lung, Cervical What Type of Treatment Did You: Chemotherapy, Radiation, Surgical Intervention Psychosocial: Yes Sleep Difficulties, Anxiety, PTSD, Depression Integumentary: No Blood Disorders: No Family Medical History No Pertinent Family Hx Physical Exam Vital Signs Vital Signs - First Documented 10/24/22 18:45 Temp 36.4 Pulse 126 Resp 20 B/P (MAP) 165/99 (121) Pulse Ox 97 O2 Delivery Room Air Capillary Refill : Height/Weight/BMI Height: '" Weight: lbs. oz. kg; 22.00 BMI Method: General Appearance: moderate distress (crying out in pain and holding her LLQ and suprapubic area), thin, other (chronically ill appearing) HEENT: PERRL/EOMI Respiratory: chest non-tender, lungs clear, normal breath sounds, no respiratory distress, no accessory muscle use Cardiovascular: normal peripheral pulses, tachycardia Gastrointestinal: soft, no pulsatile mass, abnormal bowel sounds (hypoactive), guarding; No rebound; tenderness (LLQ and suprapubic) Rectal: deferred Extremities: normal range of motion, non-tender, normal capillary refill Neurologic/Psychiatric: alert, oriented x 3 Skin: warm/dry Focused Exam Lactate Level 10/24/22 18:10: Lactic Acid Level 1.43 Lactic Acid Level Laboratory Tests Test 10/24/22 18:10 Lactic Acid Level 1.43 MMOL/L (0.50-2.00) Progress/Results/Core Measures Results/Orders Lab Results Laboratory Tests Test 10/24/22 18:10 10/24/22 20:17 Range/Units White Blood Count 6.7 4.3-11.0 10^3/uL Red Blood Count 2.81 L 3.80-5.11 10^6/uL Hemoglobin 6.7 *L 11.5-16.0 g/dL Hematocrit 23 L 35-52 % Mean Corpuscular Volume 80 80-99 fL Mean Corpuscular Hemoglobin 24 L 25-34 pg Mean Corpuscular Hemoglobin Concent 30 L 32-36 g/dL Red Cell Distribution Width 17.8 H 10.0-14.5 % Platelet Count 292 130-400 10^3/uL Mean Platelet Volume 11.1 9.0-12.2 fL Immature Granulocyte % (Auto) 0 % Neutrophils (%) (Auto) 93 H 42-75 % Lymphocytes (%) (Auto) 2 L 12-44 % Monocytes (%) (Auto) 5 0-12 % Eosinophils (%) (Auto) 0 0-10 % Basophils (%) (Auto) 0 0-10 % Neutrophils # (Auto) 6.2 1.8-7.8 10^3/uL Lymphocytes # (Auto) 0.1 L 1.0-4.0 10^3/uL Monocytes # (Auto) 0.3 0.0-1.0 10^3/uL Eosinophils # (Auto) 0.0 0.0-0.3 10^3/uL Basophils # (Auto) 0.0 0.0-0.1 10^3/uL Immature Granulocyte # (Auto) 0.0 0.0-0.1 10^3/uL Neutrophils % (Manual) 94 % Lymphocytes % (Manual) 5 % Monocytes % (Manual) 1 % Toxic Granulation 2+ Platelet Estimate ADEQUATE Hypochromasia MARKED Anisocytosis SLIGHT Sodium Level 133 L 135-145 MMOL/L Potassium Level 3.6 3.6-5.0 MMOL/L Chloride Level 95 L 98-107 MMOL/L Carbon Dioxide Level 21 21-32 MMOL/L Anion Gap 17 H 5-14 MMOL/L Blood Urea Nitrogen 10 7-18 MG/DL Creatinine 0.90 0.60-1.30 MG/DL Estimat Glomerular Filtration Rate 86 BUN/Creatinine Ratio 11 Glucose Level 121 H 70-105 MG/DL Lactic Acid Level 1.43 0.50-2.00 MMOL/L Calcium Level 9.8 8.5-10.1 MG/DL Corrected Calcium 10.7 H 8.5-10.1 MG/DL Total Bilirubin 0.5 0.1-1.0 MG/DL Aspartate Amino Transf (AST/SGOT) 19 5-34 U/L Alanine Aminotransferase (ALT/SGPT) 9 0-55 U/L Alkaline Phosphatase 129 40-136 U/L C-Reactive Protein 25.86 H <0.50 MG/DL Total Protein 6.7 6.4-8.2 GM/DL Albumin 2.9 L 3.2-4.5 GM/DL Lipase 13 8-78 U/L Urine Color YELLOW Urine Clarity CLEAR Urine pH 6.0 5-9 Urine Specific [place] 1.020 1.016-1.022 Urine Protein TRACE H NEGATIVE Urine Glucose (UA) NEGATIVE NEGATIVE Urine Ketones 1+ H NEGATIVE Urine Nitrite NEGATIVE NEGATIVE Urine Bilirubin 1+ H NEGATIVE Urine Urobilinogen 1.0 < = 1.0 MG/DL Urine Leukocyte Esterase NEGATIVE NEGATIVE Urine RBC (Auto) NEGATIVE NEGATIVE Urine RBC NONE /HPF Urine WBC NONE /HPF Urine Crystals NONE /LPF Urine Bacteria NEGATIVE /HPF Urine Casts NONE /LPF Urine Mucus MODERATE H /LPF Urine Culture Indicated NO My Orders Orders - KATIE AGUILAR MD Comprehensive Metabolic Panel (10/24/22 18:03) Lipase (10/24/22 18:03) Ua Culture If Indicated (10/24/22 18:03) Cbc With Automated Diff (10/24/22 18:03) Ct Abdomen/Pelvis W (10/24/22 18:03) Implanted Port: Access (10/24/22 18:08) Blood Culture (10/24/22 18:08) Crp Fs (10/24/22 18:08) Bladder Scan (10/24/22 18:08) Lactic Acid Analyzer (10/24/22 18:08) Ns Iv 1000 Ml (Ns Iv 1000 Ml) (10/24/22 18:10) Fentanyl Injection (Fentanyl Injection (10/24/22 18:10) Iohexol Injection (Omnipaque 350 Mg/Ml 1 (10/24/22 18:30) Received Contrast (Hold Metformin- Contr (10/24/22 18:30) Ns (Ivpb) 100 Ml (Sodium Chloride 0.9% 1 (10/24/22 18:30) Hydromorphone Injection (Hydromorphone (10/24/22 18:33) Manual Differential (10/24/22 18:10) Hydromorphone Injection (Hydromorphone (10/24/22 18:55) Ed Admission (Communication) (10/24/22 19:24) Hydromorphone Injection (Hydromorphone (10/24/22 19:42) Lopez Cath (10/24/22 19:42) Medications Given in ED Current Medications Medications Dose Ordered Sig/Raphael Route Start Time Stop Time Status Last Admin Dose Admin Iohexol 100 ml ONCE ONCE IV 10/24/22 18:30 10/24/22 18:31 DC 10/24/22 18:36 80 ML Sodium Chloride 100 ml ONCE ONCE IV 10/24/22 18:30 10/24/22 18:31 DC 10/24/22 18:36 100 ML Vital Signs/I&O 10/24/22 18:45 Temp 36.4 Pulse 126 Resp 20 B/P (MAP) 165/99 (121) Pulse Ox 97 O2 Delivery Room Air Admisison Planning May Need Admission (Planning): 18:00 Progress Progress Note #1: Progress Note Potential diagnosis of sepsis, renal colic, cystitis, pyelonephritis, colitis, diverticulitis, metastatic cancer pain. Access implanted port and send labs for complete blood count, comprehensive metabolic profile, lipase, blood cultures, lactic acid. Bladder scan to look for retention since she reports not urinating since this am. CT scan of abdomen/pelvis with IV contrast to look for Progress Note #2: Time: 19:10 Progress Note Lab called to report that her hemoglobin is down to 6.7. On October 22 she was 8.1. She has recently had a transfusion because her hemoglobin had dropped. Today her white blood cell count is 6.7 with 93% neutrophils on the automated differential. Manual differential is pending. Patient was still having severe pain after the dose of fentanyl 100 mcg IV so a dose of Dilaudid 0.5 mg IV was administered. She had some better improvement in her pain with the Dilaudid but it did not last very long. Just before 7 PM she was crying out in pain again so an additional 0.5 mg of Dilaudid was ordered. Radiology reported on the CT scan that it looks like the air and fluid levels in her uterus had slightly increased and there was rectal wall thickening with concern for possible rectal uterine fistula. I called the on-call surgeon Dr. Potter to get his input on management of this. He will review the images and call me back. After Dr. Potter reviewed the images he called me back and did not appreciate any fistula tract. With her having a normal white blood cell count and negative lactic acid elevation felt that this was likely more due to the necrotic process of the cervix and uterus secondary to cancer and the cancer treatment. 192 discussed the case with Dr. Argueta, the on-call [facility] hospitalist. She accepted the patient for observation admission for pain control and consult oncology tomorrow. When I updated the patient about the plan she states that she still felt like she needed to urinate but cannot get any urine to come out so a Lopez catheter will be placed and we will repeat a dose of Dilaudid 1 mg IV to see if it does any better to help calm her pain down. Awaiting room placement at [facility] and plan to transport once a bed is available. Diagnostic Imaging Diagonstic Imaging: CT Plain Films/CT/US/NM/MRI: abdomen, pelvis Comments NAME: [facility] REC#: [id number] PT STATUS: REG ER : 1990 PHYSICIAN: KATIE AGUILAR MD ADMIT DATE: 10/24/22/ER FS Draft Date of Exam:10/24/22 CT ABDOMEN/PELVIS W EXAMINATION: CT abdomen and pelvis with intravenous contrast. TECHNIQUE: Multiple contiguous axial images were obtained through the abdomen and pelvis after the uneventful administration of intravenous contrast. All CT scans use one or more of the following dose optimizing techniques: automated exposure control, MA and/or KvP adjustment based on patient size and exam type or iterative reconstruction. HISTORY: Abdominal pain, uterine and lung cancer. COMPARISON: 10/22/2022 FINDINGS: Limited views of the lower thorax show a 2.5 x 2.4 cm left lower lobe nodule, unchanged. The right lower lobe nodule measuring 2.1 x 1.2 cm is unchanged. The liver is normal without focal lesion. There is no biliary ductal dilation. Gallbladder is absent. Pancreas is normal. Spleen is normal. A 1.2 cm left adrenal nodule is unchanged. There is moderate hydronephrosis on the right. Point of transition is at a mass centered near the uterus. There is no significant change from prior exam. No suspicious renal lesion. Urinary bladder is normal. There is a fluid and gas collection in the pelvis centered in the uterus measuring 7.6 x 7.0 cm, previously 6.8 x 4.6 cm. There is adjacent wall thickening of the rectum. Fluid and gas abuts the wall of the rectum. The remainder of the bowel is normal. At 1.2 cm, right pelvic sidewall lymph node is unchanged. A 1.0 cm left retroperitoneal lymph node is unchanged. Aorta is normal in caliber without aneurysm. There are unchanged rib lesions as well as an L3 lytic lesion. IMPRESSION: 1. Unchanged lung nodules, osseous metastatic disease and lymphadenopathy. 2. Fluid and gas collection centered in the uterus is slightly increased in size from prior exam and abuts the rectum which is thick-walled. 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 Dictated on workstation # [id number] Dict: 10/24/22 1853 Trans: 10/24/22 190 [facility] [id number] Interpreted by: QUIRINO AVILES MD Electronically signed by: Reviewed: Reviewed by Me Departure Communication (Admissions) Time/Spoke to Admitting Phy: 19:[address] Argueta, [facility] hospitalist on-call. I reviewed the patient's presentation and history with her about metastatic cervical cancer with multiple areas of metastases. Increasing suprapubic and pelvic pain over the last several days. Tonight on the CT scan did look like increased fluid and gas in the cervix and uterus concerning for necrotic process involving the cancer. Radiology also mentioned that there could be an abscess or fistula with the rectum however her white blood cell count was normal at 6.7 and her lactic was normal at 1.43. I did review the case with Dr. Potter, the on-call surgeon, and he had reviewed the images and did not appreciate any fistula tract on the scan. Dr. Argueta was willing to place patient in observation status for pain control and plan to consult oncology in the morning to see about further input on controlling her pain and the necrotic tissue in her cervix and uterus. Impression Primary Impression: Suprapubic abdominal pain Additional Impressions: Cervical cancer Qualified Codes: C53.9 - Malignant neoplasm of cervix uteri, unspecified Metastatic cancer to lung Qualified Codes: C78.01 - Secondary malignant neoplasm of right lung; C78.02 - Secondary malignant neoplasm of left lung Metastatic cancer to spine Anemia Qualified Codes: D64.9 - Anemia, unspecified Disposition: 30 STILL A PATIENT Condition: Stable Admissions Decision to Admit Reason: Admit from ER (General) Decision to Admit/Date: Oct 24, 2022 Time/Decision to Admit Time: 19:24 Departure-Patient Inst. Referrals: LINDSAY CORTES MD (PCP/Family) Primary Care Physician KATIE AGUILAR MD Oct 24, 2022 18:25
[2022-10-24] MEDS ORDERED: HOLD METFORMIN - RECEIVED CONTRAST 20 ML VIAL IV SCH (18:30)
[2022-10-24] MEDS ORDERED: NS 100 ML (IVPB) BAG IV ONE (18:30)
[2022-10-24] MEDS ORDERED: IOHEXOL 350 MG/ML 100 ML (OMNIPAQUE 350) VIAL IV ONE (18:30)
[2022-10-24] MEDS ORDERED: HYDROmorphone INJECTION 2 MG/ML VIAL IV STA ×3 (18:33→19:42)
[2022-10-24 18:36] LABS: BASOPHILS % (AUTO) 0 % (0-10); EOSINOPHILS % (AUTO) 0 % (0-10); HEMATOCRIT 23 % (35-52); LYMPHOCYTES # (AUTO) 0.1 10^3/uL (1.0-4.0); LYMPHOCYTES % (AUTO) 2 % (12-44); MEAN CORPUSCULAR HEMOGLOBIN 24 pg (25-34); MEAN CORPUSCULAR HGB CONC 30 g/dL (32-36); MEAN CORPUSCULAR VOLUME 80 fL (80-99); MEAN PLATELET VOLUME 11.1 fL (9.0-12.2); MONOCYTES # (AUTO) 0.3 10^3/uL (0.0-1.0); MONOCYTES % (AUTO) 5 % (0-12); NEUTROPHILS # (AUTO) 6.2 10^3/uL (1.8-7.8); NEUTROPHILS % (AUTO) 93 % (42-75); PLATELET COUNT 292 10^3/uL (130-400); WHITE BLOOD COUNT 6.7 10^3/uL (4.3-11.0)
[2022-10-24 18:40] LABS: HEMOGLOBIN 6.7 g/dL (11.5-16.0)
[2022-10-24 19:03] LABS: ALBUMIN 2.9 GM/DL (3.2-4.5); BILIRUBIN,TOTAL 0.5 MG/DL (0.1-1.0); CALCIUM 9.8 MG/DL (8.5-10.1); CREATININE SERUM 0.9 MG/DL (0.60-1.30); POTASSIUM 3.6 MMOL/L (3.6-5.0); TOTAL PROTEIN 6.7 GM/DL (6.4-8.2)
--- NOTE | 2022-10-24 19:03 | Diagnostic Imaging Report ---
EXAMINATION: CT abdomen and pelvis with intravenous contrast. TECHNIQUE: Multiple contiguous axial images were obtained through the abdomen and pelvis after the uneventful administration of intravenous contrast. All CT scans use one or more of the following dose optimizing techniques: automated exposure control, MA and/or KvP adjustment based on patient size and exam type or iterative reconstruction. HISTORY: Abdominal pain, uterine and lung cancer. COMPARISON: 10/22/2022 FINDINGS: Limited views of the lower thorax show a 2.5 x 2.4 cm left lower lobe nodule, unchanged. The right lower lobe nodule measuring 2.1 x 1.2 cm is unchanged. The liver is normal without focal lesion. There is no biliary ductal dilation. Gallbladder is absent. Pancreas is normal. Spleen is normal. A 1.2 cm left adrenal nodule is unchanged. There is moderate hydronephrosis on the right. Point of transition is at a mass centered near the uterus. There is no significant change from prior exam. No suspicious renal lesion. Urinary bladder is normal. There is a fluid and gas collection in the pelvis centered in the uterus measuring 7.6 x 7.0 cm, previously 6.8 x 4.6 cm. There is adjacent wall thickening of the rectum. Fluid and gas abuts the wall of the rectum. The remainder of the bowel is normal. At 1.2 cm, right pelvic sidewall lymph node is unchanged. A 1.0 cm left retroperitoneal lymph node is unchanged. Aorta is normal in caliber without aneurysm. There are unchanged rib lesions as well as an L3 lytic lesion. IMPRESSION: 1. Unchanged lung nodules, osseous metastatic disease and lymphadenopathy. 2. Fluid and gas collection centered in the uterus is slightly increased in size from prior exam and abuts the rectum which is thick-walled. 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 Dictated by: Dictated on workstation # [id number]
[2022-10-24 19:04] LABS: LYMPHOCYTES % (MANUAL) 5 %; MONOCYTES % (MANUAL) 1 %; NEUTROPHILS % (MANUAL) 94 %
[2022-10-24 19:05] LABS: ANISOCYTOSIS SLIGHT; HYPOCHROMASIA MARKED; PLATELET ESTIMATE ADEQUATE; TOXIC GRANULATION/VACUOLAZATIO 2+
[2022-10-24 20:24] LABS: CLARITY,URINE CLEAR; COLOR,URINE YELLOW; GLUCOSE, URINE (UA) NEGATIVE (NEGATIVE); KETONES,URINE 1+ (NEGATIVE); LEUKOCYTE ESTERASE ,URINE NEGATIVE (NEGATIVE); NITRITE,URINE NEGATIVE (NEGATIVE); PROTEIN,URINE TRACE (NEGATIVE)
[2022-10-24 20:33] LABS: BACTERIA,URINE NEGATIVE /HPF
[2022-10-24 20:34] LABS: BILIRUBIN,URINE 1+ (NEGATIVE)
[2022-10-24] MEDS ORDERED: NS IV 1000 ML 1,000 ML ONE (21:36)
[2022-10-24] MEDS ORDERED: NALOXONE 0.4 MG/ML 1 ML VIAL IV PRN (21:45)
[2022-10-24] MEDS ORDERED: ONDANSETRON 4 MG ORAL DISSOLVE TABLET PO PRN (21:45)
[2022-10-24] MEDS ORDERED: BISACODYL 10 MG SUPPOSITORY PR PRN (21:45)
[2022-10-24] MEDS ORDERED: ONDANSETRON INJECTION 4 MG/2 ML (SDV) IV PRN (21:45)
[2022-10-24] MEDS ORDERED: MELATONIN 3 MG TABLET PO PRN (21:45)
[2022-10-24] MEDS ORDERED: LACTULOSE SYRUP 10GM/15ML 30ML UDC PO PRN (21:45)
[2022-10-24] MEDS ORDERED: ANTACID SUSPENSION 30 ML UDC PO PRN (21:45)
[2022-10-24] MEDS: NS IV 1000 ML 1,000 ML IV SCH (22:18)
[2022-10-24] MEDS: HYDROmorphone INJECTION 2 MG/ML VIAL IV PRN (22:18)
[2022-10-24 23:34] VITALS: BP 149/85
[2022-10-25] VITALS (11 sets, daily range): BP systolic 136–162; BP diastolic 87–101
[2022-10-25] MEDS: HYDROmorphone INJECTION 2 MG/ML VIAL IV PRN ×5 (00:09→09:33)
[2022-10-25] MEDS ORDERED: LOPERAMIDE 2 MG CAPSULE PO PRN (01:45)
[2022-10-25] MEDS: KETOROLAC INJ 30 MG/ML VIAL IV PRN ×2 (01:58→09:04)
[2022-10-25 04:39] LABS: BASOPHILS % (AUTO) 0 % (0-10); EOSINOPHILS % (AUTO) 0 % (0-10); LYMPHOCYTES # (AUTO) 0.1 10^3/uL (1.0-4.0); LYMPHOCYTES % (AUTO) 2 % (12-44); MEAN CORPUSCULAR HEMOGLOBIN 24 pg (25-34); MEAN CORPUSCULAR HGB CONC 30 g/dL (32-36); MEAN CORPUSCULAR VOLUME 79 fL (80-99); MEAN PLATELET VOLUME 10.4 fL (9.0-12.2); MONOCYTES # (AUTO) 0.4 10^3/uL (0.0-1.0); MONOCYTES % (AUTO) 5 % (0-12); NEUTROPHILS # (AUTO) 6.4 10^3/uL (1.8-7.8); NEUTROPHILS % (AUTO) 92 % (42-75); PLATELET COUNT 220 10^3/uL (130-400); WHITE BLOOD COUNT 6.9 10^3/uL (4.3-11.0)
[2022-10-25 04:55] LABS: ALBUMIN 2.6 GM/DL (3.2-4.5); HEMATOCRIT 19 % (35-52); HEMOGLOBIN 5.8 g/dL (11.5-16.0); POTASSIUM 3.5 MMOL/L (3.6-5.0)
[2022-10-25 04:56] LABS: CALCIUM 8.7 MG/DL (8.5-10.1)
[2022-10-25 04:57] LABS: TOTAL PROTEIN 5.8 GM/DL (6.4-8.2)
[2022-10-25 04:59] LABS: BILIRUBIN,TOTAL 0.4 MG/DL (0.1-1.0)
[2022-10-25 05:01] LABS: CREATININE SERUM 1.09 MG/DL (0.60-1.30)
[2022-10-25] MEDS ORDERED: NS IV 500 ML 500 ML IV SCH (05:45)
[2022-10-25] MEDS: NS IV 1000 ML 1,000 ML IV SCH ×4 (07:12→21:47)
[2022-10-25] MEDS ORDERED: METOCLOPRAMIDE INJ 10 MG/2 ML IV PRN (07:30)
[2022-10-25] MEDS ORDERED: NS IV 1000 ML 1,000 ML IV SCH (07:30)
[2022-10-25] MEDS ORDERED: NALOXONE 0.4 MG/ML 1 ML VIAL IV PRN (07:30)
[2022-10-25] MEDS ORDERED: ONDANSETRON INJECTION 4 MG/2 ML (SDV) IV PRN (07:30)
[2022-10-25] MEDS ORDERED: diphenhydrAMINE INJ 50 MG/ML VIAL IV PRN (07:30)
[2022-10-25] MEDS: SENNA W/DOCUSATE TABLET PO SCH (09:03)
[2022-10-25] MEDS: DOCUSATE SODIUM 100 MG CAPSULE PO SCH ×2 (09:03→19:39)
--- NOTE | 2022-10-25 10:27 | History & Physical ---
REAL HASSAN 10/25/22 1027: HPI History of Present Illness: 32-year-old female with metastatic cervical cancer undergoing chemotherapy and radiation presented to the ED on 10/24 with chief complaint of worsening pelvic pain. She states that the pain started in the morning and continued to worsen throughout the day, describing it as sharp and rating it a "25/10" prior to admission. She had a fentanyl patch and had taken hydrocodone without improvement. In the ED she was given 100 mcg of fentanyl without improvement, 2 0.5mg doses of hydromorphone and a 1mg dose of hydromorphone with mild impro vement of her pain. She has since been on hydromorphone Q2H PRN and ketorolac Q8H PRN, which she says has improved her pain to a 5/10. Patient-controlled pump is being put in place today. She reports that she had been taking omnicef for a UTI without improvement of her symptoms and was seen at [place] for this and started on levaquin 2 days ago, which has improved her pain with urination. Yesterday, she was unable to urinate despite feeling the urge to, currently has a monterroso catheter in place. She has also been having some vaginal discharge since yesterday with bleeding. Discharge is reddish-stanton in color and foul-smelling. She reports that her main oncologist is a Dr. Almonte in [facility], but sees Dr. Keri Clemons here in [place] for her treatments. 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 CT was reviewed by the general surgeon money examiner, no fistula appreciated on their read. Patient was found to be anemic on admit with a Hg of 6.7, measured at 5.8 today, being transfused while in the room. She reports that she received a transfusion about 2 weeks ago due to low Hg. Today the patient reports that they are feeling much better than yesterday, and that the current pain medication regimen is helping to control their symptoms. They reported having nausea yesterday, but that it has since resolved as the pain has improved. No new complaints. Source: patient Exam Limitations: no limitations Date seen by provider: Oct 25, 2022 Time Seen by Provider: 09:00 Attending Physician Jane Haney MD PCP Admitting Physician: Hector Buitrago MD Attending Physician: Hector Buitrago MD Consult Date of Admission Oct 24, 2022 at 21:30 Home Medications Home Medications Reviewed patient Home Medication Reconciliation performed by pharmacy medication reconciliations ordnance technician and/or nursing. Patients Allergies have been reviewed. Allergies Coded Allergies: codeine (Verified Allergy, Mild, chest tightness, 09/19/22) morphine (Verified Allergy, Mild, chest tightness, 09/19/22) gabapentin (Verified Allergy, Unknown, 09/19/22) NIE-Bdyxpl-Lwgcqk Hx Patient Social History Drug of Choice: MARIJUANA, METH Smoking Status: Current Everyday Smoker Recent Hopitalizations: No Alcohol Use?: No Tobacco type used: Cigarettes Immunizations Up To Date First/Initial COVID19 Vaccinat: NONE Second COVID19 Vaccination Sam: NONE Third COVID19 Vaccination Date: NONE Family Medical History Significant Family History: No Pertinent Family Hx Review of Systems ([facility]) Constitutional: No chills, No fever EENTM: No hearing loss, No blurred vision Respiratory: No cough, No short of breath Cardiovascular: No chest pain, No palpitations Gastrointestinal: nausea (Resolved); No vomiting Genitourinary: decreased output (Monterroso in place, unable to urinate since yesterday), discharge (Bloody, foul-smelling, reports started yesterday) Musculoskeletal: No back pain, No neck pain Skin: No change in color, No change in hair/nails Psychiatric/Neurological: Denies Numbness, Denies Weakness Reviewed Test Results Reviewed Test Results Lab Laboratory Tests 10/24/22 18:10: White Blood Count 6.7, Red Blood Count 2.81L, Hemoglobin 6.7*L, Hematocrit 23L, Mean Corpuscular Volume 80, Mean Corpuscular Hemoglobin 24L, Mean Corpuscular Hemoglobin Concent 30L, Red Cell Distribution Width 17.8H, Platelet Count 292, Mean Platelet Volume 11.1, Immature Granulocyte % (Auto) 0, Neutrophils (%) (Auto) 93H, Lymphocytes (%) (Auto) 2L, Monocytes (%) (Auto) 5, Eosinophils (%) (Auto) 0, Basophils (%) (Auto) 0, Neutrophils # (Auto) 6.2, Lymphocytes # (Auto) 0.1L, Monocytes # (Auto) 0.3, Eosinophils # (Auto) 0.0, Basophils # (Auto) 0.0, Immature Granulocyte # (Auto) 0.0, Neutrophils % (Manual) 94, Lymphocytes % (Manual) 5, Monocytes % (Manual) 1, Toxic Granulation 2+, Platelet Estimate ADEQ UATE, Hypochromasia MARKED, Anisocytosis SLIGHT, Sodium Level 133L, Potassium Level 3.6, Chloride Level 95L, Carbon Dioxide Level 21, Anion Gap 17H, Blood Urea Nitrogen 10, Creatinine 0.90, Estimat Glomerular Filtration Rate 86, BUN/Creatinine Ratio 11, Glucose Level 121H, Lactic Acid Level 1.43, Calcium Level 9.8, Corrected Calcium 10.7H, Total Bilirubin 0.5, Aspartate Amino Transf (AST/SGOT) 19, Alanine Aminotransferase (ALT/SGPT) 9, Alkaline Phosphatase 129, C-Reactive Protein 25.86H, Total Protein 6.7, Albumin 2.9L, Lipase 13 10/24/22 20:17: Urine Color YELLOW, Urine Clarity CLEAR, Urine pH 6.0, Urine Specific [place] 1.020, Urine Protein TRACEH, Urine Glucose (UA) NEGATIVE, Urine Ketones 1+H, Urine Nitrite NEGATIVE, Urine Bilirubin 1+H, Urine Urobilinogen 1.0, Urine Leukocyte Esterase NEGATIVE, Urine RBC (Auto) NEGATIVE, Urine RBC NONE, Urine WBC NONE, Urine Crystals NONE, Urine Bacteria NEGATIVE, Urine Casts NONE, Urine Mucus MODERATEH, Urine Culture Indicated NO 10/25/22 04:30: White Blood Count 6.9, Red Blood Count 2.42L, Hemoglobin 5.8*L, Hematocrit 19*L, Mean Corpuscular Volume 79L, Mean Corpuscular Hemoglobin 24L, Mean Corpuscular Hemoglobin Concent 30L, Red Cell Distribution Width 17.8H, Platelet Count 220, Mean Platelet Volume 10.4, Immature Granulocyte % (Auto) 1, Neutrophils (%) (Auto) 92H, Lymphocytes (%) (Auto) 2L, Monocytes (%) (Auto) 5, Eosinophils (%) (Auto) 0, Basophils (%) (Auto) 0, Neutrophils # (Auto) 6.4, Lymphocytes # (Auto) 0.1L, Monocytes # (Auto) 0.4, Eosinophils # (Auto) 0.0, Basophils # (Auto) 0.0, Immature Granulocyte # (Auto) 0.1, Sodium Level 132L, Potassium Level 3.5L, Chloride Level 101, Carbon Dioxide Level 19L, Anion Gap 12, Blood Urea Nitrogen 9, Creatinine 1.09, Estimat Glomerular Filtration Rate 68, BUN/Creatinine Ratio 8, Glucose Level 87, Calcium Level 8.7, Corrected Calcium 9.8, Total Bilirubin 0.4, Aspartate Amino Transf (AST/SGOT) 34, Alanine Aminotransferase (ALT/SGPT) 16, Alkaline Phosphatase 139H, Total Protein 5.8L, Albumin 2.6L Physical Exam-([facility]) Physical Exam Vital Signs VS - Last 72 Hours, by Label 10/24/22 10/24/22 10/24/22 10/24/22 18:45 20:50 21:47 23:34 Temp 36.4 37.4 Pulse 126 115 133 Resp 20 18 18 B/P (MAP) 165/99 (121) 152/85 149/85 (106) Pulse Ox 97 98 98 O2 Delivery Room Air Room Air Room Air Room Air 10/25/22 10/25/22 10/25/22 10/25/22 04:39 07:52 08:30 08:54 Temp 36.7 36.4 36.4 Pulse 114 114 114 Resp 18 14 14 B/P (MAP) 136/90 (105) 142/92 (109) 142/92 Pulse Ox 99 99 99 99 O2 Delivery Room Air Room Air Room Air Room Air 10/25/22 10/25/22 09:13 09:30 Temp 37.0 Pulse 116 Resp 18 B/P (MAP) 148/87 Pulse Ox 99 99 O2 Delivery Room Air Room Air Capillary Refill : General Appearance: WD/WN, no apparent distress HEENT: PERRL/EOMI Neck: non-tender, supple Respiratory: chest non-tender, lungs clear Cardiovascular: regular rate, rhythm, no edema Gastrointestinal: soft, tenderness (Slight tenderness to palpation in all quadrants, worse on LUQ and LLQ) Rectal: deferred Back: no vertebral tenderness Extremities: non-tender, normal capillary refill Neurologic/Psychiatric: alert, oriented x 3 Skin: warm/dry, pallor Lymphatic: no adenopathy Assessment/Plan Assessment/Plan Admission Dx Worsening pelvic pain Admission Status: Observation Assessment & Plan Pelvic pain- consult oncology, PC pump being placed today, continue ketorolac Necrosis- area of necrosis with center in the uterus seen on CT, consult oncology, appreciate recs Anemia- Hg 6.7 on admission, 5.8 today, currently transfusing, continue to monitor Metastatic cervical cancer: Managed by Dr. Clemons and [facility] UTI- continue levaquin Nausea - resolved HECTOR BUITRAGO MD 10/25/22 1627: Home Medications Allergies Coded Allergies: codeine (Verified Allergy, Mild, chest tightness, 09/19/22) morphine (Verified Allergy, Mild, chest tightness, 09/19/22) gabapentin (Verified Allergy, Unknown, 09/19/22) QGV-Lceans-Pdskot Hx Past Medical History Metastatic Cervical Cancer H/o Substance abuse Review of Systems ([facility]) Constitutional: No chills, No fever; malaise EENTM: no symptoms reported Respiratory: no symptoms reported; No cough, No short of breath Cardiovascular: no symptoms reported; No chest pain, No palpitations Gastrointestinal: constipation, loss of appetite, nausea (Resolved); No vomiting Genitourinary: decreased output (Monterroso in place, unable to urinate since yesterday), discharge (Bloody, foul-smelling, reports started yesterday) Musculoskeletal: no symptoms reported; No back pain, No neck pain Skin: no symptoms reported Psychiatric/Neurological: No Symptoms Reported Physical Exam-([facility]) Physical Exam General Appearance: WD/WN, no apparent distress, thin HEENT: PERRL/EOMI Neck: non-tender, supple Respiratory: chest non-tender, lungs clear, no respiratory distress, no accessory muscle use Cardiovascular: normal peripheral pulses, regular rate, rhythm, no edema Gastrointestinal: soft, distended, tenderness (Slight tenderness to palpation in all quadrants, worse on LUQ and LLQ) Back: no CVA tenderness, no vertebral tenderness Extremities: normal range of motion, non-tender, no pedal edema, no calf tenderness, normal capillary refill Neurologic/Psychiatric: alert, oriented x 3 Skin: warm/dry, pallor Assessment/Plan Assessment/Plan Admission Status: Observation (1) Metastasis from cervical cancer Status: Acute Assessment & Plan: - Consult Dr Clemons Oncology, discussed pain regimen, will likely transition to PO Dilaudid (2) Anemia associated with acute blood loss Status: Acute Assessment & Plan: - s/p 2 units pRBCs, still having some vaginal bleeding (3) Abdominal distension Status: Acute Assessment & Plan: - KUB today for worsening distention (4) Multiple lesions of metastatic malignancy Status: Acute (5) Acute cystitis without hematuria Status: Acute Assessment & Plan: - Levaquin (6) Hypokalemia Status: Resolved Assessment & Plan: - Replaced, repeat level in AM (7) Hyponatremia Status: Resolved (8) Vaginal bleeding Status: Acute Supervisory-Addendum Brief Supervisory Addendum Verification and Attestation of Medical Student E/M Service A medical student performed and documented this service in my presence. I reviewed and verified all information documented by the medical student and made modifications to such information, when appropriate. I personally performed the physical exam and medical decision making. Hector Buitrago, Oct 25, 2022,16:28 REAL HASSAN Oct 25, 2022 10:27 HECTOR BUITRAGO MD Oct 25, 2022 16:27
[2022-10-25] MEDS ORDERED: LEVO-55 PO (10:34)
[2022-10-25] MEDS ORDERED: LOPE-175 PO (10:34)
[2022-10-25] MEDS ORDERED: FENT1PAT8 TD (10:34)
[2022-10-25] MEDS ORDERED: FOLI1TAB33 PO (10:34)
[2022-10-25] MEDS: HYDROmorphone PCA 20 MG/100 ML NS IV PRN (12:07)
[2022-10-25] MEDS: diphenhydrAMINE 25 MG TABLET PO PRN ×2 (12:37→21:04)
--- NOTE | 2022-10-25 16:32 | Diagnostic Imaging Report ---
INDICATION: Left-sided abdominal distention. EXAMINATION: KUB, 4:27 p.m. FINDINGS: The gallbladder is surgically absent. There is diffuse gaseous distention of the GI tract. There is gas throughout the colon including rectum. IMPRESSION: Diffuse gaseous distention of the GI tract suggesting an adynamic ileus. Dictated by: Dictated on workstation # [id number]
[2022-10-25] MEDS: FOLIC ACID 1 MG TAB PO SCH (19:39)
[2022-10-25] MEDS: AMITRIPTYLINE 25 MG TABLET PO SCH (19:39)
[2022-10-25 21:53] LABS: HEMOGLOBIN 8.2 g/dL (11.5-16.0)
[2022-10-26 03:35] VITALS: BP 148/103
[2022-10-26 05:05] LABS: BASOPHILS % (AUTO) 0 % (0-10); EOSINOPHILS % (AUTO) 0 % (0-10); HEMATOCRIT 26 % (35-52); HEMOGLOBIN 8.2 g/dL (11.5-16.0); LYMPHOCYTES # (AUTO) 0.1 10^3/uL (1.0-4.0); LYMPHOCYTES % (AUTO) 1 % (12-44); MEAN CORPUSCULAR HEMOGLOBIN 25 pg (25-34); MEAN CORPUSCULAR HGB CONC 32 g/dL (32-36); MEAN CORPUSCULAR VOLUME 78 fL (80-99); MEAN PLATELET VOLUME 10.8 fL (9.0-12.2); MONOCYTES # (AUTO) 0.7 10^3/uL (0.0-1.0); MONOCYTES % (AUTO) 9 % (0-12); NEUTROPHILS # (AUTO) 7.5 10^3/uL (1.8-7.8); NEUTROPHILS % (AUTO) 88 % (42-75); PLATELET COUNT 223 10^3/uL (130-400); WHITE BLOOD COUNT 8.5 10^3/uL (4.3-11.0)
[2022-10-26 05:16] LABS: ALBUMIN 2.6 GM/DL (3.2-4.5)
[2022-10-26 05:17] LABS: POTASSIUM 3.3 MMOL/L (3.6-5.0)
[2022-10-26 05:18] LABS: CALCIUM 8.9 MG/DL (8.5-10.1)
[2022-10-26 05:21] LABS: BILIRUBIN,TOTAL 1.5 MG/DL (0.1-1.0)
[2022-10-26 05:23] LABS: CREATININE SERUM 0.99 MG/DL (0.60-1.30)
[2022-10-26] MEDS: KETOROLAC INJ 30 MG/ML VIAL IV PRN ×2 (07:37→20:52)
[2022-10-26 08:08] VITALS: BP 153/85
[2022-10-26] MEDS: SENNA W/DOCUSATE TABLET PO SCH (08:45)
[2022-10-26] MEDS: FOLIC ACID 1 MG TAB PO SCH ×3 (08:45→20:58)
[2022-10-26] MEDS: DOCUSATE SODIUM 100 MG CAPSULE PO SCH ×2 (08:45→20:58)
[2022-10-26] MEDS: HYDROmorphone PCA 20 MG/100 ML NS IV PRN (09:01)
[2022-10-26] MEDS: NS IV 1000 ML 1,000 ML IV SCH ×2 (09:04→23:39)
[2022-10-26] MEDS: diphenhydrAMINE 25 MG TABLET PO PRN (09:05)
--- NOTE | 2022-10-26 09:25 | Consultation - Surgery ---
SURJIT DIAZ 10/26/22 0925: History of Present Illness History of Present Illness Patient Consulted On(sal/time) 10/26/22 09:16 Time Seen by Provider: 09:17 History of Present Illness Pt is being consulted on for her distended stomach. She states that starting yesterday her LLQ and RLQ were tight and tender to the touch. Her stomach was flat in the morning. Throughout the day yesterday her stomach started getting bigger and she said she looks "". The distention started in the LLQ + RLQ but not it is throughout the entire abdominal area. She denies any sharp pains. If she presses on her stomach it causes pain that is described as a cramp like sensation. She denies any vomiting or nausea currently. She has not vomiting since she has been in the hospital. Last episode of vomiting was "months ago". She was a little nauseous yesterday but she attributes that to the pain medications. She has tried passing gas but is not able to. Her last BM was yesterday after the abdominal xray. She describes it as soft, clumpy, and dark brown color. She felt relieved after the BM. It was a small amount, around 1 cup in volume. No blood or melena. Her last BM was before she presented to the ER and it was diarrhea that she had for the previous 4 days. 1 BM every 3 hours, sometimes it was just droplets and sometimes it was less than a cup of watery stool. No blood or melena in stool during those episodes. The pt has not had a period since April due to radiation. She had vaginal bleeding before her ER visit that started 1 hour prior. She denies it being painful. She says it was close to a liter of blood, first it was bright red and then turned into a dark brown color. She is currently bleeding but describes it as "spotting". There is not a lot of blood, 3-4x a day, she can feel herself bleeding. Her last bleeding episode like this was in February of 2022 and there was more blood at that time with the same color descriptions. Allergies and Home Medications Allergies Coded Allergies: codeine (Verified Allergy, Mild, chest tightness, 09/19/22) morphine (Verified Allergy, Mild, chest tightness, 09/19/22) gabapentin (Verified Allergy, Unknown, 09/19/22) Patient Home Medication List Amitriptyline HCl (Amitriptyline HCl) 25 Mg Tablet, 25 MG PO HS, (Reported) Entered as Reported by: DEBBIE MCKENNA on 10/08/22 1609 Last Action: Continued Cyclobenzaprine HCl (Cyclobenzaprine HCl) 10 Mg Tablet, 10 MG PO HS, (Reported) Entered as Reported by: WAQAS GARRIDO on 10/10/22 0858 Last Action: Reviewed Fentanyl (Fentanyl Patch 25 MCG) 25 Mcg/Hour Patch.td72, 25 MCG TD Q72H, (Reported) Entered as Reported by: BRIAN CARRERA on 10/25/22 103 Last Action: Reviewed Folic Acid (Folic Acid) 1 Mg Tablet, 1 MG PO TID, (Reported) Entered as Reported by: BRIAN CARRERA on 10/25/22 103 Last Action: Continued Hydrocodone/Acetaminophen (Hydrocodone-Acetamin 5-325 mg) 5 Mg-325 Mg Tablet, 1 TAB PO Q6H PRN for PAIN-MODERATE (5-7), (Reported) Entered as Reported by: WAQAS GARRIDO on 10/10/22 0859 Last Action: Reviewed Lactulose (Lactulose) 10 Gram/15 Ml Solution, 5 ML PO TID PRN for CONSTIPATION- 3RD LINE, (Reported) Entered as Reported by: WAQAS GARRIDO on 10/10/22 09 Last Action: Reviewed Levofloxacin (Levofloxacin) 500 Mg Tablet, 500 MG PO DAILY, (Reported) Entered as Reported by: BRIAN CARRERA on 10/25/22 103 Last Action: Reviewed Loperamide HCl (Imodium A-D) 2 Mg Capsule, 2-4 MG PO Q8H PRN for LOOSE STOOLS, (Reported) Entered as Reported by: BRIAN CARRERA on 10/25/22 103 Last Action: Reviewed Meloxicam (Meloxicam) 15 Mg Tablet, 15 MG PO DAILY, (Reported) Entered as Reported by: WAQAS GARRIDO on 10/10/22 09 Last Action: Reviewed Naloxone HCl (Naloxone HCl) 4 Mg/Actuation [place], 1 SPRAY NSEACH UD PRN for OPIOID OVERDOSE, (Reported) Entered as Reported by: WAQAS GARRIDO on 10/10/22902 Last Action: Reviewed Ondansetron HCl (Ondansetron HCl) 8 Mg Tablet, 8 MG PO Q4H PRN for NAUSE A/VOMITING, (Reported) Entered as Reported by: WAQAS GARRIDO on 10/10/22 0900 Last Action: Reviewed Polyethylene Glycol 3350 (Miralax) 17 Gram Powd.pack, 17 GM PO DAILY PRN for CONSTIPATION-2ND LINE, (Reported) Entered as Reported by: WAQAS GARRIDO on 10/10/22 0906 Last Action: Reviewed Potassium Chloride (Potassium Chloride) 20 Meq Tab.er.prt, 20 MEQ PO BID, (Reported) Entered as Reported by: PRAMOD FARRELL on 05/18/22 0457 Last Action: Reviewed Discontinued Medications Cefdinir (Cefdinir) 300 Mg Capsule, 300 MG PO BID Discontinued Reason: No Longer Taking Prescribed by: KELSEY OLIVER on 10/11/22 0704 Last Action: Discontinued Levofloxacin (Levofloxacin) 500 Mg Tablet, 500 MG PO DAILY Discontinued Reason: Duplicate Order Prescribed by: KATIE AGUILAR on 10/22/22 1704 Last Action: Discontinued Oxycodone HCl (Oxycodone HCl) 5 Mg Tablet, 5 MG PO Q4H Discontinued Reason: No Longer Taking Prescribed by: KELSEY OLIVER on 10/11/22 1025 Last Action: Discontinued Past Kzurftl-Teonoh-Bfaprz Hx Patient Social History Drug of Choice: Denies any drug usage Smoking Status: Current Everyday Smoker Type Used: Cigarettes (2-3 a day currently. Used to be a ppd for 20 years.) Recent Hopitalizations: No Alcohol Use?: No Have you traveled recently?: No Seasonal Allergies Seasonal Allergies: No Surgeries History of Surgeries: Yes (BRACHYTHERAPY (5 times,last time was in July,). Port placement. 08/2022) Surgeries: Gallbladder (2004. [facility] [place]), Tubal Ligation (2010. [facility] Respiratory History of Respiratory Disorde: No Cardiovascular History of Cardiac Disorders: Yes (RECENTLY HYPOTENSIVE LAST 3 WEEKS) Neurological History of Neurological Disord: No Reproductive System Hx Reproductive Disorders: No Genitourinary History of Genitourinary Disor: Yes Genitourinary Disorders: UTI-Chronic (Started getting them every month since Feb, 2022.) Gastrointestinal History of Gastrointestinal Di: No Musculoskeletal History of Musculoskeletal Dis: No Endocrine History of Endocrine Disorders: No HEENT History of HEENT Disorders: No Loss of Vision: Denies Hearing Impairment: Denies Cancer History of Cancer: Yes Cancer: Lung (August 12, 2022), Cervical (2022) Psychosocial History of Psychiatric Problem: Yes Behavioral Health Disorders: Sleep Difficulties (due to pain), PTSD (Due to childhood trauma.), Depression Integumentary History of Skin or Integumenta: No Blood Transfusions History of Blood Disorders: No Adverse Reaction to a Blood Tr: No Family Medical History Family Medial History: Alcoholism 17 FATHER FH: cancer 19 MOTHER (Pt thinks mother had pre-uterine cancer. Had procedures to get cancerous cells removed. in Her 20s) FH: cirrhosis 19 FATHER FH: pancreatic cancer 19 FATHER ( at age 66) Fx of hernias G8 BROTHER (Unsure which type of hernia) Review of Systems-General Constitutional: No chills, No dizziness, No fever, No malaise; weakness (b/l legs. chronic for weeks.), weight loss (In march weighed 187, currently 129) EENTM: blurred vision (b/l), throat pain (due to dry mouth); No ear discharge, No hearing loss, No ear pain, No double vision, No eye pain, No vision loss, No hoarseness, No mouth pain, No mouth swelling, No nose pain Respiratory: No cough, No phlegm, No short of breath, No stridor, No wheezing Cardiovascular: chest pain (not current. tight sensation when in a lot of pain. Last episode was 3 weeks ago.); No edema, No palpitations Gastrointestinal: No abdominal pain; constipation (for last month), diarrhea; No dysphagia, No hematemesis; heartburn; No jaundice; loss of appetite; No melena, No nausea, No vomiting Genitourinary: No pain Musculoskeletal: back pain (due to lung cancer. Sharp sensations to dull ache.), muscle pain; No muscle stiffness Skin: No change in color, No hx of skin cancer Psychiatric/Neurological: Denies Anxiety, Denies Headache, Denies Numbness, Denies Tingling Physical Exam-General Problems Physical Exam Vital Signs Vital Signs - First Documented 10/24/22 18:45 Temp 36.4 Pulse 126 Resp 20 B/P (MAP) 165/99 (121) Pulse Ox 97 O2 Delivery Room Air Capillary Refill : HEENT: PERRL/EOMI; No scleral icterus (R), No scleral icterus (L), No photophobia Respiratory: chest non-tender, lungs clear, normal breath sounds, no respiratory distress, no accessory muscle use Cardiovascular: no murmur, tachycardia (104 BPM) Peripheral Pulses: 2+ Carotid (R), 2+ Carotid (L), 2+ Dorsalis Pedis (R), 2+ Left Dors-Pedis (L), 2+ Radial Pulses (R), 2+ Radial Pulses (L) Gastrointestinal: normal bowel sounds; No soft; no pulsatile mass, distended (all 4 Quadrants); No guarding; rebound (RLQ + LLQ), tenderness (all 4 quadrants. Worse in RLQ + LLQ); No hernia Extremities: no pedal edema, no calf tenderness Neurologic/Psychiatric: no motor/sensory deficits, alert, normal mood/affect, oriented x 3 Skin: normal color, warm/dry Data Review Labs Laboratory Tests 10/25/22 14:00: Hemoglobin 7.0L, Hematocrit 22L 10/25/22 21:45: Hemoglobin 8.2L, Hematocrit 26L 10/26/22 04:58: Hemoglobin 8.2L, Hematocrit 26L, White Blood Count 8.5, Red Blood Count 3.32L, Mean Corpuscular Volume 78L, Mean Corpuscular Hemoglobin 25, Mean Corpuscular Hemoglobin Concent 32, Red Cell Distribution Width 17.4H, Platelet Count 223, Mean Platelet Volume 10.8, Immature Granulocyte % (Auto) 2, Neutrophils (%) (Auto) 88H, Lymphocytes (%) (Auto) 1L, Monocytes (%) (Auto) 9, Eosinophils (%) (Auto) 0, Basophils (%) (Auto) 0, Neutrophils # (Auto) 7.5, Lymphocytes # (Auto) 0.1L, Monocytes # (Auto) 0.7, Eosinophils # (Auto) 0.0, Basophils # (Auto) 0.0, Immature Granulocyte # (Auto) 0.1, Sodium Level 135, Potassium Level 3.3L, Chloride Level 103, Carbon Dioxide Level 19L, Anion Gap 13, Blood Urea Nitrogen 9, Creatinine 0.99, Estimat Glomerular Filtration Rate 77, BUN/Creatinine Ratio 9, Glucose Level 81, Calcium Level 8.9, Corrected Calcium 10.0, Total Bilirubin 1.5H, Aspartate Amino Transf (AST/SGOT) 33, Alanine Aminotransferase (ALT/SGPT) 17, Alkaline Phosphatase 238H, Total Protein 6.0L, Albumin 2.6L Microbiology 10/24/22 Blood Culture - Preliminary, Resulted No growth Assessment/Plan Assessment/Plan Assessment/Plan Abdominal Distension Pt is to continue NPO. Will discuss the need for a colonoscopy and EGD to see if any underlying causes could be causing the distension. Continue current IV fluids and pain medications for the pain. MINORBING THIBODEAUX DO 10/26/22 1117: History of Present Illness History of Present Illness Time Seen by Provider: 10:44 History of Present Illness Surgery asked to consult regarding abdominal distention. When I saw pt she stated she had no nausea/vomiting and abdominal pain was minimal. She denies seeing any fecal material coming from vagina. She told me her [employer] K[employer] Helper/Onc surgeon told her she was not a candidate for hysterectomy. She states her abdomen is very distended. Allergies and Home Medications Allergies Coded Allergies: codeine (Verified Allergy, Mild, chest tightness, 09/19/22) morphine (Verified Allergy, Mild, chest tightness, 09/19/22) gabapentin (Verified Allergy, Unknown, 09/19/22) Patient Home Medication List Home Medication List Reviewed: Yes Amitriptyline HCl (Amitriptyline HCl) 25 Mg Tablet, 25 MG PO HS, (Reported) Entered as Reported by: DEBBIE MCKENNA on 10/08/22 1609 Last Action: Continued Cyclobenzaprine HCl (Cyclobenzaprine HCl) 10 Mg Tablet, 10 MG PO HS, (Reported) Entered as Reported by: WAQAS GARRIDO on 10/10/22 0858 Last Action: Reviewed Fentanyl (Fentanyl Patch 25 MCG) 25 Mcg/Hour Patch.td72, 25 MCG TD Q72H, (Reported) Entered as Reported by: BRIAN CARRERA on 10/25/22 1034 Last Action: Reviewed Folic Acid (Folic Acid) 1 Mg Tablet, 1 MG PO TID, (Reported) Entered as Reported by: BRIAN CARRERA on 10/25/22 1034 Last Action: Continued Hydrocodone/Acetaminophen (Hydrocodone-Acetamin 5-325 mg) 5 Mg-325 Mg Tablet, 1 TAB PO Q6H PRN for PAIN-MODERATE (5-7), (Reported) Entered as Reported by: WAQAS GARRIDO on 10/10/22 0859 Last Action: Reviewed Lactulose (Lactulose) 10 Gram/15 Ml Solution, 5 ML PO TID PRN for CONSTIPATION- 3RD LINE, (Reported) Entered as Reported by: WAQAS GARRIDO on 10/10/22900 Last Action: Reviewed Levofloxacin (Levofloxacin) 500 Mg Tablet, 500 MG PO DAILY, (Reported) Entered as Reported by: BRIAN CARRERA on 10/25/22 103 Last Action: Reviewed Loperamide HCl (Imodium A-D) 2 Mg Capsule, 2-4 MG PO Q8H PRN for LOOSE STOOLS, (Reported) Entered as Reported by: BRIAN CARRERA on 10/25/22 103 Last Action: Reviewed Meloxicam (Meloxicam) 15 Mg Tablet, 15 MG PO DAILY, (Reported) Entered as Reported by: WAQAS GARRIDO on 10/10/22902 Last Action: Reviewed Naloxone HCl (Naloxone HCl) 4 Mg/Actuation [place], 1 SPRAY NSEACH UD PRN for OPIOID OVERDOSE, (Reported) Entered as Reported by: WAQAS GARRIDO on 10/10/22902 Last Action: Reviewed Ondansetron HCl (Ondansetron HCl) 8 Mg Tablet, 8 MG PO Q4H PRN for NAUSEA/VOMITING, (Reported) Entered as Reported by: WAQAS GARRIDO on 10/10/22 09 Last Action: Reviewed Polyethylene Glycol 3350 (Miralax) 17 Gram Powd.pack, 17 GM PO DAILY PRN for CONSTIPATION-2ND LINE, (Reported) Entered as Reported by: WAQAS GARRIDO on 10/10/22 09 Last Action: Reviewed Potassium Chloride (Potassium Chloride) 20 Meq Tab.er.prt, 20 MEQ PO BID, (Reported) Entered as Reported by: PRAMOD FARRELL on 05/18/22 0457 Last Action: Reviewed Discontinued Medications Cefdinir (Cefdinir) 300 Mg Capsule, 300 MG PO BID Discontinued Reason: No Longer Taking Prescribed by: KELSEY OLIVER on 10/11/22 0704 Last Action: Discontinued Levofloxacin (Levofloxacin) 500 Mg Tablet, 500 MG PO DAILY Discontinued Reason: Duplicate Order Prescribed by: KATIE AGUILAR on 10/22/22 1704 Last Action: Discontinued Oxycodone HCl (Oxycodone HCl) 5 Mg Tablet, 5 MG PO Q4H Discontinued Reason: No Longer Taking Prescribed by: KELSEY OLIVER on 10/11/22 1025 Last Action: Discontinued Past Yroxyiy-Coqswd-Qtsyqv Hx Patient Social History Smoking Status: Current Someday Smoker Type Used: Cigarettes (2-3 a day currently. Used to be a ppd for 20 years.) Alcohol Use?: No Have you traveled recently?: No Surgeries History of Surgeries: Yes (BRACHYTHERAPY (5 times,last time was in July,). Port placement. 08/2022) Surgeries: Gallbladder (2004. [facility] [place]), Tubal Ligation (2010. 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, rib pain) HEENT History of HEENT Disorders: No Loss of Vision: Denies Hearing Impairment: Denies Cancer History of Cancer: Yes Cancer: Lung (August 12, 2022), Cervical (2022) Psychosocial History of Psychiatric Problem: Yes Behavioral Health Disorders: Sleep Difficulties (due to pain), PTSD (Due to childhood trauma.), Depression Integumentary History of Skin or Integumenta: No Blood Transfusions Adverse Reaction to a Blood Tr: No Family Medical History Significant Family History: Cancer, Other Conditions/Hx (Cirrhosis) Family Medial History: Alcoholism 19 FATHER FH: cancer 19 MOTHER (Pt thinks mother had pre-uterine cancer. Had procedures to get cancerous cells removed. in Her 20s) FH: cirrhosis 19 FATHER FH: pancreatic cancer 19 FATHER ( at age 66) Fx of hernias G8 BROTHER (Unsure which type of hernia) Review of Systems-General Constitutional: No chills, No fever; weakness (b/l legs. chronic for weeks.), weight loss (In march weighed 187, currently 129) EENTM: blurred vision (b/l), throat pain (due to dry mouth); No mouth pain, No mouth swelling, No nose pain Respiratory: No cough, No phlegm, No short of breath Cardiovascular: chest pain (not current. tight sensation when in a lot of pain. Last episode was 3 weeks ago.); No edema, No palpitations Gastrointestinal: No abdominal pain; constipation (for last month), diarrhea; No dysphagia, No hematemesis; heartburn; No jaundice; loss of appetite; No melena, No nausea, No vomiting Genitourinary: decreased output; No dysuria, No hematuria Musculoskeletal: back pain (due to lung cancer. Sharp sensations to dull ache.), muscle pain; No muscle stiffness Skin: No change in color, No hx of skin cancer Psychiatric/Neurological: Denies Anxiety; Depressed; Denies Headache, Denies Numbness Physical Exam-General Problems Physical Exam General Appearance: mild distress, thin, other (alopecia) Eyes: Bilateral Eye PERRL, Bilateral Eye EOMI HEENT: pharynx normal; No scleral icterus (R), No scleral icterus (L) Neck: non-tender, supple Respiratory: chest non-tender, lungs clear, normal breath sounds, no respiratory distress, no accessory muscle use Cardiovascular: no murmur, tachycardia Peripheral Pulses: 2+ Carotid (R), 2+ Carotid (L), 2+ Dorsalis Pedis (R), 2+ Left Dors-Pedis (L), 2+ Radial Pulses (R), 2+ Radial Pulses (L) Gastrointestinal: no organomegaly, no pulsatile mass, distended; No guarding; rebound (RLQ + LLQ), tenderness (all 4 quadrants. Worse in RLQ + LLQ with deep palpation) Rectal: deferred Back: no vertebral tenderness, CVA tenderness (L) Extremities: no pedal edema, no calf tenderness Neurologic/Psychiatric: no motor/sensory deficits, alert, normal mood/affect, oriented x 3 Skin: normal color, warm/dry, tattoos/piercings Lymphatic: no adenopathy (neck, axilla ) Data Review Radiology Date of Exam:10/25/22 ABDOMEN/KUB 1VIEW INDICATION: Left-sided abdominal distention. EXAMINATION: KUB, 4:27 p.m. FINDINGS: The gallbladder is surgically absent. There is diffuse gaseous distention of the GI tract. There is gas throughout the colon including rectum. IMPRESSION: Diffuse gaseous distention of the GI tract suggesting an adynamic ileus. Dictated by: Dictated on workstation # [id number] Dict: 10/25/22 1628 Trans: 10/25/22 1638 [id number] Interpreted by: LINDSEY PEREZ MD Electronically signed by: LINDSEY PEREZ MD 10/25/22 1638 Date of Exam:10/24/22 CT ABDOMEN/PELVIS W EXAMINATION: CT abdomen and pelvis with intravenous contrast. TECHNIQUE: Multiple contiguous axial images were obtained through the abdomen and pelvis after the uneventful administration of intravenous contrast. All CT scans use one or more of the following dose optimizing techniques: automated exposure control, MA and/or KvP adjustment based on patient size and exam type or iterative reconstruction. HISTORY: Abdominal pain, uterine and lung cancer. COMPARISON: 10/22/2022 FINDINGS: Limited views of the lower thorax show a 2.5 x 2.4 cm left lower lobe nodule, unchanged. The right lower lobe nodule measuring 2.1 x 1.2 cm is unchanged. The liver is normal without focal lesion. There is no biliary ductal dilation. Gallbladder is absent. Pancreas is normal. Spleen is normal. A 1.2 cm left adrenal nodule is unchanged. There is moderate hydronephrosis on the right. Point of transition is at a mass centered near the uterus. There is no significant change from prior exam. No suspicious renal lesion. Urinary bladder is normal. There is a fluid and gas collection in the pelvis centered in the uterus measuring 7.6 x 7.0 cm, previously 6.8 x 4.6 cm. There is adjacent wall thickening of the rectum. Fluid and gas abuts the wall of the rectum. The remainder of the bowel is normal. At 1.2 cm, right pelvic sidewall lymph node is unchanged. A 1.0 cm left retroperitoneal lymph node is unchanged. Aorta is normal in caliber without aneurysm. There are unchanged rib lesions as well as an L3 lytic lesion. IMPRESSION: 1. Unchanged lung nodules, osseous metastatic disease and lymphadenopathy. 2. Fluid and gas collection centered in the uterus is slightly increased in size from prior exam and abuts the rectum which is thick-walled. 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 Dictated by: Dictated on workstation # [id number] Dict: 10/24/22 1853 Trans: 10/24/221936 WINTER [id number] Interpreted by: QUIRINO AVILES MD Electronically signed by: QUIRINO AVILES MD 10/24/221936 Assessment/Plan Assessment/Plan Assessment/Plan Abdominal Distension R/O Obstruction Cervical Cancer with metastasis Hydronephrosis I reviewed the CT and Abd xray myself; as well as, spoke with Dr. Argueta regarding her care. The major concern is that there is some type of "debris and air" in her uterus and the uterus is enlarged and appears to be pressing against the rectum. It is hard to tell if her problem is due to compression of the rectum or could it be a fistula between colon and uterus. Pt states no fecal material seen coming from the vagina; possibly she needs a speculum exam of vagina and cervix. Pt is to continue NPO. Continue current IV fluids and pain medications for the pain. I went over options with pt; 1) do nothing 2) ambulate to help bowel function 3) NGT if no progression or worsening of distention 4) last option would be diverting ostomy; probably loop ileostomy. Pt understood all these options and wanted to start with ambulation and save surgery as last ditch effort. All questions answered to her satisfaction. Supervisory-Addendum Brief Verification & Attestation Participated in pt care: history, MDM, physical Personally performed: exam, history, MDM, supervision of care Care discussed with: Medical Student Procedures: n/a Verification and Attestation of Medical Student E/M Service A medical student performed and documented this service. I then reviewed and verified all information documented by the medical student and made modifications to such information, when appropriate. I personally performed a physical exam, medical decision making and then discussed any differences between the notes and made revisions as necessary to create one note. Bing Bess , 10/26/22 , 11:30 SURJIT DIAZ Oct 26, 2022 09:25 BING BESS DO Oct 26, 2022 11:17
[2022-10-26] MEDS ORDERED: PATIENT MAY USE OWN MED,SINGLE MED PO SCH (10:15)
[2022-10-26] MEDS ORDERED: RELABEL FOR HOME USE MC SCH (10:15)
--- NOTE | 2022-10-26 10:29 | Progress Note ---
REAL HASSAN 10/26/22 1029: Subjective Date Seen by a Provider: Oct 26, 2022 Time Seen by a Provider: 09:00 Subjective/Events-last exam Patient seen laying comfortably in bed. She reports that she is still having abdominal pain, worse on the left side, especially LLQ, tender to palpation. Abdomen is distended, more rigid on left side. KUB yesterday showed gaseous distention. She reports that she had a small BM after the x-ray yesterday with some relief, previous BM day of admission. She reports that she has been passing a very small amount of flatus. Has been seen by Dr. Potter's student today, has not seen Dr. Potter yet. She reports she feels well otherwise, pain is currently well-controlled. Received 2 units PRBCs yesterday, hemoglobin has improved from 5.8 to 8.2. Still having some vaginal bleeding, but has slowed down, describes it as spotting. Review of Systems General: No Chills, No Night Sweats HEENT: No Head Aches, No Visual Changes Pulmonary: No Dyspnea, No Cough Cardiovascular: No: Chest Pain, Palpitations Gastrointestinal: Abdominal Pain (Left side, LLQ); No: Nausea, Vomiting Genitourinary: No Dysuria, No Hematuria Musculoskeletal: No: neck pain, back pain Neurological: No: Weakness, Numbness Focused Exam Lactate Level 10/24/22 18:10: Lactic Acid Level 1.43 Objective Exam Last Set of Vital Signs Vital Signs Date Time Temp Pulse Resp B/P (MAP) Pulse Ox O2 Delivery O2 Flow Rate FiO2 10/26/22 09:40 20 10/26/22 08:08 36.7 79 153/85 (107) 100 Room Air Capillary Refill : I&O Intake and Output 10/26/22 00:00 Intake Total 3810 ml Output Total 2580 ml Balance 1230 ml Intake Oral 1960 ml IV Total 1000 ml Other 850 ml Output Urine Total 2550 ml Estimated Blood Loss 30 ml # Bowel Movements 1 General: Alert, Oriented X3 HEENT: Atraumatic Neck: Supple Lungs: Clear to Auscultation Heart: Regular Rate Abdomen: Other (Distended, more rigid on left side, especially LLQ) Extremities: No Edema, Normal Pulses Skin: No Rashes, No Breakdown Neuro: Normal Speech, Sensation Intact Psych/Mental Status: Mental Status NL Results Lab Laboratory Tests 10/25/22 14:00: Hemoglobin 7.0L, Hematocrit 22L 10/25/22 21:45: Hemoglobin 8.2L, Hematocrit 26L 10/26/22 04:58: Hemoglobin 8.2L, Hematocrit 26L, White Blood Count 8.5, Red Blood Count 3.32L, Mean Corpuscular Volume 78L, Mean Corpuscular Hemoglobin 25, Mean Corpuscular Hemoglobin Concent 32, Red Cell Distribution Width 17.4H, Platelet Count 223, Mean Platelet Volume 10.8, Immature Granulocyte % (Auto) 2, Neutrophils (%) (Auto) 88H, Lymphocytes (%) (Auto) 1L, Monocytes (%) (Auto) 9, Eosinophils (%) (Auto) 0, Basophils (%) (Auto) 0, Neutrophils # (Auto) 7.5, Lymphocytes # (Auto) 0.1L, Monocytes # (Auto) 0.7, Eosinophils # (Auto) 0.0, Basophils # (Auto) 0.0, Immature Granulocyte # (Auto) 0.1, Sodium Level 135, Potassium Level 3.3L, Chloride Level 103, Carbon Dioxide Level 19L, Anion Gap 13, Blood Urea Nitrogen 9, Creatinine 0.99, Estimat Glomerular Filtration Rate 77, BUN/Creatinine Ratio 9, Glucose Level 81, Calcium Level 8.9, Corrected Calcium 10.0, Total Bilirubin 1.5H, Aspartate Amino Transf (AST/SGOT) 33, Alanine Aminotransferase (ALT/SGPT) 17, Alkaline Phosphatase 238H, Total Protein 6.0L, Albumin 2.6L Microbiology 10/24/22 Blood Culture - Preliminary, Resulted No growth Assessment/Plan Assessment/Plan Assess & Plan/Chief Complaint Metastatic cervical cancer - Patient's oncologist Dr. Clemons has agreed to take over pain management after discharge. Currently NPO, will switch to oral dilaudid when able Anemia - Hemoglobin up to 8.2 after 2 units yesterday, still bleeding, but has slowed down. Continue to monitor Hg, transfuse as needed. Abdominal distention - KUB showed gaseous distention suggestive of possible adynamic ileus. General surgery consulted, appreciate recs. Currently NPO Hyponatremia - resolved Hypokalemia - 3.3 today, replace K Acute cystitis - Continue levaquin Vaginal bleeding - Lessened today. Currently spotting, continue to monitor VIRI BUITRAGO MD 10/26/22 1639: Supervisory-Addendum Brief Verification & Attestation Participated in pt care: history, physical Personally performed: exam, history Care discussed with: Medical Student Procedures: n/a Verification and Attestation of Medical Student E/M Service A medical student performed and documented this service in my presence. I reviewed and verified all information documented by the medical student and made modifications to such information, when appropriate. I personally performed the physical exam and medical decision making. Viri Buitrago, Oct 26, 2022,16:38 In addition Nurse called this Afternoon with worsening abdominal pain and vaginal bleeding - PRN pain meds given and NG placed to decompress abdomen REAL HASSAN Oct 26, 2022 10:29 VIRI BUITRAGO MD Oct 26, 2022 16:39
[2022-10-26] MEDS ORDERED: LevoFLOXacin 500 MG TABLET PO SCH (11:00)
[2022-10-26 11:22] VITALS: BP 152/77
[2022-10-26] MEDS: HYDROmorphone INJECTION 2 MG/ML VIAL IV PRN (14:04)
[2022-10-26] MEDS ORDERED: HYDROmorphone INJECTION 2 MG/ML VIAL IV ONE (14:45)
[2022-10-26] MEDS ORDERED: PHENOL THROAT SPRAY 177 ML LIQUID MC PRN (15:15)
--- NOTE | 2022-10-26 15:20 | Diagnostic Imaging Report ---
INDICATION: NG placement. FINDINGS: An NG catheter and its lucent port within the stomach in good position. Bilateral pulmonary nodules, unchanged from prior. IMPRESSION: NG in good position. Bilateral pulmonary nodules, unchanged. Lungs otherwise clear. Dictated by: Dictated on workstation # [id number]
[2022-10-26 15:40] VITALS: BP 131/97
[2022-10-26 19:30] VITALS: BP 129/82
[2022-10-26] MEDS ORDERED: NS IV 500 ML 500 ML IV ONE (20:00)
[2022-10-26] MEDS ORDERED: NS IV 500 ML 500 ML ONE (20:06)
[2022-10-26 20:17] LABS: HEMOGLOBIN 7.8 g/dL (11.5-16.0)
[2022-10-26 20:51] VITALS: BP 143/78
[2022-10-26] MEDS: AMITRIPTYLINE 25 MG TABLET PO SCH (20:58)
[2022-10-27 00:04] VITALS: BP 145/103
[2022-10-27 03:26] VITALS: BP 135/93
[2022-10-27] MEDS: HYDROmorphone INJECTION 2 MG/ML VIAL IV PRN ×2 (03:41→05:43)
[2022-10-27] MEDS: KETOROLAC INJ 30 MG/ML VIAL IV PRN (05:04)
[2022-10-27 05:19] LABS: BASOPHILS % (AUTO) 1 % (0-10); EOSINOPHILS % (AUTO) 0 % (0-10); HEMATOCRIT 23 % (35-52); HEMOGLOBIN 7.3 g/dL (11.5-16.0); LYMPHOCYTES % (AUTO) 2 % (12-44); MEAN CORPUSCULAR HEMOGLOBIN 25 pg (25-34); MEAN CORPUSCULAR HGB CONC 32 g/dL (32-36); MEAN CORPUSCULAR VOLUME 78 fL (80-99); MONOCYTES # (AUTO) 0.3 10^3/uL (0.0-1.0); MONOCYTES % (AUTO) 15 % (0-12); NEUTROPHILS # (AUTO) 1.7 10^3/uL (1.8-7.8); NEUTROPHILS % (AUTO) 83 % (42-75); PLATELET COUNT 210 10^3/uL (130-400)
[2022-10-27 05:44] LABS: CALCIUM 8.2 MG/DL (8.5-10.1); POTASSIUM 3.8 MMOL/L (3.6-5.0)
--- NOTE | 2022-10-27 07:41 | Progress Note - Surgery ---
SURJIT DIAZ 10/27/22 0741: Subjective Time Seen by a Provider: 07:36 Subjective/Events-last exam Pt says abdomen more tender than normal. Lot of trouble sitting up b/c causes a lot of pain. Any movement causes lots of pain, including breathing. 6/10 now. Pain feels crampy, constant. But when she goes to sit up, she feels like she's being stabbed. Pain started last night. Pain is everywhere in the abdomen, but left side hurts more. Have not eaten or drink anything in the last 24 hours other than ice chips. Pt has not been up since yesterday around 3pm. Her last BM was yesterday around 1-2pm; it was just a few droplets of stool and darker brown blood substance. She says there was more than a cup of blood. 20 minutes after this episode, she had another sensation of BM, and when she went, it was less than a couple tablespoons of bright red blood with no stool. No vomiting. Patient has noticed that the distended abdomen has gone down, confirmed with physical exam. Patient is hungry and thirsty, questions when NPO will be lifted. Last meal was lunchtime on the . Review of Systems General: No Chills; Night Sweats; No Fatigue; Malaise, Appetite (very hungry) HEENT: No Head Aches; Visual Changes (blurry vision when focusing on an object/tv for too long. vision returns after looking away shortly); No Eye Pain, No Ear Pain; Dysphasia (bc of NG tube), Sore Throat (due to dry mouth) Pulmonary: Dyspnea; No Cough Cardiovascular: Chest Pain (pressure, once every few days. last episode was yesterday.), Palpitations (can feel heart beat faster); No: Lt Headedness Gastrointestinal: Abdominal Pain (all 4 quadrants), Melena, Hematochezia; No: Nausea, Vomiting, Diarrhea Musculoskeletal: back pain (b/l lower) Neurological: Weakness (b/l legs), Change in speech (trouble "getting words out". Says it might be due to "chemo brain"); No: Numbness, Confusion Focused Exam Lactate Level 10/24/22 18:10: Lactic Acid Level 1.43 Objective Exam Vital Signs Date Time Temp Pulse Resp B/P (MAP) Pulse Ox O2 Delivery O2 Flow Rate FiO2 10/27/22 07:14 18 10/27/22 06:45 Room Air 10/27/22 03:26 36.0 145 18 135/93 (107) 99 Room Air 0.00 0.00 10/27/22 02:39 Room Air 10/27/22 00:04 36.0 130 18 145/103 (117) 99 Room Air 0.00 0.00 10/26/22 22:15 99 Room Air 10/26/22 21:00 18 10/26/22 20:51 36.2 140 18 143/78 (99) 97 Room Air 10/26/22 20:00 Room Air 10/26/22 19:30 36.2 148 18 129/82 (98) 96 Room Air 10/26/22 18:57 100 Room Air 10/26/22 15:40 36.0 124 20 131/97 (108) 96 Room Air 10/26/22 15:01 100 Room Air 10/26/22 11:22 36.5 112 16 152/77 (102) 99 Room Air 10/26/22 09:55 98 Room Air 10/26/22 09:40 20 10/26/22 08:08 36.7 79 20 153/85 (107) 100 Room Air 10/26/22 08:00 Room Air I & O 10/27/22 07:00 Intake Total 0 ml Output Total 1170 ml Balance -1170 ml Capillary Refill : General Appearance: Anxious, Mild Distress HEENT: PERRL/EOMI; No Photophobia, No Scleral Icterus (L), No Scleral Icterus (R) Respiratory: Lungs Clear, Normal Breath Sounds, No Respiratory Distress Cardiovascular: No Murmur, Tachycardia (136) Peripheral Pulses: 2+ Carotid (R), 2+ Carotid (L), 2+ Dorsalis Pedis (R), 2+ Left Dors-Pedis (L), 2+ Radial Pulses (R), 2+ Radial Pulses (L) Gastrointestinal: No soft; no organomegaly, no pulsatile mass, distended (has decreased from yesterday. Went from looking 6mo to 4mo.); No guarding; rebound (all 4 quadrants), tenderness (all 4 quadrants. worse than yesterday in all 4 quadrants) Neurologic/Psychiatric: Alert, Oriented x3 Skin: Normal Color, Warm/Dry Results Lab Laboratory Tests 10/26/22 20:12: Hemoglobin 7.8L, Hematocrit 25L 10/27/22 05:00: Hemoglobin 7.3L, Hematocrit 23L, White Blood Count 2.0L, Red Blood Count 2.98L, Mean Corpuscular Volume 78L, Mean Corpuscular Hemoglobin 25, Mean Corpuscular Hemoglobin Concent 32, Red Cell Distribution Width 17.9H, Platelet Count 210, Mean Platelet Volume 11.0, Immature Granulocyte % (Auto) 0, Neutrophils (%) (Auto) 83H, Lymphocytes (%) (Auto) 2L, Monocytes (%) (Auto) 15H, Eosinophils (%) (Auto) 0, Basophils (%) (Auto) 1, Neutrophils # (Auto) 1.7L, Lymphocytes # (Auto) 0.0L, Monocytes # (Auto) 0.3, Eosinophils # (Auto) 0.0, Basophils # (Auto) 0.0, Immature Granulocyte # (Auto) 0.0, Sodium Level 137, Potassium Level 3.8, Chloride Level 108H, Carbon Dioxide Level 15L, Anion Gap 14, Blood Urea Nitrogen 13, Creatinine 1.00, Estimat Glomerular Filtration Rate 76, BUN/Creatinine Ratio 13, Glucose Level 83, Calcium Level 8.2L Microbiology 10/24/22 Blood Culture - Preliminary, Resulted No growth Assessment/Plan Assessment/Plan Assessment/Plan Abdominal Distension Hematochezia Cervical Cancer with metastasis Hydronephrosis Pt is to continue NPO and current IV fluids. Pt is to continue using the NG tube. I encouraged the pt to continue reporting blood in her BM. Consider colostomy/ileostomy if hematochezia and pain continue. Consider pelvic exam if vaginal bleeding returns. RICHARD BESS DO 10/28/22 1016: Subjective Time Seen by a Provider: 11:41 Subjective/Events-last exam Pt seen and examined, states abdominal pain improved and distention improved. She is hungry. Review of Systems General: No Chills; Night Sweats; No Fatigue; Malaise Pulmonary: Dyspnea; No Cough Cardiovascular: Chest Pain (pressure, once every few days. last episode was yesterday.), Palpitations (can feel heart beat faster) Gastrointestinal: Abdominal Pain (minimal), Hematochezia; No: Nausea, Vomiting Musculoskeletal: back pain (b/l lower) Objective Exam General Appearance: Anxious, Cachetic, Mild Distress HEENT: PERRL/EOMI Respiratory: Lungs Clear, Normal Breath Sounds, No Accessory Muscle Use, No Respiratory Distress Cardiovascular: No Murmur, Tachycardia (136) Gastrointestinal: soft, no organomegaly, distended (has decreased from yesterday. Went from looking 6mo to 4mo.); No guarding; rebound (all 4 quadrants), tenderness (mild, only worse with deep palpation) Neurologic/Psychiatric: Alert, Oriented x3 Assessment/Plan Assessment/Plan Assessment/Plan Abdominal Distension Hematochezia Cervical Cancer with metastasis Hydronephrosis Would recommend clamp NGT and try liquids. Encourage ambulation and IS use. Will monitor hematochezia and melena. Pt denied any discharge from vagina today. Pt still may need colostomy/ileostomy if hematochezia and pain continue. Consider pelvic exam if vaginal bleeding returns. Will order AAS. Supervisory-Addendum Brief Verification & Attestation Participated in pt care: history, MDM, physical Personally performed: exam, history, MDM, supervision of care Care discussed with: Medical Student Procedures: n/a Verification and Attestation of Medical Student E/M Service A medical student performed and documented this service. I then reviewed and verified all information documented by the medical student and made modifications to such information, when appropriate. I personally performed a p hysical exam, medical decision making and then discussed any differences between the notes and made revisions as necessary to create one note. Richard Bess , 10/28/22 , 10:16 SURJIT DIAZ Oct 27, 2022 07:41 RICHARD BESS DO Oct 28, 2022 10:16
[2022-10-27] MEDS: FOLIC ACID 1 MG TAB PO SCH ×3 (08:03→20:52)
[2022-10-27] MEDS: DOCUSATE SODIUM 100 MG CAPSULE PO SCH ×2 (08:03→20:52)
[2022-10-27] MEDS: SENNA W/DOCUSATE TABLET PO SCH (08:03)
[2022-10-27 08:32] VITALS: BP 121/86
[2022-10-27] MEDS: HYDROmorphone PCA 20 MG/100 ML NS IV PRN (11:01)
--- NOTE | 2022-10-27 11:06 | Progress Note ---
REAL HASSAN 10/27/22 1106: Subjective Date Seen by a Provider: Oct 27, 2022 Time Seen by a Provider: 09:00 Subjective/Events-last exam Patient seen laying in bed, no family at bedside. Patient had a significant amount of pain last night, states it has improved this morning, rates it as a 7/10. NG tube was placed yesterday, still draining. 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 She reports that she had a small BM yesterday that had approximately 2 tablespoons dark red blood, 20 minutes later passed another approximately 2 tablespoons dark red blood. She reports that her vaginal bleeding increased a bit throughout the night, states she is passing some blood clots. Repeat KUB ordered for today. She would like to try starting on some liquids, will remove suction from NG tube and see how she tolerates some ice chips today. Patient has no other complaints. Review of Systems General: No Chills, No Night Sweats; Fatigue HEENT: No Visual Changes, No Eye Pain Pulmonary: No Dyspnea, No Cough Cardiovascular: No: Chest Pain, Palpitations Gastrointestinal: Abdominal Pain (Worse on left), Hematochezia; No: Nausea, Vomiting Genitourinary: No Dysuria, No Hematuria; Other (vaginal bleeding) Musculoskeletal: No: neck pain, back pain Neurological: No: Weakness, Numbness Focused Exam Lactate Level 10/24/22 18:10: Lactic Acid Level 1.43 Objective Exam Last Set of Vital Signs Vital Signs Date Time Temp Pulse Resp B/P (MAP) Pulse Ox O2 Delivery O2 Flow Rate FiO2 10/27/22 10:17 Room Air 10/27/22 08:32 37.1 146 20 121/86 (98) 99 10/27/22 03:26 0.00 0.00 Capillary Refill : I&O Intake and Output 10/27/22 00:00 Intake Total 0 ml Output Total 1020 ml Balance -1020 ml Intake Oral 0 ml Output Urine Total 650 ml Gastric Drainage Total 350 ml Estimated Blood Loss 20 ml # Bowel Movements 2 General: Alert, Oriented X3 HEENT: Atraumatic Neck: Supple Lungs: Clear to Auscultation Heart: No Murmurs, Other (Tachy) Abdomen: Other (Less distended today, softer, tender to palpation worse on left side, LLQ) Extremities: No Edema, Normal Pulses Skin: No Rashes, No Breakdown Neuro: Normal Speech Psych/Mental Status: Mental Status NL Results Lab Laboratory Tests 10/26/22 20:12: Hemoglobin 7.8L, Hematocrit 25L 10/27/22 05:00: Hemoglobin 7.3L, Hematocrit 23L, White Blood Count 2.0L, Red Blood Count 2.98L, Mean Corpuscular Volume 78L, Mean Corpuscular Hemoglobin 25, Mean Corpuscular Hemoglobin Concent 32, Red Cell Distribution Width 17.9H, Platelet Count 210, Mean Platelet Volume 11.0, Immature Granulocyte % (Auto) 0, Neutrophils (%) (Auto) 83H, Lymphocytes (%) (Auto) 2L, Monocytes (%) (Auto) 15H, Eosinophils (%) (Auto) 0, Basophils (%) (Auto) 1, Neutrophils # (Auto) 1.7L, Lymphocytes # (Auto) 0.0L, Monocytes # (Auto) 0.3, Eosinophils # (Auto) 0.0, Basophils # (Auto) 0.0, Immature Granulocyte # (Auto) 0.0, Sodium Level 137, Potassium Level 3.8, Chloride Level 108H, Carbon Dioxide Level 15L, Anion Gap 14, Blood Urea Nitrogen 13, Creatinine 1.00, Estimat Glomerular Filtration Rate 76, BUN/Creatinine Ratio 13, Glucose Level 83, Calcium Level 8.2L Microbiology 10/24/22 Blood Culture - Preliminary, Resulted No growth Assessment/Plan Assessment/Plan Assess & Plan/Chief Complaint Metastatic cervical cancer - Patient's oncologist Dr. Clemons has agreed to take over pain management after discharge. Will switch to oral dilaudid on discharge. Anemia - Hemoglobin down from 8.2 to 7.3 this morning, increase in vaginal bleeding and reports blood in BM. Continue to monitor Hg, transfuse as needed. Abdominal distention - General surgery consulted, appreciate recs. NG tube plac ed yesterday, distention improved today. Repeat KUB ordered. Will see how patient does off suction today Hyponatremia - resolved Hypokalemia - resolved, replace K as needed Acute cystitis - Continue levaquin Vaginal bleeding - Reports increased throughout last night and this morning, continue to monitor Hematochezia - Reports two episodes yesterday, general surgery consulted, appre dandre recs Tachycardia - Received 500ml bolus saline last night, continue IVF VIRI BUITRAGO MD 10/27/22 1415: Supervisory-Addendum Brief Verification & Attestation Participated in pt care: history, physical Personally performed: exam, history Care discussed with: Medical Student Procedures: n/a Verification and Attestation of Medical Student E/M Service A medical student performed and documented this service in my presence. I reviewed and verified all information documented by the medical student and made modifications to such information, when appropriate. I personally performed the physical exam and medical decision making. Viri Buitrago, Oct 27, 2022,14:14 Blood in Stool - General surgery consulted, spoke with Dr Potter and he is likely going to do a scope tomorrow REAL HASSAN Oct 27, 2022 11:06 VIRI BUITRAGO MD Oct 27, 2022 14:15
[2022-10-27 12:43] VITALS: BP 121/93
[2022-10-27 15:35] VITALS: BP 110/70
--- NOTE | 2022-10-27 16:49 | Diagnostic Imaging Report ---
INDICATION: Abdominal distention. TECHNIQUE: PA chest, supine and upright abdominal images are obtained. FINDINGS: There are nodular opacities present in both lungs. Patient has a right subclavian Port-A-Cath with the tip projecting over the SVC. NG tube enters the stomach. There are no infiltrates, effusions or pneumothoraces. There is no intraperitoneal free air. There is gaseous distention of the large and small bowel, pattern is not suspicious for obstruction. IMPRESSION: Gaseous distention of the GI tract. Multiple pulmonary nodules, suspicious for metastases. Dictated by: Dictated on workstation # [id number]
[2022-10-27 19:25] VITALS: BP 112/58
[2022-10-27] MEDS: NS IV 1000 ML 1,000 ML IV SCH (20:52)
[2022-10-27] MEDS: AMITRIPTYLINE 25 MG TABLET PO SCH (20:52)
[2022-10-28] VITALS (9 sets, daily range): BP systolic 112–143; BP diastolic 58–91
[2022-10-28 06:03] LABS: BASOPHILS % (AUTO) 1 % (0-10); EOSINOPHILS % (AUTO) 0 % (0-10); HEMATOCRIT 21 % (35-52); LYMPHOCYTES # (AUTO) 0.1 10^3/uL (1.0-4.0); LYMPHOCYTES % (AUTO) 3 % (12-44); MEAN CORPUSCULAR HEMOGLOBIN 24 pg (25-34); MEAN CORPUSCULAR HGB CONC 31 g/dL (32-36); MEAN CORPUSCULAR VOLUME 78 fL (80-99); MEAN PLATELET VOLUME 11.2 fL (9.0-12.2); MONOCYTES # (AUTO) 0.3 10^3/uL (0.0-1.0); MONOCYTES % (AUTO) 12 % (0-12); NEUTROPHILS # (AUTO) 1.7 10^3/uL (1.8-7.8); NEUTROPHILS % (AUTO) 84 % (42-75); PLATELET COUNT 171 10^3/uL (130-400)
[2022-10-28 06:06] LABS: CALCIUM 8.4 MG/DL (8.5-10.1); CREATININE SERUM 0.81 MG/DL (0.60-1.30); POTASSIUM 3.5 MMOL/L (3.6-5.0)
[2022-10-28 06:32] LABS: HEMOGLOBIN 6.7 g/dL (11.5-16.0)
--- NOTE | 2022-10-28 07:32 | Progress Note - Surgery ---
GRIFFIN LOPEZ 10/28/22 0732: Subjective Date Seen by a Provider: Oct 28, 2022 Time Seen by a Provider: 07:40 Subjective/Events-last exam Abdominal distension still present and sore to the touch but pt states not as bad as yesterday. Pain in the lower abdomen when she sits up, primarily LLQ. Rates pain 0/10 when laying down, 2-3/10 when the abdomen is touched, and 4-5/10 when she sits up. No pain with breathing today. No BM since last seen. Has not passed gas since last BM. No N/V. Throat is really sore and tastes like its bleeding from being really dry. Pt still has strong appetite. Pt has just had ice chips since last seen. Pt was helped into a chair yesterday but has not moved otherwise, says it hurts and is difficult to move her legs on her own. 200mL gastric output drainage as of this morning. Patient continues to have vaginal bleeding of dark blood with clots, necessitating changing her pad 2-3x per day. Vaginal bleeding occasionally associated with pain rated 2-3/10. Review of Systems General: No Chills, No Night Sweats; Fatigue, Malaise, Appetite HEENT: No Head Aches; Visual Changes (if she looks at her phone too long or stares at the TV, gets blurry vision), Dysphasia (dry throat makes it hard to swallow) Pulmonary: No Dyspnea, No Cough, No Pleuritic Chest Pain Cardiovascular: No: Chest Pain, Palpitations, Lt Headedness Gastrointestinal: Abdominal Pain (primarily lower abdomen, especially LLQ); No: Nausea, Vomiting, Diarrhea, Melena, Hematochezia Neurological: No: Numbness, Incoordination, Change in speech, Confusion, Seizures Objective Exam Vital Signs Date Time Temp Pulse Resp B/P (MAP) Pulse Ox O2 Delivery O2 Flow Rate FiO2 10/28/22 07:08 95 Room Air 10/28/22 05:49 18 10/28/22 04:00 36.2 134 18 120/76 (91) 100 Room Air 10/28/22 02:23 Room Air 10/28/22 00:06 35.9 137 18 112/58 (76) 100 Room Air 10/27/22 22:48 Room Air 10/27/22 20:44 Room Air 10/27/22 20:41 14 10/27/22 19:25 36.9 142 20 112/58 (76) 100 Room Air 10/27/22 18:40 Room Air 10/27/22 15:35 35.9 135 18 110/70 (83) 98 Room Air 10/27/22 13:54 Room Air 10/27/22 12:43 36.0 135 20 121/93 (102) 99 Room Air 10/27/22 10:17 Room Air 10/27/22 08:32 37.1 146 20 121/86 (98) 99 Room Air 10/27/22 08:00 Room Air 0.00 I & O 10/28/22 07:00 Intake Total 0 ml Output Total 1980 ml Balance -1980 ml Capillary Refill : General Appearance: Anxious, Mild Distress, Thin HEENT: PERRL/EOMI; No Photophobia, No Scleral Icterus (L), No Scleral Icterus (R) Respiratory: Lungs Clear, Normal Breath Sounds, No Respiratory Distress Cardiovascular: No Murmur, Tachycardia (132) Peripheral Pulses: 2+ Carotid (R), 2+ Carotid (L), 2+ Dorsalis Pedis (R), 2+ Left Dors-Pedis (L), 2+ Radial Pulses (R), 2+ Radial Pulses (L) Gastrointestinal: No soft; no organomegaly, no pulsatile mass, distended (has decreased from yesterday. Went from looking 6mo to 4mo.); No guarding; rebound (all 4 quadrants), tenderness (all 4 quadrants. worse than yesterday in all 4 quadrants) Neurologic/Psychiatric: Alert (oriented to person, place, time), Oriented x3 Skin: Normal Color, Warm/Dry Results Lab Laboratory Tests 10/28/22 05:45: White Blood Count 2.0L, Red Blood Count 2.76L, Hemoglobin 6.7*L, Hematocrit 21L, Mean Corpuscular Volume 78L, Mean Corpuscular Hemoglobin 24L, Mean Corpuscular Hemoglobin Concent 31L, Red Cell Distribution Width 18.3H, Platelet Count 171, Mean Platelet Volume 11.2, Immature Granulocyte % (Auto) 1, Neutrophils (%) (Auto) 84H, Lymphocytes (%) (Auto) 3L, Monocytes (%) (Auto) 12, Eosinophils (%) (Auto) 0, Basophils (%) (Auto) 1, Neutrophils # (Auto) 1.7L, Lymphocytes # (Auto) 0.1L, Monocytes # (Auto) 0.3, Eosinophils # (Auto) 0.0, Basophils # (Auto) 0.0, Immature Granulocyte # (Auto) 0.0, Sodium Level 138, Potassium Level 3.5L, Chloride Level 107, Carbon Dioxide Level 15L, Anion Gap 16H, Blood Urea Nitrogen 16, Creatinine 0.81, Estimat Glomerular Filtration Rate 98, BUN/Creatinine Ratio 20, Glucose Level 79, Calcium Level 8.4L Microbiology 10/24/22 Blood Culture - Preliminary, Resulted No growth Assessment/Plan Assessment/Plan Admission Diagonsis abdominal pain, distension Assessment/Plan Metastatic cervical cancer - Patient's oncologist Dr. Clemons has agreed to take over pain management after discharge. Will switch to oral dilaudid on discharge. Anemia - Hemoglobin down from 7.3 to 6.7 this morning. Continue to monitor Hg, transfuse as needed. Abdominal distention - General surgery consulted, appreciate recs. NG tube still in place, distention improved today but still present. Continue NG tube and monitor. Hyponatremia - resolved Hypokalemia - From 3.8 to 3.5 today, replace as needed. Acute cystitis - Continue levaquin Vaginal bleeding - Continues to have vaginal bleeding of dark blood with clots, necessitating changing the pad under her 2-3x per day. Continue to monitor. Hematochezia - No hematochezia reported since yesterday's consult, including no BM. Tachycardia - HR 132 this morning from 136 yesterday. RICHARD BESS DO 10/28/22 1025: Subjective Time Seen by a Provider: 09:31 Subjective/Events-last exam Pt seen and examined, still has NGT to suction and did not get liquids yesterday. She thinks abdominal pain and distention continue to improve. She states monterroso was placed upon admission, because she couldn't urinate. No melena or hematochezia today, did report dark blood with clots from vagina; was positive it wasn't from rectum. Review of Systems General: No Chills, No Night Sweats; Fatigue, Malaise HEENT: No Head Aches; Visual Changes (if she looks at her phone too long or stares at the TV, gets blurry vision) Pulmonary: No Dyspnea, No Cough Cardiovascular: No: Chest Pain, Palpitations Gastrointestinal: Abdominal Pain (primarily lower abdomen, especially LLQ); No: Nausea, Vomiting Objective Exam General Appearance: Anxious, Cachetic, Mild Distress HEENT: PERRL/EOMI, Other (alopecia) Respiratory: Lungs Clear, Normal Breath Sounds, No Accessory Muscle Use, No Respiratory Distress Cardiovascular: No Murmur, Tachycardia (132) Gastrointestinal: soft, no organomegaly, distended (has decreased from yesterday), tenderness (improved) Neurologic/Psychiatric: Alert (oriented to person, place, time) Assessment/Plan Assessment/Plan Assessment/Plan Metastatic cervical cancer - Patient's oncologist Dr. Clemons has agreed to take over pain management after discharge. Will switch to oral dilaudid on discharge. Anemia - Hemoglobin down from 7.3 to 6.7 this morning. Continue to monitor Hg Abdominal distention - improved Hyponatremia - resolved Hypokalemia - From 3.8 to 3.5 today Acute cystitis - Continue levaquin Vaginal bleeding - Continues to have vaginal bleeding of dark blood with clots, necessitating changing the pad under her 2-3x per day. Continue to monitor. Hematochezia - No hematochezia reported since yesterday's consult, including no BM. Tachycardia - HR 132 this morning from 136 yesterday. Plan to clamp NGT and start clears; will monitor abdominal pain and distention. Transfuse 1 unit PRBC. Switch to LR from NS, to help with hypokalemia. Flex sig vs Colonoscopy; still unsure about timing, probably not today but may need sooner rather than later. Supervisory-Addendum Brief Verification & Attestation Participated in pt care: history, MDM, physical Personally performed: exam, history, MDM, supervision of care Care discussed with: Medical Student Procedures: n/a Verification and Attestation of Medical Student E/M Service A medical student performed and documented this service. I then reviewed and verified all information documented by the medical student and made modifications to such information, when appropriate. I personally performed a physical exam, medical decision making and then discussed any differences between the notes and made revisions as necessary to create one note. Richard Bess , 10/28/22 , 10:26 GRIFFIN LOPEZ Oct 28, 2022 07:32 RICHARD BESS DO Oct 28, 2022 10:25
[2022-10-28] MEDS: HYDROmorphone PCA 20 MG/100 ML NS IV PRN (08:11)
[2022-10-28] MEDS: SENNA W/DOCUSATE TABLET PO SCH (08:58)
[2022-10-28] MEDS: FOLIC ACID 1 MG TAB PO SCH ×3 (08:58→20:13)
[2022-10-28] MEDS: DOCUSATE SODIUM 100 MG CAPSULE PO SCH ×2 (08:58→20:13)
[2022-10-28] MEDS: NS IV 1000 ML 1,000 ML IV SCH (09:04)
[2022-10-28] MEDS: LACTATED RINGERS 1,000 ML 1,000 ML IV SCH ×2 (10:37→20:13)
--- NOTE | 2022-10-28 12:22 | Progress Note ---
REAL HASSAN 10/28/22 1222: Subjective Date Seen by a Provider: Oct 28, 2022 Time Seen by a Provider: 09:00 Subjective/Events-last exam Patient seen laying in bed, daughter at bedside. She reports that her pain has improved from yesterday, worse with sitting up, still located mostly on left side, LLQ. Abdominal distention remains improved, soft. Reports she did well when the NG tube was clamped yesterday, was able to tolerate ice chips well. NG tube in place currently, being clamped today. Reports no BMs or flatus since last seen. Catheter also being removed today. She reports that she is having some weakness in her legs, attributes it to being in bed for a prolonged period of time, being NPO. Hemoglobin dropped from 7.3 yesterday to 6.7 today, will transfuse. Still having vaginal bleeding, reports about same rate as yesterday, needing 3-4 pad changes a day, describes as dark red clotted blood. Patient has no new complaints. Review of Systems General: No Chills, No Night Sweats HEENT: No Head Aches, No Visual Changes Pulmonary: No Dyspnea, No Cough Cardiovascular: No: Chest Pain, Palpitations Gastrointestinal: No: Nausea, Vomiting Genitourinary: No Dysuria, No Hematuria; Other (Lopez in place, being removed today) Musculoskeletal: No: neck pain, back pain Neurological: Weakness (Reports weakness in legs b/l); No: Numbness Objective Exam Last Set of Vital Signs Vital Signs Date Time Temp Pulse Resp B/P (MAP) Pulse Ox O2 Delivery O2 Flow Rate FiO2 10/28/22 11:56 36.2 140 18 135/91 (106) 92 Room Air 10/27/22 08:00 0.00 Capillary Refill : I&O Intake and Output 10/28/22 00:00 Intake Total 0 ml Output Total 1930 ml Balance -1930 ml Intake Oral 0 ml Output Urine Total 710 ml Gastric Drainage Total 850 ml Drainage Total 350 ml Estimated Blood Loss 20 ml General: Alert, Oriented X3 HEENT: Atraumatic, PERRLA Neck: Supple, No JVD Lungs: Clear to Auscultation, Normal Air Movement Heart: No Murmurs, Other (Tachy, 130s) Abdomen: Normal Bowel Sounds, Soft, Other (slight distention, improved) Extremities: No Clubbing, No Cyanosis Skin: No Rashes, No Breakdown, Other (pallor) Neuro: Normal Speech Psych/Mental Status: Mental Status NL, Mood NL Results Lab Laboratory Tests 10/28/22 05:45: White Blood Count 2.0L, Red Blood Count 2.76L, Hemoglobin 6.7*L, Hematocrit 21L, Mean Corpuscular Volume 78L, Mean Corpuscular Hemoglobin 24L, Mean Corpuscular Hemoglobin Concent 31L, Red Cell Distribution Width 18.3H, Platelet Count 171, Mean Platelet Volume 11.2, Immature Granulocyte % (Auto) 1, Neutrophils (%) (Auto) 84H, Lymphocytes (%) (Auto) 3L, Monocytes (%) (Auto) 12, Eosinophils (%) (Auto) 0, Basophils (%) (Auto) 1, Neutrophils # (Auto) 1.7L, Lymphocytes # (Auto) 0.1L, Monocytes # (Auto) 0.3, Eosinophils # (Auto) 0.0, Basophils # (Auto) 0.0, Immature Granulocyte # (Auto) 0.0, Sodium Level 138, Potassium Level 3.5L, Chloride Level 107, Carbon Dioxide Level 15L, Anion Gap 16H, Blood Urea Nitrogen 16, Creatinine 0.81, Estimat Glomerular Filtration Rate 98, BUN/Creatinine Ratio 20, Glucose Level 79, Calcium Level 8.4L Microbiology 10/24/22 Blood Culture - Preliminary, Resulted No growth Assessment/Plan Assessment/Plan Assess & Plan/Chief Complaint Metastatic cervical cancer - Patient's oncologist Dr. Clemons has agreed to take over pain management after discharge. Will switch to oral dilaudid on discharge. Anemia - Hemoglobin down from 7.3 to 6.7 this morning. Will transfuse today. Con tinue to monitor Hg, transfuse as needed. Abdominal distention - General surgery consulted, appreciate recs. NG tube clamped yesterday, patient did well with ice chips. Will clamp and advance to CLD Hyponatremia - resolved Hypokalemia - measured at 3.5 today, replace K as needed Acute cystitis - Continue levaquin Vaginal bleeding - Reports roughly same rate as yesterday, dark red clotted blood, continue to monitor Hematochezia - No BMs yesterday, has not noticed any blood per rectum, but reports it would be hard to differentiate since she is also having vaginal bleeding general surgery consulted, appreciate recs Tachycardia - in 130s, continue IVF FIORELLA AWAD DO 10/29/22 0544: Assessment/Plan Assessment/Plan Assess & Plan/Chief Complaint Assessment: Severe symptomatic anemia requiring transfusion Bowel obstruction NG tube in place Metastatic cervical cancer Dr. Clemons managing pain control Plan: Poor prognosis Transfuse Pain control NG tube Appreciate general surgery Supervisory-Addendum Brief Verification & Attestation Participated in pt care: history, MDM, physical Personally performed: exam, history, MDM, supervision of care Care discussed with: Medical Student Procedures: n/a Results interpretation: Verified all documentation Verification and Attestation of Medical Student E/M Service A medical student performed and documented this service in my presence. I reviewed and verified all information documented by the medical student and made modifications to such information, when appropriate. I personally performed the physical exam and medical decision making. Fiorella Awad, Oct 29, 2022,05:43 REAL HASSAN Oct 28, 2022 12:22 FIORELLA AWAD DO Oct 29, 2022 05:44
[2022-10-28] MEDS ORDERED: NS IV 500 ML 500 ML ONE (12:50)
[2022-10-28] MEDS: AMITRIPTYLINE 25 MG TABLET PO SCH (20:13)
[2022-10-29] MEDS: HYDROmorphone PCA 20 MG/100 ML NS IV PRN ×2 (00:42→20:28)
[2022-10-29 03:33] VITALS: BP 136/94
[2022-10-29] MEDS: LACTATED RINGERS 1,000 ML 1,000 ML IV SCH ×2 (05:55→15:27)
--- NOTE | 2022-10-29 06:02 | Progress Note - Hospitalist ---
Subjective HPI/CC On Admission Date Seen by Provider: Oct 29, 2022 Time Seen by Provider: 09:00 Subjective/Events-last exam Patient doing about the same NG tube still in place Hemoglobin stable Still having some vaginal bleeding and rectal bleeding Review of Systems General: Fatigue, Malaise Objective Exam Vital Signs Vital Signs Date Time Temp Pulse Resp B/P (MAP) Pulse Ox O2 Delivery O2 Flow Rate FiO2 10/29/22 20:00 36.5 135 20 138/89 (105) 97 Room Air 10/27/22 08:00 0.00 Capillary Refill : General Appearance: No Apparent Distress, WD/WN, Chronically ill Respiratory: Lungs Clear, Normal Breath Sounds Cardiovascular: Regular Rate, Rhythm Neurologic/Psychiatric: Alert, Oriented x3 Results/Procedures Lab Laboratory Tests 10/29/22 06:30 Patient resulted labs reviewed. Assessment/Plan Assessment and Plan Assess & Plan/Chief Complaint Assessment: Severe symptomatic anemia requiring transfusion Bowel obstruction NG tube in place Metastatic cervical cancer Dr. Clemons managing pain control Plan: Poor prognosis Transfuse Pain control NG tube Appreciate general surgery KALI AWAD DO Oct 29, 2022 06:02
[2022-10-29 06:36] LABS: BASOPHILS # (AUTO) 0.1 10^3/uL (0.0-0.1); BASOPHILS % (AUTO) 2 % (0-10); EOSINOPHILS % (AUTO) 0 % (0-10); HEMATOCRIT 25 % (35-52); LYMPHOCYTES # (AUTO) 0.1 10^3/uL (1.0-4.0); LYMPHOCYTES % (AUTO) 2 % (12-44); MEAN CORPUSCULAR HEMOGLOBIN 26 pg (25-34); MEAN CORPUSCULAR HGB CONC 33 g/dL (32-36); MEAN CORPUSCULAR VOLUME 78 fL (80-99); MEAN PLATELET VOLUME 11.4 fL (9.0-12.2); MONOCYTES # (AUTO) 0.2 10^3/uL (0.0-1.0); MONOCYTES % (AUTO) 5 % (0-12); NEUTROPHILS # (AUTO) 2.8 10^3/uL (1.8-7.8); NEUTROPHILS % (AUTO) 88 % (42-75); PLATELET COUNT 97 10^3/uL (130-400); WHITE BLOOD COUNT 3.2 10^3/uL (4.3-11.0)
[2022-10-29 06:57] LABS: ALBUMIN 1.9 GM/DL (3.2-4.5); BILIRUBIN,TOTAL 0.8 MG/DL (0.1-1.0); CALCIUM 8.8 MG/DL (8.5-10.1); CREATININE SERUM 0.69 MG/DL (0.60-1.30); TOTAL PROTEIN 4.7 GM/DL (6.4-8.2)
[2022-10-29 07:12] LABS: SMEAR SCAN COMMENT YES
[2022-10-29 07:29] VITALS: BP 140/80
--- NOTE | 2022-10-29 07:51 | Progress Note - Surgery ---
KRISTIN GILBERT 10/29/22 0751: Subjective Date Seen by a Provider: Oct 29, 2022 Time Seen by a Provider: 07:43 Subjective/Events-last exam Pt reports loose, watery stools (2-3 last night) with dark blood in them. Can not control bowel movements when they come. Reports minimal vaginal bleeding. States that ambulation is impossible d/t the pain. Monterroso was placed last night around midnight with 500 mL output. 125 mL output today. She reports feeling bloated with mild abdominal tenderness below the umbilicus b/l. She is eating without difficulty. Review of Systems General: No Chills, No Night Sweats HEENT: No Head Aches, No Visual Changes Pulmonary: No Dyspnea, No Cough Cardiovascular: No: Chest Pain, Palpitations Gastrointestinal: Abdominal Pain, Diarrhea, Melena; No: Nausea, Vomiting Genitourinary: No Dysuria, No Frequency Musculoskeletal: No: neck pain, shoulder pain Neurological: No: Weakness, Confusion Focused Exam Sepsis Stage: Ruled Out Respiratory: Chest Non Tender, No Accessory Muscle Use Cardiovascular: Regular Rate, Rhythm, Normal Peripheral Pulses Peripheral Pulses: 2+ Radial Pulses (R), 2+ Radial Pulses (L) Skin: normal color, warm/dry Objective Exam Vital Signs Date Time Temp Pulse Resp B/P (MAP) Pulse Ox O2 Delivery O2 Flow Rate FiO2 10/29/22 07:29 35.6 131 16 140/80 (100) 98 Room Air 10/29/22 03:33 36.0 134 18 136/94 (108) 98 Room Air 10/29/22 03:03 99 Room Air 10/28/22 23:39 36.4 146 18 132/90 (104) 99 Room Air 10/28/22 21:00 16 10/28/22 20:00 Room Air 10/28/22 19:38 36.2 143 18 131/87 (102) 99 Room Air 10/28/22 18:27 97 Room Air 10/28/22 16:05 36.6 135 18 143/90 (107) 99 Room Air 10/28/22 15:17 100 Room Air 10/28/22 13:22 36.6 139 16 138/78 99 Room Air 10/28/22 12:54 36.8 138 16 140/82 99 Room Air 10/28/22 11:56 36.2 140 18 135/91 (106) 92 Room Air 10/28/22 09:00 Room Air 10/28/22 08:17 36.2 132 26 139/88 (105) 97 Room Air 10/28/22 08:11 16 10/28/22 07:50 16 I & O 10/29/22 07:00 Intake Total 1610 ml Output Total 1625 ml Balance -15 ml Capillary Refill : General Appearance: No Apparent Distress, Anxious, Cachetic HEENT: PERRL/EOMI, Other (alopecia) Respiratory: Lungs Clear, Normal Breath Sounds, No Accessory Muscle Use, No Respiratory Distress Cardiovascular: No Murmur, Tachycardia (132) Peripheral Pulses: 2+ Carotid (R), 2+ Carotid (L), 2+ Dorsalis Pedis (R), 2+ Left Dors-Pedis (L), 2+ Radial Pulses (R), 2+ Radial Pulses (L) Gastrointestinal: distended (mild-moderate diffuse), tenderness (mild periumbilical) Neurologic/Psychiatric: Alert (oriented to person, place, time) Skin: Normal Color, Warm/Dry Results Lab Laboratory Tests 10/29/22 06:30: White Blood Count 3.2L, Red Blood Count 3.14L, Hemoglobin 8.0L, Hematocrit 25L, Mean Corpuscular Volume 78L, Mean Corpuscular Hemoglobin 26, Mean Corpuscular Hemoglobin Concent 33, Red Cell Distribution Width 18.0H, Platelet Count 97L, Mean Platelet Volume 11.4, Immature Granulocyte % (Auto) 4, Neutrophils (%) (Auto) 88H, Lymphocytes (%) (Auto) 2L, Monocytes (%) (Auto) 5, Eosinophils (%) (Auto) 0, Basophils (%) (Auto) 2, Neutrophils # (Auto) 2.8, Lymphocytes # (Auto) 0.1L, Monocytes # (Auto) 0.2, Eosinophils # (Auto) 0.0, Basophils # (Auto) 0.1, Immature Granulocyte # (Auto) 0.1, Percent Immature Platelet Fraction 5.6, Sodium Level 136, Potassium Level 3.0L, Chloride Level 106, Carbon Dioxide Level 18L, Anion Gap 12, Blood Urea Nitrogen 17, Creatinine 0.69, Estimat Glomerular Filtration Rate 117, BUN/Creatinine Ratio 25, Glucose Level 80, Calcium Level 8.8, Corrected Calcium 10.5H, Total Bilirubin 0.8, Aspartate Amino Transf (AST/SGOT) 15, Alanine Aminotransferase (ALT/SGPT) 12, Alkaline Phosphatase 116, Total Protein 4.7L, Albumin 1.9L, Smear Scan YES Microbiology 10/24/22 Blood Culture - Preliminary, Resulted No growth Assessment/Plan Assessment/Plan Assessment/Plan Assessment: Anemia: hgb improved from 6.7 to 8 today. Was transfused with 3 units of blood total. Bowel obstruction. NG tube clamped yesterday and tolerating diet. Remaining tenderness and distention in lower abdomen Melena/hemotochezia Potassium dropped from 3.5 yesterday to 3 today Metastatic cervical cancer with mets to lungs followed by Dr. Clemons Plan: Continue to monitor Hgb Pain control with continuous dilaudid pump. Dr. Clemons has agreed to manage once she is discharged Restart NG tube suction to decrease distention Schedule diverted loop ileostomy for tmw at 10 AM JOSÉ MANUEL Chadwick DO 10/29/22 1219: Subjective Subjective/Events-last exam Paitent with minimal stool more dark blood. Worsening abdominal pain. More distended. NPO. NG tube clamped. Not feeling well overall. Urinary retention and monterroso replaced last night. Objective Exam General Appearance: No Apparent Distress, Anxious, Cachetic HEENT: PERRL/EOMI, Other (alopecia) Neck: Normal Inspection, Non Tender Respiratory: Chest Non Tender, No Accessory Muscle Use, No Respiratory Distress Cardiovascular: Regular Rate, Rhythm, No JVD Gastrointestinal: distended (moderate, tympanic with percussion), tenderness (periumbilical) Extremity: Normal Inspection, Non Tender Neurologic/Psychiatric: Alert (oriented to person, place, time), Oriented x3 Skin: Normal Color, Warm/Dry Lymphatic: No Adenopathy Assessment/Plan Assessment/Plan Assessment/Plan Assessment: Anemia Bowel obstruction. NG tube clamped yesterday and tolerating diet. Remaining tenderness and distention in lower abdomen Melena/hemotochezia Potassium dropped from 3.5 yesterday to 3 today Metastatic cervical cancer with mets to lungs followed by Dr. Clemons Plan: Continue to monitor Hgb -hgb improved from 6.7 to 8 today. Was transfused with 3 units of blood total. Pain control with continuous dilaudid pump. Dr. Clemons has agreed to manage once she is discharged NG tube clamped yesterday, currently npo with pain and distention in abdomen Place NG tube to LIWS Discussed that feel she would benefit most with diversion of bowel. Discussed possibly may not help as well. She understands risks and benefits of diverting loop ileostomy all other indicated procedures and wishes to proceed. NPO Schedule surgery for tmw at 10 AM Electrolyte replacement Supervisory-Addendum Brief Verification & Attestation Participated in pt care: history, MDM, physical Personally performed: exam, history, MDM, supervision of care Care discussed with: Medical Student Procedures: n/a Results interpretation: Verified all documentation Verification and Attestation of Medical Student E/M Service A medical student performed and documented this service in my presence. I reviewed and verified all information documented by the medical student and made modifications to such information, when appropriate. I personally performed the physical exam and medical decision making. José Manuel Tate, Oct 29, 2022,12:19 KRISTIN GILBERT Oct 29, 2022 07:51 JOSÉ MANUEL TATE DO Oct 29, 2022 12:19
[2022-10-29] MEDS: FOLIC ACID 1 MG TAB PO SCH ×3 (09:50→20:32)
[2022-10-29] MEDS: DOCUSATE SODIUM 100 MG CAPSULE PO SCH ×2 (09:52→20:32)
[2022-10-29] MEDS: SENNA W/DOCUSATE TABLET PO SCH (09:52)
[2022-10-29 11:12] VITALS: BP 149/97
[2022-10-29] MEDS: POTASSIUM CL 10MEQ/50ML IVPB 50 ML IV SCH ×4 (11:57→15:27)
[2022-10-29] MEDS ORDERED: NS IV 500 ML 500 ML IV PRN (12:30)
[2022-10-29 15:30] VITALS: BP 132/86
[2022-10-29] MEDS: HYDROmorphone INJECTION 2 MG/ML VIAL IV PRN ×2 (15:32→20:35)
[2022-10-29] MEDS: AMITRIPTYLINE 25 MG TABLET PO SCH (19:36)
[2022-10-29 20:00] VITALS: BP 138/89
[2022-10-29] MEDS: KETOROLAC INJ 30 MG/ML VIAL IV PRN (23:46)
[2022-10-29 23:55] VITALS: BP 147/96
[2022-10-30] VITALS (20 sets, daily range): BP systolic 70–141; BP diastolic 36–93
[2022-10-30] MEDS: LACTATED RINGERS 1,000 ML 1,000 ML IV SCH ×2 (03:38→14:12)
[2022-10-30] MEDS: HYDROmorphone INJECTION 2 MG/ML VIAL IV PRN ×3 (03:38→20:26)
[2022-10-30 05:33] LABS: EOSINOPHILS % (AUTO) 0 % (0-10); LYMPHOCYTES # (AUTO) 0.1 10^3/uL (1.0-4.0); LYMPHOCYTES % (AUTO) 1 % (12-44); MEAN CORPUSCULAR VOLUME 78 fL (80-99)
[2022-10-30 05:35] LABS: BASOPHILS % (AUTO) 0 % (0-10); HEMATOCRIT 24 % (35-52); HEMOGLOBIN 7.8 g/dL (11.5-16.0); MEAN CORPUSCULAR HEMOGLOBIN 25 pg (25-34); MEAN CORPUSCULAR HGB CONC 32 g/dL (32-36); MONOCYTES # (AUTO) 0.2 10^3/uL (0.0-1.0); MONOCYTES % (AUTO) 3 % (0-12); NEUTROPHILS # (AUTO) 4.1 10^3/uL (1.8-7.8); NEUTROPHILS % (AUTO) 93 % (42-75); PLATELET COUNT 55 10^3/uL (130-400); WHITE BLOOD COUNT 4.5 10^3/uL (4.3-11.0)
[2022-10-30 05:59] LABS: ALBUMIN 1.9 GM/DL (3.2-4.5); BILIRUBIN,TOTAL 1.1 MG/DL (0.1-1.0); CALCIUM 9.1 MG/DL (8.5-10.1); CREATININE SERUM 0.71 MG/DL (0.60-1.30); MAGNESIUM 1.3 MG/DL (1.6-2.4); PHOSPHORUS 2.6 MG/DL (2.3-4.7); POTASSIUM 3.5 MMOL/L (3.6-5.0); TOTAL PROTEIN 4.5 GM/DL (6.4-8.2)
[2022-10-30] MEDS: POTASSIUM BICARB 20 MEQ effervescent TABLET PO SCH (06:09)
[2022-10-30] MEDS: POTASSIUM CL 10MEQ/50ML IVPB 50 ML IV SCH ×5 (06:09→13:03)
[2022-10-30] MEDS: MAGNESIUM 1 GM/100 ML IVPB 100 ML IV SCH ×7 (06:10→13:06)
[2022-10-30 06:46] LABS: BAND NEUTROPHILS 25 %; HYPOCHROMASIA SLIGHT; LYMPHOCYTES % (MANUAL) 2 %; METAMYELOCYTES % 4 %; MONOCYTES % (MANUAL) 3 %; MYELOCYTES % 3 %; NEUTROPHILS % (MANUAL) 63 %; PLATELET CLUMPS NONE OBSERVED
[2022-10-30 06:47] LABS: SCHISTOCYTES SLIGHT
--- NOTE | 2022-10-30 07:07 | Progress Note - Hospitalist ---
Subjective HPI/CC On Admission Date Seen by Provider: Oct 30, 2022 Time Seen by Provider: 11:00 Subjective/Events-last exam Patient required urgent surgery today due to uterine perforation Supportive care we will continue Patient with a large tumor burden with necrotic tissue No falls Pain will be controlled Objective Exam Vital Signs Vital Signs Date Time Temp Pulse Resp B/P (MAP) Pulse Ox O2 Delivery O2 Flow Rate FiO2 10/30/22 12:15 Room Air 10/30/22 12:10 37.0 20 119/75 (90) 96 10/30/22 11:40 2.00 10/30/22 08:22 119 Capillary Refill : General Appearance: Chronically ill, Other (Postop) Respiratory: Lungs Clear, Normal Breath Sounds Cardiovascular: Tachycardia Results/Procedures Lab Laboratory Tests 10/30/22 05:27 Patient resulted labs reviewed. Assessment/Plan Assessment and Plan Assess & Plan/Chief Complaint Assessment: Urgent exploratory due to uterine perforation due to massive tumor load Severe symptomatic anemia requiring transfusion Bowel obstruction NG tube in place Metastatic cervical cancer Dr. Clemons managing pain control Tachycardia Plan: Poor prognosis needs hospice Transfuse as needed Pain control NG tube Appreciate general surgery KALI AWAD DO Oct 30, 2022 07:06
--- NOTE | 2022-10-30 07:23 | Progress Note - Surgery ---
KRISTIN GILBERT 10/30/22722: Subjective Date Seen by a Provider: Oct 30, 2022 Time Seen by a Provider: 07:18 Subjective/Events-last exam Pt is a 32 y/o female who presents with abd pain and distention. She reports that pain is worse than yesterday, now affecting her when she is lying still and sitting up. She does not think her belly has gotten any further distention. Still feels like she is full of gas. NG tube has not improved any of her sxs. No bowel movement since yesterday. She reports nausea but no vomiting. Still has minimal vaginal blood. Review of Systems General: No Chills, No Night Sweats HEENT: No Head Aches, No Visual Changes Pulmonary: No Dyspnea, No Cough Cardiovascular: No: Chest Pain, Palpitations Gastrointestinal: Nausea, Abdominal Pain; No: Vomiting, Diarrhea Musculoskeletal: No: neck pain, shoulder pain Neurological: No: Change in speech, Confusion Focused Exam Sepsis Stage: Ruled Out Respiratory: No Accessory Muscle Use, No Respiratory Distress Cardiovascular: Regular Rate, Rhythm, Normal Peripheral Pulses Peripheral Pulses: 2+ Radial Pulses (R), 2+ Radial Pulses (L) Skin: normal color, warm/dry Objective Exam Vital Signs Date Time Temp Pulse Resp B/P (MAP) Pulse Ox O2 Delivery O2 Flow Rate FiO2 10/30/22 03:26 36.3 124 16 141/90 (107) 96 Room Air 0.00 0.00 10/29/22 23:55 36.7 136 16 147/96 (113) 94 Room Air 0.00 0.00 10/29/22 20:52 Room Air 10/29/22 20:46 14 10/29/22 20:00 36.5 135 20 138/89 (105) 97 Room Air 10/29/22 15:30 36.7 130 21 132/86 (101) 97 Room Air 10/29/22 11:12 35.6 129 16 149/97 (114) 98 Room Air 10/29/22 08:20 Room Air 10/29/22 07:30 16 10/29/22 07:29 35.6 131 16 140/80 (100) 98 Room Air I & O 10/30/22 07:00 Intake Total 1160 ml Output Total 1450 ml Balance -290 ml Capillary Refill : General Appearance: No Apparent Distress, WD/WN, Chronically ill HEENT: PERRL/EOMI, Other (alopecia) Neck: Normal Inspection, Non Tender Respiratory: Lungs Clear, Normal Breath Sounds Cardiovascular: No JVD, Normal Peripheral Pulses Peripheral Pulses: 2+ Carotid (R), 2+ Carotid (L), 2+ Dorsalis Pedis (R), 2+ Left Dors-Pedis (L), 2+ Radial Pulses (R), 2+ Radial Pulses (L) Gastrointestinal: distended (moderate, tympanic with percussion), tenderness (periumbilical) Extremity: Normal Inspection, Non Tender Neurologic/Psychiatric: Alert, Oriented x3 Skin: Normal Color, Warm/Dry Lymphatic: No Adenopathy Results Lab Laboratory Tests 10/30/22 05:27: White Blood Count 4.5, Red Blood Count 3.13L, Hemoglobin 7.8L, Hematocrit 24L, Mean Corpuscular Volume 78L, Mean Corpuscular Hemoglobin 25, Mean Corpuscular Hemoglobin Concent 32, Red Cell Distribution Width 18.6H, Platelet Count 55L, Mean Platelet Volume , Immature Granulocyte % (Auto) 2, Neutrophils (%) (Auto) 93H, Lymphocytes (%) (Auto) 1L, Monocytes (%) (Auto) 3, Eosinophils (%) (Auto) 0, Basophils (%) (Auto) 0, Neutrophils # (Auto) 4.1, Lymphocytes # (Auto) 0.1L, Monocytes # (Auto) 0.2, Eosinophils # (Auto) 0.0, Basophils # (Auto) 0.0, Immature Granulocyte # (Auto) 0.1, Neutrophils % (Manual) 63, Lymphocytes % (Manual) 2, Monocytes % (Manual) 3, Metamyelocytes % 4, Myelocytes % 3, Band Neutrophils 25, Clumped Platelets NONE OBSERVED, Percent Immature Platelet Fraction 8.8H, Hypochromasia SLIGHT, Schistocytes SLIGHT, Sodium Level 137, Potassium Level 3.5L, Chloride Level 106, Carbon Dioxide Level 20L, Anion Gap 11, Blood Urea Nitrogen 19H, Creatinine 0.71, Estimat Glomerular Filtration Rate 114, BUN/Creatinine Ratio 27, Glucose Level 62L, Calcium Level 9.1, Corrected Calcium 10.8H, Phosphorus Level 2.6, Magnesium Level 1.3L, Total Bilirubin 1.1H, Aspartate Amino Transf (AST/SGOT) 13, Alanine Aminotransferase (ALT/SGPT) 12, Alkaline Phosphatase 98, Total Protein 4.5L, Albumin 1.9L Microbiology 10/24/22 Blood Culture - Preliminary, Resulted No growth Assessment/Plan Assessment/Plan Assessment/Plan Assessment: Anemia Bowel obstruction. Metastatic cervical cancer with mets to lungs followed by Dr. Clemons Plan: Continue to monitor Hgb -Hgb decreased from 8 yesterday to 7.8 today. Pain control with continuous dilaudid pump. Dr. Clemons has agreed to manage once she is discharged NG tube in place, currently npo, with increased pain and unchanged distention in abdomen Discussed that feel she would benefit most with diversion of bowel. Discussed possibly may not help as well. She understands risks and benefits of diverting loop ileostomy all other indicated procedures and wishes to proceed. NPO JOSÉ MANUEL JACOBSEN DO 10/30/22 0947: Subjective Subjective/Events-last exam Patient still with abdominal pain and distention. Symptoms worse todya. No bowel function. Ng tube to liws. Denies any other new complaints. Denies fever sweats chills shortness of breath or chest pain. Objective Exam General Appearance: No Apparent Distress, Chronically ill HEENT: PERRL/EOMI, Normal ENT Inspection, Other (alopecia, ng tube) Neck: Normal Inspection, Non Tender Respiratory: Chest Non Tender, No Accessory Muscle Use, No Respiratory Distress Cardiovascular: Regular Rate, Rhythm, No JVD Gastrointestinal: distended (moderate, tympanic with percussion), tenderness (periumbilical) Extremity: Normal Inspection, Non Tender Neurologic/Psychiatric: Alert, Oriented x3 Skin: Normal Color, Warm/Dry Lymphatic: No Adenopathy Assessment/Plan Assessment/Plan Assessment/Plan Anemia Bowel obstruction. Metastatic cervical cancer with mets to lungs Plan: Continue to monitor Hgb -Hgb decreased from 8 yesterday to 7.8 today. Pain control NG tube in place, currently npo, with increased pain and unchanged distention in abdomen Discussed that feel she would benefit most with diversion of bowel. Discussed possibly may not help as well. She understands risks and benefits of diverting loop ileostomy all other indicated procedures and wishes to proceed. NPO Ready to proceed. All questions answered, to OR this morning. Supervisory-Addendum Brief Verification & Attestation Participated in pt care: history, MDM, physical Personally performed: exam, history, MDM, supervision of care Care discussed with: Medical Student Procedures: n/a Results interpretation: Verified all documentation Verification and Attestation of Medical Student E/M Service A medical student performed and documented this service in my presence. I revi ewed and verified all information documented by the medical student and made modifications to such information, when appropriate. I personally performed the physical exam and medical decision making. José Manuel Jacobsen, Oct 30, 2022,09:47 KRISTIN GILBERT Oct 30, 2022 07:23 JOSÉ MANUEL JACOBSEN DO Oct 30, 2022 09:47
[2022-10-30] MEDS: DOCUSATE SODIUM 100 MG CAPSULE PO SCH ×2 (08:06→22:14)
[2022-10-30] MEDS: FOLIC ACID 1 MG TAB PO SCH ×3 (08:06→22:16)
[2022-10-30] MEDS: SENNA W/DOCUSATE TABLET PO SCH (08:06)
[2022-10-30] MEDS ORDERED: proPOfol INJECTION 200 MG/20 ML VIAL IV ONE (09:13)
[2022-10-30] MEDS ORDERED: SEVOFLURANE (ULTANE) 15 ML INHAL SOLN ONE ×2 (09:13→10:20)
[2022-10-30] MEDS ORDERED: ONDANSETRON INJECTION 4 MG/2 ML (SDV) ONE ×2 (09:13→11:30)
[2022-10-30] MEDS ORDERED: LIDOCAINE PF 2% 5 ML VIAL ONE (09:13)
[2022-10-30] MEDS ORDERED: fentaNYL INJECTION 100 MCG/2 ML VIAL ONE ×2 (09:13→11:01)
[2022-10-30] MEDS ORDERED: MIDAZOLAM INJ 2 MG/2 ML VIAL ONE (09:13)
[2022-10-30] MEDS ORDERED: fentaNYL INJECTION 100 MCG/2 ML VIAL IVP ONE (09:15)
[2022-10-30] MEDS ORDERED: ONDANSETRON INJECTION 4 MG/2 ML (SDV) IVP PRN (09:15)
[2022-10-30] MEDS ORDERED: MEPERIDINE INJ 50 MG/ML VIAL IVP ONE (09:15)
[2022-10-30] MEDS: LACTATED RINGERS 1,000 ML 1,000 ML IV PRN ×2 (09:35→10:37)
[2022-10-30] MEDS ORDERED: ROCURONIUM 50 MG/5 ML VIAL IV ONE (10:20)
[2022-10-30] MEDS ORDERED: SUCCINYLCHOLINE INJ 20 MG/1 ML 10 ML VIAL ONE (10:20)
[2022-10-30] MEDS ORDERED: ROPIVACAINE 5 MG/ML 30ML VIAL ONE (10:22)
[2022-10-30] MEDS ORDERED: SUGAMMADEX INJ 100 MG/ML 5 ML VIAL IV ONE (10:53)
--- NOTE | 2022-10-30 10:55 | Progress Note-Post Operative ---
Post-Operative Progess Note Surgeon (s)/Mine Utility Operator (s) Surgeon BING BESS DO Mine Utility Operator: [place] Pre-Operative Diagnosis Cervical CA with mets to lung, Intestinal blockage vs ileus Post-Operative Diagnosis Uterine rupture Intrabdominal abscess Procedure & Operative Findings Date of Procedure 10/30/22 Procedure Performed/Findings 1) Exploratory Laparotomy with Diverting loop ileostomy 2) Abdominal washout, drainage of abscess and drain placement Anesthesia Type GET Estimated Blood Loss Estimated blood loss (mL): less than 50ml Specimens/Packing Specimens Removed none BING BESS DO Oct 30, 2022 10:55
[2022-10-30] MEDS ORDERED: metroNIDAZOLE 500MG/100ML IVPB 100 ML IV SCH (11:00)
[2022-10-30] MEDS ORDERED: HYDROmorphone INJECTION 2 MG/ML VIAL ONE (11:02)
[2022-10-30] MEDS ORDERED: PIPERACILLIN/Tazobactam 4.5 GM in NS (IVPB) 100 ML 100 ML IV NR (12:00)
--- NOTE | 2022-10-30 15:30 | OPERATIVE REPORT ---
PREOPERATIVE DIAGNOSES: Intestinal blockage versus ileus. History of cervical cancer with metastatic disease to the lung. POSTOPERATIVE DIAGNOSES: 1. Uterine rupture. 2. Intra-abdominal abscess. 3. Ileus versus blockage. PROCEDURES: 1. Exploratory laparotomy with diverting loop ileostomy. 2. Abdominal washout, abscess drainage and then drain placement. SURGEON: Richard Potter DO FAST FOOD DELIVERY DRIVER: Dr. Jacobsen. ANESTHESIA: General endotracheal tube. BLOOD LOSS: Less than 50 mL SPECIMENS: None. FLUIDS: Per anesthesia. INDICATIONS FOR PROCEDURE: The patient is a 32-year-old female who has been having basically. She has had constipation [ ] obstipation, distended abdomen. History of cervical cancer and CT showed what looked like possibly abscess in the uterus. She was not progressing, needed to go to surgery for a diverting loop ileostomy. FINDINGS: The patient had ruptured uterus. She had foul-smelling fluid, all over the abdomen, did not appear to be feculent, but it was very foul smelling and again allover throughout the abdomen. DESCRIPTION OF PROCEDURE: After informed consent was obtained, the patient was brought to the operating room and placed on the table in supine position. She was sterilely prepped and draped in normal fashion. We began with a small incision from just above the umbilicus to below the umbilicus, made with a #15 blade, carried down through the skin into the subcutaneous tissue, deepened down to subcutaneous tissue with Bovie electrocautery down to the fascia. Fascia incised with Bovie electrocautery and bluntly entered the abdomen. Upon entering, immediately smelled foul odor and saw some what looked like purulent liquid. At this point, we then elected to increase the incision superiorly and inferiorly to get in. Once we got in, again encountered lot of foul-smelling liquid, thought it might be a perforation. We ran the small bowel. Did not find any perforation, in fact found down in the pelvis after getting the omentum out of the pelvis and some of the small intestine out of the pelvis with gentle blunt dissection, finger fracturing the adhesions, found a opening in the uterus with necrotic material that had ruptured. At this point, then copiously irrigated with 2 liters of warm normal saline, found the cecum and then went distal to distal point where we will bring up the terminal ileum, then made approximately between the umbilicus and the right hip just above the rectus muscle graft, the skin cut to make a circular incision with #15 blade, then dissected down with Bovie electrocautery down to the fascia. Fascia was then incised with a cruciate incision, went through the muscle to grasp the terminal ileum. I had elected to place a [place] drain under the terminal ileum and then used the [place] drain to pull this through the abdominal incision. I elected to place two 19-[place] Dickson drains, put both in the left lower quadrant. One we put down into the pelvis and one went up and around to the right side. These were sutured in place with 2-0 nylon, placed a bridge below the terminal ileum that we had brought out, sutured this in place with 2-0 nylon at 4 spots and then at this point, we elected to close the midline incision, closing with a #1 double stranded PDS suture running from the inferior portion to the superior portion, tying to itself, elected to leave this abdominal incision open, then cut the terminal ileum with curved Mayos to start maturing the ileum to the abdominal wall to create the diverting loop ileostomy using 3-0 Vicryl four sutures on the distal edge to open the proximal portion of the terminal ileum and then 3 to 4 small 3-0 Vicryls trying to do a little bit of a Lisandra ileostomy to pull this down, so that there was a mucous fistula or opening for air and gas behind for the more proximal colon and then at this point, area was cleaned and dried, placed an ostomy bag over the diverting loop ileostomy and then placed some Kerlix with iodine in the midline. Area was then cleaned and dried, dressings placed. The patient tolerated the procedure. She was transferred to recovery room in stable condition. Sponge and needle count correct at the end of the case. Dr. Jacobsen assisted in this case helping to run the anatomy, identify anatomy and help mature the ileostomy. Job ID: [id number] DocumentID: [id number] Dictated Date: 10/30/2022 11:20:13 Journeyman Level Acoustic Analyst Date: 10/30/2022 15:28:00 Dictated By: RICHARD POTTER DO
[2022-10-30] MEDS ORDERED: NS IV 1000 ML 1,000 ML IV SCH (16:30)
[2022-10-30 17:56] LABS: BASOPHILS % (AUTO) 0 % (0-10); EOSINOPHILS % (AUTO) 0 % (0-10); HEMATOCRIT 25 % (35-52); LYMPHOCYTES % (AUTO) 0 % (12-44); MEAN CORPUSCULAR HEMOGLOBIN 26 pg (25-34); MEAN CORPUSCULAR HGB CONC 32 g/dL (32-36); MEAN CORPUSCULAR VOLUME 81 fL (80-99); MONOCYTES # (AUTO) 0.2 10^3/uL (0.0-1.0); MONOCYTES % (AUTO) 3 % (0-12); NEUTROPHILS # (AUTO) 4.5 10^3/uL (1.8-7.8); NEUTROPHILS % (AUTO) 95 % (42-75); PLATELET COUNT 51 10^3/uL (130-400); WHITE BLOOD COUNT 4.7 10^3/uL (4.3-11.0)
[2022-10-30 17:57] LABS: HEMOGLOBIN 7.8 g/dL (11.5-16.0)
[2022-10-30 18:07] LABS: PROTHROMBIN TIME PATIENT 22.9 SEC (12.2-14.7)
[2022-10-30] MEDS ORDERED: NS IV 500 ML 500 ML IV SCH (18:45)
[2022-10-30] MEDS ORDERED: PIPERACILLIN/Tazobactam 4.5 GM in NS (IVPB) 100 ML 100 ML IV SCH (20:00)
[2022-10-30] MEDS: AMITRIPTYLINE 25 MG TABLET PO SCH (22:15)
[2022-10-31 00:05] VITALS: BP 70/36
[2022-10-31] MEDS: HYDROmorphone PCA 20 MG/100 ML NS IV PRN ×2 (00:07→14:48)
[2022-10-31] MEDS: LACTATED RINGERS 1,000 ML 1,000 ML IV SCH ×3 (02:54→13:01)
[2022-10-31] MEDS ORDERED: metroNIDAZOLE 500MG/100ML IVPB 100 ML IV SCH (03:00)
[2022-10-31] MEDS ORDERED: LACTATED RINGERS 1,000 ML 1,000 ML IV STA (03:40)
[2022-10-31 04:06] VITALS: BP 92/51
[2022-10-31] MEDS ORDERED: PIPERACILLIN/Tazobactam 4.5 GM in NS (IVPB) 100 ML 100 ML IV SCH (06:00)
--- NOTE | 2022-10-31 06:54 | Progress Note - Hospitalist ---
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 Assessment/Plan Assessment and Plan Assess & Plan/Chief Complaint Assessment: Urgent exploratory due to uterine perforation due to massive tumor load Severe symptomatic anemia requiring transfusion Bowel obstruction NG tube in place Metastatic cervical cancer Dr. Clemons managing pain control Tachycardia Plan: Comfort care KALI AWAD DO Oct 31, 2022 06:54
[2022-10-31] MEDS: SENNA W/DOCUSATE TABLET PO SCH (07:37)
[2022-10-31] MEDS: FOLIC ACID 1 MG TAB PO SCH ×2 (07:37→08:37)
[2022-10-31] MEDS: DOCUSATE SODIUM 100 MG CAPSULE PO SCH (07:37)
--- NOTE | 2022-10-31 07:55 | Progress Note - Surgery ---
KRISTIN GILBERT 10/31/22 0755: Subjective Date Seen by a Provider: Oct 31, 2022 Time Seen by a Provider: 07:48 Subjective/Events-last exam Pt states that her pain is under decently good control. She reports its better as long as she does not move much. Her blood pressure dipped to 70/36 last night at midnight and she was given 1 unit of LR. BP was 102/65 at 8 Am this morning. She denies any lightheadedness. She reports that her mouth is very dry and is bothering her. Urine output is 0.43. 725 mL from NG tube over 10 hrs. She is joined by her family today. She has a DNR on file and has an order for comfort care in place Review of Systems General: No Chills, No Night Sweats HEENT: No Head Aches, No Visual Changes Pulmonary: No Dyspnea, No Cough Cardiovascular: No: Chest Pain, Palpitations Gastrointestinal: Abdominal Pain; No: Nausea, Vomiting Genitourinary: No Dysuria, No Frequency Musculoskeletal: No: neck pain, shoulder pain Neurological: No: Change in speech, Confusion Focused Exam Sepsis Stage: Ruled Out Respiratory: No Accessory Muscle Use, No Respiratory Distress Cardiovascular: Regular Rate, Rhythm, Tachycardia Peripheral Pulses: 2+ Radial Pulses (R), 2+ Radial Pulses (L) Skin: normal color, warm/dry Objective Exam Vital Signs Date Time Temp Pulse Resp B/P (MAP) Pulse Ox O2 Delivery O2 Flow Rate FiO2 10/31/22 04:06 36.7 114 18 92/51 (65) 97 Room Air 10/31/22 00:07 20 10/31/22 00:05 36.2 122 20 70/36 (47) 98 Room Air 10/30/22 23:25 36.2 122 20 70/36 98 10/30/22 23:06 36.3 363 20 74/59 97 Room Air 10/30/22 22:21 111 20 90/64 94 Room Air 10/30/22 21:39 116 20 81/56 97 Room Air 10/30/22 21:00 18 10/30/22 21:00 36.9 116 18 90/64 (73) 100 Room Air 10/30/22 20:10 96 Room Air 10/30/22 20:07 35.9 116 16 107/60 97 Room Air 10/30/22 20:02 35.9 116 16 102/70 97 Room Air 10/30/22 17:21 36.7 112 14 89/62 97 10/30/22 17:07 36.8 114 14 92/59 98 Room Air 10/30/22 15:57 36.4 116 18 103/69 (80) 97 Room Air 10/30/22 12:15 Room Air 10/30/22 12:10 37.0 20 119/75 (90) 96 Room Air 10/30/22 12:04 20 105/75 (85) 95 Room Air 10/30/22 11:55 Room Air 10/30/22 11:50 22 105/78 (87) 97 Room Air 10/30/22 11:40 OxyMask 2.00 10/30/22 11:40 22 121/86 (98) 100 OxyMask 2.00 10/30/22 11:30 16 122/76 (91) 100 OxyMask 2.00 10/30/22 11:25 OxyMask 2.00 10/30/22 11:20 18 113/72 (86) 100 OxyMask 4.00 10/30/22 11:15 17 97/66 (76) 100 OxyMask 4.00 10/30/22 11:09 OxyMask 6.00 10/30/22 11:09 36.8 18 98/57 (71) 95 OxyMask 6.00 10/30/22 08:22 36.2 119 18 134/93 (107) 96 Room Air 10/30/22 08:20 Room Air I & O 10/31/22 07:00 Intake Total 6602.9 ml Output Total 1305 ml Balance 5297.9 ml Capillary Refill : General Appearance: Chronically ill, Other (Postop) HEENT: PERRL/EOMI, Normal ENT Inspection, Other (alopecia, ng tube) Neck: Normal Inspection, Non Tender Respiratory: Lungs Clear, Normal Breath Sounds Cardiovascular: Normal Peripheral Pulses, Tachycardia Peripheral Pulses: 2+ Carotid (R), 2+ Carotid (L), 2+ Dorsalis Pedis (R), 2+ Left Dors-Pedis (L), 2+ Radial Pulses (R), 2+ Radial Pulses (L) Gastrointestinal: distended (moderate, tympanic with percussion), tenderness (periumbilical) Extremity: Normal Inspection, Non Tender Neurologic/Psychiatric: Alert, Oriented x3 Skin: Normal Color, Warm/Dry, Other ([address] 1 packed midline abdominal incision.) Lymphatic: No Adenopathy Results Lab Laboratory Tests 10/30/22 17:49: White Blood Count 4.7, Red Blood Count 3.03L, Hemoglobin 7.8L, Hematocrit 25L, Mean Corpuscular Volume 81, Mean Corpuscular Hemoglobin 26, Mean Corpuscular Hemoglobin Concent 32, Red Cell Distribution Width 19.4H, Platelet Count 51L, Mean Platelet Volume , Immature Granulocyte % (Auto) 1, Neutrophils (%) (Auto) 95H, Lymphocytes (%) (Auto) 0L, Monocytes (%) (Auto) 3, Eosinophils (%) (Auto) 0, Basophils (%) (Auto) 0, Neutrophils # (Auto) 4.5, Lymphocytes # (Auto) 0.0L, Monocytes # (Auto) 0.2, Eosinophils # (Auto) 0.0, Basophils # (Auto) 0.0, Immature Granulocyte # (Auto) 0.1, Prothrombin Time 22.9H, INR Comment 2.0H, Activated Partial Thromboplast Time 58H Microbiology 10/24/22 Blood Culture - Final, Complete No growth Assessment/Plan Assessment/Plan Assessment/Plan Anemia Thrombocytopenia Bowel obstruction status post diverting loop ileostomy. Metastatic cervical cancer with mets to lungs Oliguria: Urine output is 0.43 today. Plan: Continue to monitor Hgb -Hgb was 7.8 yesterday and today it is 7.6. LALITA drains were changed 5x last night (over 12 hrs) and 2x this morning starting at 7 AM. Given 2 units of blood over 2.5 hrs and 1 unit of FFP over 4.5 hrs. Platelets were 51 yesterday and today they are 25. No platelets available to transfuse. PT was 22.9 and aPTT was 58 yesterday. 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 725 mL from NG tube over 10 hrs. NPO She has a DNR in place and has a comfort care order. JOSE MANUEL JACOBSEN DO 10/31/22 0216: Subjective Subjective/Events-last exam Pain better controlled. Platelets dropping. Received 2 untis prbc and 1 ffp. Changed to DNR. Multiple family members present at bedside. Objective Exam General Appearance: Anxious, Chronically ill HEENT: PERRL/EOMI, Normal ENT Inspection, Other (alopecia, ng tube) Neck: Normal Inspection, Non Tender Respiratory: Chest Non Tender, No Accessory Muscle Use, No Respiratory Distress Cardiovascular: Tachycardia Gastrointestinal: tenderness (periumbilical), other (drains dark/sanguinous fluid, open midline) Extremity: Normal Inspection, Non Tender Neurologic/Psychiatric: Alert, Oriented x3 Skin: Normal Color, Warm/Dry Lymphatic: No Adenopathy Assessment/Plan Assessment/Plan Assessment/Plan Anemia Thrombocytopenia status post diverting loop ileostomy and drainage intrabdominal abscess with perforated uterus Metastatic cervical cancer with mets to lungs Oliguria: Urine output is 0.43 today. Continue to monitor Hgb -Hgb was 7.8 yesterday and today it is 7.6. LALITA drains w ere changed 5x last night (over 12 hrs) and 2x this morning starting at 7 AM. Given 2 units of blood over 2.5 hrs and 1 unit of FFP over 4.5 hrs. Platelets were 51 yesterday and today they are 25. No platelets available to transfuse. PT was 22.9 and aPTT was 58 yesterday. 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 725 mL from NG tube over 10 hrs. NPO She has chnaged code status to DNR She and family considering comfort care Supervisory-Addendum Brief Verification & Attestation Participated in pt care: history, MDM, physical Personally performed: exam, history, MDM, supervision of care Care discussed with: Medical Student Procedures: n/a Results interpretation: Verified all documentation Verification and Attestation of Medical Student E/M Service A medical student performed and documented this service in my presence. I reviewed and verified all information documented by the medical student and made modifications to such information, when appropriate. I personally performed the physical exam and medical decision making. Jose Manuel Jacobsen, Oct 31, 2022,16:48 KRISTIN GILBERT Oct 31, 2022 07:55 JOSE MANUEL JACOBSEN DO Oct 31, 2022 16:46
[2022-10-31 07:59] LABS: BASOPHILS % (AUTO) 0 % (0-10); HEMOGLOBIN 7.6 g/dL (11.5-16.0)
[2022-10-31 08:01] LABS: EOSINOPHILS % (AUTO) 0 % (0-10); HEMATOCRIT 22 % (35-52); LYMPHOCYTES # (AUTO) 0.1 10^3/uL (1.0-4.0); LYMPHOCYTES % (AUTO) 1 % (12-44); MEAN CORPUSCULAR HEMOGLOBIN 28 pg (25-34); MEAN CORPUSCULAR HGB CONC 34 g/dL (32-36); MEAN CORPUSCULAR VOLUME 81 fL (80-99); MONOCYTES # (AUTO) 0.2 10^3/uL (0.0-1.0); MONOCYTES % (AUTO) 3 % (0-12); NEUTROPHILS # (AUTO) 6.8 10^3/uL (1.8-7.8); NEUTROPHILS % (AUTO) 94 % (42-75); WHITE BLOOD COUNT 7.3 10^3/uL (4.3-11.0)
[2022-10-31 08:04] LABS: PLATELET COUNT 25 10^3/uL (130-400)
[2022-10-31 08:16] VITALS: BP 102/65
[2022-10-31 08:21] LABS: BILIRUBIN,TOTAL 1.1 MG/DL (0.1-1.0); CREATININE SERUM 0.87 MG/DL (0.60-1.30); MAGNESIUM 2.3 MG/DL (1.6-2.4); PHOSPHORUS 2.9 MG/DL (2.3-4.7); POTASSIUM 4.5 MMOL/L (3.6-5.0); TOTAL PROTEIN 3.7 GM/DL (6.4-8.2)
[2022-10-31] MEDS: POTASSIUM CL 10MEQ/50ML IVPB 50 ML IV SCH (08:35)
[2022-10-31] MEDS: MAGNESIUM 1 GM/100 ML IVPB 100 ML IV SCH (08:36)
[2022-10-31] MEDS: POTASSIUM BICARB 20 MEQ effervescent TABLET PO SCH (08:36)
[2022-10-31 08:37] LABS: ALBUMIN 1.5 GM/DL (3.2-4.5)
--- NOTE | 2022-10-31 10:52 | Anesthesia-General Post-Op ---
General Post Op Complications Complications None Follow Up Care/Instructions Patient Instructions None needed. Anesthesia/Patient Condition Patient Condition No apparent adverse anesthesia problems. No anesthetic complications reported per nursing. READING,BROWN Pritchett STUDY ASSISTANT Oct 31, 2022 10:52
[2022-10-31] MEDS ORDERED: ATROPINE 1% OPHTHALMIC SOLN 2 ML SL PRN (12:00)
[2022-10-31] MEDS ORDERED: BISACODYL 10 MG SUPPOSITORY PR PRN (12:00)
[2022-10-31] MEDS ORDERED: SALIVA SUBSTITUTE 60 ML SPRAY MM PRN (12:00)
[2022-10-31] MEDS ORDERED: PROMETHAZINE INJ 25 MG/ML VIAL IVP PRN (12:00)
[2022-10-31] MEDS ORDERED: ACETAMINOPHEN 650 MG SUPPOSITORY PR PRN (12:00)
[2022-10-31] MEDS ORDERED: GLYCOPYRROLATE INJ 0.2 MG/ML 2 ML VIAL IV PRN (12:00)
[2022-10-31] MEDS ORDERED: LORazepam ORAL CONCENTRATE 2 MG/ML 30 ML PO PRN (12:00)
[2022-10-31] MEDS ORDERED: ONDANSETRON INJECTION 4 MG/2 ML (SDV) IVP PRN (12:00)
[2022-10-31] MEDS ORDERED: ARTIFICAL TEARS Ophth solution 0.4 ML UNIT DOSE OU PRN (12:00)
[2022-10-31] MEDS ORDERED: SCOPOLAMINE 1.5 MG PATCH TOP SCH (12:00)
[2022-10-31] MEDS ORDERED: LORazepam 1 MG TABLET SL PRN (12:00)
[2022-10-31] MEDS ORDERED: RT-Ipratropium/Albuterol NEB 3 ML VIAL INH PRN (12:00)
[2022-10-31 12:16] VITALS: BP 103/68
[2022-10-31] MEDS ORDERED: LACTATED RINGERS 1,000 ML 1,000 ML IV ONE (12:59)
--- NOTE | 2022-11-01 08:55 | Progress Note - Hospitalist ---
Subjective HPI/CC On Admission Date Seen by Provider: Nov 01, 2022 Time Seen by Provider: 09:45 Objective Exam Vital Signs Vital Signs Date Time Temp Pulse Resp B/P (MAP) Pulse Ox O2 Delivery O2 Flow Rate FiO2 10/31/22 20:48 Room Air 10/31/22 12:16 36.3 121 16 103/68 (80) 92 10/30/22 11:40 2.00 Capillary Refill : Results/Procedures Lab Patient resulted labs reviewed. Assessment/Plan Assessment and Plan Assess & Plan/Chief Complaint Assessment: Urgent exploratory due to uterine perforation due to massive tumor load Severe symptomatic anemia requiring transfusion Bowel obstruction NG tube in place Metastatic cervical cancer Dr. Clemons managing pain control Tachycardia Plan: Comfort care KALI AWAD DO Nov 01, 2022 08:55
[2022-11-01] MEDS: LACTATED RINGERS 1,000 ML 1,000 ML IV SCH (13:46)
--- NOTE | 2022-11-01 20:19 | Discharge Summary ---
Discharge Summary Hospital Course Was the Problem List Reviewed?: Yes Problems/Dx: (1) Multiple lesions of metastatic malignancy Status: Acute (2) Cervical cancer Status: Chronic Qualifiers: Qualified Codes: C53.9 - Malignant neoplasm of cervix uteri, unspecified (3) Acute on chronic anemia Status: Acute (4) Pain from bone metastases Status: Acute (5) Cancer related pain Status: Chronic Hospital Course Date of Admission: Oct 24, 2022 at 21:40 Admission Diagnosis : Family Physician/Provider: Jane Haney MD Date of Discharge: 11/01/22 Discharge Diagnosis: [ ] Hospital Course: Lengthy course after she was admitted for severe pain from cervical cancer with bony mets. 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 Required transfusions for severe anemia from vaginal and rectal bleeding. Exp lap performed due to obstruction revealing extensive cancer mets. Overall she had very poor prognosis and was placed on comfort care and Labs and Pending Lab Test: Laboratory Tests 11/01/22 13:19: Lab Scanned Report Transfusion Reaction Form Microbiology 10/29/22 MRSA Screen - Final, Complete MRSA not isolated 10/24/22 Blood Culture - Final, Complete No growth Home Meds Active Reported Imodium A-D (Loperamide HCl) 2 Mg Capsule 2-4 Mg PO Q8H PRN Levofloxacin 500 Mg Tablet 500 Mg PO DAILY FILLED 10-22-2022 #09/02 DAY SUPPLY Fentanyl Patch 25 MCG (Fentanyl) 25 Mcg/Hour Patch.td72 25 Mcg TD Q72H Folic Acid 1 Mg Tablet 1 Mg PO TID Miralax (Polyethylene Glycol 3350) 17 Gram Powd.pack 17 Gm PO DAILY PRN Meloxicam 15 Mg Tablet 15 Mg PO DAILY Naloxone HCl 4 Mg/Actuation [place]is 1 Landis NSEACH UD PRN Administer 1 spray in one nostril, then another spray may be given into the other nostril every 2 to 3 minutes until the patient responds or until EMS arrives Lactulose 10 Gram/15 Ml Solution 5 Ml PO TID PRN Ondansetron HCl 8 Mg Tablet 8 Mg PO Q4H PRN Hydrocodone-Acetamin 5-325 mg (Hydrocodone/Acetaminophen) 5 Mg-325 Mg Tablet 1 Tab PO Q6H PRN Cyclobenzaprine HCl 10 Mg Tablet 10 Mg PO HS Amitriptyline HCl 25 Mg Tablet 25 Mg PO HS Potassium Chloride 20 Meq Tab.er.prt 20 Meq PO BID LAST FILLED 08-23-2022 #30/ DAY SUPPLY Assessment/Pt Instructions Discharge Planning: <30 minutes discharge planning Discharge Physical Examination Vital Signs Vital Signs Date Time Temp Pulse Resp B/P (MAP) Pulse Ox O2 Delivery O2 Flow Rate FiO2 10/31/22 20:48 Room Air 10/31/22 12:16 36.3 121 16 103/68 (80) 92 10/30/22 11:40 2.00 Allergies: Coded Allergies: codeine (Verified Allergy, Mild, chest tightness, 09/19/22) morphine (Verified Allergy, Mild, chest tightness, 09/19/22) gabapentin (Verified Allergy, Unknown, 09/19/22) Discharge Summary Date of Admission Oct 24, 2022 at 21:40 Date of Discharge Comfort Measures/ End of Life Care: Comfort Measures Discharge Diagnosis Assessment: Urgent exploratory due to uterine perforation due to massive tumor load Severe symptomatic anemia requiring transfusion Bowel obstruction NG tube in place Metastatic cervical cancer Dr. Clemons managing pain control Tachycardia Plan: Comfort care KALI AWAD DO Nov 01, 2022 20:19
== END 2022-11-01 23:34 | disposition expired | DRG 939 ==
LOC: EDUNIT# 17:54 → ER FS 17:55 → 4TH 21:30 → OBSVTOIN 21:40 → 4TH 10-28 13:29
PROVIDERS: ADMIT Family Medicine; ATTEND Internal Medicine
PROC: 0W9G00Z Drainage of Peritoneal Cavity with Drainage Device, Open Approach (ICD-10-PCS; 2022-10-30)
PROC: 0D1B0Z4 Bypass Ileum to Cutaneous, Open Approach (ICD-10-PCS; principal; 2022-10-30 09:43)
DX: G89.3 Neoplasm related pain (acute) (chronic) (principal); K65.1 Peritoneal abscess; C78.01 Secondary malignant neoplasm of right lung; D62 Acute posthemorrhagic anemia; N30.00 Acute cystitis without hematuria; E87.1 Hypo-osmolality and hyponatremia; K56.609 Unspecified intestinal obstruction, unspecified as to partial versus complete obstruction; K92.1 Melena; N13.30 Unspecified hydronephrosis; S37.69XA Other injury of uterus, initial encounter; Z66 Do not resuscitate; C53.9 Malignant neoplasm of cervix uteri, unspecified; D63.0 Anemia in neoplastic disease; Z92.21 Personal history of antineoplastic chemotherapy; Z92.3 Personal history of irradiation; R11.0 Nausea; E87.6 Hypokalemia; N93.9 Abnormal uterine and vaginal bleeding, unspecified; R00.0 Tachycardia, unspecified; Z51.5 Encounter for palliative care; D69.6 Thrombocytopenia, unspecified
CPT/HCPCS: 36415; 51702; 71045; 74018; 74022; 74177; 80048; 80053; 81000; 83605; 83690; 83735; 84100; 85007; 85014; 85018; 85025; 85027; 85610; 85730; 86141; 86850; 86900; 86901; 86920; 87040; 87081; 94760; 96374; 96375; 96376; Q9967